=== PATIENT | male | born 1940 | race Hispanic/Latino ===

== ENCOUNTER 2017-09-16 17:40 | Inpatient (IN) | payer MEDICARE ==
--- NOTE | 2017-09-16 20:27 | Emergency Department Report ---
- General Chief Complaint: Wound/Laceration Stated Complaint: FLUID LEAKAGE FROM SURGERY Time Seen by Provider: 09/16/17 20:15 Source: patient, EMS Mode of arrival: Stretcher Limitations: No Limitations - History of Present Illness Initial Comments: Mr. Petty is a very pleasant 77-year-old with history of peripheral vascular disease. 1 month ago on August 13 patient underwent right femoral endarterectomy angioplasty with stent placement in the right femoral artery by Dr. Saurav Valentin vascular surgeon. Last night the upper portion of the wound opened up with clear fluid leaking. He denies fever. Denies pain. Denies trauma. He is yet to have follow-up. He has persisting constant chronic pain in the right foot which is unchanged. He was unable to come to the surgical appointment scheduled today due to lack of transportation. He has no other concerns. -: Sudden Location: other (groin) Context: other (surgical incision) Associated Symptoms: other (clear fluid leaking) - Related Data Home Medications Medication Instructions Recorded Confirmed Last Taken Enoxaparin [Lovenox] 80 mg SQ Q12HR 08/09/17 08/13/17 08/12/17 21:00 Esomeprazole Magnesium [Nexium] 40 mg PO DAILY 08/09/17 08/13/17 08/12/17 17:00 Hydroxychloroquine [Plaquenil] 200 mg PO BID 08/09/17 08/13/17 08/12/17 21:00 Insulin Aspart Prot/Aspart(Nf) 30 units SQ QPM 08/09/17 08/09/17 Unknown [Novolog Mix 70/30] Insulin Aspart Prot/Aspart(Nf) 35 units SQ QAM 08/09/17 08/13/17 08/12/17 09:00 [Novolog Mix 70/30] Losartan/Hydrochlorothiazide 1 each PO DAILY 08/09/17 08/13/17 08/13/17 06:00 [Losartan-Hctz 50-12.5 mg Tab] Warfarin Sodium [Coumadin] 4 mg PO DAILY 08/09/17 08/09/17 08/08/17 metFORMIN [Glucophage] 500 mg PO BID 08/09/17 08/13/17 08/11/17 17:00 oxyCODONE /ACETAMINOPHEN [Percocet 1 tab PO Q6HR PRN 08/09/17 08/09/17 Unknown 5/325] Previous Rx's Medication Instructions Recorded Last Taken Type Enoxaparin [Lovenox] 80 mg SQ Q12HR #1 syringe 08/14/17 Unknown Rx Oxycodone HCl/Acetaminophen 1 each PO Q6HR PRN #40 tablet 08/14/17 Unknown Rx [Percocet 10/325 mg] Allergies Allergy/AdvReac Type Severity Reaction Status Date / Time No Known Allergies Allergy Verified 09/16/17 17:53 ED Review of Systems ROS: Stated complaint: FLUID LEAKAGE FROM SURGERY Other details as noted in HPI Comment: All other systems reviewed and negative Constitutional: no symptoms reported Respiratory: denies: cough Cardiovascular: denies: chest pain ED Past Medical Hx - Past Medical History Hx Hypertension: Yes Hx Heart Attack/AMI: Yes Hx Diabetes: Yes Hx GERD: Yes - Surgical History Hx Coronary Stent: Yes - Social History Smoking Status: Never Smoker Substance Use Type: None - Medications Home Medications: Home Medications Medication Instructions Recorded Confirmed Last Taken Type Enoxaparin [Lovenox] 80 mg SQ Q12HR 08/09/17 08/13/17 08/12/17 21:00 History Esomeprazole Magnesium [Nexium] 40 mg PO DAILY 08/09/17 08/13/17 08/12/17 17:00 History Hydroxychloroquine [Plaquenil] 200 mg PO BID 08/09/17 08/13/17 08/12/17 21:00 History Insulin Aspart Prot/Aspart(Nf) 30 units SQ QPM 08/09/17 08/09/17 Unknown History [Novolog Mix 70/30] Insulin Aspart Prot/Aspart(Nf) 35 units SQ QAM 08/09/17 08/13/17 08/12/17 09:00 History [Novolog Mix 70/30] Losartan/Hydrochlorothiazide 1 each PO DAILY 08/09/17 08/13/17 08/13/17 06:00 History [Losartan-Hctz 50-12.5 mg Tab] Warfarin Sodium [Coumadin] 4 mg PO DAILY 08/09/17 08/09/17 08/08/17 History metFORMIN [Glucophage] 500 mg PO BID 08/09/17 08/13/17 08/11/17 17:00 History oxyCODONE /ACETAMINOPHEN [Percocet 1 tab PO Q6HR PRN 08/09/17 08/09/17 Unknown History 5/325] Enoxaparin [Lovenox] 80 mg SQ Q12HR #1 syringe 08/14/17 Unknown Rx Oxycodone HCl/Acetaminophen 1 each PO Q6HR PRN #40 tablet 08/14/17 Unknown Rx [Percocet 10/325 mg] ED Physical Exam - General Limitations: No Limitations General appearance: alert, in no apparent distress - Head Head exam: Present: atraumatic, normocephalic - Eye Eye exam: Present: normal appearance - ENT ENT exam: Present: normal exam, normal orophraynx, mucous membranes moist - Neck Neck exam: Present: normal inspection. Absent: tenderness, meningismus - Respiratory Respiratory exam: Present: normal lung sounds bilaterally. Absent: respiratory distress, wheezes, rales, rhonchi - Cardiovascular Cardiovascular Exam: Present: regular rate, normal rhythm, normal heart sounds. Absent: bradycardia, tachycardia, irregular rhythm, rubs, gallop - GI/Abdominal GI/Abdominal exam: Present: soft. Absent: distended, tenderness, guarding, rebound - Neurological Exam Neurological exam: Present: alert, oriented X3 - Psychiatric Psychiatric exam: Present: normal affect, normal mood - Skin Skin exam: Present: other (right groin surgical wound vertical incidsion 1 cm wound dehisicence with copious clear serous fluid, fat exposure, no bleeding no purulence) - Other Other exam information: Nurse was able to Doppler right dorsalis pedis pulse. 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 ED Course Vital Signs 09/16/17 09/16/17 17:53 19:45 Temperature 98.2 F Pulse Rate 94 H Respiratory 16 16 Rate Blood Pressure 150/80 O2 Sat by Pulse 96 96 Oximetry ED Medical Decision Making - Lab Data Result diagrams: 09/16/17 21:14 09/16/17 21:14 - Medical Decision Making Mr. Petty is one month s/p right femoral artery endarterectomy and angioplasty. I spoke with the surgeon Dr. Saurav Valentin who advised that he will need to surgically revise the wound. Patient has a special patch in the area. Dr. Valentin explained that he will be at high risk for infection considering patient has been not reliable with follow-up. Dr. Valentin will arrange for patient to be admitted to the hospital. I explained to the patient and his relative of the need for surgery and admission. I reviewed labs. Patient takes warfarin. Nurse asked me to address hypertension. I ordered amlodipine. Critical care attestation.: If time is entered above; I have spent that time in minutes in the direct care of this critically ill patient, excluding procedure time. ED Disposition Clinical Impression: Wound dehiscence Disposition: OP ADMIT IP TO THIS HOSP Is pt being admited?: Yes Does the pt Need Aspirin: No Condition: Stable Time of Disposition: 21:00
[2017-09-16] MEDS ORDERED: SODIUM CHLORIDE FLUSH SYRINGE 10 ML IV PRN (20:57)
[2017-09-16] MEDS ORDERED: NORCO 5/325 PO PRN (20:57)
[2017-09-16] MEDS ORDERED: ZOFRAN IV PRN (20:57)
[2017-09-16] MEDS ORDERED: ANCEF/STERILE WATER 2 GM/20 ML 2 GM/20 ML SYRINGE IV NR (21:00)
[2017-09-16] MEDS ORDERED: HumaLOG SUB-Q ONE ×2 (21:06→21:51)
[2017-09-16 21:29] LABS: Basophils # (Auto) 0.1 K/mm3 (0.0-0.1); Basophils % (Auto) 0.9 % (0.0-1.8); Eosinophils # (Auto) 0.4 K/mm3 (0.0-0.4); Eosinophils % (Auto) 5.4 % (0.0-4.3); Hematocrit 35.7 % (35.5-45.6); Hemoglobin 11.6 gm/dl (11.8-15.2); Lymphocytes # (Auto) 1.2 K/mm3 (1.2-5.4); Lymphocytes % (Auto) 16.2 % (13.4-35.0); Mean Corpuscular HGB Conc 33 % (32-34); Mean Corpuscular Hemoglobin 27 pg (28-32); Mean Corpuscular Volume 82 fl (84-94); Monocytes # (Auto) 0.7 K/mm3 (0.0-0.8); Monocytes % (Auto) 9.5 % (0.0-7.3); Platelet Count 254 K/mm3 (140-440); Red Blood Count 4.34 M/mm3 (3.65-5.03); Red Cell Distribution Width 15.2 % (13.2-15.2)
[2017-09-16 21:39] LABS: Calcium 9.3 mg/dL (8.4-10.2)
[2017-09-16 21:40] LABS: INR 1.9 (0.87-1.13)
[2017-09-16 21:41] LABS: Partial Thromboplastin Time 34.5 Sec. (24.2-36.6)
[2017-09-16] MEDS ORDERED: NORVASC PO SCH (22:09)
[2017-09-16] MEDS ORDERED: NORVASC ONE (22:16)
[2017-09-16] MEDS ORDERED: NORVASC PO ONE (22:20)
[2017-09-16] MEDS: SODIUM CHLORIDE FLUSH SYRINGE 10 ML IV SCH (22:24)
[2017-09-16] MEDS ORDERED: NORCO 5/325 ONE (22:46)
[2017-09-17] MEDS: LOVENOX SUB-Q SCH ×2 (01:10→10:06)
[2017-09-17] MEDS: GLUCOPHAGE PO SCH ×3 (01:50→17:49)
[2017-09-17] MEDS: MORPHINE IV PRN ×2 (02:22→06:54)
[2017-09-17] MEDS ORDERED: D50W (25GM) Syringe IV PRN (02:31)
[2017-09-17] MEDS: HumaLOG SUB-Q SCH ×6 (05:18→22:50)
--- NOTE | 2017-09-17 08:42 | History and Physical Report ---
History of Present Illness Date of examination: 09/17/17 Date of admission: 09/16/17 20:57 Chief complaint: Drainage from right groin wound History of present illness: The patient is 77-year-old male with a history of peripheral vascular disease who recently underwent a right femoral endarterectomy with Dacron patch angioplasty. He also had atherectomy and angioplasty with stent of his SFA and popliteal artery on the right. He initially did well but was unable to follow- up in the outpatient setting for his postoperative visit secondary to transportation issues. He states that approximately 2 days ago he began to note clear yellow drainage from his right groin. This became fairly copious and he called 911 yesterday and was brought to the emergency department at [facility]. Upon evaluation he was found to be afebrile and the emergency room physician noted him to have copious amounts of serous drainage from his right groin incision. There were no other findings at the time. I advised him to have him admitted for possible excision of his patch as I was worried that this may become infected since he was unreliable with follow. On my examination this morning the patient denies any fever or chills. He states that he has some pain in the tips of toes 2 through 4 on his right foot however the remainder of the foot has no pain. He has no other complaints at this time. Past History Past Medical History: atrial fib, CAD, GERD, hypertension, hyperlipidemia, PVD, other (prostate cancer, venous insufficiency, carotid stenosis) Past Surgical History: valve replacement (AVR 2006), Other (Right femoral endarterectomy with patch angioplasty and SFA/Popliteal atherectomy with stent, hypospadias repair, prostate surgery, back surgery) Social history: smoking Family history: no significant family history Medications and Allergies Allergies Allergy/AdvReac Type Severity Reaction Status Date / Time No Known Allergies Allergy Verified 09/16/17 17:53 Home Medications Medication Instructions Recorded Confirmed Last Taken Type Enoxaparin [Lovenox] 80 mg SQ Q12HR 08/09/17 09/17/17 08/12/17 21:00 History Esomeprazole Magnesium [Nexium] 40 mg PO DAILY 08/09/17 09/17/17 08/12/17 17:00 History Hydroxychloroquine [Plaquenil] 200 mg PO BID 08/09/17 09/17/17 09/16/17 10:00 History Insulin Aspart Prot/Aspart(Nf) 30 units SQ QPM 08/09/17 09/17/17 09/15/17 22:00 History [Novolog Mix 70/30] Insulin Aspart Prot/Aspart(Nf) 35 units SQ QAM 08/09/17 09/17/17 09/16/17 10:00 History [Novolog Mix 70/30] Losartan/Hydrochlorothiazide 1 each PO DAILY 08/09/17 09/17/17 09/16/17 10:00 History [Losartan-Hctz 50-12.5 mg Tab] Warfarin Sodium [Coumadin] 4 mg PO DAILY 08/09/17 09/17/17 09/16/17 10:00 History metFORMIN [Glucophage] 500 mg PO BID 08/09/17 09/17/17 09/16/17 10:00 History oxyCODONE /ACETAMINOPHEN [Percocet 1 tab PO Q6HR PRN 08/09/17 09/17/17 09/15/17 22:00 History 5/325] Enoxaparin [Lovenox] 80 mg SQ Q12HR #1 syringe 08/14/17 09/17/17 Unknown Rx Oxycodone HCl/Acetaminophen 1 each PO Q6HR PRN #40 tablet 08/14/17 09/17/17 Rx [Percocet 10/325 mg] Cilostazol 50 mg PO BID 09/16/17 09/16/17 09/16/17 22:00 History Active Meds: Active Medications Acetaminophen (Tylenol) 650 mg PO Q4H PRN PRN Reason: Pain MILD(1-3)/Fever >100.5/CRESPO Acetaminophen/Hydrocodone Bitart ([place] 5/325) 2 each PO Q6H PRN PRN Reason: Pain, Moderate (4-6) Last Admin: 09/16/17 22:52 Dose: 2 each Dextrose (D50w (25gm) Syringe) 50 ml IV PRN PRN PRN Reason: Hypoglycemia Enoxaparin Sodium (Lovenox) 80 mg 1 mg/kg (80 mg) SUB-Q Q12HR [facility] Last Admin: 09/17/17 01:10 Dose: Not Given Hydrochlorothiazide (Hctz) 12.5 mg PO QDAY [facility] Hydroxychloroquine Sulfate (Plaquenil) 200 mg PO BID [facility] Cefazolin Sodium (Ancef/Sterile Water 2 Gm/20 Ml) 2 gm in 20 mls @ 80 mls/hr IV PREOP NR; Protocol Stop: 09/17/17 23:59 Insulin Human Isoph/Insulin Regular (Humulin 70/30) 35 unit SUB-Q QAMDIAB [facility] Insulin Human Isoph/Insulin Regular (Humulin 70/30) 30 unit SUB-Q QPMDIAB [facility] Insulin Human Lispro (Humalog) 0 unit SUB-Q Q4HR [facility]; Protocol Last Admin: 09/17/17 07:30 Dose: 1 unit Losartan Potassium (Cozaar) 50 mg PO QDAY [facility] Metformin HCl (Glucophage) 500 mg PO BIDDIAB [facility] Last Admin: 09/17/17 01:50 Dose: 500 mg Miscellaneous Medication (Cilostazol) 50 mg PO BID [facility] Morphine Sulfate (Morphine) 2 mg IV Q4H PRN PRN Reason: Pain, Moderate (4-6) Last Admin: 09/17/17 06:54 Dose: 2 mg Ondansetron HCl (Zofran) 4 mg IV Q8H PRN PRN Reason: Nausea And Vomiting Pantoprazole Sodium (Protonix) 40 mg PO DAILY [facility] Sodium Chloride (Sodium Chloride Flush Syringe 10 Ml) 10 ml IV PRN PRN PRN Reason: LINE FLUSH Sodium Chloride (Sodium Chloride Flush Syringe 10 Ml) 10 ml IV BID [facility] Last Admin: 09/16/17 22:24 Dose: 10 ml Review of Systems All systems: negative Exam - Constitutional Vitals: Temp Pulse Resp BP Pulse Ox 97.9 F 74 18 137/67 91 09/17/17 07:47 09/17/17 07:47 09/17/17 07:47 09/17/17 07:47 09/17/17 07:47 General appearance: Present: no acute distress - EENT Eyes: Present: PERRL - Neck Neck: Present: supple - Respiratory Respiratory effort: normal - Cardiovascular Rhythm: irregularly irregular - Extremities Extremities: no ischemia, No edema, normal temperature Extremity abnormal: other (right groin incision without evidence of cellulitis, there is approximately 1 cm dehiscence of the superior aspect of the wound with copious drainage of serous fluid no purulence noted) - Abdominal General gastrointestinal: Present: soft, non-tender, non-distended Male genitourinary: Present: deferred - Rectal Rectal Exam: deferred - Musculoskeletal Musculoskeletal: strength equal bilaterally Results - Labs CBC & Chem 7: 09/16/17 21:14 09/16/17 21:14 Labs: Abnormal lab results 09/16/17 09/16/17 09/16/17 Range/Units 21:14 21:14 21:14 Hgb 11.6 L (11.8-15.2) gm/dl MCV 82 L (84-94) fl MCH 27 L (28-32) pg [place] % (Auto) 9.5 H (0.0-7.3) % Eos % (Auto) 5.4 H (0.0-4.3) % PT 23.0 H (12.2-14.9) Sec. INR 1.90 H (0.87-1.13) Sodium 136 L (137-145) mmol/L BUN 21 H (9-20) mg/dL Glucose 153 H (75-100) mg/dL POC Glucose (70-105) 09/16/17 09/17/17 09/17/17 Range/Units 21:53 05:21 06:46 Hgb (11.8-15.2) gm/dl MCV (84-94) fl MCH (28-32) pg [place] % (Auto) (0.0-7.3) % Eos % (Auto) (0.0-4.3) % PT (12.2-14.9) Sec. INR (0.87-1.13) Sodium (137-145) mmol/L BUN (9-20) mg/dL Glucose (75-100) mg/dL POC Glucose 158 H 125 H 174 H (70-105) Assessment and Plan The patient is a 77-year-old male with a history of progressive disease status post revascularization of the right lower extremity. 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 Given his poor compliance with follow-up and and the underlying patch I'm concerned with the risk of patch infection. I think that the patient would benefit from exploration of the groin and possible excision of the patch with replacement of a vein patch. Additionally he will require a sartorius flap coverage and possible VAC placement. If I can find the lymphatic I will ligate the lymphatic and possibly close the incision over a drain however finding the the area of lymphatic drainage is typically difficult. I have discussed this with the patient and he is awaiting arrival of his family. I will discuss this with the family when they arrive and plan to proceed with operation today.
--- NOTE | 2017-09-17 09:03 | Progress Note ---
Hospitalist Physical - Constitutional Vitals: Temp Pulse Resp BP Pulse Ox 97.9 F 74 18 137/67 91 09/17/17 07:47 09/17/17 07:47 09/17/17 07:47 09/17/17 07:47 09/17/17 07:47 Results - Labs CBC & Chem 7: 09/16/17 21:14 09/16/17 21:14 Labs: Laboratory Last Values WBC 7.6 K/mm3 (4.5-11.0) 09/16/17 21:14 RBC 4.34 M/mm3 (3.65-5.03) 09/16/17 21:14 Hgb 11.6 gm/dl (11.8-15.2) L 09/16/17 21:14 Hct 35.7 % (35.5-45.6) 09/16/17 21:14 MCV 82 fl (84-94) L 09/16/17 21:14 MCH 27 pg (28-32) L 09/16/17 21:14 MCHC 33 % (32-34) 09/16/17 21:14 RDW 15.2 % (13.2-15.2) 09/16/17 21:14 Plt Count 254 K/mm3 (140-440) 09/16/17 21:14 Lymph % (Auto) 16.2 % (13.4-35.0) 09/16/17 21:14 [place] % (Auto) 9.5 % (0.0-7.3) H 09/16/17 21:14 Eos % (Auto) 5.4 % (0.0-4.3) H 09/16/17 21:14 Baso % (Auto) 0.9 % (0.0-1.8) 09/16/17 21:14 Lymph # 1.2 K/mm3 (1.2-5.4) 09/16/17 21:14 [place] # 0.7 K/mm3 (0.0-0.8) 09/16/17 21:14 Eos # 0.4 K/mm3 (0.0-0.4) 09/16/17 21:14 Baso # 0.1 K/mm3 (0.0-0.1) 09/16/17 21:14 Seg Neutrophils % 68.0 % (40.0-70.0) 09/16/17 21:14 Seg Neutrophils # 5.2 K/mm3 (1.8-7.7) 09/16/17 21:14 PT 23.0 Sec. (12.2-14.9) H 09/16/17 21:14 INR 1.90 (0.87-1.13) H 09/16/17 21:14 APTT 34.5 Sec. (24.2-36.6) 09/16/17 21:14 Sodium 136 mmol/L (137-145) L 09/16/17 21:14 Potassium 4.1 mmol/L (3.6-5.0) 09/16/17 21:14 Chloride 99.0 mmol/L (98-107) 09/16/17 21:14 Carbon Dioxide 25 mmol/L (22-30) 09/16/17 21:14 Anion Gap 16 mmol/L 09/16/17 21:14 BUN 21 mg/dL (9-20) H 09/16/17 21:14 Creatinine 1.4 mg/dL (0.8-1.5) 09/16/17 21:14 Estimated GFR 49 ml/min 09/16/17 21:14 BUN/Creatinine Ratio 15 % 09/16/17 21:14 Glucose 153 mg/dL (75-100) H 09/16/17 21:14 POC Glucose 174 (70-105) H 09/17/17 06:46 Calcium 9.3 mg/dL (8.4-10.2) 09/16/17 21:14
--- NOTE | 2017-09-17 09:05 | Consultation ---
History of Present Illness - Reason for Consult Consult date: 09/17/17 Medical Management Requesting physician: SAURAV VALENTIN - History of Present Illness Patient is 77-year-old male man with a history of peripheral vascular disease, atrial fib, CAD, HTN, HLD, GERD. He recently underwent a right femoral endarterectomy with Dacron patch angioplasty. He also had atherectomy and angioplasty with stent of his SFA and popliteal artery on the right. Patient presented to ED via EMS with complaints of clear yellow drainage from his R groin. Drainage started two days prior to admission and patient denies any fever or chills. Vascular Surgeon Dr Saurav Valentin was consulted and recommended surgical intervention at this time. Internal Medicine consult was placed for medical management. Past History Past Medical History: atrial fib, CAD, GERD, hypertension, hyperlipidemia, PVD, other (prostate cancer, venous insufficiency, carotid stenosis) Past Surgical History: valve replacement (AVR 2006), Other (Right femoral endarterectomy with patch angioplasty and SFA/Popliteal atherectomy with stent, hypospadias repair, prostate surgery, back surgery) Social history: smoking Family history: no significant family history Medications and Allergies Allergies Allergy/AdvReac Type Severity Reaction Status Date / Time No Known Allergies Allergy Verified 09/16/17 17:53 Home Medications Medication Instructions Recorded Confirmed Last Taken Type Enoxaparin [Lovenox] 80 mg SQ Q12HR 08/09/17 09/17/17 08/12/17 21:00 History Esomeprazole Magnesium [Nexium] 40 mg PO DAILY 08/09/17 09/17/17 08/12/17 17:00 History Hydroxychloroquine [Plaquenil] 200 mg PO BID 08/09/17 09/17/17 09/16/17 10:00 History Insulin Aspart Prot/Aspart(Nf) 30 units SQ QPM 08/09/17 09/17/17 09/15/17 22:00 History [Novolog Mix 70/30] Insulin Aspart Prot/Aspart(Nf) 35 units SQ QAM 08/09/17 09/17/17 09/16/17 10:00 History [Novolog Mix 70/30] Losartan/Hydrochlorothiazide 1 each PO DAILY 08/09/17 09/17/17 09/16/17 10:00 History [Losartan-Hctz 50-12.5 mg Tab] Warfarin Sodium [Coumadin] 4 mg PO DAILY 08/09/17 09/17/17 09/16/17 10:00 History metFORMIN [Glucophage] 500 mg PO BID 08/09/17 09/17/17 09/16/17 10:00 History oxyCODONE /ACETAMINOPHEN [Percocet 1 tab PO Q6HR PRN 08/09/17 09/17/17 09/15/17 22:00 History 5/325] Enoxaparin [Lovenox] 80 mg SQ Q12HR #1 syringe 08/14/17 09/17/17 Unknown Rx Oxycodone HCl/Acetaminophen 1 each PO Q6HR PRN #40 tablet 08/14/17 09/17/17 Rx [Percocet 10/325 mg] Cilostazol 50 mg PO BID 09/16/17 09/16/17 09/16/17 22:00 History Active Meds: Active Medications Acetaminophen (Tylenol) 650 mg PO Q4H PRN PRN Reason: Pain MILD(1-3)/Fever >100.5/CRESPO Acetaminophen/Hydrocodone Bitart ([place] 5/325) 2 each PO Q6H PRN PRN Reason: Pain, Moderate (4-6) Last Admin: 09/16/17 22:52 Dose: 2 each Dextrose (D50w (25gm) Syringe) 50 ml IV PRN PRN PRN Reason: Hypoglycemia Enoxaparin Sodium (Lovenox) 80 mg 1 mg/kg (80 mg) SUB-Q Q12HR [facility] Last Admin: 09/17/17 01:10 Dose: Not Given Hydrochlorothiazide (Hctz) 12.5 mg PO QDAY [facility] Hydroxychloroquine Sulfate (Plaquenil) 200 mg PO BID [facility] Cefazolin Sodium (Ancef/Sterile Water 2 Gm/20 Ml) 2 gm in 20 mls @ 80 mls/hr IV PREOP NR; Protocol Stop: 09/17/17 23:59 Insulin Human Isoph/Insulin Regular (Humulin 70/30) 35 unit SUB-Q QAMDIAB [facility] Insulin Human Isoph/Insulin Regular (Humulin 70/30) 30 unit SUB-Q QPMDIAB [facility] Insulin Human Lispro (Humalog) 0 unit SUB-Q Q4HR [facility]; Protocol Last Admin: 09/17/17 07:30 Dose: 1 unit Losartan Potassium (Cozaar) 50 mg PO QDAY [facility] Metformin HCl (Glucophage) 500 mg PO BIDDIAB [facility] Last Admin: 09/17/17 01:50 Dose: 500 mg Miscellaneous Medication (Cilostazol) 50 mg PO BID [facility] Morphine Sulfate (Morphine) 2 mg IV Q4H PRN PRN Reason: Pain, Moderate (4-6) Last Admin: 09/17/17 06:54 Dose: 2 mg Ondansetron HCl (Zofran) 4 mg IV Q8H PRN PRN Reason: Nausea And Vomiting Pantoprazole Sodium (Protonix) 40 mg PO DAILY [facility] Sodium Chloride (Sodium Chloride Flush Syringe 10 Ml) 10 ml IV PRN PRN PRN Reason: LINE FLUSH Sodium Chloride (Sodium Chloride Flush Syringe 10 Ml) 10 ml IV BID [facility] Last Admin: 09/16/17 22:24 Dose: 10 ml Review of Systems All systems: negative Exam - Physical Exam Narrative exam: - EENT Eyes: Present: PERRL, EOMI - Neck Neck: Present: supple, trachea midline - Respiratory Respiratory effort: normal, CTAB - Cardiovascular Rhythm: irregularly irregular, present S1, S2, absent rubs, clicks - Extremities Extremities: no ischemia, No edema, normal temperature Extremity abnormal: other (right groin with wound vac) - Abdominal General gastrointestinal: Present: soft, non-tender, non-distended Male genitourinary: Present: deferred - Rectal Rectal Exam: deferred - Musculoskeletal Musculoskeletal: strength equal bilaterally - Constitutional Vitals: Temp Pulse Resp BP Pulse Ox 97.9 F 74 18 137/67 91 09/17/17 07:47 09/17/17 07:47 09/17/17 07:47 09/17/17 07:47 09/17/17 07:47 Results - Labs CBC & Chem 7: 09/16/17 21:14 09/16/17 21:14 Labs: Abnormal lab results 09/16/17 09/16/17 09/16/17 Range/Units 21:14 21:14 21:14 Hgb 11.6 L (11.8-15.2) gm/dl MCV 82 L (84-94) fl MCH 27 L (28-32) pg [place] % (Auto) 9.5 H (0.0-7.3) % Eos % (Auto) 5.4 H (0.0-4.3) % PT 23.0 H (12.2-14.9) Sec. INR 1.90 H (0.87-1.13) Sodium 136 L (137-145) mmol/L BUN 21 H (9-20) mg/dL Glucose 153 H (75-100) mg/dL POC Glucose (70-105) 09/16/17 09/17/17 09/17/17 Range/Units 21:53 05:21 06:46 Hgb (11.8-15.2) gm/dl MCV (84-94) fl MCH (28-32) pg [place] % (Auto) (0.0-7.3) % Eos % (Auto) (0.0-4.3) % PT (12.2-14.9) Sec. INR (0.87-1.13) Sodium (137-145) mmol/L BUN (9-20) mg/dL Glucose (75-100) mg/dL POC Glucose 158 H 125 H 174 H (70-105) Assessment and Plan - Patient Problems (1) PVD (peripheral vascular disease) Current Visit: Yes Status: Acute Plan to address problem: s/p 1.Excision of Right Femoral PTFE Patch And Repair with Right Greater Saphenous Vein 2. Coverage of Right Femoral Artery with Sartorius Muscle Flap 3. Wound VAC Placement (Wound Measures 17 x 4 x 2 cm) Patient will continue Pletal, supportive care (2) Atrial fibrillation Current Visit: Yes Status: Acute Plan to address problem: Anticoagulated with Warfarin, rate is controlled (3) Insulin dependent diabetes mellitus Current Visit: Yes Status: Acute Plan to address problem: ADA diet, accu checks achs, ssi, continue coverage (4) HTN (hypertension) Current Visit: Yes Status: Acute Plan to address problem: Continue at home antihypertensives (5) GERD (gastroesophageal reflux disease) Current Visit: Yes Status: Acute Plan to address problem: Continue Protonix (6) DVT prophylaxis Current Visit: Yes Status: Acute Plan to address problem: Patient on Warfarin and Lovenox
[2017-09-17] MEDS ORDERED: ASPART SQ SCH (10:00)
[2017-09-17] MEDS ORDERED: INSULIN ASPART PROT SQ SCH (10:00)
[2017-09-17] MEDS ORDERED: NON-FORMULARY (Losartan/Hydrochlorothiazide [Losartan-Hctz 50-12.5 Mg Tab] 1 EACH) PO SCH (10:00)
[2017-09-17] MEDS ORDERED: NON-FORMULARY (Esomeprazole Magnesium [Nexium] 40 MG) PO SCH (10:00)
[2017-09-17] MEDS: PLAQUENIL PO SCH (10:04)
[2017-09-17] MEDS: HCTZ PO SCH (10:05)
[2017-09-17] MEDS: COZAAR PO SCH (10:05)
[2017-09-17] MEDS: SODIUM CHLORIDE FLUSH SYRINGE 10 ML IV SCH (10:06)
[2017-09-17] MEDS: PROTONIX PO SCH (10:06)
[2017-09-17] MEDS ORDERED: ANCEF/STERILE WATER 2 GM/20 ML 2 GM/20 ML SYRINGE IV NR (11:00)
[2017-09-17] MEDS ORDERED: NEO SYNEPHRINE/NS Syringe(OR USE) IV ONE (12:00)
[2017-09-17] MEDS ORDERED: DIPRIVAN 10 MG/ML IV ONE (12:04)
[2017-09-17] MEDS ORDERED: ZEMURON IV ONE (12:04)
[2017-09-17] MEDS ORDERED: XYLOCAINE CARDIAC IV ONE (12:04)
[2017-09-17] MEDS ORDERED: DECADRON ONE (12:04)
[2017-09-17] MEDS ORDERED: SUBLIMAZE ONE (12:04)
[2017-09-17] MEDS ORDERED: QUELICIN ONE (12:04)
[2017-09-17] MEDS ORDERED: ZOFRAN ONE ×2 (12:04→15:16)
[2017-09-17] MEDS ORDERED: ePHEDrine SULFATE ONE (12:11)
[2017-09-17] MEDS ORDERED: NACL P/F VIAL (10 ML) 0 ML ONE (12:16)
[2017-09-17] MEDS ORDERED: MARCAINE 0.5% 0 ML INFILTRATI ONE (12:16)
[2017-09-17] MEDS ORDERED: NACL 0.9% 500 ML 500 ML ONE (12:17)
[2017-09-17] MEDS ORDERED: RIFADIN ONE (12:17)
[2017-09-17] MEDS ORDERED: HEPARIN 10,000 UNITS/10 ML ONE (12:17)
--- NOTE | 2017-09-17 12:24 | Anesthesia Day of Surgery ---
Anesthesia Day of Surgery - Day of Surgery Patient Examined: Yes Patient H&P Reviewed: Yes Patient is NPO: Yes
--- NOTE | 2017-09-17 12:24 | Anesthesia Consultation ---
Anesthesia Consult and Med Hx Date of service: 09/17/17 - Airway Anesthetic Teeth Evaluation: Edentulous ROM Head & Neck: Adequate Mental/Hyoid Distance: Adequate Mallampati Class: Class II Intubation Access Assessment: Probably Good - Pre-Operative Health Status ASA Pre-Surgery Classification: ASA3 Proposed Anesthetic Plan: General - Pulmonary Hx Smoking: Yes (past hx) - Cardiovascular System Hx Hypertension: Yes Hx Coronary Artery Disease: Yes Hx Heart Attack/AMI: Yes Hx Valvular Heart Disease: Yes (s/p AVR) Hx Heart Murmur: Yes Hx Peripheral Vascular Disease: Yes - Central Nervous System Hx Psychiatric Problems: No - Gastrointestinal Hx Ulcer: Yes Hx Gastroesophageal Reflux Disease: Yes - Endocrine Hx Insulin Dependent Diabetes: Yes - Other Systems Hx Alcohol Use: Yes (occas) Hx Cancer: Yes (prostrate cancer)
[2017-09-17] MEDS ORDERED: NACL 0.9% 1000 ML 1,000 ML IV SCH (13:00)
[2017-09-17] MEDS ORDERED: HEPARIN 10,000 UNITS/10 ML 2,000 UNIT in NACL 0.9% 500 ML 500 ML IR ONE (13:09)
[2017-09-17] MEDS ORDERED: NACL 0.9% 500 ML 500 ML IV ONE (14:09)
[2017-09-17] MEDS ORDERED: NACL 0.9% IR ONE (14:10)
[2017-09-17] MEDS ORDERED: THROMBIN (BOVINE) TP ONE (15:01)
[2017-09-17] MEDS ORDERED: GELFOAM TP ONE (15:01)
[2017-09-17] MEDS ORDERED: DILAUDID ONE (15:58)
[2017-09-17] MEDS: DILAUDID IV PRN ×2 (15:59→16:15)
--- NOTE | 2017-09-17 16:04 | Operative Report ---
Operative Report Operative Report: Date of Procedure: 09/17/2017 Pre-operative Diagnosis: Right Groin Lymphocele with Exposed PTFE Femoral Patch Post-operative Diagnosis: Same Procedure(s): 1. Excision of Right Femoral PTFE Patch And Repair with Right Greater Saphenous Vein 2. Coverage of Right Femoral Artery with Sartorius Muscle Flap 3. Wound VAC Placement (Wound Measures 17 x 4 x 2 cm) Surgeon: Saurav Valentin M.D. Head Of Art: None Anesthesia: Gen. Endotracheal Anesthesia EBL: 600 mL Counts: Correct Complications: None Condition: Stable Findings: Exploration of the wound revealed the arterial patch was exposed without coverage. There was no evidence of purulence or obvious infection. Specimen: Right femoral arterial patch sent to pathology. Indication: The patient is a 77-year-old male with a history of peripheral arterial disease who underwent right femoral endarterectomy with PTFE patch closure. He did not follow-up for his postop visit however he presented to the emergency department with serous drainage from the superior aspect of the wound. There was concern for possible contamination of the patch so was felt that he would benefit from exploration of the wound and possible excision of the patch. He was given the risks, benefits, and alternative procedures and consented to the procedure. Description of Procedure: The patient was brought into the operating room and laid in supine position. After general endotracheal anesthesia was achieved he was prepped and draped in normal sterile fashion. A longitudinal incision was created to his previous incision in the right groin and upon digital exploration of his wound dehiscence my finger easily tracked down to the artery and was on top of the arterial patch making the decision to excise and replaced the patch easy. I opened the entire incision using cautery. Of note there was a significant amount of scar around the artery, likely secondary to the FloSeal however there was no evidence of purulence or infection. The patch itself was not well incorporated. I was able to gain proximal control of the common femoral artery and placed a vessel loop. Additionally I was able to control the SFA with a vessel loop however given the amount of scar around the profunda was unable to safely control the profunda branches so after systemically heparinizing the patient I use an 11 blade and Blue scissors to open the patch and placed 3 Jonny's with three-way stopcocks into the profunda branches and inflated them and like the three-way stopcocks. This controlled backbleeding from the profunda branches. I then used curved Mayos to completely excise the patch. I extended my incision distally and somewhat medially and was able to identify the saphenous vein which was somewhat small. I dissected out a long enough segment to harvest for closure of the arteriotomy and ligated the same in both proximal and distally using a 2-0 silk stitch. I then used Blue to open the vein and closed the arteriotomy using 2 6-0 Prolenes in running fashion. Prior to closing the arteriotomy I flashed the SFA and then the common femoral artery and flushed the arteriotomy using heparinized saline then deflated the 3 Jonny 's and remove them and then closed the arteriotomy. Hemostasis with on the patch was achieved with 6-0 Prolene. Once hemostasis was achieved a very released the vessel loops allowing flow into the SFA. Further hemostasis within the wound and on the patch was achieved with quick clot. Once hemostasis was achieved then mobilized the sartorius muscle on the lateral border from distally up to the anterior superior iliac spine. I then disconnected it from the anterior superior iliac spine and rotated over onto the femoral artery leaving the medial border attached to preserve the arterial supply to the muscle. I secured the proximal portion of the muscle to the anterior abdominal wall using 2-0 Vicryl in interrupted fashion. Then a test the lateral border of the muscle to the medial portion of the wound using a 2-0 Vicryl in interrupted fashion. Hemostasis within the wound was achieved with quick clot. Once hemostasis been achieved I then irrigated the wound and applied the VAC in sterile fashion and was able to achieve a seal. The patient tolerated the procedure well. All sponge, needle, and instrument counts were correct. The patient was taken to the recovery area in stable condition.
[2017-09-17] MEDS ORDERED: COUMADIN PO SCH ×2 (17:00→19:00)
[2017-09-17] MEDS: PLETAL PO SCH (17:48)
[2017-09-17] MEDS: COUMADIN PO SCH (17:49)
[2017-09-17] MEDS ORDERED: NON-FORMULARY (Insulin Aspart Prot/Aspart(Nf) 30 UNITS) SQ SCH (18:00)
[2017-09-17] MEDS: TYLENOL PO PRN (19:36)
[2017-09-17] MEDS ORDERED: NORVASC PO ONE (22:13)
[2017-09-17 23:14] LABS: Hematocrit 37.8 % (35.5-45.6); Hemoglobin 11.9 gm/dl (11.8-15.2)
[2017-09-18] MEDS: PLAQUENIL PO SCH ×4 (00:37→21:34)
[2017-09-18] MEDS: LOVENOX SUB-Q SCH ×2 (00:37→10:23)
[2017-09-18] MEDS: PERCOCET 5/325 PO PRN ×5 (00:38→23:08)
[2017-09-18] MEDS: SODIUM CHLORIDE FLUSH SYRINGE 10 ML IV SCH ×3 (02:21→22:03)
[2017-09-18] MEDS: PLETAL PO SCH ×3 (02:22→21:34)
[2017-09-18] MEDS: HumaLOG SUB-Q SCH ×6 (02:50→21:44)
[2017-09-18 05:14] LABS: Hematocrit 32.5 % (35.5-45.6); Hemoglobin 10.8 gm/dl (11.8-15.2); Mean Corpuscular HGB Conc 33 % (32-34); Mean Corpuscular Hemoglobin 28 pg (28-32); Mean Corpuscular Volume 84 fl (84-94); Platelet Count 220 K/mm3 (140-440); Red Blood Count 3.88 M/mm3 (3.65-5.03); Red Cell Distribution Width 15.4 % (13.2-15.2)
[2017-09-18 05:26] LABS: Calcium 7.8 mg/dL (8.4-10.2)
[2017-09-18 08:10] LABS: INR 2.64 (0.87-1.13)
--- NOTE | 2017-09-18 09:48 | Progress Note ---
Assessment and Plan Patient will be transferred out of the ICU to regular bed today. He will need to begin working with physical therapy on activities of daily living. He will need a wound VAC at home. Subjective Date of service: 09/18/17 Principal diagnosis: PVD Interval history: Patient status post revision to right groin patch with muscle flap and wound VAC placement. Wound VAC is intact. Patient complains of so operative site pain. He complains of distal toe pain as well. Objective - Constitutional Vitals: Vital Signs - 12hr 09/17/17 09/17/17 09/18/17 23:00 23:51 00:01 Temperature 98.7 F Pulse Rate 81 87 Respiratory 17 7 L Rate Blood Pressure 141/73 141/73 Blood Pressure [Left] O2 Sat by Pulse 92 94 Oximetry 09/18/17 09/18/17 09/18/17 00:11 00:21 00:30 Temperature Pulse Rate 81 83 85 Respiratory 17 19 20 Rate Blood Pressure 141/73 141/73 145/74 Blood Pressure [Left] O2 Sat by Pulse 93 94 92 Oximetry 09/18/17 09/18/17 09/18/17 00:41 00:51 01:00 Temperature Pulse Rate 94 H 82 84 Respiratory 22 20 21 Rate Blood Pressure 145/74 145/74 148/74 Blood Pressure [Left] O2 Sat by Pulse 96 98 98 Oximetry 09/18/17 09/18/17 09/18/17 01:11 01:21 01:30 Temperature Pulse Rate 83 82 88 Respiratory 19 20 17 Rate Blood Pressure 148/74 148/74 163/76 Blood Pressure [Left] O2 Sat by Pulse 97 97 97 Oximetry 09/18/17 09/18/17 09/18/17 01:41 01:51 02:01 Temperature Pulse Rate 88 87 84 Respiratory 18 18 17 Rate Blood Pressure 163/76 163/76 143/61 Blood Pressure [Left] O2 Sat by Pulse 97 96 97 Oximetry 09/18/17 09/18/17 09/18/17 02:11 02:21 02:30 Temperature Pulse Rate 82 78 81 Respiratory 17 17 20 Rate Blood Pressure 148/74 148/74 157/73 Blood Pressure [Left] O2 Sat by Pulse 98 96 97 Oximetry 09/18/17 09/18/17 09/18/17 02:41 02:51 02:52 Temperature 98.4 F Pulse Rate 78 74 Respiratory 19 18 Rate Blood Pressure 143/61 143/61 Blood Pressure [Left] O2 Sat by Pulse 97 98 Oximetry 09/18/17 09/18/17 09/18/17 03:00 03:11 03:21 Temperature Pulse Rate 76 76 75 Respiratory 19 17 13 Rate Blood Pressure 164/75 164/75 164/75 Blood Pressure [Left] O2 Sat by Pulse 97 97 95 Oximetry 09/18/17 09/18/17 09/18/17 03:30 03:41 03:51 Temperature Pulse Rate 75 76 76 Respiratory 18 15 16 Rate Blood Pressure 159/67 159/67 159/67 Blood Pressure [Left] O2 Sat by Pulse 96 96 96 Oximetry 09/18/17 09/18/17 09/18/17 04:00 04:11 04:21 Temperature Pulse Rate 75 95 H 76 Respiratory 19 24 19 Rate Blood Pressure 160/73 160/73 160/73 Blood Pressure 113/44 [Left] O2 Sat by Pulse 97 98 97 Oximetry 09/18/17 09/18/17 09/18/17 04:31 04:41 04:51 Temperature Pulse Rate 81 75 86 Respiratory 16 18 18 Rate Blood Pressure 152/60 152/60 152/60 Blood Pressure [Left] O2 Sat by Pulse 97 98 95 Oximetry 09/18/17 09/18/17 09/18/17 05:01 05:11 05:21 Temperature Pulse Rate 85 82 81 Respiratory 20 13 17 Rate Blood Pressure 161/65 161/65 161/65 Blood Pressure [Left] O2 Sat by Pulse 95 93 97 Oximetry 09/18/17 09/18/17 09/18/17 05:30 05:41 05:51 Temperature Pulse Rate 79 77 77 Respiratory 18 16 16 Rate Blood Pressure 158/74 158/74 158/74 Blood Pressure [Left] O2 Sat by Pulse 97 97 97 Oximetry 09/18/17 09/18/17 09/18/17 06:00 06:11 06:21 Temperature Pulse Rate 75 75 76 Respiratory 14 15 16 Rate Blood Pressure 146/71 146/71 146/71 Blood Pressure [Left] O2 Sat by Pulse 98 96 97 Oximetry 09/18/17 09/18/17 09/18/17 06:30 06:41 06:51 Temperature Pulse Rate 74 77 75 Respiratory 18 17 16 Rate Blood Pressure 157/76 146/71 146/71 Blood Pressure [Left] O2 Sat by Pulse 98 97 98 Oximetry 09/18/17 09/18/17 09/18/17 07:00 07:11 07:21 Temperature Pulse Rate 77 75 80 Respiratory 16 15 16 Rate Blood Pressure 158/80 158/80 158/80 Blood Pressure [Left] O2 Sat by Pulse 97 96 97 Oximetry 09/18/17 09/18/17 09/18/17 07:30 07:41 07:51 Temperature Pulse Rate 78 77 77 Respiratory 16 16 14 Rate Blood Pressure 148/73 148/73 148/73 Blood Pressure [Left] O2 Sat by Pulse 97 98 96 Oximetry 09/18/17 09/18/17 08:00 08:01 Temperature 98.7 F Pulse Rate 87 Respiratory 19 Rate Blood Pressure 153/79 Blood Pressure [Left] O2 Sat by Pulse 97 Oximetry General appearance: Present: no acute distress - EENT Eyes: PERRL, EOM intact ENT: hearing intact - Neck Neck: supple, normal ROM - Respiratory Respiratory effort: normal - Breasts Breasts: deferred Extremities: abnormal - Gastrointestinal General gastrointestinal: Present: deferred Rectal Exam: deferred - Genitourinary Male genitourinary: deferred - Psychiatric Psychiatric: appropriate mood/affect, cooperative - Labs CBC & Chem 7: 09/18/17 04:50 09/18/17 04:50 Labs: Abnormal lab results 09/17/17 09/17/17 09/17/17 Range/Units 11:04 14:02 16:49 Hgb (11.8-15.2) gm/dl Hct (35.5-45.6) % RDW (13.2-15.2) % PT (12.2-14.9) Sec. INR (0.87-1.13) Glucose (75-100) mg/dL POC Glucose 173 H 201 H (70-105) Calcium (8.4-10.2) mg/dL Crossmatch See Detail 09/17/17 09/18/17 09/18/17 Range/Units 21:46 04:50 04:50 Hgb 10.8 L (11.8-15.2) gm/dl Hct 32.5 L (35.5-45.6) % RDW 15.4 H (13.2-15.2) % PT (12.2-14.9) Sec. INR (0.87-1.13) Glucose 162 H (75-100) mg/dL POC Glucose 157 H (70-105) Calcium 7.8 L D (8.4-10.2) mg/dL Crossmatch 09/18/17 09/18/17 Range/Units 07:26 08:46 Hgb (11.8-15.2) gm/dl Hct (35.5-45.6) % RDW (13.2-15.2) % PT 30.0 H (12.2-14.9) Sec. INR 2.64 H (0.87-1.13) Glucose (75-100) mg/dL POC Glucose 182 H (70-105) Calcium (8.4-10.2) mg/dL Crossmatch
[2017-09-18] MEDS: GLUCOPHAGE PO SCH ×2 (10:18→16:42)
[2017-09-18] MEDS: PROTONIX PO SCH (10:18)
[2017-09-18] MEDS: HCTZ PO SCH (10:18)
[2017-09-18] MEDS: COZAAR PO SCH (10:19)
--- NOTE | 2017-09-18 10:53 | Consultation ---
History of Present Illness Consult date: 09/18/17 Requesting physician: ANA GLEASON Reason for consult: other (Right Femoral endarterectomy wound dehiscence and infection; Acute Hypoxemic Resp Failure) History of present illness: PULMONARY/CCM CONSULT NOTE (Full dictation # [id number]) Please see dictated notes for full details Past History Past Medical History: atrial fib, CAD, GERD, hypertension, hyperlipidemia, PVD, other (prostate cancer, venous insufficiency, carotid stenosis) Past Surgical History: valve replacement (AVR 2006), Other (Right femoral endarterectomy with patch angioplasty and SFA/Popliteal atherectomy with stent, hypospadias repair, prostate surgery, back surgery) Social history: smoking Family history: no significant family history Medications and Allergies Allergies Allergy/AdvReac Type Severity Reaction Status Date / Time No Known Allergies Allergy Verified 09/16/17 17:53 Home Medications Medication Instructions Recorded Confirmed Last Taken Type Enoxaparin [Lovenox] 80 mg SQ Q12HR 08/09/17 09/17/17 08/12/17 21:00 History Esomeprazole Magnesium [Nexium] 40 mg PO DAILY 08/09/17 09/17/17 08/12/17 17:00 History Hydroxychloroquine [Plaquenil] 200 mg PO BID 08/09/17 09/17/17 09/16/17 10:00 History Insulin Aspart Prot/Aspart(Nf) 30 units SQ QPM 08/09/17 09/17/17 09/15/17 22:00 History [Novolog Mix 70/30] Insulin Aspart Prot/Aspart(Nf) 35 units SQ QAM 08/09/17 09/17/17 09/16/17 10:00 History [Novolog Mix 70/30] Losartan/Hydrochlorothiazide 1 each PO DAILY 08/09/17 09/17/17 09/16/17 10:00 History [Losartan-Hctz 50-12.5 mg Tab] Warfarin Sodium [Coumadin] 4 mg PO DAILY 08/09/17 09/17/17 09/16/17 10:00 History metFORMIN [Glucophage] 500 mg PO BID 08/09/17 09/17/17 09/16/17 10:00 History oxyCODONE /ACETAMINOPHEN [Percocet 1 tab PO Q6HR PRN 08/09/17 09/17/17 09/15/17 22:00 History 5/325] Enoxaparin [Lovenox] 80 mg SQ Q12HR #1 syringe 08/14/17 09/17/17 Unknown Rx Oxycodone HCl/Acetaminophen 1 each PO Q6HR PRN #40 tablet 08/14/17 09/17/17 Rx [Percocet 10/325 mg] Cilostazol 50 mg PO BID 09/16/17 09/16/17 09/16/17 22:00 History Active Meds: Active Medications Acetaminophen (Tylenol) 650 mg PO Q4H PRN PRN Reason: Pain MILD(1-3)/Fever >100.5/CRESPO Last Admin: 09/17/17 19:36 Dose: 650 mg Cilostazol (Pletal) 50 mg PO BID [facility] Last Admin: 09/18/17 02:22 Dose: Not Given Dextrose (D50w (25gm) Syringe) 50 ml IV PRN PRN PRN Reason: Hypoglycemia Docusate Sodium (Colace) 100 mg PO BID [facility] Enoxaparin Sodium (Lovenox) 80 mg 1 mg/kg (80 mg) SUB-Q Q12HR [facility] Last Admin: 09/18/17 10:23 Dose: 80 mg Hydrochlorothiazide (Hctz) 12.5 mg PO QDAY [facility] Last Admin: 09/18/17 10:18 Dose: 12.5 mg Hydroxychloroquine Sulfate (Plaquenil) 200 mg PO BID [facility] Last Admin: 09/18/17 10:18 Dose: 200 mg Sodium Chloride (Nacl 0.9% 1000 Ml) 1,000 mls @ 75 mls/hr IV DIRECT [facility] Insulin Human Isoph/Insulin Regular (Humulin 70/30) 35 unit SUB-Q QAMDIAB [facility] Last Admin: 09/17/17 10:05 Dose: Not Given Insulin Human Isoph/Insulin Regular (Humulin 70/30) 30 unit SUB-Q QPMDIAB [facility] Last Admin: 09/17/17 17:49 Dose: Not Given Insulin Human Lispro (Humalog) 0 unit SUB-Q Q4HR [facility]; Protocol Last Admin: 09/18/17 10:22 Dose: 1 unit Losartan Potassium (Cozaar) 50 mg PO QDAY [facility] Last Admin: 09/18/17 10:19 Dose: 50 mg Metformin HCl (Glucophage) 500 mg PO BIDDIAB [facility] Last Admin: 09/18/17 10:18 Dose: 500 mg Morphine Sulfate (Morphine) 2 mg IV Q4H PRN PRN Reason: Pain, Moderate (4-6) Last Admin: 09/17/17 06:54 Dose: 2 mg Ondansetron HCl (Zofran) 4 mg IV Q8H PRN PRN Reason: Nausea And Vomiting Oxycodone/Acetaminophen (Percocet 5/325) 2 tab PO Q4H PRN PRN Reason: Pain, Moderate (4-6) Last Admin: 09/18/17 10:34 Dose: 2 tab Pantoprazole Sodium (Protonix) 40 mg PO DAILY [facility] Last Admin: 09/18/17 10:18 Dose: 40 mg Sodium Chloride (Sodium Chloride Flush Syringe 10 Ml) 10 ml IV PRN PRN PRN Reason: LINE FLUSH Sodium Chloride (Sodium Chloride Flush Syringe 10 Ml) 10 ml IV BID [facility] Last Admin: 09/18/17 02:21 Dose: Not Given Warfarin Sodium (Coumadin Pharmacy To Dose) 1 each PO PKCONSULT [facility] Warfarin Sodium (Coumadin) 5 mg PO DAILY@1700 [facility] Last Admin: 09/17/17 17:49 Dose: Not Given Physical Examination Vital signs: Vital Signs Temp Pulse Resp BP Pulse Ox 98.2 F 94 H 16 150/80 96 09/16/17 17:53 09/16/17 17:53 09/16/17 17:53 09/16/17 17:53 09/16/17 17:53 Results - Laboratory Findings CBC and BMP: 09/18/17 04:50 09/18/17 04:50 PT/INR, D-dimer PT 30.0 Sec. (12.2-14.9) H 09/18/17 07:26 INR 2.64 (0.87-1.13) H 09/18/17 07:26 Abnormal lab findings: Abnormal Labs 09/16/17 09/16/17 09/16/17 21:14 21:14 21:14 Hgb 11.6 L Hct MCV 82 L MCH 27 L RDW [place] % (Auto) 9.5 H Eos % (Auto) 5.4 H PT 23.0 H INR 1.90 H Sodium 136 L BUN 21 H Glucose 153 H POC Glucose Calcium Crossmatch 09/16/17 09/17/17 09/17/17 21:53 05:21 06:46 Hgb Hct MCV MCH RDW [place] % (Auto) Eos % (Auto) PT INR Sodium BUN Glucose POC Glucose 158 H 125 H 174 H Calcium Crossmatch 09/17/17 09/17/17 09/17/17 11:04 14:02 16:49 Hgb Hct MCV MCH RDW [place] % (Auto) Eos % (Auto) PT INR Sodium BUN Glucose POC Glucose 173 H 201 H Calcium Crossmatch See Detail 09/17/17 09/18/17 09/18/17 21:46 04:50 04:50 Hgb 10.8 L Hct 32.5 L MCV MCH RDW 15.4 H [place] % (Auto) Eos % (Auto) PT INR Sodium BUN Glucose 162 H POC Glucose 157 H Calcium 7.8 L D Crossmatch 09/18/17 09/18/17 07:26 08:46 Hgb Hct MCV MCH RDW [place] % (Auto) Eos % (Auto) PT 30.0 H INR 2.64 H Sodium BUN Glucose POC Glucose 182 H Calcium Crossmatch
[2017-09-18] MEDS: COLACE PO SCH ×2 (11:59→21:34)
--- NOTE | 2017-09-18 12:55 | Vascular Lab Report ---
LOWER EXTREMITY ARTERIAL DUPLEX: REASON FOR EXAM: Right lower berg pain after revascularization. COMMENTS ON THE RIGHT: Triphasic waveforms are seen proximally. Monophasic waveforms are seen distally. 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 Scattered plaque is seen throughout. Findings are consistent with abnormal perfusion COMMENTS ON THE LEFT: Monophasic flow is seen in the posterior tibial artery anterior tibial artery distally. Flow velocities are the well into the normal range. IMPRESSION: RIGHT: Monophasic flow in the distal tibial vessels. Flow velocities are at the low normal range. LEFT:Monophasic flow is noted distally. Flow velocity throughout the low normal range.
[2017-09-18 14:06] LABS: Hematocrit 32.3 % (35.5-45.6); Hemoglobin 10.8 gm/dl (11.8-15.2)
--- NOTE | 2017-09-18 16:24 | Progress Note ---
Assessment and Plan Assessment and plan: The patient is 77-year-old male with a history of peripheral vascular disease who recently underwent a right femoral endarterectomy with Dacron patch angioplasty. He also had atherectomy and angioplasty with stent of his SFA and popliteal artery on the right. He initially did well but was unable to follow- up in the outpatient setting for his postoperative visit secondary to transportation issues. He states that approximately 2 days ago he began to note clear yellow drainage from his right groin. patient admitted by vacular surgery and did 1. Excision of Right Femoral PTFE Patch And Repair with Right Greater Saphenous Vein 2. Coverage of Right Femoral Artery with Sartorius Muscle Flap 3. Wound VAC Placement (Wound Measures 17 x 4 x 2 cm) We have been consulted for medical management. patient's medical history is significant for DM, HTN, afib on anticoagulation. patient's home medications were reconciled by vascular. Continue current management. Repeat H/H stable. Disposition: - Per vascular History Interval history: Patient was seen and evaluated this morning. Patient has minimal bleeding at the right groin. I have called vascular surgery and recommend, wound nurse to evaluate the wound vac. Hospitalist Physical - Physical exam Narrative exam: Not in cardiopulmonary distress. The patient appeared well nourished and normally developed. Vital signs as documented. Head exam is unremarkable. No scleral icterus . Neck is without jugular venous distension, thyromegaly, or carotid bruits. Lungs are clear to auscultation. Cardiac exam reveals irregular rate and Rhythm. Abdominal exam reveals normal bowel sounds, no masses, no organomegaly and no aortic enlargement. Extremities right groin bleeding. FEED MIXER: Alert and oriented 3. No focal weakness. - Constitutional Vitals: Temp Pulse Resp BP Pulse Ox 97.8 F 74 18 183/82 97 09/18/17 12:00 09/18/17 10:19 09/18/17 10:00 09/18/17 10:19 09/18/17 08:01 General appearance: Present: no acute distress Results - Labs CBC & Chem 7: 09/18/17 13:32 09/18/17 04:50 Labs: Laboratory Last Values WBC 8.5 K/mm3 (4.5-11.0) 09/18/17 04:50 RBC 3.88 M/mm3 (3.65-5.03) 09/18/17 04:50 Hgb 10.8 gm/dl (11.8-15.2) L 09/18/17 13:32 Hct 32.3 % (35.5-45.6) L 09/18/17 13:32 MCV 84 fl (84-94) 09/18/17 04:50 MCH 28 pg (28-32) 09/18/17 04:50 MCHC 33 % (32-34) 09/18/17 04:50 RDW 15.4 % (13.2-15.2) H 09/18/17 04:50 Plt Count 220 K/mm3 (140-440) 09/18/17 04:50 Lymph % (Auto) 16.2 % (13.4-35.0) 09/16/17 21:14 [place] % (Auto) 9.5 % (0.0-7.3) H 09/16/17 21:14 Eos % (Auto) 5.4 % (0.0-4.3) H 09/16/17 21:14 Baso % (Auto) 0.9 % (0.0-1.8) 09/16/17 21:14 Lymph # 1.2 K/mm3 (1.2-5.4) 09/16/17 21:14 [place] # 0.7 K/mm3 (0.0-0.8) 09/16/17 21:14 Eos # 0.4 K/mm3 (0.0-0.4) 09/16/17 21:14 Baso # 0.1 K/mm3 (0.0-0.1) 09/16/17 21:14 Seg Neutrophils % 68.0 % (40.0-70.0) 09/16/17 21:14 Seg Neutrophils # 5.2 K/mm3 (1.8-7.7) 09/16/17 21:14 PT 30.0 Sec. (12.2-14.9) H 09/18/17 07:26 INR 2.64 (0.87-1.13) H 09/18/17 07:26 APTT 34.5 Sec. (24.2-36.6) 09/16/17 21:14 Sodium 140 mmol/L (137-145) 09/18/17 04:50 Potassium 4.3 mmol/L (3.6-5.0) 09/18/17 04:50 Chloride 105.8 mmol/L (98-107) 09/18/17 04:50 Carbon Dioxide 24 mmol/L (22-30) 09/18/17 04:50 Anion Gap 15 mmol/L 09/18/17 04:50 BUN 20 mg/dL (9-20) 09/18/17 04:50 Creatinine 1.3 mg/dL (0.8-1.5) 09/18/17 04:50 Estimated GFR 54 ml/min 09/18/17 04:50 BUN/Creatinine Ratio 15 % 09/18/17 04:50 Glucose 162 mg/dL (75-100) H 09/18/17 04:50 POC Glucose 176 (70-105) H 09/18/17 12:15 Calcium 7.8 mg/dL (8.4-10.2) L D 09/18/17 04:50 Blood Type B POSITIVE 09/17/17 14:02 Antibody Screen Negative 09/17/17 14:02 Crossmatch See Detail 09/17/17 14:02
--- NOTE | 2017-09-18 16:36 | Event Note ---
Date: 09/18/17 We were notified that vac had significant amount of blood. vac was removed and pressure dressing applied by RN. H/h and viatal signs were unchanged. Patient was seen at the bedside now. Right groin dressing c/d/i. Will continue to monitor.
[2017-09-18] MEDS: COUMADIN PO SCH (16:42)
--- NOTE | 2017-09-18 23:30 | Event Note ---
Date: 09/18/17 Contacted about patient with right groin dressing saturated which occured slowly over the last few hours. Discussed with nurse to place sandbag over the right groin until the AM. Told to start NS at 50 ml/hr. Obtain CBC and contact me if Hemoglobin less than 8. Unfortunately, patient is oozing secondary to coagulopathy from warfarin secondary to prosthetic heart valve. Reversing the warfarin may be necessary but places the patient at risk for cardioembolic event. May need FFP if does not respond to sandbag or H&H less than 8.
[2017-09-18] MEDS: NACL 0.9% 1000 ML 1,000 ML IV SCH (23:41)
[2017-09-18 23:57] LABS: Basophils # (Auto) 0.1 K/mm3 (0.0-0.1); Basophils % (Auto) 0.7 % (0.0-1.8); Eosinophils # (Auto) 0.4 K/mm3 (0.0-0.4); Eosinophils % (Auto) 2.7 % (0.0-4.3); Hematocrit 32.9 % (35.5-45.6); Hemoglobin 10.6 gm/dl (11.8-15.2); Lymphocytes # (Auto) 1.6 K/mm3 (1.2-5.4); Lymphocytes % (Auto) 11.5 % (13.4-35.0); Mean Corpuscular HGB Conc 32 % (32-34); Mean Corpuscular Hemoglobin 27 pg (28-32); Mean Corpuscular Volume 84 fl (84-94); Monocytes # (Auto) 1.5 K/mm3 (0.0-0.8); Monocytes % (Auto) 11.1 % (0.0-7.3); Platelet Count 273 K/mm3 (140-440); Red Blood Count 3.95 M/mm3 (3.65-5.03)
[2017-09-19] MEDS: HumaLOG SUB-Q SCH ×6 (02:20→21:59)
[2017-09-19] MEDS: PERCOCET 5/325 PO PRN ×3 (03:16→21:57)
[2017-09-19 04:59] LABS: Hematocrit 29.3 % (35.5-45.6); Hemoglobin 9.7 gm/dl (11.8-15.2)
[2017-09-19 05:11] LABS: INR 3.73 (0.87-1.13)
[2017-09-19] MEDS ORDERED: NACL 0.9% 250ML 250 ML IV ONE (06:14)
--- NOTE | 2017-09-19 09:19 | Consultation ---
CONSULTING PHYSICIAN: Saurav Valentin MD REASON FOR CONSULTATION: 1. Infected dehisced right groin wound, status post right femoral endarterectomy, needing ICU evaluation and management after operative intervention. 2. Hypoxemic respiratory failure. CHIEF COMPLAINT AND HISTORY OF PRESENT ILLNESS: As follows, the patient is a 77 -year-old male with past medical history significant for a diagnosis of peripheral vascular disease, also tobacco use disorder without diagnosis of COPD. He underwent a right femoral endarterectomy with Dacron patch angioplasty recently. On the day of presentation, he came into the ER complaining of 2 days of yellowish drainage from his right groin. He had had trouble with transportation and so was noncompliant with outpatient followup post-discharge. The drainage became really copious on the day of presentation, 911 brought him to the Emergency Room. He was afebrile, but he was found to have an infected right groin incision with dehiscence. Vascular Surgery consult was placed. They took him into the operating room yesterday, he had an excision of the right femoral PTFE patch and repair with right greater saphenous vein. He had coverage of the right femoral artery with sartorius muscle flap and wound VAC placement. Postprocedure, he was brought into the Intensive Care Unit for further management. Estimated blood loss was about 600 meals. When I stopped by to see him, he was in the intensive care unit, lying in bed. His wound VAC was just been reexamined and appeared to have some bleeding going on around the VAC with possibility of recurring bleed; however, no bright red blood. He denied chest pains. He denied palpitations. Denied fevers, denied chills, denied nausea, vomiting or other constitutional symptoms. He admits to a 20+ pack year tobacco smoking history and seems like he continues to smoke. That really is as much of the history of this presentation as I have. PAST MEDICAL HISTORY: 1. Atrial fibrillation. 2. Peripheral vascular disease. 3. Coronary artery disease. 4. Gastroesophageal reflux disease. 5. History of hypertension. 6. History of hyperlipidemia. 7. History of prostate cancer and history of carotid stenosis. PAST SURGICAL HISTORY: He had an aortic valve replacement in 2006. He has had the right femoral endarterectomy with patch angioplasty. He has had repair of hypospadias. He has had prostate surgery and back surgery. MEDICATIONS: He was on at the time I stopped by to see were reviewed, pertinent medications include the following: Cilostazol 50 mg p.o. b.i.d., docusate sodium 100 mg p.o. b.i.d., Lovenox 80 mg subq q. 12 hours, hydrochlorothiazide 12.5 mg p.o. daily, Plaquenil 200 mg p.o. b.i.d., 70/30 insulin 35 units q.a.m. and 30 units q.p.m. He is also on insulin via sliding scale. He is on losartan 50 mg p.o. daily, metformin 500 mg p.o. b.i.d., Zofran 4 mg IV q. 8 hours p.r.n. nausea and vomiting, Protonix 40 mg p.o. daily , warfarin 5 mg p.o. daily. ALLERGIES: No known drug allergies. DIET: Well-built gentleman. Denies significant weight loss or gain preceding few weeks to months. FAMILY AND SOCIAL HISTORY: Lives in the community. He has a 20+ pack year tobacco smoking history, continues to smoke. Denies any other significant family history. Denies alcohol or illicit drug use or abuse. REVIEW OF SYSTEMS: Really unremarkable. Denies any gross hematochezia or melena. Denies gross hematuria or dysuria. No hematemesis. No hemoptysis. Denies any new leg pain. He denies any loss of sensation in his right lower extremity in particular. Denies palpitations. Denies polydipsia or polyuria. Denies heat or cold intolerance. Denied any new rash on his body. Complete 13 review of systems obtained. Pertinent positives and/or negatives as in body of history above, otherwise noncontributory. PHYSICAL EXAMINATION: VITAL SIGNS: At presentation in the Emergency Room was afebrile, temperature 98.2, pulse 94, respiratory rate 16, blood pressure 150/80, oxygen sats were 96% , inspired oxygen concentration was not recorded. He has remained afebrile since throughout. He is now 97% on 3 liters nasal cannula. GENERAL: He is an elderly looking male, looks his stated age, normocephalic, atraumatic, talking to me in full sentences, in mild respiratory distress. HEAD, EYES, EARS, NOSE AND THROAT: He is anicteric. No conjunctival erythema. Oropharynx is moist. No gross jugular venous distention, no thyromegaly, grossly no palpable lymph nodes in the supraclavicular or submandibular lymph node chains. LUNGS: Auscultation of both lung lawler, diminished bilateral breath sounds, slight inspiratory crackles in the bases posteriorly. No wheezing. HEART: Heart sounds 1 and 2 are heard at the time of my evaluation, regular rate and rhythm, but rate was controlled. A metallic click was heard over the precordium. No rubs otherwise. ABDOMEN: Soft, full, bowel sounds are positive, was nontender. No palpable hepatosplenomegaly. EXTREMITIES: Without overt digital clubbing, cyanosis, no pedal edema. The area of the right groin showed a wound VAC about 15 cm. There was ____ looking blood in the wound VAC, but it was all the way to the edges of the wound VAC and some of it was noted in the tubing of the wound VAC tube. No bright red bleeding, no pulsatile bleeding was noted. Dorsalis pedis pulses were weakly palpable. NEUROLOGIC: Pupils were equal, round, about 4 mm, reactive to light. Extraocular muscle movements were intact. He moves all 4 extremities spontaneously. He could feel sensation was intact below the area of the right groin and up to the soles of his feet. Apart from the wound VAC area, no cellulitis, no rash. LABORATORY DATA: From my review admission white cell count 7600, hemoglobin 11.6, hematocrit 35.7, platelet count was 254. INR 1.90. Serum sodium was 136 , potassium 4.1, chloride 99, bicarbonate 25, BUN 21, creatinine 1.4, glucose was 158. His hemoglobin most recent is 10.8. INR is 2.64. Micro blood cultures no growth to date. I do not have any radiographic studies for review. ASSESSMENT AND PLAN: 1. Peripheral vascular disease, status post right femoral endarterectomy with patch angioplasty. 2. Dehisced right femoral endarterectomy repair, now status post excision of the right femoral patch and repair with coverage of the right femoral artery with a sartorius muscle flap. 3. Acute hypoxemic respiratory failure. 4. Atrial fibrillation, chronic. 5. Status post aortic valve replacement and on full anticoagulation. 6. Coronary artery disease. 7. Gastroesophageal reflux disease. 8. Hypertension. 9. Hyperlipidemia. 10. History of prostate cancer. 11. Medication noncompliance. 12. History of carotid stenosis. PLAN: I have spoken with the Vascular team. They will evaluate the wounds to ensure that there is no risk of dehiscence or breakdown of the patch that was placed and no risk of acute bleeding. We will need to continue full anticoagulation for now, but watch him closely. I will go ahead and order serial H and H, just for 2 times q.4 hours as he will be transferred to telemetry. Supplemental oxygen will be continued to keep sats greater than or equal to over 90%. I will order a chest x-ray. I do feel that he is a long- term smoker, may have a touch of COPD. I will also order arterial blood gases on room air and see if he can qualify for home oxygen. I will empirically put him on Pulmicort. I will also put him on p.r.n. DuoNeb treatments. He will benefit from an outpatient pulmonary clinic evaluation. ____ medication compliance and healthcare compliance has been urged. I have spent over 10 minutes of counseling on tobacco cessation and expressed the fact that we can help if he so desires and that he will get benefited whatever time he chooses to stop. He will think about it. He will continue with his chronic home disease meds. He is appropriately on GI prophylaxis with him being on full anticoagulation. Flu and pneumonia vaccination will be addressed per protocol. He is relatively stable. We will plan to transfer him to the telemetry floor if it is okay with the vascular team after they have reevaluated him. Thank you very much for the consult. We will follow along and make further recommendations as picture progresses/becomes clearer. He is doing better at this time and hopefully continues to do so. BLANCHE
[2017-09-19] MEDS: PLAQUENIL PO SCH ×2 (10:31→21:57)
[2017-09-19] MEDS: PLETAL PO SCH ×2 (10:31→21:58)
[2017-09-19] MEDS: HCTZ PO SCH (10:31)
[2017-09-19] MEDS: PROTONIX PO SCH (10:31)
[2017-09-19] MEDS: GLUCOPHAGE PO SCH ×2 (10:31→18:40)
[2017-09-19] MEDS: COLACE PO SCH ×2 (10:32→21:57)
[2017-09-19] MEDS: COZAAR PO SCH (10:33)
[2017-09-19] MEDS: SODIUM CHLORIDE FLUSH SYRINGE 10 ML IV SCH ×2 (10:34→21:58)
--- NOTE | 2017-09-19 10:36 | Progress Note ---
Assessment and Plan Peripheral vascular disease, status post right femoral endarterectomy with patch angioplasty. Dehisced right femoral endarterectomy repair (status post excision of the right femoral patch and repair with coverage of the right femoral artery with a sartorius muscle flap. Acute hypoxemic respiratory failure. GUICHO Atrial fibrillation, chronic. Status post aortic valve replacement and on full anticoagulation. Coronary artery disease. Gastroesophageal reflux disease. Hypertension. Hyperlipidemia. History of prostate cancer. Medication noncompliance. History of carotid stenosis. - conservative volume strategies re: CMOP - get BMP - hold coumadin re: supratherapeutic INR - hold lantus for now, in view of poor appetite and relatively low glucose levels -continue metformin and monitor. -rehabilitator consult, may benefit from supplements -wound care to right groin - continue GI prophylaxis - continue supplemental oxygen to keep sats > 90% - continue bronchodilators with pulmonary hygiene per RT - vascular team managing Right groin bleed Subjective Date of service: 09/19/17 Principal diagnosis: Right Femoral endarterectomy wound dehiscence/infection; Interval history: Follow up s/p Right Groin Lymphocele with Exposed PTFE Femoral Patch 1. Excision of Right Femoral PTFE Patch And Repair with Right Greater Saphenous Vein 2. Coverage of Right Femoral Artery with Sartorius Muscle Flap 3. Wound VAC Placement (Wound Measures 17 x 4 x 2 cm) Patient was seen and examined. Vitals, labs, medications, chart reviewed. On going groin bleeding, remains hemodynamically normal. He expresses concern that every time he has to go to OR he gets very anxious. Appetite is poor. Discussed in ICU-IDT rounds Objective - Exam Narrative Exam: Not in cardiopulmonary distress, chronically ill looking The patient appeared well nourished and normally developed. Vital signs as documented. Head exam is unremarkable. No scleral icterus . Neck is without jugular venous distension, thyromegaly, or carotid bruits. Lungs are clear to auscultation. Cardiac exam reveals irregular rate , rhythm, S1,S2 no murmurs, gallops or rubs Abdominal exam reveals normal bowel sounds, no masses, no organomegaly and no aortic enlargement. Extremities right groin bleeding with swelling. 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 No focal weakness. Vital Signs - 12hr 09/18/17 09/18/17 09/18/17 22:41 22:51 23:01 Temperature Pulse Rate 101 H 97 H 100 H Respiratory 15 16 22 Rate Blood Pressure 120/12 120/12 121/50 O2 Sat by Pulse 94 94 93 Oximetry 09/18/17 09/18/17 09/18/17 23:11 23:21 23:31 Temperature 99.8 F H Pulse Rate 101 H 96 H 109 H Respiratory 11 L 17 18 Rate Blood Pressure 124/75 124/75 132/57 O2 Sat by Pulse 93 94 94 Oximetry 09/18/17 09/18/17 09/18/17 23:41 23:46 23:51 Temperature Pulse Rate 103 H 99 H 96 H Respiratory 24 13 15 Rate Blood Pressure 132/57 132/57 132/57 O2 Sat by Pulse 89 94 Oximetry 09/18/17 09/19/17 09/19/17 23:55 00:01 00:11 Temperature Pulse Rate 98 H 96 H 94 H Respiratory 12 17 15 Rate Blood Pressure 132/57 96/60 132/57 O2 Sat by Pulse 92 93 89 Oximetry 09/19/17 09/19/17 09/19/17 00:21 00:30 00:41 Temperature Pulse Rate 92 H 90 88 Respiratory 15 14 13 Rate Blood Pressure 132/57 95/62 96/60 O2 Sat by Pulse 93 93 93 Oximetry 09/19/17 09/19/17 09/19/17 00:51 01:00 01:11 Temperature Pulse Rate 87 88 94 H Respiratory 15 14 12 Rate Blood Pressure 96/60 95/62 95/62 O2 Sat by Pulse 93 92 95 Oximetry 09/19/17 09/19/17 09/19/17 01:21 01:30 01:41 Temperature Pulse Rate 90 85 88 Respiratory 13 12 11 L Rate Blood Pressure 95/62 122/68 95/62 O2 Sat by Pulse 92 93 95 Oximetry 09/19/17 09/19/17 09/19/17 01:51 02:00 02:11 Temperature Pulse Rate 91 H 93 H 93 H Respiratory 13 14 12 Rate Blood Pressure 95/62 113/68 113/68 O2 Sat by Pulse 93 94 93 Oximetry 09/19/17 09/19/17 09/19/17 02:21 02:30 02:41 Temperature Pulse Rate 98 H 94 H 92 H Respiratory 17 15 10 L Rate Blood Pressure 113/68 106/64 106/64 O2 Sat by Pulse 93 92 91 Oximetry 09/19/17 09/19/17 09/19/17 02:51 03:00 03:11 Temperature Pulse Rate 95 H 91 H 94 H Respiratory 13 13 16 Rate Blood Pressure 106/64 103/61 106/64 O2 Sat by Pulse 92 93 93 Oximetry 09/19/17 09/19/17 09/19/17 03:16 03:21 03:30 Temperature 98.6 F Pulse Rate 95 H 90 Respiratory 13 15 Rate Blood Pressure 106/64 97/62 O2 Sat by Pulse 93 92 Oximetry 09/19/17 09/19/17 09/19/17 03:41 03:51 04:00 Temperature Pulse Rate 92 H 91 H 97 H Respiratory 15 14 15 Rate Blood Pressure 97/62 97/62 105/56 O2 Sat by Pulse 91 90 93 Oximetry 09/19/17 09/19/17 09/19/17 04:11 04:21 04:30 Temperature Pulse Rate 94 H 94 H 95 H Respiratory 17 15 16 Rate Blood Pressure 97/62 97/62 97/67 O2 Sat by Pulse 94 93 94 Oximetry 09/19/17 09/19/17 09/19/17 04:41 04:51 05:00 Temperature Pulse Rate 90 89 87 Respiratory 15 10 L 12 Rate Blood Pressure 105/56 105/56 96/58 O2 Sat by Pulse 93 93 93 Oximetry 09/19/17 09/19/17 09/19/17 05:11 05:21 05:30 Temperature Pulse Rate 100 H 93 H 90 Respiratory 18 11 L 10 L Rate Blood Pressure 96/58 96/58 89/59 O2 Sat by Pulse 91 91 91 Oximetry 09/19/17 09/19/17 09/19/17 05:41 05:51 06:00 Temperature Pulse Rate 90 89 93 H Respiratory 11 L 11 L 12 Rate Blood Pressure 89/59 89/59 88/47 O2 Sat by Pulse 88 93 94 Oximetry 09/19/17 09/19/17 09/19/17 06:11 06:21 08:00 Temperature 98.6 F Pulse Rate 88 96 H Respiratory 12 11 L Rate Blood Pressure 88/47 88/47 O2 Sat by Pulse 89 93 Oximetry 09/19/17 10:33 Temperature Pulse Rate 100 H Respiratory Rate Blood Pressure 102/63 O2 Sat by Pulse Oximetry CBC and BMP: 09/21/17 09:22 09/20/17 12:23 ABG, PT/INR, D-dimer: PT/INR, D-dimer PT 39.6 Sec. (12.2-14.9) H 09/19/17 04:19 INR 3.73 (0.87-1.13) H 09/19/17 04:19 Abnormal lab findings: Abnormal Labs 09/16/17 09/16/17 09/16/17 21:14 21:14 21:14 WBC Hgb 11.6 L Hct MCV 82 L MCH 27 L RDW Lymph % (Auto) Bucks % (Auto) 9.5 H Eos % (Auto) 5.4 H Bucks # Seg Neutrophils % Seg Neutrophils # PT 23.0 H INR 1.90 H Sodium 136 L BUN 21 H Glucose 153 H POC Glucose Calcium Crossmatch 09/16/17 09/17/17 09/17/17 21:53 05:21 06:46 WBC Hgb Hct MCV MCH RDW Lymph % (Auto) Bucks % (Auto) Eos % (Auto) Bucks # Seg Neutrophils % Seg Neutrophils # PT INR Sodium BUN Glucose POC Glucose 158 H 125 H 174 H Calcium Crossmatch 09/17/17 09/17/17 09/17/17 11:04 14:02 16:49 WBC Hgb Hct MCV MCH RDW Lymph % (Auto) Bucks % (Auto) Eos % (Auto) Bucks # Seg Neutrophils % Seg Neutrophils # PT INR Sodium BUN Glucose POC Glucose 173 H 201 H Calcium Crossmatch See Detail 09/17/17 09/18/17 09/18/17 21:46 04:50 04:50 WBC Hgb 10.8 L Hct 32.5 L MCV MCH RDW 15.4 H Lymph % (Auto) Bucks % (Auto) Eos % (Auto) Bucks # Seg Neutrophils % Seg Neutrophils # PT INR Sodium BUN Glucose 162 H POC Glucose 157 H Calcium 7.8 L D Crossmatch 09/18/17 09/18/17 09/18/17 07:26 08:46 12:15 WBC Hgb Hct MCV MCH RDW Lymph % (Auto) Bucks % (Auto) Eos % (Auto) Bucks # Seg Neutrophils % Seg Neutrophils # PT 30.0 H INR 2.64 H Sodium BUN Glucose POC Glucose 182 H 176 H Calcium Crossmatch 09/18/17 09/18/17 09/18/17 13:32 16:19 21:37 WBC Hgb 10.8 L Hct 32.3 L MCV MCH RDW Lymph % (Auto) Bucks % (Auto) Eos % (Auto) Bucks # Seg Neutrophils % Seg Neutrophils # PT INR Sodium BUN Glucose POC Glucose 200 H 168 H Calcium Crossmatch 09/18/17 09/19/17 09/19/17 23:35 02:18 04:19 WBC 13.5 H Hgb 10.6 L Hct 32.9 L MCV MCH 27 L RDW Lymph % (Auto) 11.5 L Bucks % (Auto) 11.1 H Eos % (Auto) Bucks # 1.5 H Seg Neutrophils % 74.0 H Seg Neutrophils # 10.0 H PT 39.6 H INR 3.73 H Sodium BUN Glucose POC Glucose 204 H Calcium Crossmatch 09/19/17 09/19/17 09/19/17 04:19 06:34 08:45 WBC Hgb 9.7 L Hct 29.3 L MCV MCH RDW Lymph % (Auto) Bucks % (Auto) Eos % (Auto) Bucks # Seg Neutrophils % Seg Neutrophils # PT INR Sodium BUN Glucose POC Glucose 172 H 156 H Calcium Crossmatch
[2017-09-19] MEDS ORDERED: SILVER NITRATE TP ONE (11:00)
[2017-09-19] MEDS ORDERED: GELFOAM TP ONE (12:03)
--- NOTE | 2017-09-19 13:24 | Consultation ---
CONSULTING PHYSICIAN: Saurav Valentin MD REASON FOR CONSULTATION: 1. Infected dehisced right groin wound, status post right femoral endarterectomy, needing ICU evaluation and management after operative intervention. 2. Hypoxemic respiratory failure. CHIEF COMPLAINT AND HISTORY OF PRESENT ILLNESS: As follows, the patient is a 77-year-old male with past medical history significant for a diagnosis of peripheral vascular disease, also tobacco use disorder without diagnosis of COPD. He underwent a right femoral endarterectomy with Dacron patch angioplasty recently. On the day of presentation, he came into the ER complaining of 2 days of yellowish drainage from his right groin. He had had trouble with transportation and so was noncompliant with outpatient followup post-discharge. The drainage became really copious on the day of presentation, 911 brought him to the Emergency Room. He was afebrile, but he was found to have an infected right groin incision with dehiscence. Vascular Surgery consult was placed. They took him into the operating room yesterday, he had an excision of the right femoral PTFE patch and repair with right greater saphenous vein. He had coverage of the right femoral artery with sartorius muscle flap and wound VAC placement. Postprocedure, he was brought into the Intensive Care Unit for further management. Estimated blood loss was about 600 meals. When I stopped by to see him, he was in the intensive care unit, lying in bed. His wound VAC was just been reexamined and appeared to have some bleeding going on around the VAC with possibility of recurring bleed; however, no bright red blood. He denied chest pains. He denied palpitations. Denied fevers, denied chills, denied nausea, vomiting or other constitutional symptoms. He admits to a 20+ pack year tobacco smoking history and seems like he continues to smoke. That really is as much of the history of this presentation as I have. PAST MEDICAL HISTORY: 1. Atrial fibrillation. 2. Peripheral vascular disease. 3. Coronary artery disease. 4. Gastroesophageal reflux disease. 5. History of hypertension. 6. History of hyperlipidemia. 7. History of prostate cancer and history of carotid stenosis. PAST SURGICAL HISTORY: He had an aortic valve replacement in 2006. He has had the right femoral endarterectomy with patch angioplasty. He has had repair of hypospadias. He has had prostate surgery and back surgery. MEDICATIONS: He was on at the time I stopped by to see were reviewed, pertinent medications include the following: Cilostazol 50 mg p.o. b.i.d., docusate sodium 100 mg p.o. b.i.d., Lovenox 80 mg subq q. 12 hours, hydrochlorothiazide 12.5 mg p.o. daily, Plaquenil 200 mg p.o. b.i.d., 70/30 insulin 35 units q.a.m. and 30 units q.p.m. He is also on insulin via sliding scale. He is on losartan 50 mg p.o. daily, metformin 500 mg p.o. b.i.d., Zofran 4 mg IV q. 8 hours p.r.n. nausea and vomiting, Protonix 40 mg p.o. daily, warfarin 5 mg p.o. daily. ALLERGIES: No known drug allergies. DIET: Well-built gentleman. Denies significant weight loss or gain preceding few weeks to months. FAMILY AND SOCIAL HISTORY: Lives in the community. He has a 20+ pack year tobacco smoking history, continues to smoke. Denies any other significant family history. Denies alcohol or illicit drug use or abuse. REVIEW OF SYSTEMS: Really unremarkable. Denies any gross hematochezia or melena. Denies gross hematuria or dysuria. No hematemesis. No hemoptysis. Denies any new leg pain. He denies any loss of sensation in his right lower extremity in particular. Denies palpitations. Denies polydipsia or polyuria. Denies heat or cold intolerance. Denied any new rash on his body. Complete 13 review of systems obtained. Pertinent positives and/or negatives as in body of history above, otherwise noncontributory. PHYSICAL EXAMINATION: VITAL SIGNS: At presentation in the Emergency Room was afebrile, temperature 98.2, pulse 94, respiratory rate 16, blood pressure 150/80, oxygen sats were 96%, inspired oxygen concentration was not recorded. He has remained afebrile since throughout. He is now 97% on 3 liters nasal cannula. GENERAL: He is an elderly looking male, looks his stated age, normocephalic, atraumatic, talking to me in full sentences, in mild respiratory distress. HEAD, EYES, EARS, NOSE AND THROAT: He is anicteric. No conjunctival erythema. Oropharynx is moist. No gross jugular venous distention, no thyromegaly, grossly no palpable lymph nodes in the supraclavicular or submandibular lymph node chains. LUNGS: Auscultation of both lung lawler, diminished bilateral breath sounds, slight inspiratory crackles in the bases posteriorly. No wheezing. HEART: Heart sounds 1 and 2 are heard at the time of my evaluation, regular rate and rhythm, but rate was controlled. A metallic click was heard over the precordium. No rubs otherwise. ABDOMEN: Soft, full, bowel sounds are positive, was nontender. No palpable hepatosplenomegaly. EXTREMITIES: Without overt digital clubbing, cyanosis, no pedal edema. The area of the right groin showed a wound VAC about 15 cm. There was oldish looking blood in the wound VAC, but it was all the way to the edges of the wound VAC and some of it was noted in the tubing of the wound VAC tube. No bright red bleeding, no pulsatile bleeding was noted. Dorsalis pedis pulses were weakly palpable. NEUROLOGIC: Pupils were equal, round, about 4 mm, reactive to light. Extraocular muscle movements were intact. He moves all 4 extremities spontaneously. He could feel sensation was intact below the area of the right groin and up to the soles of his feet. Apart from the wound VAC area, no cellulitis, no rash. LABORATORY DATA: From my review admission white cell count 7600, hemoglobin 11.6, hematocrit 35.7, platelet count was 254. INR 1.90. Serum sodium was 136, potassium 4.1, chloride 99, bicarbonate 25, BUN 21, creatinine 1.4, glucose was 158. His hemoglobin most recent is 10.8. INR is 2.64. Micro blood cultures no growth to date. I do not have any radiographic studies for review. ASSESSMENT AND PLAN: 1. Peripheral vascular disease, status post right femoral endarterectomy with patch angioplasty. 2. Dehisced right femoral endarterectomy repair, now status post excision of the right femoral patch and repair with coverage of the right femoral artery with a sartorius muscle flap. 3. Acute hypoxemic respiratory failure. 4. Atrial fibrillation, chronic. 5. Status post aortic valve replacement and on full anticoagulation. 6. Coronary artery disease. 7. Gastroesophageal reflux disease. 8. Hypertension. 9. Hyperlipidemia. 10. History of prostate cancer. 11. Medication noncompliance. 12. History of carotid stenosis. PLAN: I have spoken with the Vascular team. They will evaluate the wounds to ensure that there is no risk of dehiscence or breakdown of the patch that was placed and no risk of acute bleeding. We will need to continue full anticoagulation for now, but watch him closely. I will go ahead and order serial H and H, just for 2 times q.4 hours as he will be transferred to telemetry. Supplemental oxygen will be continued to keep sats greater than or equal to over 90%. I will order a chest x-ray. I do feel that he is a long-term smoker, may have a touch of COPD. I will also order arterial blood gases on room air and see if he can qualify for home oxygen. I will empirically put him on Pulmicort. I will also put him on p.r.n. DuoNeb treatments. He will benefit from an outpatient pulmonary clinic evaluation. Better medication compliance and healthcare compliance has been urged. I have spent over 10 minutes of counseling on tobacco cessation and expressed the fact that we can help if he so desires and that he will get benefited whatever time he chooses to stop. He will think about it. He will continue with his chronic home disease meds. He is appropriately on GI prophylaxis with him being on full anticoagulation. Flu and pneumonia vaccination will be addressed per protocol. He is relatively stable. We will plan to transfer him to the telemetry floor if it is okay with the vascular team after they have reevaluated him. Thank you very much for the consult. We will follow along and make further recommendations as picture progresses/becomes clearer. He is doing better at this time and hopefully continues to do so. JOB# [id number] TERESE/HERNAN
--- NOTE | 2017-09-19 16:46 | Progress Note ---
Assessment and Plan 77-year-old male with right-sided femoral endarterectomy and antegrade stenting complicated by lymphocele/seroma with noncompliance (no follow up) status post drainage, PTFE patch removal with placement of a vein patch, and sartorius flap. Had oozing from the site secondary to coagulopathy secondary to Coumadin use for prosthetic heart valve. Takedown dressing and cauterized with Silver nitrate area of oozing. Placed a pressure bandage over the site. Discontinue Coumadin. Will plan to reassess site tomorrow. Subjective Date of service: 09/19/17 Principal diagnosis: Right Femoral endarterectomy wound dehiscence/infection; Interval history: Took down dressing earlier today. All gauze was removed. Some clot was removed. The inferior part of the wound still had some clot and what appeared to be [place] on it. I removed the upper and mid portions of the clot. Some bleeding was encountered from the medial aspect of the wound. Pressure was held for 10 minutes and subsequently silver nitrate was used to cauterize this area. No active bleeding after pressure and cauterization. The area of bleeding was not at the site of the patch. The area of bleeding was not pulsatile. Area was then prepped again with Vaseline gauze, 4 x 4's, fluffs, and overlying pressure bandage. Dopplerable pulses in right foot. Not palpable. Objective - Constitutional Vitals: Vital Signs - 12hr 09/19/17 09/19/17 09/19/17 04:51 05:00 05:11 Temperature Pulse Rate 89 87 100 H Respiratory 10 L 12 18 Rate Blood Pressure 105/56 96/58 96/58 O2 Sat by Pulse 93 93 91 Oximetry 09/19/17 09/19/17 09/19/17 05:21 05:30 05:41 Temperature Pulse Rate 93 H 90 90 Respiratory 11 L 10 L 11 L Rate Blood Pressure 96/58 89/59 89/59 O2 Sat by Pulse 91 91 88 Oximetry 09/19/17 09/19/17 09/19/17 05:51 06:00 06:11 Temperature Pulse Rate 89 93 H 88 Respiratory 11 L 12 12 Rate Blood Pressure 89/59 88/47 88/47 O2 Sat by Pulse 93 94 89 Oximetry 09/19/17 09/19/17 09/19/17 06:21 07:00 08:00 Temperature 98.6 F Pulse Rate 96 H 87 89 Respiratory 11 L 12 15 Rate Blood Pressure 88/47 104/61 111/59 O2 Sat by Pulse 93 95 92 Oximetry 09/19/17 09/19/17 09/19/17 09:00 10:00 10:33 Temperature Pulse Rate 91 H 95 H 100 H Respiratory 13 16 Rate Blood Pressure 124/64 102/63 102/63 O2 Sat by Pulse 95 96 Oximetry 09/19/17 09/19/17 09/19/17 11:00 11:18 12:00 Temperature 97.4 F L Pulse Rate 96 H Respiratory 17 15 Rate Blood Pressure 115/66 O2 Sat by Pulse 97 Oximetry 09/19/17 09/19/17 09/19/17 12:01 13:00 14:00 Temperature Pulse Rate 106 H 100 H 92 H Respiratory 22 23 11 L Rate Blood Pressure 120/72 120/66 106/58 O2 Sat by Pulse 98 97 99 Oximetry 09/19/17 15:00 Temperature Pulse Rate 93 H Respiratory 20 Rate Blood Pressure 115/85 O2 Sat by Pulse 98 Oximetry General appearance: Present: no acute distress - EENT Eyes: EOM intact ENT: hearing intact - Respiratory Respiratory effort: normal Extremity abnormal: other (see subjective) - Psychiatric Psychiatric: appropriate mood/affect, cooperative - Labs CBC & Chem 7: 09/19/17 04:19 09/18/17 04:50 Labs: Abnormal lab results 09/18/17 09/18/17 09/19/17 Range/Units 21:37 23:35 02:18 WBC 13.5 H (4.5-11.0) K/mm3 Hgb 10.6 L (11.8-15.2) gm/dl Hct 32.9 L (35.5-45.6) % MCH 27 L (28-32) pg Lymph % (Auto) 11.5 L (13.4-35.0) % [place] % (Auto) 11.1 H (0.0-7.3) % [place] # 1.5 H (0.0-0.8) K/mm3 Seg Neutrophils % 74.0 H (40.0-70.0) % Seg Neutrophils # 10.0 H (1.8-7.7) K/mm3 PT (12.2-14.9) Sec. INR (0.87-1.13) POC Glucose 168 H 204 H (70-105) 09/19/17 09/19/17 09/19/17 Range/Units 04:19 04:19 06:34 WBC (4.5-11.0) K/mm3 Hgb 9.7 L (11.8-15.2) gm/dl Hct 29.3 L (35.5-45.6) % MCH (28-32) pg Lymph % (Auto) (13.4-35.0) % [place] % (Auto) (0.0-7.3) % [place] # (0.0-0.8) K/mm3 Seg Neutrophils % (40.0-70.0) % Seg Neutrophils # (1.8-7.7) K/mm3 PT 39.6 H (12.2-14.9) Sec. INR 3.73 H (0.87-1.13) POC Glucose 172 H (70-105) 09/19/17 09/19/17 09/19/17 Range/Units 08:45 12:44 14:34 WBC (4.5-11.0) K/mm3 Hgb (11.8-15.2) gm/dl Hct (35.5-45.6) % MCH (28-32) pg Lymph % (Auto) (13.4-35.0) % [place] % (Auto) (0.0-7.3) % [place] # (0.0-0.8) K/mm3 Seg Neutrophils % (40.0-70.0) % Seg Neutrophils # (1.8-7.7) K/mm3 PT (12.2-14.9) Sec. INR (0.87-1.13) POC Glucose 156 H 181 H 232 H (70-105)
--- NOTE | 2017-09-19 17:10 | Progress Note ---
Assessment and Plan Assessment and plan: The patient is 77-year-old male with a history of peripheral vascular disease who recently underwent a right femoral endarterectomy with Dacron patch angioplasty. He also had atherectomy and angioplasty with stent of his SFA and popliteal artery on the right. He initially did well but was unable to follow- up in the outpatient setting for his postoperative visit secondary to transportation issues. He states that approximately 2 days ago he began to note clear yellow drainage from his right groin. patient admitted by vacular surgery and did 1. Excision of Right Femoral PTFE Patch And Repair with Right Greater Saphenous Vein 2. Coverage of Right Femoral Artery with Sartorius Muscle Flap 3. Wound VAC Placement (Wound Measures 17 x 4 x 2 cm) We have been consulted for medical management. patient's medical history is significant for DM, HTN, afib on anticoagulation. patient's home medications were reconciled by vascular. Continue current management. Repeat H/H stable. Disposition: - Per vascular History Interval history: Patient was seen and evaluated this morning. Patient has minimal bleeding at the right groin. Hospitalist Physical - Physical exam Narrative exam: Not in cardiopulmonary distress. The patient appeared well nourished and normally developed. Vital signs as documented. Head exam is unremarkable. No scleral icterus . Neck is without jugular venous distension, thyromegaly, or carotid bruits. Lungs are clear to auscultation. Cardiac exam reveals irregular rate and Rhythm. Abdominal exam reveals normal bowel sounds, no masses, no organomegaly and no aortic enlargement. Extremities right groin bleeding. C[employer]IPPER: Alert and oriented 3. No focal weakness. - Constitutional Vitals: Temp Pulse Resp BP Pulse Ox 98.1 F 93 H 20 115/85 98 09/19/17 16:00 09/19/17 15:00 09/19/17 15:00 09/19/17 15:00 09/19/17 15:00 General appearance: Present: no acute distress Results - Labs CBC & Chem 7: 09/19/17 04:19 09/18/17 04:50 Labs: Laboratory Last Values WBC 13.5 K/mm3 (4.5-11.0) H 09/18/17 23:35 RBC 3.95 M/mm3 (3.65-5.03) 09/18/17 23:35 Hgb 9.7 gm/dl (11.8-15.2) L 09/19/17 04:19 Hct 29.3 % (35.5-45.6) L 09/19/17 04:19 MCV 84 fl (84-94) 09/18/17 23:35 MCH 27 pg (28-32) L 09/18/17 23:35 MCHC 32 % (32-34) 09/18/17 23:35 RDW 15.0 % (13.2-15.2) 09/18/17 23:35 Plt Count 273 K/mm3 (140-440) 09/18/17 23:35 Lymph % (Auto) 11.5 % (13.4-35.0) L 09/18/17 23:35 [place] % (Auto) 11.1 % (0.0-7.3) H 09/18/17 23:35 Eos % (Auto) 2.7 % (0.0-4.3) 09/18/17 23:35 Baso % (Auto) 0.7 % (0.0-1.8) 09/18/17 23:35 Lymph # 1.6 K/mm3 (1.2-5.4) 09/18/17 23:35 [place] # 1.5 K/mm3 (0.0-0.8) H 09/18/17 23:35 Eos # 0.4 K/mm3 (0.0-0.4) 09/18/17 23:35 Baso # 0.1 K/mm3 (0.0-0.1) 09/18/17 23:35 Seg Neutrophils % 74.0 % (40.0-70.0) H 09/18/17 23:35 Seg Neutrophils # 10.0 K/mm3 (1.8-7.7) H 09/18/17 23:35 PT 39.6 Sec. (12.2-14.9) H 09/19/17 04:19 INR 3.73 (0.87-1.13) H 09/19/17 04:19 APTT 34.5 Sec. (24.2-36.6) 09/16/17 21:14 Sodium 140 mmol/L (137-145) 09/18/17 04:50 Potassium 4.3 mmol/L (3.6-5.0) 09/18/17 04:50 Chloride 105.8 mmol/L (98-107) 09/18/17 04:50 Carbon Dioxide 24 mmol/L (22-30) 09/18/17 04:50 Anion Gap 15 mmol/L 09/18/17 04:50 BUN 20 mg/dL (9-20) 09/18/17 04:50 Creatinine 1.3 mg/dL (0.8-1.5) 09/18/17 04:50 Estimated GFR 54 ml/min 09/18/17 04:50 BUN/Creatinine Ratio 15 % 09/18/17 04:50 Glucose 162 mg/dL (75-100) H 09/18/17 04:50 POC Glucose 232 (70-105) H 09/19/17 14:34 Calcium 7.8 mg/dL (8.4-10.2) L D 09/18/17 04:50 Blood Type B POSITIVE 09/17/17 14:02 Antibody Screen Negative 09/17/17 14:02 Crossmatch See Detail 09/17/17 14:02
[2017-09-20] MEDS: HumaLOG SUB-Q SCH ×6 (02:11→22:48)
[2017-09-20 04:51] LABS: Hemoglobin 8.1 gm/dl (11.8-15.2); Mean Corpuscular HGB Conc 34 % (32-34); Mean Corpuscular Hemoglobin 27 pg (28-32); Mean Corpuscular Volume 81 fl (84-94); Platelet Count 242 K/mm3 (140-440); Red Blood Count 2.97 M/mm3 (3.65-5.03); Red Cell Distribution Width 14.9 % (13.2-15.2)
[2017-09-20 04:59] LABS: INR 3.85 (0.87-1.13)
[2017-09-20] MEDS: NACL 0.9% 1000 ML 1,000 ML IV SCH (06:24)
--- NOTE | 2017-09-20 06:33 | Consultation ---
REQUESTING PHYSICIAN: Saurav Valentin MD REASON FOR CONSULTATION: Medical management of a patient who is on preop admission for repair surgery on the surgical site in the right groin area. HISTORY OF PRESENT ILLNESS: The patient is a 77-year-old male with past history of diabetes mellitus, hypertension, mechanical valve, on Coumadin who had surgery in the right groin area with leakage of fluid from the surgical sites and the patient is presenting to the hospital for evaluation and the repair of the problem in the surgical area in the right groin. The vascular surgeon, Dr. Saurav Valentin is requesting medical management for the patient's medical conditions that include diabetes mellitus, treated with insulin, high blood pressure, coronary artery disease with history of cardiac stent and mechanical valve placement, on Coumadin, according to the patient. There is no history of fever or chills. No history of chest pain, shortness of breath, nausea, or vomiting. PAST MEDICAL HISTORY: The patient's past medical history is pertinent for hypertension, coronary artery disease, status post myocardial infarction, diabetes mellitus, gastroesophageal reflux disease. PAST SURGICAL HISTORY: Past surgical history is pertinent for coronary artery stent placement and mechanical valve placement, on Coumadin. FAMILY HISTORY: Noncontributory. SOCIAL HISTORY: The patient drinks alcohol and does not smoke cigarette currently. He used to smoke many years back and does not use illicit drugs. MEDICATIONS: The patient is on Lovenox 80 mg subcutaneous q. 12 hours, Nexium 40 mg by mouth daily, Plaquenil 200 mg by mouth twice daily, insulin 70/30, 30 units in the evening and insulin 70/30, 35 units in the morning, losartan/hydrochlorothiazide 50/12.5 mg 1 by mouth daily, Coumadin 4 mg by mouth daily, Glucophage 500 mg by mouth twice daily, Percocet 1 tablet by mouth every 6 hours, and Percocet 10/325 one by mouth every 6 hours as needed for pain. ALLERGIES: There are no known drug allergies. REVIEW OF SYSTEMS: CONSTITUTIONAL: There is no fever, no chills, no diaphoresis. HEENT: There is no headache or sore throat. CARDIOVASCULAR SYSTEM: There is no chest pain or orthopnea. RESPIRATORY SYSTEM: There is no shortness of breath and there is no cough. GASTROINTESTINAL SYSTEM: There is no nausea, no vomiting, no abdominal pain, diarrhea or constipation. NEUROLOGICAL SYSTEM: There is no numbness, no dizziness, no altered mental status. MUSCULOSKELETAL SYSTEM: There is no joint swelling and there is no joint pain. DERMATOLOGICAL SYSTEM: Leakage of fluid from the wound in the right groin area noted. GENITOURINARY SYSTEM: There is no dysuria, hematuria or flank pain. Rest system review is normal. PHYSICAL EXAMINATION: GENERAL: At the time of the examination, the patient was found to be alert, oriented x 3 and not in acute distress. VITAL SIGNS: Shows temperature of 98.1 degree Fahrenheit, pulse of 72, respirations 18, blood pressure 166/70, O2 sat of 94% on room air. HEENT: Examination shows pupils to be equal, round, reactive to light and accommodation. Extraocular movements are intact. NECK: Supple with no JVD or carotid bruit. CARDIOVASCULAR SYSTEM: Showed normal first and second heart sounds with no gallops or murmur. RESPIRATORY SYSTEM: Shows good air entry on both sides of lungs with no abnormal breath sounds. GASTROINTESTINAL SYSTEM: Shows abdomen to be full, soft, nontender with no organomegaly or rigidity. NEUROLOGICAL: Examinations shows no focal deficits. MUSCULOSKELETAL SYSTEM: Shows no joint swelling or tenderness. DERMATOLOGICAL SYSTEM: Shows the right groin area with the surgical wound where surgery was performed dressed up and there are no skin rashes. GENITOURINARY SYSTEM: Shows no costovertebral angle tenderness. PERTINENT LABORATORY AND IMAGING STUDIES: The patient has CBC done with normal white count, slightly low hemoglobin of 11.6, and normal hematocrit with CBC differential showing elevated monocyte count of 9.5 and elevated eosinophil count of 5.4. Coagulation studies show elevated PT of 23 with high INR of 1.9. The patient's chemistry shows slight decrease in sodium of 136, with slight elevation in BUN of 21. Rest of chemistries are unremarkable. IMAGING STUDIES: No imaging studies were done at this time. DIAGNOSES: 1. Diabetes mellitus with sugar, controlled. 2. High blood pressure, fairly controlled. PLAN AND RECOMMENDATIONS: The patient needs to be on sliding scale insulin coverage, using low-dose Humalog insulin coverage. The patient will have Accu-Chek q. 4 hours if he is n.p.o. with Accu-Chek a.c. and at bedtime if he is on diabetic diet. The patient's blood pressure medications like losartan/hydrochlorothiazide needs to be started if the patient is taking by mouth, may be the patient is n.p.o., the patient will be on hydralazine 10 mg IV every 4 hours for blood pressure above 160 mmHg. The patient's anticoagulants should be held for some days before the surgery to be determined by the surgeon and the patient needs to be on oxygen by nasal cannula 2 liters per minute and the hospitalist group will follow. JOB# [id number] OCN/NTS
[2017-09-20] MEDS: PLETAL PO SCH (09:55)
[2017-09-20] MEDS: COLACE PO SCH ×2 (09:56→22:43)
[2017-09-20] MEDS: COZAAR PO SCH (09:56)
[2017-09-20] MEDS: HCTZ PO SCH (09:57)
[2017-09-20] MEDS: PROTONIX PO SCH (09:57)
[2017-09-20] MEDS: PLAQUENIL PO SCH ×2 (09:57→22:43)
[2017-09-20] MEDS: GLUCOPHAGE PO SCH ×2 (09:57→17:48)
--- NOTE | 2017-09-20 11:46 | Progress Note ---
Assessment and Plan Peripheral vascular disease, status post right femoral endarterectomy with patch angioplasty. Dehisced right femoral endarterectomy repair (status post excision of the right femoral patch and repair with coverage of the right femoral artery with a sartorius muscle flap. Acute hypoxemic respiratory failure. [place] Atrial fibrillation, chronic. Status post aortic valve replacement and on full anticoagulation. Coronary artery disease. Gastroesophageal reflux disease. Hypertension. Hyperlipidemia. History of prostate cancer. Medication noncompliance. History of carotid stenosis. - conservative volume strategies re: CMOP - get BMP - hold coumadin re: supratherapeutic INR - add lantus 5 units qhs re: hyperglycemia - consider cardioology evaluation re: CMOP - continue GI prophylaxis - continue supplemental oxygen to keep sats > 90% - continue bronchodilators with pulmonary hygiene per RT - vascular team managing Right groin bleed - give 300 mls mag citrate for constipation - add senna 17.2 gm qhs as part of bowel regimen - continue other care per attending / other consultants .... transfer to telemetry if no significant bleeding risk from vascular surgery standpoint ... 35' Subjective Date of service: 09/20/17 Principal diagnosis: R. Fem endarterectomy wound dehiscence/infection; Anemia ( ABLA); Hypoxemia Interval history: Patient is seen today for: R. Fem endarterectomy wound dehiscence/infection; Anemia (ABLA); Acute Hypoxemic Respiratory Failure Seen and examined at bedside; 24hour events reviewed; nursing and respiratory care staff consulted; no adverse overnight events reported to me; resting peacefully in bed; denies right leg pain or numbness; No N/V/F/C; + constipation Objective Vital Signs - 12hr 09/19/17 09/20/17 09/20/17 23:53 00:00 00:04 Temperature Pulse Rate 90 91 H 102 H Pulse Rate [ From Monitor] Respiratory 13 14 14 Rate Blood Pressure 111/67 130/59 130/59 O2 Sat by Pulse 92 92 93 Oximetry 09/20/17 09/20/17 09/20/17 01:00 02:00 03:00 Temperature Pulse Rate 89 91 H 87 Pulse Rate [ From Monitor] Respiratory 15 16 17 Rate Blood Pressure 118/54 91/61 95/59 O2 Sat by Pulse 99 98 99 Oximetry 06/01/18 06/01/18 06/01/18 03:46 04:00 05:00 Temperature 99.4 F Pulse Rate 88 92 H Pulse Rate [ From Monitor] Respiratory 17 13 Rate Blood Pressure 91/61 96/63 O2 Sat by Pulse 98 99 Oximetry 09/20/17 09/20/17 09/20/17 06:00 07:00 08:00 Temperature Pulse Rate 95 H 93 H 93 H Pulse Rate [ 93 H From Monitor] Respiratory 13 15 14 Rate Blood Pressure 147/48 133/62 122/58 O2 Sat by Pulse 98 97 95 Oximetry 09/20/17 09:56 Temperature Pulse Rate 100 H Pulse Rate [ From Monitor] Respiratory Rate Blood Pressure 131/47 O2 Sat by Pulse Oximetry Constitutional: no acute distress, alert, other (elderly looking CM, normocephalic, talking with mildly increased WOB, on oxygen) Eyes: non-icteric ENT: oropharynx moist, other ([place] 2) Neck: supple, no lymphadenopathy, no JVD, other (no thyromegaly) Effort: mildly labored Ascultation: Bilateral: diminished breath sounds, rhonchi (posterior bases) Percussion: Bilateral: not dull Cardiovascular: regular rate and rhythm, PVC's noted, murmur noted (metalic valve click too; Systolic), other (No Rubs) Gastrointestinal: normoactive bowel sounds, soft, non-tender, non-distended, other (No palpable HSM) Integumentary: cellulitis (Right groin) Extremities: no cyanosis, no edema, pink and warm, no ischemia or petechiae, other (right groin dressing in place; no bright red bleeding) Neurologic: normal mental status, non-focal exam, pupils equal and round, motor strength normal and Psychiatric: mood appropriate, affect normal CBC and BMP: 09/22/17 16:07 09/21/17 09:22 ABG, PT/INR, D-dimer: PT/INR, D-dimer PT 40.6 Sec. (12.2-14.9) H 09/20/17 03:31 INR 3.85 (0.87-1.13) H 09/20/17 03:31 Abnormal lab findings: Abnormal Labs 09/16/17 09/16/17 09/16/17 21:14 21:14 21:14 WBC RBC Hgb 11.6 L Hct MCV 82 L MCH 27 L RDW Lymph % (Auto) [place] % (Auto) 9.5 H Eos % (Auto) 5.4 H [place] # Seg Neutrophils % Seg Neutrophils # PT 23.0 H INR 1.90 H Sodium 136 L BUN 21 H Glucose 153 H POC Glucose Calcium Crossmatch 09/16/17 09/17/17 09/17/17 21:53 05:21 06:46 WBC RBC Hgb Hct MCV MCH RDW Lymph % (Auto) [place] % (Auto) Eos % (Auto) [place] # Seg Neutrophils % Seg Neutrophils # PT INR Sodium BUN Glucose POC Glucose 158 H 125 H 174 H Calcium Crossmatch 09/17/17 09/17/17 09/17/17 11:04 14:02 16:49 WBC RBC Hgb Hct MCV MCH RDW Lymph % (Auto) [place] % (Auto) Eos % (Auto) [place] # Seg Neutrophils % Seg Neutrophils # PT INR Sodium BUN Glucose POC Glucose 173 H 201 H Calcium Crossmatch See Detail 09/17/17 09/18/17 09/18/17 21:46 04:50 04:50 WBC RBC Hgb 10.8 L Hct 32.5 L MCV MCH RDW 15.4 H Lymph % (Auto) [place] % (Auto) Eos % (Auto) [place] # Seg Neutrophils % Seg Neutrophils # PT INR Sodium BUN Glucose 162 H POC Glucose 157 H Calcium 7.8 L D Crossmatch 09/18/17 09/18/17 09/18/17 07:26 08:46 12:15 WBC RBC Hgb Hct MCV MCH RDW Lymph % (Auto) [place] % (Auto) Eos % (Auto) [place] # Seg Neutrophils % Seg Neutrophils # PT 30.0 H INR 2.64 H Sodium BUN Glucose POC Glucose 182 H 176 H Calcium Crossmatch 09/18/17 09/18/17 09/18/17 13:32 16:19 21:37 WBC RBC Hgb 10.8 L Hct 32.3 L MCV MCH RDW Lymph % (Auto) [place] % (Auto) Eos % (Auto) [place] # Seg Neutrophils % Seg Neutrophils # PT INR Sodium BUN Glucose POC Glucose 200 H 168 H Calcium Crossmatch 09/18/17 09/19/17 09/19/17 23:35 02:18 04:19 WBC 13.5 H RBC Hgb 10.6 L Hct 32.9 L MCV MCH 27 L RDW Lymph % (Auto) 11.5 L [place] % (Auto) 11.1 H Eos % (Auto) [place] # 1.5 H Seg Neutrophils % 74.0 H Seg Neutrophils # 10.0 H PT 39.6 H INR 3.73 H Sodium BUN Glucose POC Glucose 204 H Calcium Crossmatch 09/19/17 09/19/17 09/19/17 04:19 06:34 08:45 WBC RBC Hgb 9.7 L Hct 29.3 L MCV MCH RDW Lymph % (Auto) [place] % (Auto) Eos % (Auto) [place] # Seg Neutrophils % Seg Neutrophils # PT INR Sodium BUN Glucose POC Glucose 172 H 156 H Calcium Crossmatch 09/19/17 09/19/17 09/19/17 12:44 14:34 17:20 WBC RBC Hgb Hct MCV MCH RDW Lymph % (Auto) [place] % (Auto) Eos % (Auto) [place] # Seg Neutrophils % Seg Neutrophils # PT INR Sodium BUN Glucose POC Glucose 181 H 232 H 213 H Calcium Crossmatch 09/19/17 09/20/17 09/20/17 21:33 01:58 02:01 WBC RBC Hgb Hct MCV MCH RDW Lymph % (Auto) [place] % (Auto) Eos % (Auto) [place] # Seg Neutrophils % Seg Neutrophils # PT INR Sodium BUN Glucose POC Glucose 202 H > 500 H 208 H Calcium Crossmatch 09/20/17 09/20/17 09/20/17 03:31 03:31 05:20 WBC 11.6 H RBC 2.97 L Hgb 8.1 L Hct 24.0 L MCV 81 L MCH 27 L RDW Lymph % (Auto) [place] % (Auto) Eos % (Auto) [place] # Seg Neutrophils % Seg Neutrophils # PT 40.6 H INR 3.85 H Sodium BUN Glucose POC Glucose 191 H Calcium Crossmatch 09/20/17 09:24 WBC RBC Hgb Hct MCV MCH RDW Lymph % (Auto) [place] % (Auto) Eos % (Auto) [place] # Seg Neutrophils % Seg Neutrophils # PT INR Sodium BUN Glucose POC Glucose 234 H Calcium Crossmatch Chest x-ray: image reviewed Allied health notes reviewed: nursing
[2017-09-20 13:01] LABS: Calcium 7.9 mg/dL (8.4-10.2)
[2017-09-20 13:10] LABS: INR 3.38 (0.87-1.13)
[2017-09-20] MEDS: LANTUS SUB-Q SCH (14:11)
[2017-09-20] MEDS ORDERED: CITRATE OF MAGNESIA PO ONE ×2 (15:00→18:00)
--- NOTE | 2017-09-20 18:14 | Progress Note ---
Assessment and Plan Assessment and plan: The patient is 77-year-old male with a history of peripheral vascular disease who recently underwent a right femoral endarterectomy with Dacron patch angioplasty. He also had atherectomy and angioplasty with stent of his SFA and popliteal artery on the right. He initially did well but was unable to follow- up in the outpatient setting for his postoperative visit secondary to transportation issues. He states that approximately 2 days ago he began to note clear yellow drainage from his right groin. patient admitted by vacular surgery and did 1. Excision of Right Femoral PTFE Patch And Repair with Right Greater Saphenous Vein 2. Coverage of Right Femoral Artery with Sartorius Muscle Flap 3. Wound VAC Placement (Wound Measures 17 x 4 x 2 cm) We have been consulted for medical management. patient's medical history is significant for DM, HTN, afib on anticoagulation. patient's home medications were reconciled by vascular. Continue current management. H/H stable. Disposition: - Per vascular History Interval history: Patient was seen and evaluated this morning. Minimal bleeding on the right groin. Hospitalist Physical - Physical exam Narrative exam: Not in cardiopulmonary distress. The patient appeared well nourished and normally developed. Vital signs as documented. Head exam is unremarkable. No scleral icterus . Neck is without jugular venous distension, thyromegaly, or carotid bruits. Lungs are clear to auscultation. Cardiac exam reveals irregular rate and Rhythm. Abdominal exam reveals normal bowel sounds, no masses, no organomegaly and no aortic enlargement. Extremities right groin bleeding. 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 No focal weakness. - Constitutional Vitals: Temp Pulse Resp BP Pulse Ox 99.4 F 99 H 17 119/52 92 09/20/17 03:46 09/20/17 16:00 09/20/17 16:00 09/20/17 16:00 09/20/17 16:00 General appearance: Present: no acute distress Results - Labs CBC & Chem 7: 09/20/17 03:31 09/20/17 12:23 Labs: Laboratory Last Values WBC 11.6 K/mm3 (4.5-11.0) H 09/20/17 03:31 RBC 2.97 M/mm3 (3.65-5.03) L 09/20/17 03:31 Hgb 8.1 gm/dl (11.8-15.2) L 09/20/17 03:31 Hct 24.0 % (35.5-45.6) L 09/20/17 03:31 MCV 81 fl (84-94) L 09/20/17 03:31 MCH 27 pg (28-32) L 09/20/17 03:31 MCHC 34 % (32-34) 09/20/17 03:31 RDW 14.9 % (13.2-15.2) 09/20/17 03:31 Plt Count 242 K/mm3 (140-440) 09/20/17 03:31 Lymph % (Auto) 11.5 % (13.4-35.0) L 09/18/17 23:35 [place] % (Auto) 11.1 % (0.0-7.3) H 09/18/17 23:35 Eos % (Auto) 2.7 % (0.0-4.3) 09/18/17 23:35 Baso % (Auto) 0.7 % (0.0-1.8) 09/18/17 23:35 Lymph # 1.6 K/mm3 (1.2-5.4) 09/18/17 23:35 [place] # 1.5 K/mm3 (0.0-0.8) H 09/18/17 23:35 Eos # 0.4 K/mm3 (0.0-0.4) 09/18/17 23:35 Baso # 0.1 K/mm3 (0.0-0.1) 09/18/17 23:35 Seg Neutrophils % 74.0 % (40.0-70.0) H 09/18/17 23:35 Seg Neutrophils # 10.0 K/mm3 (1.8-7.7) H 09/18/17 23:35 PT 36.6 Sec. (12.2-14.9) H 09/20/17 12:23 INR 3.38 (0.87-1.13) H 09/20/17 12:23 APTT 34.5 Sec. (24.2-36.6) 09/16/17 21:14 Sodium 135 mmol/L (137-145) L 09/20/17 12:23 Potassium 4.4 mmol/L (3.6-5.0) 09/20/17 12:23 Chloride 101.4 mmol/L (98-107) 09/20/17 12:23 Carbon Dioxide 23 mmol/L (22-30) 09/20/17 12:23 Anion Gap 15 mmol/L 09/20/17 12:23 BUN 40 mg/dL (9-20) H 09/20/17 12:23 Creatinine 1.8 mg/dL (0.8-1.5) H 09/20/17 12:23 Estimated GFR 37 ml/min 09/20/17 12:23 BUN/Creatinine Ratio 22 % 09/20/17 12:23 Glucose 219 mg/dL (75-100) H 09/20/17 12:23 POC Glucose 222 (70-105) H 09/20/17 17:45 Calcium 7.9 mg/dL (8.4-10.2) L 09/20/17 12:23 Blood Type B POSITIVE 09/17/17 14:02 Antibody Screen Negative 09/17/17 14:02 Crossmatch See Detail 09/17/17 14:02
[2017-09-20] MEDS ORDERED: NACL 0.9% IR PRN (19:18)
[2017-09-20] MEDS ORDERED: NACL 0.9% 500 ML 500 ML IV ONE (20:04)
--- NOTE | 2017-09-20 20:11 | Progress Note ---
Assessment and Plan Patient is status post excision of PTFE patch of right femoral endarterectomy and patch angioplasty with vein patch closure. He has had expiration of the wound with silver nitrate to stop bleeding and required pressure dressing for bleeding secondary to supratherapeutic INR. Today at the bedside I removed his dressing and encountered a large hematoma. I used bedside suction to remove the hematoma and irrigate the wound with a liter of normal saline. After irrigating the wound I was able to remove all hematoma and found no active bleeding. I placed quick clot in the wound to assist with hemostasis until the patient's INR is in the therapeutic range. At that point we'll remove the quick clot and plan to replace the wound VAC. The patient is tachycardic with acute blood loss anemia so I will transfuse 2 units of packed red blood cells. Additionally he has an acute elevation of his creatinine to 1.8 from his baseline of 1.3 I will start maintenance IV fluids. All labs will be rechecked in the morning. Subjective Date of service: 09/20/17 Principal diagnosis: R. Fem endarterectomy wound dehiscence/infection; Anemia ( ABLA); Hypoxemia Interval history: Patient with bleeding from right groin wound requiring packing of the wound and pressure dressing. No complaints of pain. Patient denies having bowel movement. No other complaints at this time. Objective - Constitutional Vitals: Vital Signs - 12hr 09/20/17 09/20/17 09/20/17 09:00 09:56 10:00 Pulse Rate 101 H 100 H 99 H Pulse Rate [ 99 H From Monitor] Respiratory 22 18 Rate Blood Pressure 119/47 131/47 124/63 O2 Sat by Pulse 94 95 Oximetry 09/20/17 09/20/17 09/20/17 11:00 12:00 12:01 Pulse Rate 101 H 105 H Pulse Rate [ 105 H From Monitor] Respiratory 17 18 18 Rate Blood Pressure 122/58 131/51 O2 Sat by Pulse 98 97 97 Oximetry 09/20/17 09/20/17 09/20/17 13:00 14:00 15:00 Pulse Rate 101 H 102 H 107 H Pulse Rate [ From Monitor] Respiratory 18 15 22 Rate Blood Pressure 115/63 123/62 110/55 O2 Sat by Pulse 96 90 93 Oximetry 09/20/17 09/20/17 09/20/17 16:00 17:00 18:00 Pulse Rate 99 H 101 H Pulse Rate [ 99 H 105 H From Monitor] Respiratory 17 16 20 Rate Blood Pressure 119/52 113/52 O2 Sat by Pulse 92 93 92 Oximetry 09/20/17 18:01 Pulse Rate 105 H Pulse Rate [ From Monitor] Respiratory 20 Rate Blood Pressure 117/58 O2 Sat by Pulse 92 Oximetry General appearance: Present: no acute distress - Neck Neck: supple - Respiratory Respiratory effort: normal - Breasts Breasts: deferred - Cardiovascular Heart rate: 105 Rhythm: irregularly irregular Extremities: no ischemia, normal temperature Extremity abnormal: other (right groin with pressure dressing in place dressings with serosanguineous staining without evidence of active bleeding) - Gastrointestinal General gastrointestinal: Present: soft, non-tender, distended Rectal Exam: deferred - Genitourinary Male genitourinary: deferred - Labs CBC & Chem 7: 09/20/17 03:31 09/20/17 12:23 Labs: Abnormal lab results 09/19/17 09/20/17 09/20/17 Range/Units 21:33 01:58 02:01 WBC (4.5-11.0) K/mm3 RBC (3.65-5.03) M/mm3 Hgb (11.8-15.2) gm/dl Hct (35.5-45.6) % MCV (84-94) fl MCH (28-32) pg PT (12.2-14.9) Sec. INR (0.87-1.13) Sodium (137-145) mmol/L BUN (9-20) mg/dL Creatinine (0.8-1.5) mg/dL Glucose (75-100) mg/dL POC Glucose 202 H > 500 H 208 H (70-105) Calcium (8.4-10.2) mg/dL 09/20/17 09/20/17 09/20/17 Range/Units 03:31 03:31 05:20 WBC 11.6 H (4.5-11.0) K/mm3 RBC 2.97 L (3.65-5.03) M/mm3 Hgb 8.1 L (11.8-15.2) gm/dl Hct 24.0 L (35.5-45.6) % MCV 81 L (84-94) fl MCH 27 L (28-32) pg PT 40.6 H (12.2-14.9) Sec. INR 3.85 H (0.87-1.13) Sodium (137-145) mmol/L BUN (9-20) mg/dL Creatinine (0.8-1.5) mg/dL Glucose (75-100) mg/dL POC Glucose 191 H (70-105) Calcium (8.4-10.2) mg/dL 09/20/17 09/20/17 09/20/17 Range/Units 09:24 12:23 12:23 WBC (4.5-11.0) K/mm3 RBC (3.65-5.03) M/mm3 Hgb (11.8-15.2) gm/dl Hct (35.5-45.6) % MCV (84-94) fl MCH (28-32) pg PT 36.6 H (12.2-14.9) Sec. INR 3.38 H (0.87-1.13) Sodium 135 L (137-145) mmol/L BUN 40 H (9-20) mg/dL Creatinine 1.8 H (0.8-1.5) mg/dL Glucose 219 H (75-100) mg/dL POC Glucose 234 H (70-105) Calcium 7.9 L (8.4-10.2) mg/dL 18 09/20/17 Range/Units 14:17 17:45 WBC (4.5-11.0) K/mm3 RBC (3.65-5.03) M/mm3 Hgb (11.8-15.2) gm/dl Hct (35.5-45.6) % MCV (84-94) fl MCH (28-32) pg PT (12.2-14.9) Sec. INR (0.87-1.13) Sodium (137-145) mmol/L BUN (9-20) mg/dL Creatinine (0.8-1.5) mg/dL Glucose (75-100) mg/dL POC Glucose 226 H 222 H (70-105) Calcium (8.4-10.2) mg/dL
[2017-09-20] MEDS ORDERED: NACL 0.9% 1000 ML 1,000 ML IV SCH (21:00)
[2017-09-20] MEDS: SENOKOT PO SCH (22:43)
[2017-09-20] MEDS: SODIUM CHLORIDE FLUSH SYRINGE 10 ML IV SCH (22:44)
[2017-09-21] MEDS: HumaLOG SUB-Q SCH ×6 (02:56→22:00)
[2017-09-21] MEDS: PERCOCET 5/325 PO PRN ×3 (04:43→21:21)
[2017-09-21] MEDS: GLUCOPHAGE PO SCH ×2 (08:47→16:35)
[2017-09-21] MEDS: LANTUS SUB-Q SCH (08:47)
[2017-09-21] MEDS: COZAAR PO SCH (09:19)
[2017-09-21] MEDS: PLAQUENIL PO SCH ×2 (09:19→21:16)
[2017-09-21] MEDS: PROTONIX PO SCH (09:19)
[2017-09-21] MEDS: COLACE PO SCH ×2 (09:19→21:17)
[2017-09-21] MEDS: HCTZ PO SCH (09:19)
[2017-09-21] MEDS: SODIUM CHLORIDE FLUSH SYRINGE 10 ML IV SCH ×3 (09:21→21:18)
[2017-09-21 10:13] LABS: Hemoglobin 9.1 gm/dl (11.8-15.2); Mean Corpuscular HGB Conc 33 % (32-34); Mean Corpuscular Hemoglobin 28 pg (28-32); Mean Corpuscular Volume 86 fl (84-94); Platelet Count 247 K/mm3 (140-440); Red Blood Count 3.26 M/mm3 (3.65-5.03); Red Cell Distribution Width 15.5 % (13.2-15.2)
--- NOTE | 2017-09-21 10:19 | Progress Note ---
Assessment and Plan Peripheral vascular disease, status post right femoral endarterectomy with patch angioplasty. Dehisced right femoral endarterectomy repair (status post excision of the right femoral patch and repair with coverage of the right femoral artery with a sartorius muscle flap. Acute hypoxemic respiratory failure. GUICHO Atrial fibrillation, chronic. Status post aortic valve replacement and on full anticoagulation. Coronary artery disease. Gastroesophageal reflux disease. Hypertension. Hyperlipidemia. History of prostate cancer. Medication noncompliance. History of carotid stenosis. - conservative volume strategies re: CMOP - get BMP - hold coumadin re: supratherapeutic INR - hold lantus for now, in view of poor appetite and relatively low glucose levels -continue metformin and monitor. -division sales manager consult, may benefit from supplements -wound care to right groin - continue GI prophylaxis - continue supplemental oxygen to keep sats > 90% - continue bronchodilators with pulmonary hygiene per RT - vascular team managing Right groin bleed Subjective Date of service: 09/21/17 Principal diagnosis: Right Femoral endarterectomy wound dehiscence/infection; Interval history: Follow up s/p Right Groin Lymphocele with Exposed PTFE Femoral Patch 1. Excision of Right Femoral PTFE Patch And Repair with Right Greater Saphenous Vein 2. Coverage of Right Femoral Artery with Sartorius Muscle Flap 3. Wound VAC Placement (Wound Measures 17 x 4 x 2 cm) Patient was seen and examined. Vitals, labs, medications, chart reviewed. On going groin bleeding, remains hemodynamically normal. He expresses concern that every time he has to go to OR he gets very anxious. Appetite is poor. Discussed in ICU-IDT rounds Objective - Exam Narrative Exam: Not in cardiopulmonary distress, chronically ill looking The patient appeared well nourished and normally developed. Vital signs as documented. Head exam is unremarkable. No scleral icterus . Neck is without jugular venous distension, thyromegaly, or carotid bruits. Lungs are clear to auscultation. Cardiac exam reveals irregular rate , rhythm, S1,S2 no murmurs, gallops or rubs Abdominal exam reveals normal bowel sounds, no masses, no organomegaly and no aortic enlargement. Extremities right groin bleeding with swelling. 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 No focal weakness. Vital Signs - 12hr 09/20/17 09/20/17 09/20/17 23:00 23:11 23:21 Temperature Pulse Rate 105 H 103 H 111 H Pulse Rate [ From Monitor] Respiratory 17 13 15 Rate Blood Pressure 127/59 127/59 127/59 Blood Pressure [Left] O2 Sat by Pulse 92 98 75 L Oximetry 09/20/17 09/20/17 09/20/17 23:30 23:41 23:51 Temperature Pulse Rate 103 H 100 H 101 H Pulse Rate [ From Monitor] Respiratory 33 H 22 16 Rate Blood Pressure 125/68 125/68 125/68 Blood Pressure [Left] O2 Sat by Pulse 96 97 99 Oximetry 09/21/17 09/21/17 09/21/17 00:00 00:01 00:03 Temperature 99.6 F Pulse Rate 107 H 96 H Pulse Rate [ 105 H From Monitor] Respiratory 20 21 17 Rate Blood Pressure 127/61 127/61 Blood Pressure [Left] O2 Sat by Pulse 92 99 99 Oximetry 09/21/17 09/21/17 09/21/17 00:09 00:11 00:21 Temperature Pulse Rate 100 H 111 H 97 H Pulse Rate [ From Monitor] Respiratory 21 19 18 Rate Blood Pressure 127/61 127/61 126/60 Blood Pressure [Left] O2 Sat by Pulse 98 98 99 Oximetry 09/21/17 09/21/17 09/21/17 00:22 00:31 00:41 Temperature 99.0 F Pulse Rate 111 H 100 H 96 H Pulse Rate [ From Monitor] Respiratory 19 14 18 Rate Blood Pressure 140/58 140/58 Blood Pressure 126/60 [Left] O2 Sat by Pulse 97 99 98 Oximetry 09/21/17 09/21/17 09/21/17 00:51 01:00 01:11 Temperature Pulse Rate 95 H 96 H 99 H Pulse Rate [ From Monitor] Respiratory 18 19 18 Rate Blood Pressure 138/67 131/64 131/64 Blood Pressure [Left] O2 Sat by Pulse 98 98 97 Oximetry 09/21/17 09/21/17 09/21/17 01:20 01:30 01:41 Temperature Pulse Rate 93 H 95 H 102 H Pulse Rate [ From Monitor] Respiratory 19 19 21 Rate Blood Pressure 131/64 131/61 131/61 Blood Pressure [Left] O2 Sat by Pulse 96 96 99 Oximetry 09/21/17 09/21/17 09/21/17 01:51 02:00 02:10 Temperature 98.2 F Pulse Rate 98 H 93 H Pulse Rate [ 105 H From Monitor] Respiratory 19 19 Rate Blood Pressure 131/61 132/63 Blood Pressure [Left] O2 Sat by Pulse 96 92 Oximetry 09/21/17 09/21/17 09/21/17 03:01 04:00 04:01 Temperature Pulse Rate 98 H 99 H Pulse Rate [ 105 H From Monitor] Respiratory 18 20 23 Rate Blood Pressure 138/60 142/76 Blood Pressure [Left] O2 Sat by Pulse 95 92 95 Oximetry 09/21/17 09/21/17 09/21/17 04:43 04:46 05:00 Temperature 98.3 F Pulse Rate 88 89 Pulse Rate [ From Monitor] Respiratory 15 17 14 Rate Blood Pressure 118/56 126/55 Blood Pressure [Left] O2 Sat by Pulse 97 98 Oximetry 09/21/17 09/21/17 09/21/17 06:00 07:01 08:00 Temperature Pulse Rate 93 H 90 Pulse Rate [ 105 H 107 H From Monitor] Respiratory 20 15 17 Rate Blood Pressure 112/39 119/49 Blood Pressure [Left] O2 Sat by Pulse 92 96 93 Oximetry 09/21/17 09/21/17 08:01 09:19 Temperature Pulse Rate 87 98 H Pulse Rate [ From Monitor] Respiratory 12 Rate Blood Pressure 123/47 114/44 Blood Pressure [Left] O2 Sat by Pulse 96 Oximetry Constitutional: no acute distress, alert, other (elderly looking CM, normocephalic, talking with mildly increased WOB, on oxygen) Eyes: non-icteric ENT: oropharynx moist, other ([place] 2) Neck: supple, no lymphadenopathy, no JVD, other (no thyromegaly) Effort: mildly labored Ascultation: Bilateral: diminished breath sounds, rhonchi (posterior bases) Percussion: Bilateral: not dull Cardiovascular: regular rate and rhythm, PVC's noted, murmur noted (metalic valve click too; Systolic), other (No Rubs) Gastrointestinal: normoactive bowel sounds, soft, non-tender, non-distended, other (No palpable HSM) Integumentary: cellulitis (Right groin) Extremities: no cyanosis, no edema, pink and warm, no ischemia or petechiae, other (right groin dressing in place; no bright red bleeding) Neurologic: normal mental status, non-focal exam, pupils equal and round, motor strength normal and Psychiatric: mood appropriate, affect normal CBC and BMP: 09/21/17 09:22 09/20/17 12:23 ABG, PT/INR, D-dimer: PT/INR, D-dimer PT 36.6 Sec. (12.2-14.9) H 09/20/17 12:23 INR 3.38 (0.87-1.13) H 09/20/17 12:23 Abnormal lab findings: Abnormal Labs 09/16/17 09/16/17 09/16/17 21:14 21:14 21:14 WBC RBC Hgb 11.6 L Hct MCV 82 L MCH 27 L RDW Lymph % (Auto) Cloud % (Auto) 9.5 H Eos % (Auto) 5.4 H Cloud # Seg Neutrophils % Seg Neutrophils # PT 23.0 H INR 1.90 H Sodium 136 L BUN 21 H Creatinine Glucose 153 H POC Glucose Calcium Crossmatch 09/16/17 09/17/17 09/17/17 21:53 05:21 06:46 WBC RBC Hgb Hct MCV MCH RDW Lymph % (Auto) Cloud % (Auto) Eos % (Auto) Cloud # Seg Neutrophils % Seg Neutrophils # PT INR Sodium BUN Creatinine Glucose POC Glucose 158 H 125 H 174 H Calcium Crossmatch 09/17/17 09/17/17 09/17/17 11:04 14:02 16:49 WBC RBC Hgb Hct MCV MCH RDW Lymph % (Auto) Cloud % (Auto) Eos % (Auto) Cloud # Seg Neutrophils % Seg Neutrophils # PT INR Sodium BUN Creatinine Glucose POC Glucose 173 H 201 H Calcium Crossmatch See Detail 09/17/17 09/18/17 09/18/17 21:46 04:50 04:50 WBC RBC Hgb 10.8 L Hct 32.5 L MCV MCH RDW 15.4 H Lymph % (Auto) Cloud % (Auto) Eos % (Auto) Cloud # Seg Neutrophils % Seg Neutrophils # PT INR Sodium BUN Creatinine Glucose 162 H POC Glucose 157 H Calcium 7.8 L D Crossmatch 09/18/17 09/18/17 09/18/17 07:26 08:46 12:15 WBC RBC Hgb Hct MCV MCH RDW Lymph % (Auto) Cloud % (Auto) Eos % (Auto) Cloud # Seg Neutrophils % Seg Neutrophils # PT 30.0 H INR 2.64 H Sodium BUN Creatinine Glucose POC Glucose 182 H 176 H Calcium Crossmatch 09/18/17 09/18/17 09/18/17 13:32 16:19 21:37 WBC RBC Hgb 10.8 L Hct 32.3 L MCV MCH RDW Lymph % (Auto) Cloud % (Auto) Eos % (Auto) Cloud # Seg Neutrophils % Seg Neutrophils # PT INR Sodium BUN Creatinine Glucose POC Glucose 200 H 168 H Calcium Crossmatch 09/18/17 09/19/17 09/19/17 23:35 02:18 04:19 WBC 13.5 H RBC Hgb 10.6 L Hct 32.9 L MCV MCH 27 L RDW Lymph % (Auto) 11.5 L Cloud % (Auto) 11.1 H Eos % (Auto) Cloud # 1.5 H Seg Neutrophils % 74.0 H Seg Neutrophils # 10.0 H PT 39.6 H INR 3.73 H Sodium BUN Creatinine Glucose POC Glucose 204 H Calcium Crossmatch 09/19/17 09/19/17 09/19/17 04:19 06:34 08:45 WBC RBC Hgb 9.7 L Hct 29.3 L MCV MCH RDW Lymph % (Auto) Cloud % (Auto) Eos % (Auto) Cloud # Seg Neutrophils % Seg Neutrophils # PT INR Sodium BUN Creatinine Glucose POC Glucose 172 H 156 H Calcium Crossmatch 09/19/17 09/19/17 09/19/17 12:44 14:34 17:20 WBC RBC Hgb Hct MCV MCH RDW Lymph % (Auto) Cloud % (Auto) Eos % (Auto) Cloud # Seg Neutrophils % Seg Neutrophils # PT INR Sodium BUN Creatinine Glucose POC Glucose 181 H 232 H 213 H Calcium Crossmatch 09/19/17 09/20/17 09/20/17 21:33 01:58 02:01 WBC RBC Hgb Hct MCV MCH RDW Lymph % (Auto) Cloud % (Auto) Eos % (Auto) Cloud # Seg Neutrophils % Seg Neutrophils # PT INR Sodium BUN Creatinine Glucose POC Glucose 202 H > 500 H 208 H Calcium Crossmatch 09/20/17 09/20/17 09/20/17 03:31 03:31 05:20 WBC 11.6 H RBC 2.97 L Hgb 8.1 L Hct 24.0 L MCV 81 L MCH 27 L RDW Lymph % (Auto) Cloud % (Auto) Eos % (Auto) Cloud # Seg Neutrophils % Seg Neutrophils # PT 40.6 H INR 3.85 H Sodium BUN Creatinine Glucose POC Glucose 191 H Calcium Crossmatch 09/20/17 09/20/17 09/20/17 09:24 12:23 12:23 WBC RBC Hgb Hct MCV MCH RDW Lymph % (Auto) Cloud % (Auto) Eos % (Auto) Cloud # Seg Neutrophils % Seg Neutrophils # PT 36.6 H INR 3.38 H Sodium 135 L BUN 40 H Creatinine 1.8 H Glucose 219 H POC Glucose 234 H Calcium 7.9 L Crossmatch 09/20/17 09/20/17 09/20/17 14:17 17:45 22:46 WBC RBC Hgb Hct MCV MCH RDW Lymph % (Auto) Cloud % (Auto) Eos % (Auto) Cloud # Seg Neutrophils % Seg Neutrophils # PT INR Sodium BUN Creatinine Glucose POC Glucose 226 H 222 H 221 H Calcium Crossmatch 09/20/17 09/21/17 09/21/17 Unknown 02:48 07:14 WBC RBC Hgb Hct MCV MCH RDW Lymph % (Auto) Cloud % (Auto) Eos % (Auto) Cloud # Seg Neutrophils % Seg Neutrophils # PT INR Sodium BUN Creatinine Glucose POC Glucose 211 H 170 H Calcium Crossmatch See Detail 09/21/17 09:22 WBC 11.5 H RBC 3.26 L Hgb 9.1 L Hct 28.0 L MCV MCH RDW 15.5 H Lymph % (Auto) Cloud % (Auto) Eos % (Auto) Cloud # Seg Neutrophils % Seg Neutrophils # PT INR Sodium BUN Creatinine Glucose POC Glucose Calcium Crossmatch Allied health notes reviewed: nursing
[2017-09-21 10:24] LABS: INR 2.5 (0.87-1.13)
[2017-09-21 10:31] LABS: Calcium 7.7 mg/dL (8.4-10.2)
--- NOTE | 2017-09-21 12:34 | Consultation ---
History of Present Illness Consult date: 09/21/17 Consult reason: atrial fibrillation, other (mechanical aortic valve) History of present illness: The patient is a 77-year-old man with severe peripheral arterial disease, following recent right lower extremity revascularization surgery he is admitted for surgical wound dehiscense and infection. He has undergone wound revision, and is currently in the ICU, awake, alert and comfortable. Cardiac consultation is requested for follow-up of his cardiac comorbidities. His primary cardiac pathology is the presence of a mechanical aortic valve since 2006, implanted for severe aortic stenosis. There is no history of coronary artery disease, he has had well preserved left ventricular systolic function. 2 months ago, and outpatient thallium stress test was negative, and echocardiogram showed well-preserved left ventricular systolic function with ejection fraction of 50-55%, and well functioning mechanical aortic valve prosthesis. In addition, he has paroxysmal atrial fibrillation. He is on chronic Coumadin therapy for his mechanical valve and paroxysmal atrial fibrillation. On this presentation, his INR has ranged from 1.9-2.5, but Coumadin is currently on hold , presumably for additional vascular surgery procedures. Currently on the telemetry he is in a normal sinus rhythm at 82, occasional PACs. The blood pressure is 103 systolic. He has no cardiac complaints. Past History Past Medical History: atrial fib, CAD, GERD, hypertension, hyperlipidemia, PVD, other (prostate cancer, venous insufficiency, carotid stenosis) Past Surgical History: valve replacement (AVR 2006), Other (Right femoral endarterectomy with patch angioplasty and SFA/Popliteal atherectomy with stent, hypospadias repair, prostate surgery, back surgery) Social history: smoking Family history: no significant family history Medications and Allergies Allergies Allergy/AdvReac Type Severity Reaction Status Date / Time No Known Allergies Allergy Verified 09/16/17 17:53 Home Medications Medication Instructions Recorded Confirmed Last Taken Type Enoxaparin [Lovenox] 80 mg SQ Q12HR 08/09/17 09/17/17 08/12/17 21:00 History Esomeprazole Magnesium [Nexium] 40 mg PO DAILY 08/09/17 09/17/17 08/12/17 17:00 History Hydroxychloroquine [Plaquenil] 200 mg PO BID 08/09/17 09/17/17 09/16/17 10:00 History Insulin Aspart Prot/Aspart(Nf) 30 units SQ QPM 08/09/17 09/17/17 09/15/17 22:00 History [Novolog Mix 70/30] Insulin Aspart Prot/Aspart(Nf) 35 units SQ QAM 08/09/17 09/17/17 09/16/17 10:00 History [Novolog Mix 70/30] Losartan/Hydrochlorothiazide 1 each PO DAILY 08/09/17 09/17/17 09/16/17 10:00 History [Losartan-Hctz 50-12.5 mg Tab] Warfarin Sodium [Coumadin] 4 mg PO DAILY 08/09/17 09/17/17 09/16/17 10:00 History metFORMIN [Glucophage] 500 mg PO BID 08/09/17 09/17/17 09/16/17 10:00 History oxyCODONE /ACETAMINOPHEN [Percocet 1 tab PO Q6HR PRN 08/09/17 09/17/17 09/15/17 22:00 History 5/325] Enoxaparin [Lovenox] 80 mg SQ Q12HR #1 syringe 08/14/17 09/17/17 Unknown Rx Oxycodone HCl/Acetaminophen 1 each PO Q6HR PRN #40 tablet 08/14/17 09/17/17 Rx [Percocet 10/325 mg] Cilostazol 50 mg PO BID 09/16/17 09/16/17 09/16/17 22:00 History Active Meds: Active Medications Acetaminophen (Tylenol) 650 mg PO Q4H PRN PRN Reason: Pain MILD(1-3)/Fever >100.5/CRESPO Last Admin: 09/17/17 19:36 Dose: 650 mg Dextrose (D50w (25gm) Syringe) 50 ml IV PRN PRN PRN Reason: Hypoglycemia Docusate Sodium (Colace) 100 mg PO BID [facility] Last Admin: 09/21/17 09:19 Dose: 100 mg Hydrochlorothiazide (Hctz) 12.5 mg PO QDAY [facility] Last Admin: 09/21/17 09:19 Dose: 12.5 mg Hydroxychloroquine Sulfate (Plaquenil) 200 mg PO BID [facility] Last Admin: 09/21/17 09:19 Dose: 200 mg Sodium Chloride (Nacl 0.9% 1000 Ml) 1,000 mls @ 100 mls/hr IV DIRECT [facility] Last Admin: 09/21/17 05:27 Dose: 100 mls/hr Insulin Glargine (Lantus) 5 units SUB-Q QAMDIAB [facility] Last Admin: 09/21/17 08:47 Dose: 5 units Insulin Human Lispro (Humalog) 0 unit SUB-Q Q4HR [facility]; Protocol Last Admin: 09/21/17 09:47 Dose: 1 unit Losartan Potassium (Cozaar) 50 mg PO QDAY [facility] Last Admin: 09/21/17 09:19 Dose: 50 mg Metformin HCl (Glucophage) 500 mg PO BIDDIAB [facility] Last Admin: 09/21/17 08:47 Dose: 500 mg Morphine Sulfate (Morphine) 2 mg IV Q4H PRN PRN Reason: Pain, Moderate (4-6) Last Admin: 09/17/17 06:54 Dose: 2 mg Ondansetron HCl (Zofran) 4 mg IV Q8H PRN PRN Reason: Nausea And Vomiting Last Admin: 09/20/17 22:06 Dose: 4 mg Oxycodone/Acetaminophen (Percocet 5/325) 2 tab PO Q4H PRN PRN Reason: Pain, Moderate (4-6) Last Admin: 09/21/17 04:43 Dose: 2 tab Pantoprazole Sodium (Protonix) 40 mg PO DAILY [facility] Last Admin: 09/21/17 09:19 Dose: 40 mg Senna (Senokot) 17.2 mg PO QHS [facility] Last Admin: 09/20/17 22:43 Dose: 17.2 mg Sodium Chloride (Sodium Chloride Flush Syringe 10 Ml) 10 ml IV PRN PRN PRN Reason: LINE FLUSH Sodium Chloride (Sodium Chloride Flush Syringe 10 Ml) 10 ml IV BID [facility] Last Admin: 09/21/17 09:22 Dose: 10 ml Sodium Chloride (Nacl 0.9%) 1,000 ml IR PRN PRN PRN Reason: Wound Care Review of Systems Cardiovascular: no chest pain, no orthopnea, no palpitations, no rapid/ irregular heart beat, no edema, no syncope, no lightheadedness, no shortness of breath Physical Examination Vital Signs Temp Pulse Resp BP Pulse Ox 98.2 F 94 H 16 150/80 96 09/16/17 17:53 09/16/17 17:53 09/16/17 17:53 09/16/17 17:53 09/16/17 17:53 General appearance: no acute distress HEENT: Positive: PERRL Neck: Positive: neck supple Cardiac: Positive: Reg Rate and Rhythm, Systolic Murmur Lungs: Positive: Decreased Breath Sounds Neuro: Positive: Grossly Intact Abdomen: Positive: Soft Male genitourinary: Positive: deferred Skin: Positive: Clear Extremities: Absent: edema Results 09/21/17 09:22 09/21/17 09:22 Coagulation 09/20/17 09/21/17 Range/Units 12:23 09:22 PT 36.6 H 28.7 H (12.2-14.9) Sec. INR 3.38 H 2.50 H (0.87-1.13) CBC 09/21/17 Range/Units 09:22 WBC 11.5 H (4.5-11.0) K/mm3 RBC 3.26 L (3.65-5.03) M/mm3 Hgb 9.1 L (11.8-15.2) gm/dl Hct 28.0 L (35.5-45.6) % Plt Count 247 (140-440) K/mm3 Comprehensive Metabolic Panel 09/20/17 09/21/17 Range/Units 12:23 09:22 Sodium 135 L 134 L (137-145) mmol/L Potassium 4.4 3.6 (3.6-5.0) mmol/L Chloride 101.4 95.2 L (98-107) mmol/L Carbon Dioxide 23 24 (22-30) mmol/L BUN 40 H 39 H (9-20) mg/dL Creatinine 1.8 H 1.5 (0.8-1.5) mg/dL Glucose 219 H 156 H (75-100) mg/dL Calcium 7.9 L 7.7 L (8.4-10.2) mg/dL EKG interpretations - Telemetry EKG Rhythm: Sinus Rhythm Assessment and Plan - Patient Problems (1) Anticoagulated on Coumadin Current Visit: Yes Status: Acute Plan to address problem: Due to the presence of a mechanical aortic valve, interruption of Coumadin therapy should be bridged with intravenous heparin. I will discuss with vascular surgery regarding their plans for additional procedures and the necessity of heparin bridging. (2) H/O mechanical aortic valve replacement Current Visit: Yes Status: Acute Plan to address problem: Due to the presence of a mechanical aortic valve, interruption of Coumadin therapy should be bridged with intravenous heparin. I will discuss with vascular surgery regarding their plans for additional procedures and the necessity of heparin bridging. (3) Paroxysmal atrial fibrillation Current Visit: Yes Status: Acute Plan to address problem: Patient is currently in stable sinus rhythm, we will continue beta deloris therapy as tolerated.
[2017-09-21] MEDS: NACL 0.9% 1000 ML 2,000 ML IV SCH (14:31)
--- NOTE | 2017-09-21 15:21 | Progress Note ---
Assessment and Plan 77-year-old male with right-sided femoral endarterectomy and antegrade stenting complicated by lymphocele/seroma with noncompliance (no follow up) status post drainage, PTFE patch removal with placement of a vein patch, and sartorius flap. Had oozing from the site secondary to coagulopathy secondary to Coumadin use for prosthetic heart valve. Took dressing down and repacked wound. Plan for wound VAC on saturday. INR 2.5. Restarted home dose coumadin. Subjective Date of service: 09/21/17 Principal diagnosis: Right Femoral endarterectomy wound dehiscence/infection; Interval history: Dressing had blood seeping through dressing. Took down dressing. All gauze and quickclot was removed. No clot or active bleeding. Washed with wound clenser. Repacked and dressed. Objective - Constitutional Vitals: Vital Signs - 12hr 09/21/17 09/21/17 09/21/17 04:00 04:01 04:43 Temperature Pulse Rate 99 H Pulse Rate [ 105 H From Monitor] Respiratory 20 23 15 Rate Blood Pressure 142/76 O2 Sat by Pulse 92 95 Oximetry 09/21/17 09/21/17 09/21/17 04:46 05:00 06:00 Temperature 98.3 F Pulse Rate 88 89 93 H Pulse Rate [ 105 H From Monitor] Respiratory 17 14 20 Rate Blood Pressure 118/56 126/55 112/39 O2 Sat by Pulse 97 98 92 Oximetry 09/21/17 09/21/17 09/21/17 07:01 08:00 08:01 Temperature Pulse Rate 90 87 Pulse Rate [ 107 H From Monitor] Respiratory 15 17 12 Rate Blood Pressure 119/49 123/47 O2 Sat by Pulse 96 93 96 Oximetry 09/21/17 09/21/17 09/21/17 09:01 09:19 10:00 Temperature Pulse Rate 112 H 98 H Pulse Rate [ 81 From Monitor] Respiratory 24 16 Rate Blood Pressure 103/45 114/44 O2 Sat by Pulse 92 Oximetry 09/21/17 09/21/17 09/21/17 10:01 11:00 12:00 Temperature Pulse Rate 90 83 Pulse Rate [ 87 From Monitor] Respiratory 15 12 18 Rate Blood Pressure 112/54 103/51 O2 Sat by Pulse 96 93 Oximetry 09/21/17 09/21/17 09/21/17 12:01 13:01 14:00 Temperature Pulse Rate 87 90 Pulse Rate [ 82 From Monitor] Respiratory 19 17 14 Rate Blood Pressure 103/51 125/41 O2 Sat by Pulse 99 93 Oximetry 09/21/17 14:01 Temperature Pulse Rate 82 Pulse Rate [ From Monitor] Respiratory 14 Rate Blood Pressure 111/48 O2 Sat by Pulse 98 Oximetry General appearance: Present: no acute distress - EENT Eyes: EOM intact ENT: hearing intact - Respiratory Respiratory effort: normal Extremities: normal temperature, normal color Extremity abnormal: other (right groin wound repacked ) - Gastrointestinal General gastrointestinal: Present: soft - Psychiatric Psychiatric: appropriate mood/affect, cooperative - Labs CBC & Chem 7: 09/21/17 09:22 09/21/17 09:22 Labs: Abnormal lab results 09/20/17 09/20/17 09/20/17 Range/Units 17:45 22:46 Unknown WBC (4.5-11.0) K/mm3 RBC (3.65-5.03) M/mm3 Hgb (11.8-15.2) gm/dl Hct (35.5-45.6) % RDW (13.2-15.2) % PT (12.2-14.9) Sec. INR (0.87-1.13) Sodium (137-145) mmol/L Chloride (98-107) mmol/L BUN (9-20) mg/dL Glucose (75-100) mg/dL POC Glucose 222 H 221 H (70-105) Calcium (8.4-10.2) mg/dL Crossmatch See Detail 09/21/17 09/21/17 09/21/17 Range/Units 02:48 07:14 09:22 WBC (4.5-11.0) K/mm3 RBC (3.65-5.03) M/mm3 Hgb (11.8-15.2) gm/dl Hct (35.5-45.6) % RDW (13.2-15.2) % PT 28.7 H (12.2-14.9) Sec. INR 2.50 H (0.87-1.13) Sodium (137-145) mmol/L Chloride (98-107) mmol/L BUN (9-20) mg/dL Glucose (75-100) mg/dL POC Glucose 211 H 170 H (70-105) Calcium (8.4-10.2) mg/dL Crossmatch 09/21/17 09/21/17 09/21/17 Range/Units 09:22 09:22 09:44 WBC 11.5 H (4.5-11.0) K/mm3 RBC 3.26 L (3.65-5.03) M/mm3 Hgb 9.1 L (11.8-15.2) gm/dl Hct 28.0 L (35.5-45.6) % RDW 15.5 H (13.2-15.2) % PT (12.2-14.9) Sec. INR (0.87-1.13) Sodium 134 L (137-145) mmol/L Chloride 95.2 L (98-107) mmol/L BUN 39 H (9-20) mg/dL Glucose 156 H (75-100) mg/dL POC Glucose 181 H (70-105) Calcium 7.7 L (8.4-10.2) mg/dL Crossmatch
[2017-09-21] MEDS: LOPRESSOR PO SCH ×2 (16:14→21:17)
--- NOTE | 2017-09-21 16:17 | Progress Note ---
Assessment and Plan Assessment and plan: The patient is 77-year-old male with a history of peripheral vascular disease who recently underwent a right femoral endarterectomy with Dacron patch angioplasty. He also had atherectomy and angioplasty with stent of his SFA and popliteal artery on the right. He initially did well but was unable to follow- up in the outpatient setting for his postoperative visit secondary to transportation issues. He states that approximately 2 days ago he began to note clear yellow drainage from his right groin. patient admitted by vacular surgery and did 1. Excision of Right Femoral PTFE Patch And Repair with Right Greater Saphenous Vein 2. Coverage of Right Femoral Artery with Sartorius Muscle Flap 3. Wound VAC Placement (Wound Measures 17 x 4 x 2 cm) We have been consulted for medical management. patient's medical history is significant for DM, HTN, afib on anticoagulation. patient's home medications were reconciled by vascular. Continue current management. H/H stable. GUICHO - cr is 1.8 - On IV fluids Disposition: - Per vascular History Interval history: Patient was seen and evaluated this morning. Minimal bleeding on the right groin. Bleeding markedly decreased. Hospitalist Physical - Physical exam Narrative exam: Not in cardiopulmonary distress. The patient appeared well nourished and normally developed. Vital signs as documented. Head exam is unremarkable. No scleral icterus . Neck is without jugular venous distension, thyromegaly, or carotid bruits. Lungs are clear to auscultation. Cardiac exam reveals irregular rate and Rhythm. Abdominal exam reveals normal bowel sounds, no masses, no organomegaly and no aortic enlargement. Extremities right groin bleeding. 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 No focal weakness. - Constitutional Vitals: Temp Pulse Resp BP Pulse Ox 98.9 F 78 16 114/44 96 09/21/17 15:54 09/21/17 16:01 09/21/17 16:01 09/21/17 16:14 09/21/17 16:01 General appearance: Present: no acute distress Results - Labs CBC & Chem 7: 09/21/17 09:22 09/21/17 09:22 Labs: Laboratory Last Values WBC 11.5 K/mm3 (4.5-11.0) H 09/21/17 09:22 RBC 3.26 M/mm3 (3.65-5.03) L 09/21/17 09:22 Hgb 9.1 gm/dl (11.8-15.2) L 09/21/17 09:22 Hct 28.0 % (35.5-45.6) L 09/21/17 09:22 MCV 86 fl (84-94) 09/21/17 09:22 MCH 28 pg (28-32) 09/21/17 09:22 MCHC 33 % (32-34) 09/21/17 09:22 RDW 15.5 % (13.2-15.2) H 09/21/17 09:22 Plt Count 247 K/mm3 (140-440) 09/21/17 09:22 Lymph % (Auto) 11.5 % (13.4-35.0) L 09/18/17 23:35 Gonzales % (Auto) 11.1 % (0.0-7.3) H 09/18/17 23:35 Eos % (Auto) 2.7 % (0.0-4.3) 09/18/17 23:35 Baso % (Auto) 0.7 % (0.0-1.8) 09/18/17 23:35 Lymph # 1.6 K/mm3 (1.2-5.4) 09/18/17 23:35 Gonzales # 1.5 K/mm3 (0.0-0.8) H 09/18/17 23:35 Eos # 0.4 K/mm3 (0.0-0.4) 09/18/17 23:35 Baso # 0.1 K/mm3 (0.0-0.1) 09/18/17 23:35 Seg Neutrophils % 74.0 % (40.0-70.0) H 09/18/17 23:35 Seg Neutrophils # 10.0 K/mm3 (1.8-7.7) H 09/18/17 23:35 PT 28.7 Sec. (12.2-14.9) H 09/21/17 09:22 INR 2.50 (0.87-1.13) H 09/21/17 09:22 APTT 34.5 Sec. (24.2-36.6) 09/16/17 21:14 Sodium 134 mmol/L (137-145) L 09/21/17 09:22 Potassium 3.6 mmol/L (3.6-5.0) 09/21/17 09:22 Chloride 95.2 mmol/L (98-107) L 09/21/17 09:22 Carbon Dioxide 24 mmol/L (22-30) 09/21/17 09:22 Anion Gap 18 mmol/L 09/21/17 09:22 BUN 39 mg/dL (9-20) H 09/21/17 09:22 Creatinine 1.5 mg/dL (0.8-1.5) 09/21/17 09:22 Estimated GFR 45 ml/min 09/21/17 09:22 BUN/Creatinine Ratio 26 % 09/21/17 09:22 Glucose 156 mg/dL (75-100) H 09/21/17 09:22 POC Glucose 181 (70-105) H 09/21/17 09:44 Calcium 7.7 mg/dL (8.4-10.2) L 09/21/17 09:22 Blood Type B POSITIVE 09/20/17 Unknown Antibody Screen Negative 09/20/17 Unknown Crossmatch See Detail 09/20/17 Unknown
[2017-09-21] MEDS: COUMADIN PO SCH (16:35)
[2017-09-21] MEDS: TYLENOL PO PRN (18:54)
[2017-09-21] MEDS: SENOKOT PO SCH (21:17)
[2017-09-22] MEDS: HumaLOG SUB-Q SCH ×6 (02:00→23:51)
[2017-09-22] MEDS: TYLENOL PO PRN (02:58)
[2017-09-22 05:38] LABS: INR 2.34 (0.87-1.13)
[2017-09-22] MEDS: PROTONIX PO SCH (09:14)
[2017-09-22] MEDS: COZAAR PO SCH (09:17)
[2017-09-22] MEDS: GLUCOPHAGE PO SCH ×2 (09:18→16:38)
[2017-09-22] MEDS: PLAQUENIL PO SCH ×2 (09:18→21:29)
[2017-09-22] MEDS: COLACE PO SCH ×2 (09:18→21:28)
[2017-09-22] MEDS: LOPRESSOR PO SCH ×2 (09:19→21:28)
[2017-09-22] MEDS: HCTZ PO SCH (09:19)
[2017-09-22] MEDS: LANTUS SUB-Q SCH ×2 (09:23→09:30)
[2017-09-22] MEDS: SODIUM CHLORIDE FLUSH SYRINGE 10 ML IV SCH ×3 (09:23→23:51)
[2017-09-22] MEDS: PERCOCET 5/325 PO PRN ×2 (12:08→21:30)
--- NOTE | 2017-09-22 13:25 | Progress Note ---
Assessment and Plan Assessment and plan: The patient is 77-year-old male with a history of severeperipheral vascular disease, prosthetic aortic valve who recently underwent a right femoral endarterectomy with Dacron patch angioplasty. He also had atherectomy and angioplasty with stent of his SFA and popliteal artery on the right. He initially did well but was unable to follow-up in the outpatient setting for his postoperative visit secondary to transportation issues. He states that approximately 2 days ago he began to note clear yellow drainage from his right groin. patient admitted by vacular surgery and did 1. Excision of Right Femoral PTFE Patch And Repair with Right Greater Saphenous Vein 2. Coverage of Right Femoral Artery with Sartorius Muscle Flap 3. Wound VAC Placement tomorrow Bleeding stopped patient is on warfarin for A.fib and prosthetic aortic valve and INR from this morning is 2.46. Management per cardiology We have been consulted for medical management. patient's medical history is significant for DM, HTN, afib on anticoagulation. patient's home medications were reconciled by vascular. Continue current management. H/H stable. GUICHO - cr was 1.8 yesterday, pending today's result - On IV fluids Disposition: - Per vascular History Interval history: Patient was seen and evaluated this morning. No bleeding from the groin. Hospitalist Physical - Physical exam Narrative exam: Not in cardiopulmonary distress. The patient appeared well nourished and normally developed. Vital signs as documented. Head exam is unremarkable. No scleral icterus . Neck is without jugular venous distension, thyromegaly, or carotid bruits. Lungs are clear to auscultation. Cardiac exam reveals irregular rate and Rhythm. Abdominal exam reveals normal bowel sounds, no masses, no organomegaly and no aortic enlargement. Extremities right groin bleeding. WEIGH BOSS: Alert and oriented 3. No focal weakness. - Constitutional Vitals: Temp Pulse Resp BP Pulse Ox 98.3 F 67 16 120/51 96 09/22/17 12:00 09/22/17 12:00 09/22/17 12:00 09/22/17 12:00 09/22/17 12:00 General appearance: Present: no acute distress Results - Labs CBC & Chem 7: 09/21/17 09:22 09/21/17 09:22 Labs: Laboratory Last Values WBC 11.5 K/mm3 (4.5-11.0) H 09/21/17 09:22 RBC 3.26 M/mm3 (3.65-5.03) L 09/21/17 09:22 Hgb 9.1 gm/dl (11.8-15.2) L 09/21/17 09:22 Hct 28.0 % (35.5-45.6) L 09/21/17 09:22 MCV 86 fl (84-94) 09/21/17 09:22 MCH 28 pg (28-32) 09/21/17 09:22 MCHC 33 % (32-34) 09/21/17 09:22 RDW 15.5 % (13.2-15.2) H 09/21/17 09:22 Plt Count 247 K/mm3 (140-440) 09/21/17 09:22 Lymph % (Auto) 11.5 % (13.4-35.0) L 09/18/17 23:35 [place] % (Auto) 11.1 % (0.0-7.3) H 09/18/17 23:35 Eos % (Auto) 2.7 % (0.0-4.3) 09/18/17 23:35 Baso % (Auto) 0.7 % (0.0-1.8) 09/18/17 23:35 Lymph # 1.6 K/mm3 (1.2-5.4) 09/18/17 23:35 [place] # 1.5 K/mm3 (0.0-0.8) H 09/18/17 23:35 Eos # 0.4 K/mm3 (0.0-0.4) 09/18/17 23:35 Baso # 0.1 K/mm3 (0.0-0.1) 09/18/17 23:35 Seg Neutrophils % 74.0 % (40.0-70.0) H 09/18/17 23:35 Seg Neutrophils # 10.0 K/mm3 (1.8-7.7) H 09/18/17 23:35 PT 27.2 Sec. (12.2-14.9) H 09/22/17 04:09 INR 2.34 (0.87-1.13) H 09/22/17 04:09 APTT 34.5 Sec. (24.2-36.6) 09/16/17 21:14 Sodium 134 mmol/L (137-145) L 09/21/17 09:22 Potassium 3.6 mmol/L (3.6-5.0) 09/21/17 09:22 Chloride 95.2 mmol/L (98-107) L 09/21/17 09:22 Carbon Dioxide 24 mmol/L (22-30) 09/21/17 09:22 Anion Gap 18 mmol/L 09/21/17 09:22 BUN 39 mg/dL (9-20) H 09/21/17 09:22 Creatinine 1.5 mg/dL (0.8-1.5) 09/21/17 09:22 Estimated GFR 45 ml/min 09/21/17 09:22 BUN/Creatinine Ratio 26 % 09/21/17 09:22 Glucose 156 mg/dL (75-100) H 09/21/17 09:22 POC Glucose 167 (70-105) H 09/22/17 12:14 Calcium 7.7 mg/dL (8.4-10.2) L 09/21/17 09:22 Blood Type B POSITIVE 09/20/17 Unknown Antibody Screen Negative 09/20/17 Unknown Crossmatch See Detail 09/20/17 Unknown
[2017-09-22] MEDS: NACL 0.9% 1000 ML 2,000 ML IV SCH (14:19)
--- NOTE | 2017-09-22 14:52 | Progress Note ---
Assessment and Plan 77-year-old male with right-sided femoral endarterectomy and antegrade stenting complicated by lymphocele/seroma with noncompliance (no follow up) status post drainage, PTFE patch removal with placement of a vein patch, and sartorius flap. Had oozing from the site secondary to coagulopathy secondary to Coumadin use for prosthetic heart valve. Plan for wound VAC on saturday. INR 2.3. Started heparin drip. Plan to discontinue heparin drip once INR greater than 2.5. Subjective Date of service: 09/22/17 Principal diagnosis: Right Femoral endarterectomy wound dehiscence/infection; Interval history: Dressing had mostly serous fluid seeping through dressing. Took down dressing. All gauze was removed. Tiny oozing at peripheral area treated with silver nitrate. Washed with wound clenser. Repacked and dressed. Objective - Constitutional Vitals: Vital Signs - 12hr 09/22/17 09/22/17 09/22/17 03:01 04:00 05:00 Temperature 98.1 F Pulse Rate 82 76 73 Pulse Rate [ From Monitor] Respiratory 15 15 14 Rate Blood Pressure 132/55 111/50 102/36 O2 Sat by Pulse 99 98 99 Oximetry 09/22/17 09/22/17 09/22/17 06:00 07:00 08:00 Temperature 97.9 F Pulse Rate 74 75 74 Pulse Rate [ 80 From Monitor] Respiratory 13 13 14 Rate Blood Pressure 112/50 121/49 117/41 O2 Sat by Pulse 99 99 100 Oximetry 09/22/17 09/22/17 09/22/17 09:01 09:17 09:19 Temperature Pulse Rate 80 81 79 Pulse Rate [ From Monitor] Respiratory 10 L Rate Blood Pressure 117/41 135/61 135/61 O2 Sat by Pulse 96 Oximetry 09/22/17 09/22/17 09/22/17 10:00 11:00 12:00 Temperature 98.3 F Pulse Rate 73 70 67 Pulse Rate [ 70 From Monitor] Respiratory 12 12 16 Rate Blood Pressure 135/61 110/51 120/51 O2 Sat by Pulse 92 96 96 Oximetry General appearance: Present: no acute distress - EENT Eyes: EOM intact ENT: hearing intact - Respiratory Respiratory effort: normal Extremity abnormal: other (wound evaluated and repacked as noted in subjective) - Gastrointestinal General gastrointestinal: Present: soft - Labs CBC & Chem 7: 09/21/17 09:22 09/21/17 09:22 Labs: Abnormal lab results 09/21/17 09/21/17 09/21/17 Range/Units 14:40 17:32 21:34 PT (12.2-14.9) Sec. INR (0.87-1.13) POC Glucose 237 H 141 H 158 H (70-105) 09/22/17 09/22/17 09/22/17 Range/Units 02:55 04:09 05:41 PT 27.2 H (12.2-14.9) Sec. INR 2.34 H (0.87-1.13) POC Glucose 163 H 157 H (70-105) 09/22/17 09/22/17 Range/Units 08:22 12:14 PT (12.2-14.9) Sec. INR (0.87-1.13) POC Glucose 145 H 167 H (70-105)
[2017-09-22] MEDS ORDERED: HEPARIN/ 0.45% NACL-25,000 UNIT/500 ML 25,000 UNIT/500 ML BAG IV SCH (15:00)
[2017-09-22 15:17] LABS: INR 2.24 (0.87-1.13)
[2017-09-22 15:22] LABS: Heparin anti-factor XA < 0.10 U.I./ml (0.3-0.7)
--- NOTE | 2017-09-22 15:22 | Progress Note ---
Assessment and Plan Peripheral vascular disease, status post right femoral endarterectomy with patch angioplasty. Dehisced right femoral endarterectomy repair (status post excision of the right femoral patch and repair with coverage of the right femoral artery with a sartorius muscle flap. Acute hypoxemic respiratory failure. GUICHO Atrial fibrillation, chronic. Status post aortic valve replacement and on full anticoagulation. Coronary artery disease. Gastroesophageal reflux disease. Hypertension. Hyperlipidemia. History of prostate cancer. Medication noncompliance. History of carotid stenosis. - conservative volume strategies re: CMOP - get BMP - hold coumadin re: supratherapeutic INR - hold lantus for now, in view of poor appetite and relatively low glucose levels -continue metformin and monitor. -telegraph repeater installer consult, may benefit from supplements -wound care to right groin - continue GI prophylaxis - continue supplemental oxygen to keep sats > 90% - continue bronchodilators with pulmonary hygiene per RT - vascular team managing Right groin bleed Subjective Date of service: 09/22/17 Principal diagnosis: Right Femoral endarterectomy wound dehiscence/infection; Interval history: Follow up s/p Right Groin Lymphocele with Exposed PTFE Femoral Patch 1. Excision of Right Femoral PTFE Patch And Repair with Right Greater Saphenous Vein 2. Coverage of Right Femoral Artery with Sartorius Muscle Flap 3. Wound VAC Placement (Wound Measures 17 x 4 x 2 cm) Patient was seen and examined. Vitals, labs, medications, chart reviewed. On going groin bleeding, remains hemodynamically normal. He expresses concern that every time he has to go to OR he gets very anxious. Appetite is poor. Discussed in ICU-IDT rounds Objective - Exam Narrative Exam: Not in cardiopulmonary distress. The patient appeared well nourished and normally developed. Vital signs as documented. Head exam is unremarkable. No scleral icterus . Neck is without jugular venous distension, thyromegaly, or carotid bruits. Lungs are clear to auscultation. Cardiac exam reveals irregular rate and Rhythm. Abdominal exam reveals normal bowel sounds, no masses, no organomegaly and no aortic enlargement. Extremities right groin bleeding. 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 No focal weakness. Vital Signs - 12hr 09/22/17 09/22/17 09/22/17 04:00 05:00 06:00 Temperature 98.1 F Pulse Rate 76 73 74 Pulse Rate [ 80 From Monitor] Respiratory 15 14 13 Rate Blood Pressure 111/50 102/36 112/50 O2 Sat by Pulse 98 99 99 Oximetry 09/22/17 09/22/17 09/22/17 07:00 08:00 09:01 Temperature 97.9 F Pulse Rate 75 74 80 Pulse Rate [ From Monitor] Respiratory 13 14 10 L Rate Blood Pressure 121/49 117/41 117/41 O2 Sat by Pulse 99 100 96 Oximetry 09/22/17 09/22/17 09/22/17 09:17 09:19 10:00 Temperature Pulse Rate 81 79 73 Pulse Rate [ 70 From Monitor] Respiratory 12 Rate Blood Pressure 135/61 135/61 135/61 O2 Sat by Pulse 92 Oximetry 09/22/17 09/22/17 11:00 12:00 Temperature 98.3 F Pulse Rate 70 67 Pulse Rate [ From Monitor] Respiratory 12 16 Rate Blood Pressure 110/51 120/51 O2 Sat by Pulse 96 96 Oximetry Constitutional: no acute distress, alert, other (elderly looking CM, normocephalic, talking with mildly increased WOB, on oxygen) Eyes: non-icteric ENT: oropharynx moist, other ([place] 2) Neck: supple, no lymphadenopathy, no JVD, other (no thyromegaly) Effort: mildly labored Ascultation: Bilateral: diminished breath sounds, rhonchi (posterior bases) Percussion: Bilateral: not dull Cardiovascular: regular rate and rhythm, PVC's noted, murmur noted (metalic valve click too; Systolic), other (No Rubs) Gastrointestinal: normoactive bowel sounds, soft, non-tender, non-distended, other (No palpable HSM) Integumentary: cellulitis (Right groin) Extremities: no cyanosis, no edema, pink and warm, no ischemia or petechiae, other (right groin dressing in place; no bright red bleeding) Neurologic: normal mental status, non-focal exam, pupils equal and round, motor strength normal and Psychiatric: mood appropriate, affect normal CBC and BMP: 09/21/17 09:22 09/21/17 09:22 ABG, PT/INR, D-dimer: PT/INR, D-dimer PT 26.3 Sec. (12.2-14.9) H 09/22/17 14:10 INR 2.24 (0.87-1.13) H 09/22/17 14:10 Abnormal lab findings: Abnormal Labs 09/16/17 09/16/17 09/16/17 21:14 21:14 21:14 WBC RBC Hgb 11.6 L Hct MCV 82 L MCH 27 L RDW Lymph % (Auto) Castro % (Auto) 9.5 H Eos % (Auto) 5.4 H Castro # Seg Neutrophils % Seg Neutrophils # PT 23.0 H INR 1.90 H Sodium 136 L Chloride BUN 21 H Creatinine Glucose 153 H POC Glucose Calcium Crossmatch 09/16/17 09/17/17 09/17/17 21:53 05:21 06:46 WBC RBC Hgb Hct MCV MCH RDW Lymph % (Auto) Castro % (Auto) Eos % (Auto) Castro # Seg Neutrophils % Seg Neutrophils # PT INR Sodium Chloride BUN Creatinine Glucose POC Glucose 158 H 125 H 174 H Calcium Crossmatch 09/17/17 09/17/17 09/17/17 11:04 14:02 16:49 WBC RBC Hgb Hct MCV MCH RDW Lymph % (Auto) Castro % (Auto) Eos % (Auto) Castro # Seg Neutrophils % Seg Neutrophils # PT INR Sodium Chloride BUN Creatinine Glucose POC Glucose 173 H 201 H Calcium Crossmatch See Detail 09/17/17 09/18/17 09/18/17 21:46 04:50 04:50 WBC RBC Hgb 10.8 L Hct 32.5 L MCV MCH RDW 15.4 H Lymph % (Auto) Castro % (Auto) Eos % (Auto) Castro # Seg Neutrophils % Seg Neutrophils # PT INR Sodium Chloride BUN Creatinine Glucose 162 H POC Glucose 157 H Calcium 7.8 L D Crossmatch 09/18/17 09/18/17 09/18/17 07:26 08:46 12:15 WBC RBC Hgb Hct MCV MCH RDW Lymph % (Auto) Castro % (Auto) Eos % (Auto) Castro # Seg Neutrophils % Seg Neutrophils # PT 30.0 H INR 2.64 H Sodium Chloride BUN Creatinine Glucose POC Glucose 182 H 176 H Calcium Crossmatch 09/18/17 09/18/17 09/18/17 13:32 16:19 21:37 WBC RBC Hgb 10.8 L Hct 32.3 L MCV MCH RDW Lymph % (Auto) Castro % (Auto) Eos % (Auto) Castro # Seg Neutrophils % Seg Neutrophils # PT INR Sodium Chloride BUN Creatinine Glucose POC Glucose 200 H 168 H Calcium Crossmatch 09/18/17 09/19/17 09/19/17 23:35 02:18 04:19 WBC 13.5 H RBC Hgb 10.6 L Hct 32.9 L MCV MCH 27 L RDW Lymph % (Auto) 11.5 L Castro % (Auto) 11.1 H Eos % (Auto) Castro # 1.5 H Seg Neutrophils % 74.0 H Seg Neutrophils # 10.0 H PT 39.6 H INR 3.73 H Sodium Chloride BUN Creatinine Glucose POC Glucose 204 H Calcium Crossmatch 09/19/17 09/19/17 09/19/17 04:19 06:34 08:45 WBC RBC Hgb 9.7 L Hct 29.3 L MCV MCH RDW Lymph % (Auto) Castro % (Auto) Eos % (Auto) Castro # Seg Neutrophils % Seg Neutrophils # PT INR Sodium Chloride BUN Creatinine Glucose POC Glucose 172 H 156 H Calcium Crossmatch 09/19/17 09/19/17 09/19/17 12:44 14:34 17:20 WBC RBC Hgb Hct MCV MCH RDW Lymph % (Auto) Castro % (Auto) Eos % (Auto) Castro # Seg Neutrophils % Seg Neutrophils # PT INR Sodium Chloride BUN Creatinine Glucose POC Glucose 181 H 232 H 213 H Calcium Crossmatch 09/19/17 09/20/17 09/20/17 21:33 01:58 02:01 WBC RBC Hgb Hct MCV MCH RDW Lymph % (Auto) Castro % (Auto) Eos % (Auto) Castro # Seg Neutrophils % Seg Neutrophils # PT INR Sodium Chloride BUN Creatinine Glucose POC Glucose 202 H > 500 H 208 H Calcium Crossmatch 09/20/17 09/20/17 09/20/17 03:31 03:31 05:20 WBC 11.6 H RBC 2.97 L Hgb 8.1 L Hct 24.0 L MCV 81 L MCH 27 L RDW Lymph % (Auto) Castro % (Auto) Eos % (Auto) Castro # Seg Neutrophils % Seg Neutrophils # PT 40.6 H INR 3.85 H Sodium Chloride BUN Creatinine Glucose POC Glucose 191 H Calcium Crossmatch 09/20/17 09/20/17 09/20/17 09:24 12:23 12:23 WBC RBC Hgb Hct MCV MCH RDW Lymph % (Auto) Castro % (Auto) Eos % (Auto) Castro # Seg Neutrophils % Seg Neutrophils # PT 36.6 H INR 3.38 H Sodium 135 L Chloride BUN 40 H Creatinine 1.8 H Glucose 219 H POC Glucose 234 H Calcium 7.9 L Crossmatch 09/20/17 09/20/17 09/20/17 14:17 17:45 22:46 WBC RBC Hgb Hct MCV MCH RDW Lymph % (Auto) Castro % (Auto) Eos % (Auto) Castro # Seg Neutrophils % Seg Neutrophils # PT INR Sodium Chloride BUN Creatinine Glucose POC Glucose 226 H 222 H 221 H Calcium Crossmatch 09/20/17 09/21/17 09/21/17 Unknown 02:48 07:14 WBC RBC Hgb Hct MCV MCH RDW Lymph % (Auto) [place] % (Auto) Eos % (Auto) Castro # Seg Neutrophils % Seg Neutrophils # PT INR Sodium Chloride BUN Creatinine Glucose POC Glucose 211 H 170 H Calcium Crossmatch See Detail 09/21/17 09/21/17 09/21/17 09:22 09:22 09:22 WBC 11.5 H RBC 3.26 L Hgb 9.1 L Hct 28.0 L MCV MCH RDW 15.5 H Lymph % (Auto) Castro % (Auto) Eos % (Auto) Castro # Seg Neutrophils % Seg Neutrophils # PT 28.7 H INR 2.50 H Sodium 134 L Chloride 95.2 L BUN 39 H Creatinine Glucose 156 H POC Glucose Calcium 7.7 L Crossmatch 09/21/17 09/21/17 09/21/17 09:44 14:40 17:32 WBC RBC Hgb Hct MCV MCH RDW Lymph % (Auto) [place] % (Auto) Eos % (Auto) Castro # Seg Neutrophils % Seg Neutrophils # PT INR Sodium Chloride BUN Creatinine Glucose POC Glucose 181 H 237 H 141 H Calcium Crossmatch 09/21/17 09/22/17 09/22/17 21:34 02:55 04:09 WBC RBC Hgb Hct MCV MCH RDW Lymph % (Auto) [place] % (Auto) Eos % (Auto) Castro # Seg Neutrophils % Seg Neutrophils # PT 27.2 H INR 2.34 H Sodium Chloride BUN Creatinine Glucose POC Glucose 158 H 163 H Calcium Crossmatch 09/22/17 09/22/17 09/22/17 05:41 08:22 12:14 WBC RBC Hgb Hct MCV MCH RDW Lymph % (Auto) [place] % (Auto) Eos % (Auto) Castro # Seg Neutrophils % Seg Neutrophils # PT INR Sodium Chloride BUN Creatinine Glucose POC Glucose 157 H 145 H 167 H Calcium Crossmatch 09/22/17 14:10 WBC RBC Hgb Hct MCV MCH RDW Lymph % (Auto) Castro % (Auto) Eos % (Auto) Castro # Seg Neutrophils % Seg Neutrophils # PT 26.3 H INR 2.24 H Sodium Chloride BUN Creatinine Glucose POC Glucose Calcium Crossmatch Allied health notes reviewed: nursing
[2017-09-22 15:26] LABS: Partial Thromboplastin Time 61.7 Sec. (24.2-36.6)
[2017-09-22 16:18] LABS: Basophils # (Auto) 0.1 K/mm3 (0.0-0.1); Basophils % (Auto) 0.8 % (0.0-1.8); Eosinophils # (Auto) 0.6 K/mm3 (0.0-0.4); Eosinophils % (Auto) 7.6 % (0.0-4.3); Hematocrit 27.8 % (35.5-45.6); Hemoglobin 8.8 gm/dl (11.8-15.2); Lymphocytes # (Auto) 0.9 K/mm3 (1.2-5.4); Lymphocytes % (Auto) 12.7 % (13.4-35.0); Mean Corpuscular HGB Conc 32 % (32-34); Mean Corpuscular Hemoglobin 28 pg (28-32); Mean Corpuscular Volume 87 fl (84-94); Monocytes # (Auto) 0.7 K/mm3 (0.0-0.8); Monocytes % (Auto) 9.6 % (0.0-7.3); Platelet Count 249 K/mm3 (140-440); Red Cell Distribution Width 15.5 % (13.2-15.2)
[2017-09-22] MEDS: COUMADIN PO SCH (16:38)
--- NOTE | 2017-09-22 18:14 | Progress Note ---
Assessment and Plan - Patient Problems (1) Anticoagulated on Coumadin Current Visit: Yes Status: Acute Plan to address problem: Due to the presence of a mechanical aortic valve, interruption of Coumadin therapy should be bridged with intravenous heparin. I will discuss with vascular surgery regarding their plans for additional procedures and the necessity of heparin bridging. (2) H/O mechanical aortic valve replacement Current Visit: Yes Status: Acute Plan to address problem: Due to the presence of a mechanical aortic valve, interruption of Coumadin therapy should be bridged with intravenous heparin. I will discuss with vascular surgery regarding their plans for additional procedures and the necessity of heparin bridging. (3) Paroxysmal atrial fibrillation Current Visit: Yes Status: Acute Plan to address problem: Patient is currently in stable sinus rhythm, we will continue beta deloris therapy as tolerated. Subjective Date of service: 09/22/17 Principal diagnosis: Right Femoral endarterectomy wound dehiscence/infection; Interval history: Patient is comfortable, in no acute distress. Stable sinus rhythm, stable hemodynamics. Objective Vital Signs Temp Pulse Pulse Resp BP Pulse Ox 09/22/17 18:00 71 65 16 118/53 95 09/22/17 17:00 60 16 129/47 94 09/22/17 16:00 98.4 F 65 15 105/46 94 09/22/17 15:00 65 12 105/46 87 09/22/17 14:00 67 61 12 106/48 94 09/22/17 13:00 75 13 120/51 97 09/22/17 12:00 98.3 F 67 16 120/51 96 09/22/17 11:00 70 12 110/51 96 09/22/17 10:00 73 70 12 135/61 92 09/22/17 09:19 79 135/61 09/22/17 09:17 81 135/61 09/22/17 09:01 80 10 L 117/41 96 09/22/17 08:00 97.9 F 74 14 117/41 100 09/22/17 07:00 75 13 121/49 99 09/22/17 06:00 74 80 13 112/50 99 09/22/17 05:00 73 14 102/36 99 09/22/17 04:00 98.1 F 76 15 111/50 98 09/22/17 03:01 82 15 132/55 99 09/22/17 02:00 67 88 11 L 97/46 99 0603/18 01:00 75 13 104/45 98 09/22/17 00:00 98.3 F 74 15 107/49 99 09/21/17 23:01 76 14 104/39 98 09/21/17 22:05 75 12 99/53 98 09/21/17 22:00 77 81 15 99/53 99 09/21/17 21:46 76 10 L 83/47 99 09/21/17 21:17 76 90/48 09/21/17 21:01 78 13 83/47 100 09/21/17 20:00 98.7 F 78 13 96/47 99 09/21/17 19:01 81 13 110/60 98 09/21/17 18:19 81 13 93 - Physical Examination General: Appears Well, No Apparent Distress HEENT: Positive: PERRL Neck: Positive: neck supple Cardiac: Positive: Reg Rate and Rhythm Lungs: Positive: Decreased Breath Sounds Neuro: Positive: Grossly Intact Abdomen: Positive: Soft Skin: Positive: Clear Extremities: Absent: edema - Labs and Meds Coagulation 09/22/17 09/22/17 Range/Units 04:09 14:10 PT 27.2 H 26.3 H (12.2-14.9) Sec. INR 2.34 H 2.24 H (0.87-1.13) APTT 61.7 H* (24.2-36.6) Sec. CBC 09/22/17 Range/Units 16:07 WBC 7.5 (4.5-11.0) K/mm3 RBC 3.20 L (3.65-5.03) M/mm3 Hgb 8.8 L (11.8-15.2) gm/dl Hct 27.8 L (35.5-45.6) % Plt Count 249 (140-440) K/mm3 Lymph # 0.9 L (1.2-5.4) K/mm3 Day # 0.7 (0.0-0.8) K/mm3 Eos # 0.6 H (0.0-0.4) K/mm3 Baso # 0.1 (0.0-0.1) K/mm3 - Allied health notes Allied health notes reviewed: nursing
[2017-09-22] MEDS: SENOKOT PO SCH (21:28)
[2017-09-23] MEDS: NACL 0.9% 1000 ML 2,000 ML IV SCH ×2 (00:21→09:43)
[2017-09-23 06:29] LABS: INR 2.3 (0.87-1.13)
[2017-09-23 06:30] LABS: Heparin anti-factor XA 0.24 U.I./ml (0.3-0.7)
[2017-09-23] MEDS: HumaLOG SUB-Q SCH ×6 (06:40→22:59)
[2017-09-23 06:49] LABS: Calcium 7.5 mg/dL (8.4-10.2)
[2017-09-23] MEDS: HCTZ PO SCH (09:37)
[2017-09-23] MEDS: PROTONIX PO SCH (09:37)
[2017-09-23] MEDS: LOPRESSOR PO SCH ×2 (09:37→22:58)
[2017-09-23] MEDS: PERCOCET 5/325 PO PRN ×3 (09:37→22:57)
[2017-09-23] MEDS: GLUCOPHAGE PO SCH ×2 (09:37→17:10)
[2017-09-23] MEDS: COZAAR PO SCH (09:38)
[2017-09-23] MEDS: COLACE PO SCH ×2 (09:38→23:53)
[2017-09-23] MEDS: PLAQUENIL PO SCH ×2 (09:38→22:58)
[2017-09-23] MEDS: LANTUS SUB-Q SCH (09:39)
[2017-09-23] MEDS: SODIUM CHLORIDE FLUSH SYRINGE 10 ML IV SCH ×2 (09:43→23:05)
--- NOTE | 2017-09-23 10:27 | Progress Note ---
Assessment and Plan Peripheral vascular disease, status post right femoral endarterectomy with patch angioplasty. Dehisced right femoral endarterectomy repair (status post excision of the right femoral patch and repair with coverage of the right femoral artery with a sartorius muscle flap. Acute hypoxemic respiratory failure. GUICHO Atrial fibrillation, chronic. Status post aortic valve replacement and on full anticoagulation. Coronary artery disease. Gastroesophageal reflux disease. Hypertension. Hyperlipidemia. History of prostate cancer. Medication noncompliance. History of carotid stenosis. - conservative volume strategies re: CMOP - get BMP - continue IV heparin bridge till INR intherapeutic range for mechanical valve - add lantus 5 units qhs re: hyperglycemia - cardiology now on case - continue GI prophylaxis - continue prn supplemental oxygen to keep sats > 90% - continue bronchodilators with pulmonary hygiene per RT (LABA & ICS with prn ALEX) - vascular team managing Right groin bleed - constipation better - continue senna 17.2 gm qhs as part of bowel regimen - continue other care per attending / other consultants .... transfer to telemetry if no significant bleeding risk from vascular surgery standpoint ... 35' Subjective Date of service: 09/23/17 Principal diagnosis: R. Fem endarterectomy wound dehiscence/infection; Anemia ( ABLA); Hypoxemia Interval history: Patient is seen today for: R. Fem endarterectomy wound dehiscence/infection; Anemia (ABLA); Acute Hypoxemic Respiratory Failure Seen and examined at bedside; 24hour events reviewed; nursing and respiratory care staff consulted; no adverse overnight events reported to me; resting peacefully in bed; denies acute chest pains; no groin bleeding; No F/C; weaned off oxygen at this point. Objective Vital Signs - 12hr 09/22/17 09/22/17 09/23/17 23:00 23:32 00:00 Temperature 98.0 F Pulse Rate 67 64 Pulse Rate [ 64 From Monitor] Respiratory 16 15 Rate Blood Pressure 126/58 124/51 O2 Sat by Pulse 93 94 Oximetry 09/23/17 09/23/17 09/23/17 01:00 02:00 03:00 Temperature Pulse Rate 64 58 L 56 L Pulse Rate [ From Monitor] Respiratory 13 14 14 Rate Blood Pressure 124/51 110/51 110/49 O2 Sat by Pulse 92 94 94 Oximetry 09/23/17 09/23/17 09/23/17 04:00 05:00 06:00 Temperature 98.7 F Pulse Rate 83 59 L 57 L Pulse Rate [ 83 From Monitor] Respiratory 13 15 14 Rate Blood Pressure 119/48 110/47 130/55 O2 Sat by Pulse 93 93 93 Oximetry 09/23/17 09/23/17 09/23/17 07:00 08:00 09:37 Temperature 97.9 F Pulse Rate 56 L 56 L 59 L Pulse Rate [ 59 L From Monitor] Respiratory 15 15 Rate Blood Pressure 126/53 137/61 125/54 O2 Sat by Pulse 99 95 Oximetry 09/23/17 09:38 Temperature Pulse Rate 60 Pulse Rate [ From Monitor] Respiratory Rate Blood Pressure 125/54 O2 Sat by Pulse Oximetry Constitutional: no acute distress, alert, other (elderly looking CM, normocephalic, talking with mildly increased WOB, on oxygen) Eyes: non-icteric ENT: oropharynx moist, other ([place] 2) Neck: supple, no lymphadenopathy, no JVD, other (no thyromegaly) Effort: mildly labored Ascultation: Bilateral: clear, diminished breath sounds Percussion: Bilateral: not dull Cardiovascular: regular rate and rhythm, PVC's noted, murmur noted (metalic valve click too; Systolic), other (No Rubs) Gastrointestinal: normoactive bowel sounds, soft, non-tender, non-distended, other (No palpable HSM) Integumentary: cellulitis (Right groin) Extremities: no cyanosis, no edema, pink and warm, no ischemia or petechiae, other (right groin dressing in place; no bright red bleeding) Neurologic: normal mental status, non-focal exam, pupils equal and round, motor strength normal and Psychiatric: mood appropriate, affect normal CBC and BMP: 09/22/17 16:07 09/23/17 05:19 ABG, PT/INR, D-dimer: PT/INR, D-dimer PT 26.8 Sec. (12.2-14.9) H 09/23/17 05:19 INR 2.30 (0.87-1.13) H 09/23/17 05:19 Abnormal lab findings: Abnormal Labs 09/16/17 09/16/17 09/16/17 21:14 21:14 21:14 WBC RBC Hgb 11.6 L Hct MCV 82 L MCH 27 L RDW Lymph % (Auto) [place] % (Auto) 9.5 H Eos % (Auto) 5.4 H Lymph # [place] # Eos # Seg Neutrophils % Seg Neutrophils # PT 23.0 H INR 1.90 H APTT Heparin Anti-Xa Level Sodium 136 L Chloride Carbon Dioxide BUN 21 H Creatinine Glucose 153 H POC Glucose Calcium Crossmatch 09/16/17 09/17/17 09/17/17 21:53 05:21 06:46 WBC RBC Hgb Hct MCV MCH RDW Lymph % (Auto) [place] % (Auto) Eos % (Auto) Lymph # [place] # Eos # Seg Neutrophils % Seg Neutrophils # PT INR APTT Heparin Anti-Xa Level Sodium Chloride Carbon Dioxide BUN Creatinine Glucose POC Glucose 158 H 125 H 174 H Calcium Crossmatch 09/17/17 09/17/17 09/17/17 11:04 14:02 16:49 WBC RBC Hgb Hct MCV MCH RDW Lymph % (Auto) [place] % (Auto) Eos % (Auto) Lymph # [place] # Eos # Seg Neutrophils % Seg Neutrophils # PT INR APTT Heparin Anti-Xa Level Sodium Chloride Carbon Dioxide BUN Creatinine Glucose POC Glucose 173 H 201 H Calcium Crossmatch See Detail 09/17/17 09/18/17 09/18/17 21:46 04:50 04:50 WBC RBC Hgb 10.8 L Hct 32.5 L MCV MCH RDW 15.4 H Lymph % (Auto) [place] % (Auto) Eos % (Auto) Lymph # [place] # Eos # Seg Neutrophils % Seg Neutrophils # PT INR APTT Heparin Anti-Xa Level Sodium Chloride Carbon Dioxide BUN Creatinine Glucose 162 H POC Glucose 157 H Calcium 7.8 L D Crossmatch 09/18/17 09/18/17 09/18/17 07:26 08:46 12:15 WBC RBC Hgb Hct MCV MCH RDW Lymph % (Auto) [place] % (Auto) Eos % (Auto) Lymph # [place] # Eos # Seg Neutrophils % Seg Neutrophils # PT 30.0 H INR 2.64 H APTT Heparin Anti-Xa Level Sodium Chloride Carbon Dioxide BUN Creatinine Glucose POC Glucose 182 H 176 H Calcium Crossmatch 09/18/17 09/18/17 09/18/17 13:32 16:19 21:37 WBC RBC Hgb 10.8 L Hct 32.3 L MCV MCH RDW Lymph % (Auto) [place] % (Auto) Eos % (Auto) Lymph # [place] # Eos # Seg Neutrophils % Seg Neutrophils # PT INR APTT Heparin Anti-Xa Level Sodium Chloride Carbon Dioxide BUN Creatinine Glucose POC Glucose 200 H 168 H Calcium Crossmatch 09/18/17 09/19/17 09/19/17 23:35 02:18 04:19 WBC 13.5 H RBC Hgb 10.6 L Hct 32.9 L MCV MCH 27 L RDW Lymph % (Auto) 11.5 L [place] % (Auto) 11.1 H Eos % (Auto) Lymph # [place] # 1.5 H Eos # Seg Neutrophils % 74.0 H Seg Neutrophils # 10.0 H PT 39.6 H INR 3.73 H APTT Heparin Anti-Xa Level Sodium Chloride Carbon Dioxide BUN Creatinine Glucose POC Glucose 204 H Calcium Crossmatch 09/19/17 09/19/17 09/19/17 04:19 06:34 08:45 WBC RBC Hgb 9.7 L Hct 29.3 L MCV MCH RDW Lymph % (Auto) [place] % (Auto) Eos % (Auto) Lymph # [place] # Eos # Seg Neutrophils % Seg Neutrophils # PT INR APTT Heparin Anti-Xa Level Sodium Chloride Carbon Dioxide BUN Creatinine Glucose POC Glucose 172 H 156 H Calcium Crossmatch 09/19/17 09/19/17 09/19/17 12:44 14:34 17:20 WBC RBC Hgb Hct MCV MCH RDW Lymph % (Auto) [place] % (Auto) Eos % (Auto) Lymph # [place] # Eos # Seg Neutrophils % Seg Neutrophils # PT INR APTT Heparin Anti-Xa Level Sodium Chloride Carbon Dioxide BUN Creatinine Glucose POC Glucose 181 H 232 H 213 H Calcium Crossmatch 09/19/17 09/20/17 09/20/17 21:33 01:58 02:01 WBC RBC Hgb Hct MCV MCH RDW Lymph % (Auto) [place] % (Auto) Eos % (Auto) Lymph # [place] # Eos # Seg Neutrophils % Seg Neutrophils # PT INR APTT Heparin Anti-Xa Level Sodium Chloride Carbon Dioxide BUN Creatinine Glucose POC Glucose 202 H > 500 H 208 H Calcium Crossmatch 09/20/17 09/20/17 09/20/17 03:31 03:31 05:20 WBC 11.6 H RBC 2.97 L Hgb 8.1 L Hct 24.0 L MCV 81 L MCH 27 L RDW Lymph % (Auto) [place] % (Auto) Eos % (Auto) Lymph # [place] # Eos # Seg Neutrophils % Seg Neutrophils # PT 40.6 H INR 3.85 H APTT Heparin Anti-Xa Level Sodium Chloride Carbon Dioxide BUN Creatinine Glucose POC Glucose 191 H Calcium Crossmatch 09/20/17 09/20/17 09/20/17 09:24 12:23 12:23 WBC RBC Hgb Hct MCV MCH RDW Lymph % (Auto) [place] % (Auto) Eos % (Auto) Lymph # [place] # Eos # Seg Neutrophils % Seg Neutrophils # PT 36.6 H INR 3.38 H APTT Heparin Anti-Xa Level Sodium 135 L Chloride Carbon Dioxide BUN 40 H Creatinine 1.8 H Glucose 219 H POC Glucose 234 H Calcium 7.9 L Crossmatch 09/20/17 09/20/17 09/20/17 14:17 17:45 22:46 WBC RBC Hgb Hct MCV MCH RDW Lymph % (Auto) [place] % (Auto) Eos % (Auto) Lymph # [place] # Eos # Seg Neutrophils % Seg Neutrophils # PT INR APTT Heparin Anti-Xa Level Sodium Chloride Carbon Dioxide BUN Creatinine Glucose POC Glucose 226 H 222 H 221 H Calcium Crossmatch 09/20/17 09/21/17 09/21/17 Unknown 02:48 07:14 WBC RBC Hgb Hct MCV MCH RDW Lymph % (Auto) [place] % (Auto) Eos % (Auto) Lymph # [place] # Eos # Seg Neutrophils % Seg Neutrophils # PT INR APTT Heparin Anti-Xa Level Sodium Chloride Carbon Dioxide BUN Creatinine Glucose POC Glucose 211 H 170 H Calcium Crossmatch See Detail 09/21/17 09/21/17 09/21/17 09:22 09:22 09:22 WBC 11.5 H RBC 3.26 L Hgb 9.1 L Hct 28.0 L MCV MCH RDW 15.5 H Lymph % (Auto) [place] % (Auto) Eos % (Auto) Lymph # [place] # Eos # Seg Neutrophils % Seg Neutrophils # PT 28.7 H INR 2.50 H APTT Heparin Anti-Xa Level Sodium 134 L Chloride 95.2 L Carbon Dioxide BUN 39 H Creatinine Glucose 156 H POC Glucose Calcium 7.7 L Crossmatch 09/21/17 09/21/17 09/21/17 09:44 14:40 17:32 WBC RBC Hgb Hct MCV MCH RDW Lymph % (Auto) [place] % (Auto) Eos % (Auto) Lymph # [place] # Eos # Seg Neutrophils % Seg Neutrophils # PT INR APTT Heparin Anti-Xa Level Sodium Chloride Carbon Dioxide BUN Creatinine Glucose POC Glucose 181 H 237 H 141 H Calcium Crossmatch 09/21/17 09/22/17 09/22/17 21:34 02:55 04:09 WBC RBC Hgb Hct MCV MCH RDW Lymph % (Auto) [place] % (Auto) Eos % (Auto) Lymph # [place] # Eos # Seg Neutrophils % Seg Neutrophils # PT 27.2 H INR 2.34 H APTT Heparin Anti-Xa Level Sodium Chloride Carbon Dioxide BUN Creatinine Glucose POC Glucose 158 H 163 H Calcium Crossmatch 09/22/17 09/22/17 09/22/17 05:41 08:22 12:14 WBC RBC Hgb Hct MCV MCH RDW Lymph % (Auto) [place] % (Auto) Eos % (Auto) Lymph # [place] # Eos # Seg Neutrophils % Seg Neutrophils # PT INR APTT Heparin Anti-Xa Level Sodium Chloride Carbon Dioxide BUN Creatinine Glucose POC Glucose 157 H 145 H 167 H Calcium Crossmatch 09/22/17 09/22/17 09/22/17 14:10 16:07 16:46 WBC RBC 3.20 L Hgb 8.8 L Hct 27.8 L MCV MCH RDW 15.5 H Lymph % (Auto) 12.7 L [place] % (Auto) 9.6 H Eos % (Auto) 7.6 H Lymph # 0.9 L [place] # Eos # 0.6 H Seg Neutrophils % Seg Neutrophils # PT 26.3 H INR 2.24 H APTT 61.7 H* Heparin Anti-Xa Level < 0.10 L Sodium Chloride Carbon Dioxide BUN Creatinine Glucose POC Glucose 139 H Calcium Crossmatch 09/22/17 09/22/17 09/23/17 22:20 23:53 02:06 WBC RBC Hgb Hct MCV MCH RDW Lymph % (Auto) [place] % (Auto) Eos % (Auto) Lymph # [place] # Eos # Seg Neutrophils % Seg Neutrophils # PT INR APTT Heparin Anti-Xa Level 0.24 L Sodium Chloride Carbon Dioxide BUN Creatinine Glucose POC Glucose 185 H 140 H Calcium Crossmatch 09/23/17 09/23/17 09/23/17 05:19 05:19 05:45 WBC RBC Hgb Hct MCV MCH RDW Lymph % (Auto) [place] % (Auto) Eos % (Auto) Lymph # [place] # Eos # Seg Neutrophils % Seg Neutrophils # PT 26.8 H INR 2.30 H APTT Heparin Anti-Xa Level 0.24 L Sodium Chloride Carbon Dioxide 21 L BUN 33 H Creatinine Glucose 161 H POC Glucose 167 H Calcium 7.5 L Crossmatch 09/23/17 10:06 WBC RBC Hgb Hct MCV MCH RDW Lymph % (Auto) [place] % (Auto) Eos % (Auto) Lymph # [place] # Eos # Seg Neutrophils % Seg Neutrophils # PT INR APTT Heparin Anti-Xa Level Sodium Chloride Carbon Dioxide BUN Creatinine Glucose POC Glucose 186 H Calcium Crossmatch Allied health notes reviewed: nursing
--- NOTE | 2017-09-23 10:33 | Query- Renal Failure ---
Deaallie Shore___Kaushik Date:__09/23/2017 Marketing Communication Manager/CDS:__Sierra Phone#:__[phone] Exercise your independent professional judgment when responding to query. Questions asked do not imply a particular answer is desired or expected. We greatly appreciate your clarification on this issue. Clinical Documentation States: 77 Year old male was admitted on 09/16/2017 for a right femoral endarterectomy with Dacron patch angioplasty. The hospitalist (Dr. Lord) progress note on 09/22/2017 stated "GUICHO - cr was 1.8 yesterday, pending today's result - On IV fluids." Clinical Findings Show: Creatinine 09/18 1.3 09/20 1.8 Please clarify if you mean: Acute Renal Failure with or due to: [ ] Tubular Necrosis [ ] Medullary Necrosis [ x] Vasomotor Nephropathy [ ] Shock Kidney [ ] Tubular Nephrosis [ ] Renal Tubular Stasis [ ] Cortical Necrosis [ ] Acute Renal Failure (unspecified) [ ] Lower Tubular Nephrosis [ ] Other: [ ] Not Applicable Present on Admission: [x ] Yes (Y) [ ] Clinically undeterminable (W) [ ] No (N) Please also document response in your Progress Notes and/or Discharge Summary and indicate if the condition was present on admission. BLANCHE
[2017-09-23] MEDS ORDERED: PROVENTIL IH PRN (12:22)
[2017-09-23 12:36] LABS: Hematocrit 26.9 % (35.5-45.6); Hemoglobin 8.9 gm/dl (11.8-15.2); Mean Corpuscular HGB Conc 33 % (32-34); Mean Corpuscular Hemoglobin 28 pg (28-32); Mean Corpuscular Volume 85 fl (84-94); Platelet Count 272 K/mm3 (140-440); Red Blood Count 3.18 M/mm3 (3.65-5.03); Red Cell Distribution Width 15.7 % (13.2-15.2)
--- NOTE | 2017-09-23 13:53 | Progress Note ---
Assessment and Plan - Patient Problems (1) Anticoagulated on Coumadin Current Visit: Yes Status: Acute Plan to address problem: Due to the presence of a mechanical aortic valve, interruption of Coumadin therapy should be bridged with intravenous heparin. I will discuss with vascular surgery regarding their plans for additional procedures and the necessity of heparin bridging. (2) H/O mechanical aortic valve replacement Current Visit: Yes Status: Acute Plan to address problem: Due to the presence of a mechanical aortic valve, interruption of Coumadin therapy should be bridged with intravenous heparin. I will discuss with vascular surgery regarding their plans for additional procedures and the necessity of heparin bridging. (3) Paroxysmal atrial fibrillation Current Visit: Yes Status: Acute Plan to address problem: Patient is currently in stable sinus rhythm, we will continue beta deloris therapy as tolerated. Subjective Date of service: 09/23/17 Principal diagnosis: R. Fem endarterectomy wound dehiscence/infection; Anemia ( ABLA); Hypoxemia Interval history: Patient is comfortable, no acute distress. He remains in a stable sinus rhythm and stable blood pressure. Objective Vital Signs Temp Pulse Pulse Resp BP Pulse Ox 09/23/17 13:00 60 13 118/65 94 09/23/17 12:00 98.0 F 61 60 11 L 127/57 96 09/23/17 11:00 61 17 124/47 92 09/23/17 10:00 57 L 16 115/46 90 09/23/17 09:38 60 125/54 09/23/17 09:37 59 L 125/54 09/23/17 09:01 62 11 L 129/54 97 09/23/17 08:00 97.9 F 56 L 59 L 15 137/61 95 09/23/17 07:00 56 L 15 126/53 99 09/23/17 06:00 57 L 14 130/55 93 09/23/17 05:00 59 L 15 110/47 93 09/23/17 04:00 98.7 F 83 83 13 119/48 93 09/23/17 03:00 56 L 14 110/49 94 09/23/17 02:00 58 L 14 110/51 94 09/23/17 01:00 64 13 124/51 92 09/23/17 00:00 64 64 15 124/51 94 09/22/17 23:32 98.0 F 09/22/17 23:00 67 16 126/58 93 09/22/17 22:00 68 14 124/53 95 18 21:30 14 09/22/17 21:28 65 130/53 09/22/17 21:01 68 18 130/53 92 18 20:01 60 16 125/42 92 09/22/17 20:00 98.8 F 60 16 92 09/22/17 19:00 66 13 121/54 92 09/22/17 18:01 66 13 121/54 95 09/22/17 18:00 71 65 16 118/53 95 09/22/17 17:58 75 12 118/53 94 09/22/17 17:00 60 16 129/47 94 09/22/17 16:00 98.4 F 65 15 105/46 94 09/22/17 15:00 65 12 105/46 87 09/22/17 14:00 67 61 12 106/48 94 - Physical Examination General: Appears Well, No Apparent Distress HEENT: Positive: PERRL Neck: Positive: neck supple Cardiac: Positive: Reg Rate and Rhythm Lungs: Positive: Decreased Breath Sounds Neuro: Positive: Grossly Intact Abdomen: Positive: Soft Skin: Positive: Clear Extremities: Absent: edema - Labs and Meds Coagulation 09/22/17 09/23/17 Range/Units 14:10 05:19 PT 26.3 H 26.8 H (12.2-14.9) Sec. INR 2.24 H 2.30 H (0.87-1.13) APTT 61.7 H* (24.2-36.6) Sec. CBC 09/22/17 09/23/17 Range/Units 16:07 12:04 WBC 7.5 7.8 (4.5-11.0) K/mm3 RBC 3.20 L 3.18 L (3.65-5.03) M/mm3 Hgb 8.8 L 8.9 L (11.8-15.2) gm/dl Hct 27.8 L 26.9 L (35.5-45.6) % Plt Count 249 272 (140-440) K/mm3 Lymph # 0.9 L (1.2-5.4) K/mm3 [place] # 0.7 (0.0-0.8) K/mm3 Eos # 0.6 H (0.0-0.4) K/mm3 Baso # 0.1 (0.0-0.1) K/mm3 Comprehensive Metabolic Panel 09/23/17 Range/Units 05:19 Sodium 139 (137-145) mmol/L Potassium 4.2 (3.6-5.0) mmol/L Chloride 105.9 (98-107) mmol/L Carbon Dioxide 21 L (22-30) mmol/L BUN 33 H (9-20) mg/dL Creatinine 1.2 (0.8-1.5) mg/dL Glucose 161 H (75-100) mg/dL Calcium 7.5 L (8.4-10.2) mg/dL - Allied health notes Allied health notes reviewed: nursing
--- NOTE | 2017-09-23 14:46 | Progress Note ---
Assessment and Plan Assessment and plan: The patient is 77-year-old male with a history of severeperipheral vascular disease, prosthetic aortic valve who recently underwent a right femoral endarterectomy with Dacron patch angioplasty. He also had atherectomy and angioplasty with stent of his SFA and popliteal artery on the right. He initially did well but was unable to follow-up in the outpatient setting for his postoperative visit secondary to transportation issues. He states that approximately 2 days ago he began to note clear yellow drainage from his right groin. patient admitted by vacular surgery and did 1. Excision of Right Femoral PTFE Patch And Repair with Right Greater Saphenous Vein 2. Coverage of Right Femoral Artery with Sartorius Muscle Flap 3. Wound VAC Placement tomorrow Bleeding stopped patient is on warfarin and heparin for A.fib and prosthetic aortic valve and INR from this morning is 2.3. Management per cardiology We have been consulted for medical management. patient's medical history is significant for DM, HTN, afib on anticoagulation. patient's home medications were reconciled by vascular. Continue current management. H/H stable. GUICHO - Resolved, creatinine today was 1.2 - On IV fluids Disposition: - Per vascular History Interval history: Patient was seen and evaluated this morning. No bleeding from the groin. Hospitalist Physical - Physical exam Narrative exam: Not in cardiopulmonary distress. The patient appeared well nourished and normally developed. Vital signs as documented. Head exam is unremarkable. No scleral icterus . Neck is without jugular venous distension, thyromegaly, or carotid bruits. Lungs are clear to auscultation. Cardiac exam reveals irregular rate and Rhythm. Abdominal exam reveals normal bowel sounds, no masses, no organomegaly and no aortic enlargement. Extremities right groin bleeding. MONUMENT CARVER: Alert and oriented 3. No focal weakness. - Constitutional Vitals: Temp Pulse Resp BP Pulse Ox 98.0 F 60 13 118/65 94 09/23/17 12:00 09/23/17 13:00 09/23/17 13:00 09/23/17 13:00 09/23/17 13:00 General appearance: Present: no acute distress Results - Labs CBC & Chem 7: 09/23/17 12:04 09/23/17 05:19 Labs: Laboratory Last Values WBC 7.8 K/mm3 (4.5-11.0) 09/23/17 12:04 RBC 3.18 M/mm3 (3.65-5.03) L 09/23/17 12:04 Hgb 8.9 gm/dl (11.8-15.2) L 09/23/17 12:04 Hct 26.9 % (35.5-45.6) L 09/23/17 12:04 MCV 85 fl (84-94) 09/23/17 12:04 MCH 28 pg (28-32) 09/23/17 12:04 MCHC 33 % (32-34) 09/23/17 12:04 RDW 15.7 % (13.2-15.2) H 09/23/17 12:04 Plt Count 272 K/mm3 (140-440) 09/23/17 12:04 Lymph % (Auto) 12.7 % (13.4-35.0) L 09/22/17 16:07 [place] % (Auto) 9.6 % (0.0-7.3) H 09/22/17 16:07 Eos % (Auto) 7.6 % (0.0-4.3) H 09/22/17 16:07 Baso % (Auto) 0.8 % (0.0-1.8) 09/22/17 16:07 Lymph # 0.9 K/mm3 (1.2-5.4) L 09/22/17 16:07 [place] # 0.7 K/mm3 (0.0-0.8) 09/22/17 16:07 Eos # 0.6 K/mm3 (0.0-0.4) H 09/22/17 16:07 Baso # 0.1 K/mm3 (0.0-0.1) 09/22/17 16:07 Seg Neutrophils % 69.3 % (40.0-70.0) 09/22/17 16:07 Seg Neutrophils # 5.2 K/mm3 (1.8-7.7) 09/22/17 16:07 PT 26.8 Sec. (12.2-14.9) H 09/23/17 05:19 INR 2.30 (0.87-1.13) H 09/23/17 05:19 APTT 61.7 Sec. (24.2-36.6) H* 09/22/17 14:10 Heparin Anti-Xa Level 0.24 U.I./ml (0.3-0.7) L 09/23/17 05:19 Sodium 139 mmol/L (137-145) 09/23/17 05:19 Potassium 4.2 mmol/L (3.6-5.0) 09/23/17 05:19 Chloride 105.9 mmol/L (98-107) 09/23/17 05:19 Carbon Dioxide 21 mmol/L (22-30) L 09/23/17 05:19 Anion Gap 16 mmol/L 09/23/17 05:19 BUN 33 mg/dL (9-20) H 09/23/17 05:19 Creatinine 1.2 mg/dL (0.8-1.5) 09/23/17 05:19 Estimated GFR 59 ml/min 09/23/17 05:19 BUN/Creatinine Ratio 28 % 09/23/17 05:19 Glucose 161 mg/dL (75-100) H 09/23/17 05:19 POC Glucose 186 (70-105) H 09/23/17 10:06 Calcium 7.5 mg/dL (8.4-10.2) L 09/23/17 05:19 Blood Type B POSITIVE 09/20/17 Unknown Antibody Screen Negative 09/20/17 Unknown Crossmatch See Detail 09/20/17 Unknown
--- NOTE | 2017-09-23 17:05 | Progress Note ---
Assessment and Plan Pt evaluated earlier today. He appears to be doing well from a surgical stand point. Discussed with fanny Landin to d/c heparin drip at current INR. ET has since eval'd the patient and placed a wound vac. Pictures reviewed. Will transfer out of the ICU. Re-consult PT. Increase activity as tolerated. Recheck CBC in am. Depending on how pt is doing, will start d/c planning to go home (+/- HH as needed) vs rehab. Subjective Date of service: 09/23/17 Principal diagnosis: R. Fem endarterectomy wound dehiscence/infection; Anemia ( ABLA); Hypoxemia Interval history: Pt awake and alert, without specific complaints at present. Objective - Constitutional Vitals: Vital Signs - 12hr 09/23/17 09/23/17 09/23/17 05:00 06:00 07:00 Temperature Pulse Rate 59 L 57 L 56 L Pulse Rate [ From Monitor] Respiratory 15 14 15 Rate Blood Pressure 110/47 130/55 126/53 O2 Sat by Pulse 93 93 99 Oximetry 09/23/17 09/23/17 09/23/17 08:00 09:01 09:37 Temperature 97.9 F Pulse Rate 56 L 62 59 L Pulse Rate [ 59 L From Monitor] Respiratory 15 11 L Rate Blood Pressure 137/61 129/54 125/54 O2 Sat by Pulse 95 97 Oximetry 09/23/17 09/23/17 09/23/17 09:38 10:00 11:00 Temperature Pulse Rate 60 57 L 61 Pulse Rate [ From Monitor] Respiratory 16 17 Rate Blood Pressure 125/54 115/46 124/47 O2 Sat by Pulse 90 92 Oximetry 09/23/17 09/23/17 09/23/17 12:00 13:00 14:00 Temperature 98.0 F Pulse Rate 61 60 59 L Pulse Rate [ 60 From Monitor] Respiratory 11 L 13 15 Rate Blood Pressure 127/57 118/65 128/52 O2 Sat by Pulse 96 94 93 Oximetry 09/23/17 09/23/17 09/23/17 15:01 16:00 16:01 Temperature 98.5 F Pulse Rate 58 L 67 Pulse Rate [ 67 From Monitor] Respiratory 14 15 15 Rate Blood Pressure 128/52 130/55 O2 Sat by Pulse 96 94 94 Oximetry General appearance: Present: no acute distress - EENT Eyes: EOM intact ENT: hearing intact - Neck Neck: supple - Respiratory Respiratory effort: normal Extremities: no ischemia Extremity abnormal: other (right groin with bandages in place. Serous soaked bandage, not bloody.) - Gastrointestinal General gastrointestinal: Present: soft - Neurologic Neurologic: no focal deficits - Psychiatric Psychiatric: appropriate mood/affect, intact judgment & insight, cooperative - Labs CBC & Chem 7: 09/23/17 12:04 09/23/17 05:19 Labs: Abnormal lab results 09/22/17 09/22/17 09/22/17 Range/Units 16:46 22:20 23:53 RBC (3.65-5.03) M/mm3 Hgb (11.8-15.2) gm/dl Hct (35.5-45.6) % RDW (13.2-15.2) % PT (12.2-14.9) Sec. INR (0.87-1.13) Heparin Anti-Xa Level 0.24 L (0.3-0.7) U.I./ml Carbon Dioxide (22-30) mmol/L BUN (9-20) mg/dL Glucose (75-100) mg/dL POC Glucose 139 H 185 H (70-105) Calcium (8.4-10.2) mg/dL 09/23/17 09/23/17 09/23/17 Range/Units 02:06 05:19 05:19 RBC (3.65-5.03) M/mm3 Hgb (11.8-15.2) gm/dl Hct (35.5-45.6) % RDW (13.2-15.2) % PT 26.8 H (12.2-14.9) Sec. INR 2.30 H (0.87-1.13) Heparin Anti-Xa Level 0.24 L (0.3-0.7) U.I./ml Carbon Dioxide 21 L (22-30) mmol/L BUN 33 H (9-20) mg/dL Glucose 161 H (75-100) mg/dL POC Glucose 140 H (70-105) Calcium 7.5 L (8.4-10.2) mg/dL 09/23/17 09/23/17 09/23/17 Range/Units 05:45 10:06 12:04 RBC 3.18 L (3.65-5.03) M/mm3 Hgb 8.9 L (11.8-15.2) gm/dl Hct 26.9 L (35.5-45.6) % RDW 15.7 H (13.2-15.2) % PT (12.2-14.9) Sec. INR (0.87-1.13) Heparin Anti-Xa Level (0.3-0.7) U.I./ml Carbon Dioxide (22-30) mmol/L BUN (9-20) mg/dL Glucose (75-100) mg/dL POC Glucose 167 H 186 H (70-105) Calcium (8.4-10.2) mg/dL 09/23/17 Range/Units 15:00 RBC (3.65-5.03) M/mm3 Hgb (11.8-15.2) gm/dl Hct (35.5-45.6) % RDW (13.2-15.2) % PT (12.2-14.9) Sec. INR (0.87-1.13) Heparin Anti-Xa Level (0.3-0.7) U.I./ml Carbon Dioxide (22-30) mmol/L BUN (9-20) mg/dL Glucose (75-100) mg/dL POC Glucose 236 H (70-105) Calcium (8.4-10.2) mg/dL
[2017-09-23] MEDS: COUMADIN PO SCH (17:10)
[2017-09-23] MEDS: BROVANA NEBU IH SCH (20:20)
[2017-09-23] MEDS: PULMICORT IH SCH (20:20)
[2017-09-23] MEDS: SENOKOT PO SCH (22:59)
[2017-09-24] MEDS: HumaLOG SUB-Q SCH ×5 (02:06→18:00)
[2017-09-24 06:05] LABS: Hematocrit 29.9 % (35.5-45.6); Hemoglobin 10.2 gm/dl (11.8-15.2); Mean Corpuscular HGB Conc 34 % (32-34); Mean Corpuscular Hemoglobin 28 pg (28-32); Mean Corpuscular Volume 84 fl (84-94); Platelet Count 321 K/mm3 (140-440); Red Blood Count 3.58 M/mm3 (3.65-5.03); Red Cell Distribution Width 15.8 % (13.2-15.2)
[2017-09-24 06:16] LABS: INR 2.53 (0.87-1.13)
[2017-09-24 06:17] LABS: Heparin anti-factor XA 0.1 U.I./ml (0.3-0.7)
[2017-09-24] MEDS: NACL 0.9% 1000 ML 2,000 ML IV SCH (06:33)
--- NOTE | 2017-09-24 10:16 | Progress Note ---
Assessment and Plan Peripheral artery disease H/O mechanical aortic valve replacement anticoagulated on Warfarin Paroxysmal atrial fibrillation currently in stable sinus rhythm on metoprolol Normal persantine thallium 05/2017 Well functioning mechanical AVR, EF 50-55% on echo 05/2017 Conservative cardiac management. Subjective Date of service: 09/24/17 Principal diagnosis: R. Fem endarterectomy wound dehiscence/infection; Anemia ( ABLA); Hypoxemia Interval history: Patient has no cardiac complaints. Objective Vital Signs Temp Pulse Pulse Pulse Resp Resp BP 09/24/17 07:25 97.9 F 77 18 158/63 09/24/17 03:51 63 20 131/67 09/24/17 00:05 98.4 F 68 24 09/23/17 22:00 59 L 09/23/17 20:57 16 09/23/17 20:37 66 18 09/23/17 20:22 64 18 09/23/17 19:23 98.0 F 63 20 134/57 09/23/17 18:11 61 14 124/55 09/23/17 18:00 62 13 124/55 09/23/17 17:00 59 L 15 128/55 09/23/17 16:01 67 15 130/55 09/23/17 16:00 98.5 F 67 15 09/23/17 15:01 58 L 14 128/52 09/23/17 14:00 59 L 15 128/52 09/23/17 13:00 60 13 118/65 09/23/17 12:00 98.0 F 61 60 11 L 127/57 09/23/17 11:00 61 17 124/47 BP Pulse Ox 09/24/17 07:25 93 09/24/17 03:51 93 09/24/17 00:05 121/83 95 09/23/17 22:00 09/23/17 20:57 09/23/17 20:37 09/23/17 20:22 09/23/17 19:23 96 09/23/17 18:11 95 09/23/17 18:00 95 09/23/17 17:00 94 09/23/17 16:01 94 09/23/17 16:00 94 09/23/17 15:01 96 09/23/17 14:00 93 09/23/17 13:00 94 06/04/18 12:00 96 09/23/17 11:00 92 - Physical Examination General: No Apparent Distress HEENT: Positive: PERRL Cardiac: Positive: Reg Rate and Rhythm Lungs: Positive: Decreased Breath Sounds Neuro: Positive: Grossly Intact Extremities: Absent: edema - Labs and Meds Coagulation 09/24/17 Range/Units 04:54 PT 29.0 H (12.2-14.9) Sec. INR 2.53 H (0.87-1.13) CBC 09/23/17 09/24/17 Range/Units 12:04 04:43 WBC 7.8 8.6 (4.5-11.0) K/mm3 RBC 3.18 L 3.58 L (3.65-5.03) M/mm3 Hgb 8.9 L 10.2 L (11.8-15.2) gm/dl Hct 26.9 L 29.9 L (35.5-45.6) % Plt Count 272 321 (140-440) K/mm3 - Allied health notes Allied health notes reviewed: nursing
[2017-09-24] MEDS: COZAAR PO SCH (11:37)
[2017-09-24] MEDS: HCTZ PO SCH (11:38)
[2017-09-24] MEDS: PLAQUENIL PO SCH ×2 (11:38→22:27)
[2017-09-24] MEDS: PROTONIX PO SCH (11:38)
[2017-09-24] MEDS: COLACE PO SCH ×2 (11:38→22:27)
[2017-09-24] MEDS: LOPRESSOR PO SCH ×2 (11:38→22:27)
[2017-09-24] MEDS: GLUCOPHAGE PO SCH ×2 (11:47→17:55)
[2017-09-24] MEDS: LANTUS SUB-Q SCH (11:47)
[2017-09-24] MEDS: PULMICORT IH SCH ×2 (13:21→20:03)
[2017-09-24] MEDS: BROVANA NEBU IH SCH ×2 (13:21→20:03)
--- NOTE | 2017-09-24 16:40 | Progress Note ---
Assessment and Plan Assessment and plan: The patient is 77-year-old male with a history of severeperipheral vascular disease, prosthetic aortic valve who recently underwent a right femoral endarterectomy with Dacron patch angioplasty. He also had atherectomy and angioplasty with stent of his SFA and popliteal artery on the right. He initially did well but was unable to follow-up in the outpatient setting for his postoperative visit secondary to transportation issues. He states that approximately 2 days ago he began to note clear yellow drainage from his right groin. patient admitted by vacular surgery and did 1. Excision of Right Femoral PTFE Patch And Repair with Right Greater Saphenous Vein 2. Coverage of Right Femoral Artery with Sartorius Muscle Flap 3. Wound VAC Placement tomorrow Bleeding stopped patient is on warfarin for A.fib and prosthetic aortic valve and INR from this morning is 2.53. Management per cardiology We have been consulted for medical management. patient's medical history is significant for DM, HTN, afib on anticoagulation. patient's home medications were reconciled by vascular. Continue current management. H/H stable. GUICHO - Resolved - On IV fluids Disposition: - Pending subacute rehab History Interval history: Patient was seen and evaluated this morning. No bleeding from the groin. Hospitalist Physical - Physical exam Narrative exam: Not in cardiopulmonary distress. The patient appeared well nourished and normally developed. Vital signs as documented. Head exam is unremarkable. No scleral icterus . Neck is without jugular venous distension, thyromegaly, or carotid bruits. Lungs are clear to auscultation. Cardiac exam reveals irregular rate and Rhythm. Abdominal exam reveals normal bowel sounds, no masses, no organomegaly and no aortic enlargement. Extremities right groin bleeding. 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 No focal weakness. - Constitutional Vitals: Temp Pulse Resp BP Pulse Ox 97.9 F 61 18 127/77 94 09/24/17 11:31 09/24/17 13:33 09/24/17 13:33 09/24/17 11:38 09/24/17 12:18 General appearance: Present: no acute distress Results - Labs CBC & Chem 7: 09/24/17 04:43 09/23/17 05:19 Labs: Laboratory Last Values WBC 8.6 K/mm3 (4.5-11.0) 09/24/17 04:43 RBC 3.58 M/mm3 (3.65-5.03) L 09/24/17 04:43 Hgb 10.2 gm/dl (11.8-15.2) L 09/24/17 04:43 Hct 29.9 % (35.5-45.6) L 09/24/17 04:43 MCV 84 fl (84-94) 09/24/17 04:43 MCH 28 pg (28-32) 09/24/17 04:43 MCHC 34 % (32-34) 09/24/17 04:43 RDW 15.8 % (13.2-15.2) H 09/24/17 04:43 Plt Count 321 K/mm3 (140-440) 09/24/17 04:43 Lymph % (Auto) 12.7 % (13.4-35.0) L 09/22/17 16:07 Alfalfa % (Auto) 9.6 % (0.0-7.3) H 09/22/17 16:07 Eos % (Auto) 7.6 % (0.0-4.3) H 09/22/17 16:07 Baso % (Auto) 0.8 % (0.0-1.8) 09/22/17 16:07 Lymph # 0.9 K/mm3 (1.2-5.4) L 09/22/17 16:07 Alfalfa # 0.7 K/mm3 (0.0-0.8) 09/22/17 16:07 Eos # 0.6 K/mm3 (0.0-0.4) H 09/22/17 16:07 Baso # 0.1 K/mm3 (0.0-0.1) 09/22/17 16:07 Seg Neutrophils % 69.3 % (40.0-70.0) 09/22/17 16:07 Seg Neutrophils # 5.2 K/mm3 (1.8-7.7) 09/22/17 16:07 PT 29.0 Sec. (12.2-14.9) H 09/24/17 04:54 INR 2.53 (0.87-1.13) H 09/24/17 04:54 APTT 61.7 Sec. (24.2-36.6) H* 09/22/17 14:10 Heparin Anti-Xa Level 0.10 U.I./ml (0.3-0.7) L 09/24/17 04:54 Sodium 139 mmol/L (137-145) 09/23/17 05:19 Potassium 4.2 mmol/L (3.6-5.0) 09/23/17 05:19 Chloride 105.9 mmol/L (98-107) 09/23/17 05:19 Carbon Dioxide 21 mmol/L (22-30) L 09/23/17 05:19 Anion Gap 16 mmol/L 09/23/17 05:19 BUN 33 mg/dL (9-20) H 09/23/17 05:19 Creatinine 1.2 mg/dL (0.8-1.5) 09/23/17 05:19 Estimated GFR 59 ml/min 09/23/17 05:19 BUN/Creatinine Ratio 28 % 09/23/17 05:19 Glucose 161 mg/dL (75-100) H 09/23/17 05:19 POC Glucose 225 (70-105) H 09/24/17 06:53 Calcium 7.5 mg/dL (8.4-10.2) L 09/23/17 05:19 Blood Type B POSITIVE 09/20/17 Unknown Antibody Screen Negative 09/20/17 Unknown Crossmatch See Detail 09/20/17 Unknown
--- NOTE | 2017-09-24 18:03 | Progress Note ---
Assessment and Plan Pt continues to do well from vascular surgery stand point. Vac in place. D/c planning in progress for home vac. PT to assess pt for rehab recommendations. Discussed with pt's family. They are concerned that he can not adequately care for himself at home and would like him evaluated for sub-acute rehab. Discussed with Case management. - Patient Problems (1) Lymphocele Current Visit: Yes Status: Acute Subjective Date of service: 09/24/17 Principal diagnosis: R. Fem endarterectomy wound dehiscence/infection; Anemia ( ABLA); Hypoxemia Interval history: Pt awake and alert without specific complaints at present. Objective - Constitutional Vitals: Vital Signs - 12hr 09/24/17 09/24/17 09/24/17 07:25 11:31 11:37 Temperature 97.9 F 97.9 F Pulse Rate 77 79 Pulse Rate [ Anterior Bilateral Throughout] Respiratory 18 18 Rate Respiratory Rate [Anterior Bilateral Throughout] Blood Pressure 158/63 125/57 127/77 O2 Sat by Pulse 93 95 Oximetry 09/24/17 09/24/17 09/24/17 11:38 12:18 13:23 Temperature Pulse Rate Pulse Rate [ 53 L Anterior Bilateral Throughout] Respiratory Rate Respiratory 18 Rate [Anterior Bilateral Throughout] Blood Pressure 127/77 O2 Sat by Pulse 94 Oximetry 09/24/17 09/24/17 13:33 15:56 Temperature 97.9 F Pulse Rate 63 Pulse Rate [ 61 Anterior Bilateral Throughout] Respiratory 18 Rate Respiratory 18 Rate [Anterior Bilateral Throughout] Blood Pressure 117/42 O2 Sat by Pulse 97 Oximetry General appearance: Present: no acute distress - EENT Eyes: EOM intact ENT: hearing intact - Respiratory Respiratory effort: normal Extremities: no ischemia, normal temperature, abnormal (right groin wound vac in place. Cannister with serosanguinous drainage collected.) - Neurologic Neurologic: no focal deficits - Psychiatric Psychiatric: appropriate mood/affect, intact judgment & insight, cooperative - Labs CBC & Chem 7: 09/24/17 04:43 09/23/17 05:19 Labs: Abnormal lab results 09/23/17 09/24/17 09/24/17 Range/Units 22:39 04:43 04:54 RBC 3.58 L (3.65-5.03) M/mm3 Hgb 10.2 L (11.8-15.2) gm/dl Hct 29.9 L (35.5-45.6) % RDW 15.8 H (13.2-15.2) % PT 29.0 H (12.2-14.9) Sec. INR 2.53 H (0.87-1.13) Heparin Anti-Xa Level 0.10 L (0.3-0.7) U.I./ml POC Glucose 189 H (70-105) 18 09/24/17 Range/Units 06:28 06:53 RBC (3.65-5.03) M/mm3 Hgb (11.8-15.2) gm/dl Hct (35.5-45.6) % RDW (13.2-15.2) % PT (12.2-14.9) Sec. INR (0.87-1.13) Heparin Anti-Xa Level (0.3-0.7) U.I./ml POC Glucose 200 H 225 H (70-105)
[2017-09-24] MEDS: SODIUM CHLORIDE FLUSH SYRINGE 10 ML IV SCH ×2 (19:24→22:29)
[2017-09-24] MEDS: COUMADIN PO SCH (19:26)
--- NOTE | 2017-09-24 19:43 | Progress Note ---
Assessment and Plan Peripheral vascular disease, status post right femoral endarterectomy with patch angioplasty. Dehisced right femoral endarterectomy repair (status post excision of the right femoral patch and repair with coverage of the right femoral artery with a sartorius muscle flap. Acute hypoxemic respiratory failure. GUICHO Atrial fibrillation, chronic. Status post aortic valve replacement and on full anticoagulation. Coronary artery disease. Gastroesophageal reflux disease. Hypertension. Hyperlipidemia. History of prostate cancer. Medication noncompliance. History of carotid stenosis. - conservative volume strategies re: CMOP - conitnue coumadin re: supratherapeutic INR -continue metformin and monitor. -wound care to right groin - continue GI prophylaxis - continue supplemental oxygen to keep sats > 90% - continue bronchodilators with pulmonary hygiene per RT Subjective Date of service: 09/24/17 Principal diagnosis: R. Fem endarterectomy wound dehiscence/infection; Anemia ( ABLA); Hypoxemia Interval history: Follow up s/p Right Groin Lymphocele with Exposed PTFE Femoral Patch 1. Excision of Right Femoral PTFE Patch And Repair with Right Greater Saphenous Vein 2. Coverage of Right Femoral Artery with Sartorius Muscle Flap 3. Wound VAC Placement (Wound Measures 17 x 4 x 2 cm) Patient was seen and examined. Vitals, labs, medications, chart reviewed. Wound vac to the right thigh wound. Objective - Exam Narrative Exam: Not in cardiopulmonary distress. The patient appeared well nourished and normally developed. Vital signs as documented. Head exam is unremarkable. No scleral icterus . Neck is without jugular venous distension, thyromegaly, or carotid bruits. Lungs are clear to auscultation. Cardiac exam reveals irregular rate and Rhythm. Abdominal exam reveals normal bowel sounds, no masses, no organomegaly and no aortic enlargement. 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 No focal weakness. Vital Signs - 12hr 09/24/17 09/24/17 09/24/17 11:31 11:37 11:38 Temperature 97.9 F Pulse Rate 79 Pulse Rate [ Anterior Bilateral Throughout] Respiratory 18 Rate Respiratory Rate [Anterior Bilateral Throughout] Blood Pressure 125/57 127/77 127/77 O2 Sat by Pulse 95 Oximetry 09/24/17 09/24/17 09/24/17 12:18 13:23 13:33 Temperature Pulse Rate Pulse Rate [ 53 L 61 Anterior Bilateral Throughout] Respiratory Rate Respiratory 18 18 Rate [Anterior Bilateral Throughout] Blood Pressure O2 Sat by Pulse 94 Oximetry 09/24/17 15:56 Temperature 97.9 F Pulse Rate 63 Pulse Rate [ Anterior Bilateral Throughout] Respiratory 18 Rate Respiratory Rate [Anterior Bilateral Throughout] Blood Pressure 117/42 O2 Sat by Pulse 97 Oximetry Constitutional: no acute distress, alert, other (elderly looking CM, normocephalic, talking with mildly increased WOB, on oxygen) Eyes: non-icteric ENT: oropharynx moist, other ([place] 2) Neck: supple, no lymphadenopathy, no JVD, other (no thyromegaly) Effort: mildly labored Ascultation: Bilateral: clear, diminished breath sounds, rhonchi (posterior bases) Percussion: Bilateral: not dull Cardiovascular: regular rate and rhythm, PVC's noted, murmur noted (metalic valve click too; Systolic), other (No Rubs) Gastrointestinal: normoactive bowel sounds, soft, non-tender, non-distended, other (No palpable HSM) Integumentary: cellulitis (Right groin) Extremities: no cyanosis, no edema, pink and warm, no ischemia or petechiae, other (right groin dressing in place; no bright red bleeding) Neurologic: normal mental status, non-focal exam, pupils equal and round, motor strength normal and Psychiatric: mood appropriate, affect normal CBC and BMP: 09/30/17 07:10 09/30/17 07:10 ABG, PT/INR, D-dimer: PT/INR, D-dimer PT 29.0 Sec. (12.2-14.9) H 09/24/17 04:54 INR 2.53 (0.87-1.13) H 09/24/17 04:54 Abnormal lab findings: Abnormal Labs 09/16/17 09/16/17 09/16/17 21:14 21:14 21:14 WBC RBC Hgb 11.6 L Hct MCV 82 L MCH 27 L RDW Lymph % (Auto) Starr % (Auto) 9.5 H Eos % (Auto) 5.4 H Lymph # Starr # Eos # Seg Neutrophils % Seg Neutrophils # PT 23.0 H INR 1.90 H APTT Heparin Anti-Xa Level Sodium 136 L Chloride Carbon Dioxide BUN 21 H Creatinine Glucose 153 H POC Glucose Calcium Crossmatch 09/16/17 09/17/17 09/17/17 21:53 05:21 06:46 WBC RBC Hgb Hct MCV MCH RDW Lymph % (Auto) Starr % (Auto) Eos % (Auto) Lymph # Starr # Eos # Seg Neutrophils % Seg Neutrophils # PT INR APTT Heparin Anti-Xa Level Sodium Chloride Carbon Dioxide BUN Creatinine Glucose POC Glucose 158 H 125 H 174 H Calcium Crossmatch 09/17/17 09/17/17 09/17/17 11:04 14:02 16:49 WBC RBC Hgb Hct MCV MCH RDW Lymph % (Auto) Starr % (Auto) Eos % (Auto) Lymph # Starr # Eos # Seg Neutrophils % Seg Neutrophils # PT INR APTT Heparin Anti-Xa Level Sodium Chloride Carbon Dioxide BUN Creatinine Glucose POC Glucose 173 H 201 H Calcium Crossmatch See Detail 09/17/17 09/18/17 09/18/17 21:46 04:50 04:50 WBC RBC Hgb 10.8 L Hct 32.5 L MCV MCH RDW 15.4 H Lymph % (Auto) Starr % (Auto) Eos % (Auto) Lymph # Starr # Eos # Seg Neutrophils % Seg Neutrophils # PT INR APTT Heparin Anti-Xa Level Sodium Chloride Carbon Dioxide BUN Creatinine Glucose 162 H POC Glucose 157 H Calcium 7.8 L D Crossmatch 09/18/17 09/18/17 09/18/17 07:26 08:46 12:15 WBC RBC Hgb Hct MCV MCH RDW Lymph % (Auto) Starr % (Auto) Eos % (Auto) Lymph # Starr # Eos # Seg Neutrophils % Seg Neutrophils # PT 30.0 H INR 2.64 H APTT Heparin Anti-Xa Level Sodium Chloride Carbon Dioxide BUN Creatinine Glucose POC Glucose 182 H 176 H Calcium Crossmatch 09/18/17 09/18/17 09/18/17 13:32 16:19 21:37 WBC RBC Hgb 10.8 L Hct 32.3 L MCV MCH RDW Lymph % (Auto) Starr % (Auto) Eos % (Auto) Lymph # Starr # Eos # Seg Neutrophils % Seg Neutrophils # PT INR APTT Heparin Anti-Xa Level Sodium Chloride Carbon Dioxide BUN Creatinine Glucose POC Glucose 200 H 168 H Calcium Crossmatch 09/18/17 09/19/17 09/19/17 23:35 02:18 04:19 WBC 13.5 H RBC Hgb 10.6 L Hct 32.9 L MCV MCH 27 L RDW Lymph % (Auto) 11.5 L Starr % (Auto) 11.1 H Eos % (Auto) Lymph # Starr # 1.5 H Eos # Seg Neutrophils % 74.0 H Seg Neutrophils # 10.0 H PT 39.6 H INR 3.73 H APTT Heparin Anti-Xa Level Sodium Chloride Carbon Dioxide BUN Creatinine Glucose POC Glucose 204 H Calcium Crossmatch 09/19/17 09/19/17 09/19/17 04:19 06:34 08:45 WBC RBC Hgb 9.7 L Hct 29.3 L MCV MCH RDW Lymph % (Auto) Starr % (Auto) Eos % (Auto) Lymph # Starr # Eos # Seg Neutrophils % Seg Neutrophils # PT INR APTT Heparin Anti-Xa Level Sodium Chloride Carbon Dioxide BUN Creatinine Glucose POC Glucose 172 H 156 H Calcium Crossmatch 09/19/17 09/19/17 09/19/17 12:44 14:34 17:20 WBC RBC Hgb Hct MCV MCH RDW Lymph % (Auto) Starr % (Auto) Eos % (Auto) Lymph # Starr # Eos # Seg Neutrophils % Seg Neutrophils # PT INR APTT Heparin Anti-Xa Level Sodium Chloride Carbon Dioxide BUN Creatinine Glucose POC Glucose 181 H 232 H 213 H Calcium Crossmatch 09/19/17 09/20/17 09/20/17 21:33 01:58 02:01 WBC RBC Hgb Hct MCV MCH RDW Lymph % (Auto) Starr % (Auto) Eos % (Auto) Lymph # Starr # Eos # Seg Neutrophils % Seg Neutrophils # PT INR APTT Heparin Anti-Xa Level Sodium Chloride Carbon Dioxide BUN Creatinine Glucose POC Glucose 202 H > 500 H 208 H Calcium Crossmatch 09/20/17 09/20/17 09/20/17 03:31 03:31 05:20 WBC 11.6 H RBC 2.97 L Hgb 8.1 L Hct 24.0 L MCV 81 L MCH 27 L RDW Lymph % (Auto) Starr % (Auto) Eos % (Auto) Lymph # Starr # Eos # Seg Neutrophils % Seg Neutrophils # PT 40.6 H INR 3.85 H APTT Heparin Anti-Xa Level Sodium Chloride Carbon Dioxide BUN Creatinine Glucose POC Glucose 191 H Calcium Crossmatch 09/20/17 09/20/17 09/20/17 09:24 12:23 12:23 WBC RBC Hgb Hct MCV MCH RDW Lymph % (Auto) Starr % (Auto) Eos % (Auto) Lymph # Starr # Eos # Seg Neutrophils % Seg Neutrophils # PT 36.6 H INR 3.38 H APTT Heparin Anti-Xa Level Sodium 135 L Chloride Carbon Dioxide BUN 40 H Creatinine 1.8 H Glucose 219 H POC Glucose 234 H Calcium 7.9 L Crossmatch 09/20/17 09/20/17 09/20/17 14:17 17:45 22:46 WBC RBC Hgb Hct MCV MCH RDW Lymph % (Auto) Starr % (Auto) Eos % (Auto) Lymph # Starr # Eos # Seg Neutrophils % Seg Neutrophils # PT INR APTT Heparin Anti-Xa Level Sodium Chloride Carbon Dioxide BUN Creatinine Glucose POC Glucose 226 H 222 H 221 H Calcium Crossmatch 09/20/17 09/21/17 09/21/17 Unknown 02:48 07:14 WBC RBC Hgb Hct MCV MCH RDW Lymph % (Auto) Starr % (Auto) Eos % (Auto) Lymph # Starr # Eos # Seg Neutrophils % Seg Neutrophils # PT INR APTT Heparin Anti-Xa Level Sodium Chloride Carbon Dioxide BUN Creatinine Glucose POC Glucose 211 H 170 H Calcium Crossmatch See Detail 09/21/17 09/21/17 09/21/17 09:22 09:22 09:22 WBC 11.5 H RBC 3.26 L Hgb 9.1 L Hct 28.0 L MCV MCH RDW 15.5 H Lymph % (Auto) Starr % (Auto) Eos % (Auto) Lymph # Starr # Eos # Seg Neutrophils % Seg Neutrophils # PT 28.7 H INR 2.50 H APTT Heparin Anti-Xa Level Sodium 134 L Chloride 95.2 L Carbon Dioxide BUN 39 H Creatinine Glucose 156 H POC Glucose Calcium 7.7 L Crossmatch 09/21/17 09/21/17 09/21/17 09:44 14:40 17:32 WBC RBC Hgb Hct MCV MCH RDW Lymph % (Auto) Starr % (Auto) Eos % (Auto) Lymph # Starr # Eos # Seg Neutrophils % Seg Neutrophils # PT INR APTT Heparin Anti-Xa Level Sodium Chloride Carbon Dioxide BUN Creatinine Glucose POC Glucose 181 H 237 H 141 H Calcium Crossmatch 09/21/17 09/22/17 09/22/17 21:34 02:55 04:09 WBC RBC Hgb Hct MCV MCH RDW Lymph % (Auto) Starr % (Auto) Eos % (Auto) Lymph # Starr # Eos # Seg Neutrophils % Seg Neutrophils # PT 27.2 H INR 2.34 H APTT Heparin Anti-Xa Level Sodium Chloride Carbon Dioxide BUN Creatinine Glucose POC Glucose 158 H 163 H Calcium Crossmatch 09/22/17 09/22/17 09/22/17 05:41 08:22 12:14 WBC RBC Hgb Hct MCV MCH RDW Lymph % (Auto) Starr % (Auto) Eos % (Auto) Lymph # Starr # Eos # Seg Neutrophils % Seg Neutrophils # PT INR APTT Heparin Anti-Xa Level Sodium Chloride Carbon Dioxide BUN Creatinine Glucose POC Glucose 157 H 145 H 167 H Calcium Crossmatch 09/22/17 09/22/17 09/22/17 14:10 16:07 16:46 WBC RBC 3.20 L Hgb 8.8 L Hct 27.8 L MCV MCH RDW 15.5 H Lymph % (Auto) 12.7 L Starr % (Auto) 9.6 H Eos % (Auto) 7.6 H Lymph # 0.9 L Starr # Eos # 0.6 H Seg Neutrophils % Seg Neutrophils # PT 26.3 H INR 2.24 H APTT 61.7 H* Heparin Anti-Xa Level < 0.10 L Sodium Chloride Carbon Dioxide BUN Creatinine Glucose POC Glucose 139 H Calcium Crossmatch 09/22/17 09/22/17 09/23/17 22:20 23:53 02:06 WBC RBC Hgb Hct MCV MCH RDW Lymph % (Auto) Starr % (Auto) Eos % (Auto) Lymph # Starr # Eos # Seg Neutrophils % Seg Neutrophils # PT INR APTT Heparin Anti-Xa Level 0.24 L Sodium Chloride Carbon Dioxide BUN Creatinine Glucose POC Glucose 185 H 140 H Calcium Crossmatch 09/23/17 09/23/17 09/23/17 05:19 05:19 05:45 WBC RBC Hgb Hct MCV MCH RDW Lymph % (Auto) Starr % (Auto) Eos % (Auto) Lymph # Starr # Eos # Seg Neutrophils % Seg Neutrophils # PT 26.8 H INR 2.30 H APTT Heparin Anti-Xa Level 0.24 L Sodium Chloride Carbon Dioxide 21 L BUN 33 H Creatinine Glucose 161 H POC Glucose 167 H Calcium 7.5 L Crossmatch 09/23/17 09/23/17 09/23/17 10:06 12:04 15:00 WBC RBC 3.18 L Hgb 8.9 L Hct 26.9 L MCV MCH RDW 15.7 H Lymph % (Auto) Starr % (Auto) Eos % (Auto) Lymph # Starr # Eos # Seg Neutrophils % Seg Neutrophils # PT INR APTT Heparin Anti-Xa Level Sodium Chloride Carbon Dioxide BUN Creatinine Glucose POC Glucose 186 H 236 H Calcium Crossmatch 09/23/17 09/23/17 09/24/17 17:23 22:39 04:43 WBC RBC 3.58 L Hgb 10.2 L Hct 29.9 L MCV MCH RDW 15.8 H Lymph % (Auto) Starr % (Auto) Eos % (Auto) Lymph # Starr # Eos # Seg Neutrophils % Seg Neutrophils # PT INR APTT Heparin Anti-Xa Level Sodium Chloride Carbon Dioxide BUN Creatinine Glucose POC Glucose 154 H 189 H Calcium Crossmatch 09/24/17 09/24/17 09/24/17 04:54 06:28 06:53 WBC RBC Hgb Hct MCV MCH RDW Lymph % (Auto) Starr % (Auto) Eos % (Auto) Lymph # Starr # Eos # Seg Neutrophils % Seg Neutrophils # PT 29.0 H INR 2.53 H APTT Heparin Anti-Xa Level 0.10 L Sodium Chloride Carbon Dioxide BUN Creatinine Glucose POC Glucose 200 H 225 H Calcium Crossmatch Allied health notes reviewed: nursing
[2017-09-24] MEDS: SENOKOT PO SCH (22:27)
[2017-09-25] MEDS: HumaLOG SUB-Q SCH ×7 (00:31→22:26)
[2017-09-25 06:15] LABS: INR 3.11 (0.87-1.13)
[2017-09-25] MEDS: NACL 0.9% 1000 ML 2,000 ML IV SCH ×2 (07:45→23:35)
--- NOTE | 2017-09-25 08:53 | Progress Note ---
Assessment and Plan Peripheral artery disease H/O mechanical aortic valve replacement anticoagulated on Warfarin Paroxysmal atrial fibrillation currently in stable sinus rhythm on metoprolol Normal persantine thallium 05/2017 Well functioning mechanical AVR, EF 50-55% on echo 05/2017 Conservative cardiac management. Subjective Date of service: 09/25/17 Principal diagnosis: R. Fem endarterectomy wound dehiscence/infection; Anemia ( ABLA); Hypoxemia Interval history: Patient has no cardiac complaints. Objective Vital Signs Temp Pulse Pulse Resp Resp BP Pulse Ox 09/25/17 05:50 98.0 F 74 20 140/72 98 09/24/17 23:58 98.6 F 63 18 118/49 97 09/24/17 22:27 71 117/31 09/24/17 20:33 98.6 F 69 20 117/31 99 09/24/17 20:18 66 18 09/24/17 20:04 99 09/24/17 20:03 64 18 09/24/17 15:56 97.9 F 63 18 117/42 97 09/24/17 13:33 61 18 09/24/17 13:23 53 L 18 09/24/17 12:18 94 09/24/17 11:38 127/77 09/24/17 11:37 127/77 09/24/17 11:31 97.9 F 79 18 125/57 95 09/24/17 10:00 76 - Physical Examination General: No Apparent Distress HEENT: Positive: PERRL Cardiac: Positive: Reg Rate and Rhythm Lungs: Positive: Decreased Breath Sounds, Wheezes Neuro: Positive: Grossly Intact Extremities: Absent: edema - Labs and Meds Coagulation 09/25/17 Range/Units 04:36 PT 34.2 H (12.2-14.9) Sec. INR 3.11 H (0.87-1.13) - Allied health notes Allied health notes reviewed: nursing
[2017-09-25] MEDS: PULMICORT IH SCH ×2 (09:30→19:31)
[2017-09-25] MEDS: BROVANA NEBU IH SCH ×2 (09:31→19:31)
[2017-09-25] MEDS: LOPRESSOR PO SCH ×2 (11:01→22:25)
[2017-09-25] MEDS: PLAQUENIL PO SCH ×2 (11:01→22:25)
[2017-09-25] MEDS: PROTONIX PO SCH (11:01)
[2017-09-25] MEDS: GLUCOPHAGE PO SCH ×2 (11:02→17:33)
[2017-09-25] MEDS: COLACE PO SCH ×2 (11:02→22:27)
[2017-09-25] MEDS: HCTZ PO SCH (11:02)
[2017-09-25] MEDS: SODIUM CHLORIDE FLUSH SYRINGE 10 ML IV SCH ×2 (11:03→22:27)
[2017-09-25] MEDS: COZAAR PO SCH (11:03)
[2017-09-25] MEDS: LANTUS SUB-Q SCH (11:23)
--- NOTE | 2017-09-25 14:42 | Vascular Lab Report ---
LOWER EXTREMITY ARTERIAL DUPLEX: REASON FOR EXAM: Peripheral arterial disease. Study was technically limited due to a bandage in the proximal right thigh. COMMENTS ON THE RIGHT: Triphasic waveforms are seen proximally. Monophasic waveforms are seen distally. 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 The dorsalis pedis artery appears be occluded. Scattered plaque seen throughout. Findings are consistent with abnormal perfusion. Findings are not consistent with the ability to heal distal wounds. COMMENTS ON THE LEFT: Limited study without the left lower extremity. Monophasic flow is noted in the posterior tibial artery the anterior tibial artery. Flow velocities are within normal range the posterior tibial artery. IMPRESSION: RIGHT: Limited study due to proximal bandage. 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 Monophasic flow is noted distally. Consider further evaluation. LEFT:Monophasic flow noted distally. This is likely due to proximal occlusive disease. Consider further evaluation.
--- NOTE | 2017-09-25 16:16 | Progress Note ---
Assessment and Plan Pt continues to do well from a surgical stand point. D/c planning for sub-acute rehab in progress. Transfer once vac approved. - Patient Problems (1) Lymphocele Current Visit: Yes Status: Acute Subjective Date of service: 09/25/17 Principal diagnosis: R. Fem endarterectomy wound dehiscence/infection; Anemia ( ABLA); Hypoxemia Interval history: Pt awake and alert without specific complaints at present. Objective - Constitutional Vitals: Vital Signs - 12hr 09/25/17 09/25/17 09/25/17 05:50 08:00 08:55 Temperature 98.0 F 97.5 F L Pulse Rate 74 78 Pulse Rate [ Anterior Bilateral Throughout] Respiratory 20 18 Rate Respiratory Rate [Anterior Bilateral Throughout] Blood Pressure 140/72 139/76 O2 Sat by Pulse 98 98 Oximetry 09/25/17 09:31 Temperature Pulse Rate Pulse Rate [ 69 Anterior Bilateral Throughout] Respiratory Rate Respiratory 18 Rate [Anterior Bilateral Throughout] Blood Pressure O2 Sat by Pulse Oximetry General appearance: Present: no acute distress - EENT Eyes: EOM intact ENT: hearing intact - Neck Neck: supple - Respiratory Respiratory effort: normal Extremities: no ischemia, normal temperature, abnormal (right groin vac in place , seal appears intact, cannister with dark serosanguinous drainage in cannister) - Neurologic Neurologic: no focal deficits - Psychiatric Psychiatric: appropriate mood/affect, intact judgment & insight, cooperative - Labs CBC & Chem 7: 09/24/17 04:43 09/23/17 05:19 Labs: Abnormal lab results 09/24/17 09/24/17 09/24/17 Range/Units 11:38 16:09 22:44 PT (12.2-14.9) Sec. INR (0.87-1.13) POC Glucose 228 H 226 H 157 H (70-105) 09/25/17 09/25/17 09/25/17 Range/Units 04:36 07:13 11:16 PT 34.2 H (12.2-14.9) Sec. INR 3.11 H (0.87-1.13) POC Glucose 167 H 195 H (70-105) 09/25/17 Range/Units 12:27 PT (12.2-14.9) Sec. INR (0.87-1.13) POC Glucose 185 H (70-105)
--- NOTE | 2017-09-25 16:38 | Progress Note ---
Assessment and Plan Assessment and plan: The patient is 77-year-old male with a history of severeperipheral vascular disease, prosthetic aortic valve who recently underwent a right femoral endarterectomy with Dacron patch angioplasty. He also had atherectomy and angioplasty with stent of his SFA and popliteal artery on the right. He initially did well but was unable to follow-up in the outpatient setting for his postoperative visit secondary to transportation issues. He states that approximately 2 days ago he began to note clear yellow drainage from his right groin. patient admitted by vacular surgery and did 1. Excision of Right Femoral PTFE Patch And Repair with Right Greater Saphenous Vein 2. Coverage of Right Femoral Artery with Sartorius Muscle Flap 3. Wound VAC Placement tomorrow Bleeding stopped patient is on warfarin for A.fib and prosthetic aortic valve and INR from this morning is 3.11. Management per cardiology We have been consulted for medical management. patient's medical history is significant for DM, HTN, afib on anticoagulation. patient's home medications were reconciled by vascular. Continue current management. H/H stable. GUICHO - Resolved - On IV fluids Disposition: - Pending subacute rehab History Interval history: Patient was seen and evaluated this morning. No bleeding from the groin. Hospitalist Physical - Physical exam Narrative exam: Not in cardiopulmonary distress. The patient appeared well nourished and normally developed. Vital signs as documented. Head exam is unremarkable. No scleral icterus . Neck is without jugular venous distension, thyromegaly, or carotid bruits. Lungs are clear to auscultation. Cardiac exam reveals irregular rate and Rhythm. Abdominal exam reveals normal bowel sounds, no masses, no organomegaly and no aortic enlargement. Extremities right groin bleeding, mild right leg swelling. [employer]: Alert and oriented 3. No focal weakness. - Constitutional Vitals: Temp Pulse Resp BP Pulse Ox 97.5 F L 69 18 139/76 98 09/25/17 08:00 09/25/17 09:31 09/25/17 09:31 09/25/17 08:55 09/25/17 08:55 General appearance: Present: no acute distress Results - Labs CBC & Chem 7: 09/24/17 04:43 09/23/17 05:19 Labs: Laboratory Last Values WBC 8.6 K/mm3 (4.5-11.0) 09/24/17 04:43 RBC 3.58 M/mm3 (3.65-5.03) L 09/24/17 04:43 Hgb 10.2 gm/dl (11.8-15.2) L 09/24/17 04:43 Hct 29.9 % (35.5-45.6) L 09/24/17 04:43 MCV 84 fl (84-94) 09/24/17 04:43 MCH 28 pg (28-32) 09/24/17 04:43 MCHC 34 % (32-34) 09/24/17 04:43 RDW 15.8 % (13.2-15.2) H 09/24/17 04:43 Plt Count 321 K/mm3 (140-440) 09/24/17 04:43 Lymph % (Auto) 12.7 % (13.4-35.0) L 09/22/17 16:07 [place] % (Auto) 9.6 % (0.0-7.3) H 09/22/17 16:07 Eos % (Auto) 7.6 % (0.0-4.3) H 09/22/17 16:07 Baso % (Auto) 0.8 % (0.0-1.8) 09/22/17 16:07 Lymph # 0.9 K/mm3 (1.2-5.4) L 09/22/17 16:07 [place] # 0.7 K/mm3 (0.0-0.8) 09/22/17 16:07 Eos # 0.6 K/mm3 (0.0-0.4) H 09/22/17 16:07 Baso # 0.1 K/mm3 (0.0-0.1) 09/22/17 16:07 Seg Neutrophils % 69.3 % (40.0-70.0) 09/22/17 16:07 Seg Neutrophils # 5.2 K/mm3 (1.8-7.7) 09/22/17 16:07 PT 34.2 Sec. (12.2-14.9) H 09/25/17 04:36 INR 3.11 (0.87-1.13) H 09/25/17 04:36 APTT 61.7 Sec. (24.2-36.6) H* 09/22/17 14:10 Heparin Anti-Xa Level 0.10 U.I./ml (0.3-0.7) L 09/24/17 04:54 Sodium 139 mmol/L (137-145) 09/23/17 05:19 Potassium 4.2 mmol/L (3.6-5.0) 09/23/17 05:19 Chloride 105.9 mmol/L (98-107) 09/23/17 05:19 Carbon Dioxide 21 mmol/L (22-30) L 09/23/17 05:19 Anion Gap 16 mmol/L 09/23/17 05:19 BUN 33 mg/dL (9-20) H 09/23/17 05:19 Creatinine 1.2 mg/dL (0.8-1.5) 09/23/17 05:19 Estimated GFR 59 ml/min 09/23/17 05:19 BUN/Creatinine Ratio 28 % 09/23/17 05:19 Glucose 161 mg/dL (75-100) H 09/23/17 05:19 POC Glucose 185 (70-105) H 09/25/17 12:27 Calcium 7.5 mg/dL (8.4-10.2) L 09/23/17 05:19 Blood Type B POSITIVE 09/20/17 Unknown Antibody Screen Negative 09/20/17 Unknown Crossmatch See Detail 09/20/17 Unknown
--- NOTE | 2017-09-25 16:47 | Progress Note ---
Assessment and Plan Peripheral vascular disease, status post right femoral endarterectomy with patch angioplasty. Dehisced right femoral endarterectomy repair (status post excision of the right femoral patch and repair with coverage of the right femoral artery with a sartorius muscle flap. Acute hypoxemic respiratory failure. GUICHO Atrial fibrillation, chronic. Status post aortic valve replacement and on full anticoagulation. Coronary artery disease. Gastroesophageal reflux disease. Hypertension. Hyperlipidemia. History of prostate cancer. Medication noncompliance. History of carotid stenosis. - conservative volume strategies re: CMOP - get BMP - continue IV heparin bridge till INR intherapeutic range for mechanical valve - add lantus 5 units qhs re: hyperglycemia - cardiology now on case - continue GI prophylaxis - continue prn supplemental oxygen to keep sats > 90% - continue bronchodilators with pulmonary hygiene per RT (LABA & ICS with prn ALEX) - vascular team managing Right groin bleed - constipation better - continue senna 17.2 gm qhs as part of bowel regimen - continue other care per attending / other consultants .... transfer to telemetry if no significant bleeding risk from vascular surgery standpoint ... 35' Subjective Date of service: 09/25/17 Principal diagnosis: R. Fem endarterectomy wound dehiscence/infection; Anemia ( ABLA); Hypoxemia Interval history: Patient is seen today for: R. Fem endarterectomy wound dehiscence/infection; Anemia (ABLA); Acute Hypoxemic Respiratory Failure Seen and examined at bedside; 24hour events reviewed; nursing and respiratory care staff consulted; no adverse overnight events reported to me; resting peacefully in bed; Objective Vital Signs - 12hr 09/25/17 09/25/17 09/25/17 05:50 08:00 08:55 Temperature 98.0 F 97.5 F L Pulse Rate 74 78 Pulse Rate [ Anterior Bilateral Throughout] Respiratory 20 18 Rate Respiratory Rate [Anterior Bilateral Throughout] Blood Pressure 140/72 139/76 O2 Sat by Pulse 98 98 Oximetry 09/25/17 09:31 Temperature Pulse Rate Pulse Rate [ 69 Anterior Bilateral Throughout] Respiratory Rate Respiratory 18 Rate [Anterior Bilateral Throughout] Blood Pressure O2 Sat by Pulse Oximetry Constitutional: no acute distress, alert, other (elderly looking CM, normocephalic, talking with mildly increased WOB, on oxygen) Eyes: non-icteric ENT: oropharynx moist, other ([place] 2) Neck: supple, no lymphadenopathy, no JVD, other (no thyromegaly) Effort: mildly labored Ascultation: Bilateral: clear, diminished breath sounds, rhonchi (posterior bases) Percussion: Bilateral: not dull Cardiovascular: regular rate and rhythm, PVC's noted, murmur noted (metalic valve click too; Systolic), other (No Rubs) Gastrointestinal: normoactive bowel sounds, soft, non-tender, non-distended, other (No palpable HSM) Integumentary: cellulitis (Right groin) Extremities: no cyanosis, no edema, pink and warm, no ischemia or petechiae, other (right groin dressing in place; no bright red bleeding) Neurologic: normal mental status, non-focal exam, pupils equal and round, motor strength normal and Psychiatric: mood appropriate, affect normal CBC and BMP: 09/24/17 04:43 09/23/17 05:19 ABG, PT/INR, D-dimer: PT/INR, D-dimer PT 34.2 Sec. (12.2-14.9) H 09/25/17 04:36 INR 3.11 (0.87-1.13) H 09/25/17 04:36 Abnormal lab findings: Abnormal Labs 09/16/17 09/16/17 09/16/17 21:14 21:14 21:14 WBC RBC Hgb 11.6 L Hct MCV 82 L MCH 27 L RDW Lymph % (Auto) [place] % (Auto) 9.5 H Eos % (Auto) 5.4 H Lymph # [place] # Eos # Seg Neutrophils % Seg Neutrophils # PT 23.0 H INR 1.90 H APTT Heparin Anti-Xa Level Sodium 136 L Chloride Carbon Dioxide BUN 21 H Creatinine Glucose 153 H POC Glucose Calcium Crossmatch 09/16/17 09/17/17 09/17/17 21:53 05:21 06:46 WBC RBC Hgb Hct MCV MCH RDW Lymph % (Auto) [place] % (Auto) Eos % (Auto) Lymph # [place] # Eos # Seg Neutrophils % Seg Neutrophils # PT INR APTT Heparin Anti-Xa Level Sodium Chloride Carbon Dioxide BUN Creatinine Glucose POC Glucose 158 H 125 H 174 H Calcium Crossmatch 09/17/17 09/17/17 09/17/17 11:04 14:02 16:49 WBC RBC Hgb Hct MCV MCH RDW Lymph % (Auto) [place] % (Auto) Eos % (Auto) Lymph # [place] # Eos # Seg Neutrophils % Seg Neutrophils # PT INR APTT Heparin Anti-Xa Level Sodium Chloride Carbon Dioxide BUN Creatinine Glucose POC Glucose 173 H 201 H Calcium Crossmatch See Detail 09/17/17 09/18/17 09/18/17 21:46 04:50 04:50 WBC RBC Hgb 10.8 L Hct 32.5 L MCV MCH RDW 15.4 H Lymph % (Auto) [place] % (Auto) Eos % (Auto) Lymph # [place] # Eos # Seg Neutrophils % Seg Neutrophils # PT INR APTT Heparin Anti-Xa Level Sodium Chloride Carbon Dioxide BUN Creatinine Glucose 162 H POC Glucose 157 H Calcium 7.8 L D Crossmatch 09/18/17 09/18/17 09/18/17 07:26 08:46 12:15 WBC RBC Hgb Hct MCV MCH RDW Lymph % (Auto) [place] % (Auto) Eos % (Auto) Lymph # [place] # Eos # Seg Neutrophils % Seg Neutrophils # PT 30.0 H INR 2.64 H APTT Heparin Anti-Xa Level Sodium Chloride Carbon Dioxide BUN Creatinine Glucose POC Glucose 182 H 176 H Calcium Crossmatch 09/18/17 09/18/17 09/18/17 13:32 16:19 21:37 WBC RBC Hgb 10.8 L Hct 32.3 L MCV MCH RDW Lymph % (Auto) [place] % (Auto) Eos % (Auto) Lymph # [place] # Eos # Seg Neutrophils % Seg Neutrophils # PT INR APTT Heparin Anti-Xa Level Sodium Chloride Carbon Dioxide BUN Creatinine Glucose POC Glucose 200 H 168 H Calcium Crossmatch 09/18/17 09/19/17 09/19/17 23:35 02:18 04:19 WBC 13.5 H RBC Hgb 10.6 L Hct 32.9 L MCV MCH 27 L RDW Lymph % (Auto) 11.5 L [place] % (Auto) 11.1 H Eos % (Auto) Lymph # [place] # 1.5 H Eos # Seg Neutrophils % 74.0 H Seg Neutrophils # 10.0 H PT 39.6 H INR 3.73 H APTT Heparin Anti-Xa Level Sodium Chloride Carbon Dioxide BUN Creatinine Glucose POC Glucose 204 H Calcium Crossmatch 09/19/17 09/19/17 09/19/17 04:19 06:34 08:45 WBC RBC Hgb 9.7 L Hct 29.3 L MCV MCH RDW Lymph % (Auto) [place] % (Auto) Eos % (Auto) Lymph # [place] # Eos # Seg Neutrophils % Seg Neutrophils # PT INR APTT Heparin Anti-Xa Level Sodium Chloride Carbon Dioxide BUN Creatinine Glucose POC Glucose 172 H 156 H Calcium Crossmatch 09/19/17 09/19/17 09/19/17 12:44 14:34 17:20 WBC RBC Hgb Hct MCV MCH RDW Lymph % (Auto) [place] % (Auto) Eos % (Auto) Lymph # [place] # Eos # Seg Neutrophils % Seg Neutrophils # PT INR APTT Heparin Anti-Xa Level Sodium Chloride Carbon Dioxide BUN Creatinine Glucose POC Glucose 181 H 232 H 213 H Calcium Crossmatch 09/19/17 09/20/17 09/20/17 21:33 01:58 02:01 WBC RBC Hgb Hct MCV MCH RDW Lymph % (Auto) [place] % (Auto) Eos % (Auto) Lymph # [place] # Eos # Seg Neutrophils % Seg Neutrophils # PT INR APTT Heparin Anti-Xa Level Sodium Chloride Carbon Dioxide BUN Creatinine Glucose POC Glucose 202 H > 500 H 208 H Calcium Crossmatch 09/20/17 09/20/17 09/20/17 03:31 03:31 05:20 WBC 11.6 H RBC 2.97 L Hgb 8.1 L Hct 24.0 L MCV 81 L MCH 27 L RDW Lymph % (Auto) [place] % (Auto) Eos % (Auto) Lymph # [place] # Eos # Seg Neutrophils % Seg Neutrophils # PT 40.6 H INR 3.85 H APTT Heparin Anti-Xa Level Sodium Chloride Carbon Dioxide BUN Creatinine Glucose POC Glucose 191 H Calcium Crossmatch 09/20/17 09/20/17 09/20/17 09:24 12:23 12:23 WBC RBC Hgb Hct MCV MCH RDW Lymph % (Auto) [place] % (Auto) Eos % (Auto) Lymph # [place] # Eos # Seg Neutrophils % Seg Neutrophils # PT 36.6 H INR 3.38 H APTT Heparin Anti-Xa Level Sodium 135 L Chloride Carbon Dioxide BUN 40 H Creatinine 1.8 H Glucose 219 H POC Glucose 234 H Calcium 7.9 L Crossmatch 09/20/17 09/20/17 09/20/17 14:17 17:45 22:46 WBC RBC Hgb Hct MCV MCH RDW Lymph % (Auto) [place] % (Auto) Eos % (Auto) Lymph # [place] # Eos # Seg Neutrophils % Seg Neutrophils # PT INR APTT Heparin Anti-Xa Level Sodium Chloride Carbon Dioxide BUN Creatinine Glucose POC Glucose 226 H 222 H 221 H Calcium Crossmatch 09/20/17 09/21/17 09/21/17 Unknown 02:48 07:14 WBC RBC Hgb Hct MCV MCH RDW Lymph % (Auto) [place] % (Auto) Eos % (Auto) Lymph # [place] # Eos # Seg Neutrophils % Seg Neutrophils # PT INR APTT Heparin Anti-Xa Level Sodium Chloride Carbon Dioxide BUN Creatinine Glucose POC Glucose 211 H 170 H Calcium Crossmatch See Detail 09/21/17 09/21/17 09/21/17 09:22 09:22 09:22 WBC 11.5 H RBC 3.26 L Hgb 9.1 L Hct 28.0 L MCV MCH RDW 15.5 H Lymph % (Auto) [place] % (Auto) Eos % (Auto) Lymph # [place] # Eos # Seg Neutrophils % Seg Neutrophils # PT 28.7 H INR 2.50 H APTT Heparin Anti-Xa Level Sodium 134 L Chloride 95.2 L Carbon Dioxide BUN 39 H Creatinine Glucose 156 H POC Glucose Calcium 7.7 L Crossmatch 09/21/17 09/21/17 09/21/17 09:44 14:40 17:32 WBC RBC Hgb Hct MCV MCH RDW Lymph % (Auto) [place] % (Auto) Eos % (Auto) Lymph # [place] # Eos # Seg Neutrophils % Seg Neutrophils # PT INR APTT Heparin Anti-Xa Level Sodium Chloride Carbon Dioxide BUN Creatinine Glucose POC Glucose 181 H 237 H 141 H Calcium Crossmatch 09/21/17 09/22/17 09/22/17 21:34 02:55 04:09 WBC RBC Hgb Hct MCV MCH RDW Lymph % (Auto) [place] % (Auto) Eos % (Auto) Lymph # [place] # Eos # Seg Neutrophils % Seg Neutrophils # PT 27.2 H INR 2.34 H APTT Heparin Anti-Xa Level Sodium Chloride Carbon Dioxide BUN Creatinine Glucose POC Glucose 158 H 163 H Calcium Crossmatch 09/22/17 09/22/17 09/22/17 05:41 08:22 12:14 WBC RBC Hgb Hct MCV MCH RDW Lymph % (Auto) [place] % (Auto) Eos % (Auto) Lymph # [place] # Eos # Seg Neutrophils % Seg Neutrophils # PT INR APTT Heparin Anti-Xa Level Sodium Chloride Carbon Dioxide BUN Creatinine Glucose POC Glucose 157 H 145 H 167 H Calcium Crossmatch 09/22/17 09/22/17 09/22/17 14:10 16:07 16:46 WBC RBC 3.20 L Hgb 8.8 L Hct 27.8 L MCV MCH RDW 15.5 H Lymph % (Auto) 12.7 L [place] % (Auto) 9.6 H Eos % (Auto) 7.6 H Lymph # 0.9 L [place] # Eos # 0.6 H Seg Neutrophils % Seg Neutrophils # PT 26.3 H INR 2.24 H APTT 61.7 H* Heparin Anti-Xa Level < 0.10 L Sodium Chloride Carbon Dioxide BUN Creatinine Glucose POC Glucose 139 H Calcium Crossmatch 09/22/17 09/22/17 09/23/17 22:20 23:53 02:06 WBC RBC Hgb Hct MCV MCH RDW Lymph % (Auto) [place] % (Auto) Eos % (Auto) Lymph # [place] # Eos # Seg Neutrophils % Seg Neutrophils # PT INR APTT Heparin Anti-Xa Level 0.24 L Sodium Chloride Carbon Dioxide BUN Creatinine Glucose POC Glucose 185 H 140 H Calcium Crossmatch 09/23/17 09/23/17 09/23/17 05:19 05:19 05:45 WBC RBC Hgb Hct MCV MCH RDW Lymph % (Auto) [place] % (Auto) Eos % (Auto) Lymph # [place] # Eos # Seg Neutrophils % Seg Neutrophils # PT 26.8 H INR 2.30 H APTT Heparin Anti-Xa Level 0.24 L Sodium Chloride Carbon Dioxide 21 L BUN 33 H Creatinine Glucose 161 H POC Glucose 167 H Calcium 7.5 L Crossmatch 09/23/17 09/23/17 09/23/17 10:06 12:04 15:00 WBC RBC 3.18 L Hgb 8.9 L Hct 26.9 L MCV MCH RDW 15.7 H Lymph % (Auto) [place] % (Auto) Eos % (Auto) Lymph # [place] # Eos # Seg Neutrophils % Seg Neutrophils # PT INR APTT Heparin Anti-Xa Level Sodium Chloride Carbon Dioxide BUN Creatinine Glucose POC Glucose 186 H 236 H Calcium Crossmatch 09/23/17 09/23/17 09/24/17 17:23 22:39 04:43 WBC RBC 3.58 L Hgb 10.2 L Hct 29.9 L MCV MCH RDW 15.8 H Lymph % (Auto) [place] % (Auto) Eos % (Auto) Lymph # [place] # Eos # Seg Neutrophils % Seg Neutrophils # PT INR APTT Heparin Anti-Xa Level Sodium Chloride Carbon Dioxide BUN Creatinine Glucose POC Glucose 154 H 189 H Calcium Crossmatch 09/24/17 09/24/17 09/24/17 04:54 06:28 06:53 WBC RBC Hgb Hct MCV MCH RDW Lymph % (Auto) [place] % (Auto) Eos % (Auto) Lymph # [place] # Eos # Seg Neutrophils % Seg Neutrophils # PT 29.0 H INR 2.53 H APTT Heparin Anti-Xa Level 0.10 L Sodium Chloride Carbon Dioxide BUN Creatinine Glucose POC Glucose 200 H 225 H Calcium Crossmatch 09/24/17 09/24/17 09/24/17 11:38 16:09 22:44 WBC RBC Hgb Hct MCV MCH RDW Lymph % (Auto) [place] % (Auto) Eos % (Auto) Lymph # [place] # Eos # Seg Neutrophils % Seg Neutrophils # PT INR APTT Heparin Anti-Xa Level Sodium Chloride Carbon Dioxide BUN Creatinine Glucose POC Glucose 228 H 226 H 157 H Calcium Crossmatch 09/25/17 09/25/17 09/25/17 04:36 07:13 11:16 WBC RBC Hgb Hct MCV MCH RDW Lymph % (Auto) [place] % (Auto) Eos % (Auto) Lymph # [place] # Eos # Seg Neutrophils % Seg Neutrophils # PT 34.2 H INR 3.11 H APTT Heparin Anti-Xa Level Sodium Chloride Carbon Dioxide BUN Creatinine Glucose POC Glucose 167 H 195 H Calcium Crossmatch 09/25/17 12:27 WBC RBC Hgb Hct MCV MCH RDW Lymph % (Auto) [place] % (Auto) Eos % (Auto) Lymph # [place] # Eos # Seg Neutrophils % Seg Neutrophils # PT INR APTT Heparin Anti-Xa Level Sodium Chloride Carbon Dioxide BUN Creatinine Glucose POC Glucose 185 H Calcium Crossmatch Allied health notes reviewed: nursing
[2017-09-25] MEDS: COUMADIN PO SCH (17:32)
[2017-09-25] MEDS: SENOKOT PO SCH (22:27)
[2017-09-26] MEDS: HumaLOG SUB-Q SCH ×6 (01:55→18:00)
[2017-09-26 05:56] LABS: INR 3.43 (0.87-1.13)
[2017-09-26] MEDS: BROVANA NEBU IH SCH ×2 (08:42→21:00)
[2017-09-26] MEDS: PULMICORT IH SCH ×2 (08:42→21:00)
[2017-09-26] MEDS: LANTUS SUB-Q SCH (09:07)
[2017-09-26] MEDS: PLAQUENIL PO SCH ×2 (09:39→22:19)
[2017-09-26] MEDS: GLUCOPHAGE PO SCH ×2 (09:39→18:00)
[2017-09-26] MEDS: HCTZ PO SCH (09:39)
[2017-09-26] MEDS: LOPRESSOR PO SCH ×2 (09:39→22:18)
[2017-09-26] MEDS: COLACE PO SCH ×2 (09:39→22:18)
[2017-09-26] MEDS: PROTONIX PO SCH (09:39)
[2017-09-26] MEDS: SODIUM CHLORIDE FLUSH SYRINGE 10 ML IV SCH (09:40)
[2017-09-26] MEDS: COZAAR PO SCH (09:40)
--- NOTE | 2017-09-26 10:19 | Progress Note ---
Assessment and Plan - Patient Problems (1) Anticoagulated on Coumadin Current Visit: Yes Status: Acute Plan to address problem: Due to the presence of a mechanical aortic valve, continue Coumadin therapy target INR 2.5-3.0. (2) H/O mechanical aortic valve replacement Current Visit: Yes Status: Acute Plan to address problem: Due to the presence of a mechanical aortic valve, continue Coumadin therapy target INR 2.5-3.0. (3) Paroxysmal atrial fibrillation Current Visit: Yes Status: Acute Plan to address problem: Patient is currently in stable sinus rhythm, we will continue beta deloris therapy as tolerated. Subjective Date of service: 09/26/17 Principal diagnosis: R. Fem endarterectomy wound dehiscence/infection; Anemia ( ABLA); Hypoxemia Interval history: Patient looks and feels comfortable, no new cardiac complaints. INR is 3.4. Objective Vital Signs Temp Pulse Pulse Resp Resp BP Pulse Ox 09/26/17 09:39 67 134/47 09/26/17 08:59 75 18 09/26/17 08:45 100 09/26/17 08:44 88 19 09/26/17 07:20 97.8 F 67 18 134/47 100 09/26/17 05:36 98.1 F 59 L 20 116/52 98 09/26/17 00:38 97.9 F 60 20 119/56 98 09/25/17 22:25 74 127/47 09/25/17 21:20 76 09/25/17 21:03 97.5 F L 74 18 127/47 97 09/25/17 19:42 71 18 09/25/17 19:34 99 09/25/17 19:32 69 18 09/25/17 17:19 72 20 130/56 100 09/25/17 16:00 97.6 F - Physical Examination General: No Apparent Distress HEENT: Positive: PERRL Neck: Positive: neck supple Cardiac: Positive: Reg Rate and Rhythm Lungs: Positive: Decreased Breath Sounds Neuro: Positive: Grossly Intact Abdomen: Positive: Soft Skin: Positive: Clear Extremities: Absent: edema - Labs and Meds Coagulation 09/26/17 Range/Units 04:59 PT 37.0 H (12.2-14.9) Sec. INR 3.43 H (0.87-1.13) - Allied health notes Allied health notes reviewed: nursing
[2017-09-26] MEDS ORDERED: TRIPLE ANTIBIOTIC TP ONE ×2 (11:22→13:00)
--- NOTE | 2017-09-26 11:30 | Progress Note ---
Assessment and Plan 77-year-old male with right-sided femoral endarterectomy and antegrade stenting complicated by lymphocele/seroma with noncompliance (no follow up) status post drainage, PTFE patch removal with placement of a vein patch, and sartorius flap. Had oozing from the site secondary to coagulopathy secondary to Coumadin use for prosthetic heart valve. Pus right second and third digit noted. Wound culture performed. Area cleaned with gauze, triple antibiotic applied. Do not apply Betadine. Consult wound care. Consult infectious disease. Subjective Date of service: 09/26/17 Principal diagnosis: R. Fem endarterectomy wound dehiscence/infection; Anemia ( ABLA); Hypoxemia Interval history: Wound vac intact. Right 2/3rd digit has pus at the area. Wound culture of the 2nd digit/3rd digit. Consulted wound care and ID. Objective - Constitutional Vitals: Vital Signs - 12hr 09/26/17 09/26/17 09/26/17 00:38 05:36 07:20 Temperature 97.9 F 98.1 F 97.8 F Pulse Rate 60 59 L 67 Pulse Rate [ Anterior Bilateral Throughout] Pulse Rate [ From Monitor] Respiratory 20 20 18 Rate Respiratory Rate [Anterior Bilateral Throughout] Blood Pressure 119/56 116/52 134/47 O2 Sat by Pulse 98 98 100 Oximetry 09/26/17 09/26/17 09/26/17 08:00 08:44 08:45 Temperature Pulse Rate Pulse Rate [ 88 Anterior Bilateral Throughout] Pulse Rate [ 67 From Monitor] Respiratory 18 Rate Respiratory 19 Rate [Anterior Bilateral Throughout] Blood Pressure O2 Sat by Pulse 100 100 Oximetry 09/26/17 09/26/17 09/26/17 08:59 09:39 10:00 Temperature Pulse Rate 67 69 Pulse Rate [ 75 Anterior Bilateral Throughout] Pulse Rate [ From Monitor] Respiratory Rate Respiratory 18 Rate [Anterior Bilateral Throughout] Blood Pressure 134/47 O2 Sat by Pulse Oximetry General appearance: Present: no acute distress - EENT Eyes: EOM intact ENT: hearing intact - Respiratory Respiratory effort: normal Extremity abnormal: other (wound VAC without leak. Possible second and third digit. Performed wound culture. Cleaned area with gauze. Applied small amount of triple antibiotic. Gauze btw toes.) - Gastrointestinal General gastrointestinal: Present: soft - Psychiatric Psychiatric: appropriate mood/affect, cooperative - Labs CBC & Chem 7: 09/24/17 04:43 09/23/17 05:19 Labs: Abnormal lab results 09/25/17 09/25/17 09/25/17 Range/Units 12:27 16:44 22:09 PT (12.2-14.9) Sec. INR (0.87-1.13) POC Glucose 185 H 197 H 181 H (70-105) 09/26/17 09/26/17 09/26/17 Range/Units 01:59 04:59 06:19 PT 37.0 H (12.2-14.9) Sec. INR 3.43 H (0.87-1.13) POC Glucose 180 H 161 H (70-105)
[2017-09-26] MEDS: PERCOCET 5/325 PO PRN ×2 (14:19→22:19)
--- NOTE | 2017-09-26 15:09 | Progress Note ---
Assessment and Plan Patient resting on room air. No complaint of chest pain or shortness of breath or cough. O2 saturation 98% on room air. Venous doppler study is poor study. Reported no DVT. - Patient Problems (1) GERD (gastroesophageal reflux disease) Current Visit: Yes Status: Acute Plan to address problem: Patient is on Protonix. Uestion of aspiration. (2) H/O mechanical aortic valve replacement Current Visit: Yes Status: Acute Plan to address problem: Patient is on coumadin. (3) Atrial fibrillation Current Visit: Yes Status: Acute Plan to address problem: Patient is on coumadin. (4) HTN (hypertension) Current Visit: Yes Status: Acute Plan to address problem: Management as per primary care. (5) Insulin dependent diabetes mellitus Current Visit: Yes Status: Acute Plan to address problem: Management as per primary care. (6) Lymphocele Current Visit: Yes Status: Acute Plan to address problem: Recommend to consult urology. Subjective Date of service: 09/26/17 Principal diagnosis: R. Fem endarterectomy wound dehiscence/infection; Anemia ( ABLA); Hypoxemia Interval history: Patient resting on room air. No complaint of chest pain or shortness of breath or cough. O2 saturation 98% on room air. Venous doppler study is poor study. Reported no DVT. Objective Vital Signs - 12hr 09/26/17 09/26/17 09/26/17 05:36 07:20 08:00 Temperature 98.1 F 97.8 F Pulse Rate 59 L 67 Pulse Rate [ Anterior Bilateral Throughout] Pulse Rate [ 67 From Monitor] Respiratory 20 18 18 Rate Respiratory Rate [Anterior Bilateral Throughout] Blood Pressure 116/52 134/47 O2 Sat by Pulse 98 100 100 Oximetry 09/26/17 09/26/17 09/26/17 08:44 08:45 08:59 Temperature Pulse Rate Pulse Rate [ 88 75 Anterior Bilateral Throughout] Pulse Rate [ From Monitor] Respiratory Rate Respiratory 19 18 Rate [Anterior Bilateral Throughout] Blood Pressure O2 Sat by Pulse 100 Oximetry 09/26/17 09/26/17 09/26/17 09:39 10:00 11:02 Temperature 98.0 F Pulse Rate 67 69 68 Pulse Rate [ Anterior Bilateral Throughout] Pulse Rate [ From Monitor] Respiratory 18 Rate Respiratory Rate [Anterior Bilateral Throughout] Blood Pressure 134/47 117/54 O2 Sat by Pulse 98 Oximetry Constitutional: no acute distress, alert, other (elderly looking CM, normocephalic, talking with mildly increased WOB, on oxygen) Eyes: non-icteric ENT: oropharynx moist, other ([place] 2) Neck: supple, no lymphadenopathy, no JVD, other (no thyromegaly) Effort: mildly labored Ascultation: Bilateral: diminished breath sounds, rhonchi (posterior bases) Percussion: Bilateral: not dull Cardiovascular: regular rate and rhythm, PVC's noted, murmur noted (metalic valve click too; Systolic), other (No Rubs) Gastrointestinal: normoactive bowel sounds, soft, non-tender, non-distended, other (No palpable HSM) Integumentary: cellulitis (Right groin) Extremities: no cyanosis, no edema, pink and warm, no ischemia or petechiae, other (right groin dressing in place; no bright red bleeding) Neurologic: normal mental status, non-focal exam, pupils equal and round, motor strength normal and Psychiatric: mood appropriate, affect normal CBC and BMP: 09/24/17 04:43 09/23/17 05:19 ABG, PT/INR, D-dimer: PT/INR, D-dimer PT 37.0 Sec. (12.2-14.9) H 09/26/17 04:59 INR 3.43 (0.87-1.13) H 09/26/17 04:59 Abnormal lab findings: Abnormal Labs 09/16/17 09/16/17 09/16/17 21:14 21:14 21:14 WBC RBC Hgb 11.6 L Hct MCV 82 L MCH 27 L RDW Lymph % (Auto) [place] % (Auto) 9.5 H Eos % (Auto) 5.4 H Lymph # [place] # Eos # Seg Neutrophils % Seg Neutrophils # PT 23.0 H INR 1.90 H APTT Heparin Anti-Xa Level Sodium 136 L Chloride Carbon Dioxide BUN 21 H Creatinine Glucose 153 H POC Glucose Calcium Crossmatch 09/16/17 09/17/17 09/17/17 21:53 05:21 06:46 WBC RBC Hgb Hct MCV MCH RDW Lymph % (Auto) [place] % (Auto) Eos % (Auto) Lymph # [place] # Eos # Seg Neutrophils % Seg Neutrophils # PT INR APTT Heparin Anti-Xa Level Sodium Chloride Carbon Dioxide BUN Creatinine Glucose POC Glucose 158 H 125 H 174 H Calcium Crossmatch 09/17/17 09/17/17 09/17/17 11:04 14:02 16:49 WBC RBC Hgb Hct MCV MCH RDW Lymph % (Auto) [place] % (Auto) Eos % (Auto) Lymph # [place] # Eos # Seg Neutrophils % Seg Neutrophils # PT INR APTT Heparin Anti-Xa Level Sodium Chloride Carbon Dioxide BUN Creatinine Glucose POC Glucose 173 H 201 H Calcium Crossmatch See Detail 09/17/17 09/18/17 09/18/17 21:46 04:50 04:50 WBC RBC Hgb 10.8 L Hct 32.5 L MCV MCH RDW 15.4 H Lymph % (Auto) [place] % (Auto) Eos % (Auto) Lymph # [place] # Eos # Seg Neutrophils % Seg Neutrophils # PT INR APTT Heparin Anti-Xa Level Sodium Chloride Carbon Dioxide BUN Creatinine Glucose 162 H POC Glucose 157 H Calcium 7.8 L D Crossmatch 09/18/17 09/18/17 09/18/17 07:26 08:46 12:15 WBC RBC Hgb Hct MCV MCH RDW Lymph % (Auto) [place] % (Auto) Eos % (Auto) Lymph # [place] # Eos # Seg Neutrophils % Seg Neutrophils # PT 30.0 H INR 2.64 H APTT Heparin Anti-Xa Level Sodium Chloride Carbon Dioxide BUN Creatinine Glucose POC Glucose 182 H 176 H Calcium Crossmatch 09/18/17 09/18/17 09/18/17 13:32 16:19 21:37 WBC RBC Hgb 10.8 L Hct 32.3 L MCV MCH RDW Lymph % (Auto) [place] % (Auto) Eos % (Auto) Lymph # [place] # Eos # Seg Neutrophils % Seg Neutrophils # PT INR APTT Heparin Anti-Xa Level Sodium Chloride Carbon Dioxide BUN Creatinine Glucose POC Glucose 200 H 168 H Calcium Crossmatch 09/18/17 09/19/17 09/19/17 23:35 02:18 04:19 WBC 13.5 H RBC Hgb 10.6 L Hct 32.9 L MCV MCH 27 L RDW Lymph % (Auto) 11.5 L [place] % (Auto) 11.1 H Eos % (Auto) Lymph # [place] # 1.5 H Eos # Seg Neutrophils % 74.0 H Seg Neutrophils # 10.0 H PT 39.6 H INR 3.73 H APTT Heparin Anti-Xa Level Sodium Chloride Carbon Dioxide BUN Creatinine Glucose POC Glucose 204 H Calcium Crossmatch 09/19/17 09/19/17 09/19/17 04:19 06:34 08:45 WBC RBC Hgb 9.7 L Hct 29.3 L MCV MCH RDW Lymph % (Auto) [place] % (Auto) Eos % (Auto) Lymph # [place] # Eos # Seg Neutrophils % Seg Neutrophils # PT INR APTT Heparin Anti-Xa Level Sodium Chloride Carbon Dioxide BUN Creatinine Glucose POC Glucose 172 H 156 H Calcium Crossmatch 09/19/17 09/19/17 09/19/17 12:44 14:34 17:20 WBC RBC Hgb Hct MCV MCH RDW Lymph % (Auto) [place] % (Auto) Eos % (Auto) Lymph # [place] # Eos # Seg Neutrophils % Seg Neutrophils # PT INR APTT Heparin Anti-Xa Level Sodium Chloride Carbon Dioxide BUN Creatinine Glucose POC Glucose 181 H 232 H 213 H Calcium Crossmatch 09/19/17 09/20/17 09/20/17 21:33 01:58 02:01 WBC RBC Hgb Hct MCV MCH RDW Lymph % (Auto) [place] % (Auto) Eos % (Auto) Lymph # [place] # Eos # Seg Neutrophils % Seg Neutrophils # PT INR APTT Heparin Anti-Xa Level Sodium Chloride Carbon Dioxide BUN Creatinine Glucose POC Glucose 202 H > 500 H 208 H Calcium Crossmatch 09/20/17 09/20/17 09/20/17 03:31 03:31 05:20 WBC 11.6 H RBC 2.97 L Hgb 8.1 L Hct 24.0 L MCV 81 L MCH 27 L RDW Lymph % (Auto) [place] % (Auto) Eos % (Auto) Lymph # [place] # Eos # Seg Neutrophils % Seg Neutrophils # PT 40.6 H INR 3.85 H APTT Heparin Anti-Xa Level Sodium Chloride Carbon Dioxide BUN Creatinine Glucose POC Glucose 191 H Calcium Crossmatch 09/20/17 09/20/17 09/20/17 09:24 12:23 12:23 WBC RBC Hgb Hct MCV MCH RDW Lymph % (Auto) [place] % (Auto) Eos % (Auto) Lymph # [place] # Eos # Seg Neutrophils % Seg Neutrophils # PT 36.6 H INR 3.38 H APTT Heparin Anti-Xa Level Sodium 135 L Chloride Carbon Dioxide BUN 40 H Creatinine 1.8 H Glucose 219 H POC Glucose 234 H Calcium 7.9 L Crossmatch 09/20/17 09/20/17 09/20/17 14:17 17:45 22:46 WBC RBC Hgb Hct MCV MCH RDW Lymph % (Auto) [place] % (Auto) Eos % (Auto) Lymph # [place] # Eos # Seg Neutrophils % Seg Neutrophils # PT INR APTT Heparin Anti-Xa Level Sodium Chloride Carbon Dioxide BUN Creatinine Glucose POC Glucose 226 H 222 H 221 H Calcium Crossmatch 09/20/17 09/21/17 09/21/17 Unknown 02:48 07:14 WBC RBC Hgb Hct MCV MCH RDW Lymph % (Auto) [place] % (Auto) Eos % (Auto) Lymph # [place] # Eos # Seg Neutrophils % Seg Neutrophils # PT INR APTT Heparin Anti-Xa Level Sodium Chloride Carbon Dioxide BUN Creatinine Glucose POC Glucose 211 H 170 H Calcium Crossmatch See Detail 09/21/17 09/21/17 09/21/17 09:22 09:22 09:22 WBC 11.5 H RBC 3.26 L Hgb 9.1 L Hct 28.0 L MCV MCH RDW 15.5 H Lymph % (Auto) [place] % (Auto) Eos % (Auto) Lymph # [place] # Eos # Seg Neutrophils % Seg Neutrophils # PT 28.7 H INR 2.50 H APTT Heparin Anti-Xa Level Sodium 134 L Chloride 95.2 L Carbon Dioxide BUN 39 H Creatinine Glucose 156 H POC Glucose Calcium 7.7 L Crossmatch 09/21/17 09/21/17 09/21/17 09:44 14:40 17:32 WBC RBC Hgb Hct MCV MCH RDW Lymph % (Auto) [place] % (Auto) Eos % (Auto) Lymph # [place] # Eos # Seg Neutrophils % Seg Neutrophils # PT INR APTT Heparin Anti-Xa Level Sodium Chloride Carbon Dioxide BUN Creatinine Glucose POC Glucose 181 H 237 H 141 H Calcium Crossmatch 09/21/17 09/22/17 09/22/17 21:34 02:55 04:09 WBC RBC Hgb Hct MCV MCH RDW Lymph % (Auto) [place] % (Auto) Eos % (Auto) Lymph # [place] # Eos # Seg Neutrophils % Seg Neutrophils # PT 27.2 H INR 2.34 H APTT Heparin Anti-Xa Level Sodium Chloride Carbon Dioxide BUN Creatinine Glucose POC Glucose 158 H 163 H Calcium Crossmatch 09/22/17 09/22/17 09/22/17 05:41 08:22 12:14 WBC RBC Hgb Hct MCV MCH RDW Lymph % (Auto) [place] % (Auto) Eos % (Auto) Lymph # [place] # Eos # Seg Neutrophils % Seg Neutrophils # PT INR APTT Heparin Anti-Xa Level Sodium Chloride Carbon Dioxide BUN Creatinine Glucose POC Glucose 157 H 145 H 167 H Calcium Crossmatch 09/22/17 09/22/17 09/22/17 14:10 16:07 16:46 WBC RBC 3.20 L Hgb 8.8 L Hct 27.8 L MCV MCH RDW 15.5 H Lymph % (Auto) 12.7 L [place] % (Auto) 9.6 H Eos % (Auto) 7.6 H Lymph # 0.9 L [place] # Eos # 0.6 H Seg Neutrophils % Seg Neutrophils # PT 26.3 H INR 2.24 H APTT 61.7 H* Heparin Anti-Xa Level < 0.10 L Sodium Chloride Carbon Dioxide BUN Creatinine Glucose POC Glucose 139 H Calcium Crossmatch 09/22/17 09/22/17 09/23/17 22:20 23:53 02:06 WBC RBC Hgb Hct MCV MCH RDW Lymph % (Auto) [place] % (Auto) Eos % (Auto) Lymph # [place] # Eos # Seg Neutrophils % Seg Neutrophils # PT INR APTT Heparin Anti-Xa Level 0.24 L Sodium Chloride Carbon Dioxide BUN Creatinine Glucose POC Glucose 185 H 140 H Calcium Crossmatch 09/23/17 09/23/17 09/23/17 05:19 05:19 05:45 WBC RBC Hgb Hct MCV MCH RDW Lymph % (Auto) [place] % (Auto) Eos % (Auto) Lymph # [place] # Eos # Seg Neutrophils % Seg Neutrophils # PT 26.8 H INR 2.30 H APTT Heparin Anti-Xa Level 0.24 L Sodium Chloride Carbon Dioxide 21 L BUN 33 H Creatinine Glucose 161 H POC Glucose 167 H Calcium 7.5 L Crossmatch 09/23/17 09/23/17 09/23/17 10:06 12:04 15:00 WBC RBC 3.18 L Hgb 8.9 L Hct 26.9 L MCV MCH RDW 15.7 H Lymph % (Auto) [place] % (Auto) Eos % (Auto) Lymph # [place] # Eos # Seg Neutrophils % Seg Neutrophils # PT INR APTT Heparin Anti-Xa Level Sodium Chloride Carbon Dioxide BUN Creatinine Glucose POC Glucose 186 H 236 H Calcium Crossmatch 09/23/17 09/23/17 09/24/17 17:23 22:39 04:43 WBC RBC 3.58 L Hgb 10.2 L Hct 29.9 L MCV MCH RDW 15.8 H Lymph % (Auto) [place] % (Auto) Eos % (Auto) Lymph # [place] # Eos # Seg Neutrophils % Seg Neutrophils # PT INR APTT Heparin Anti-Xa Level Sodium Chloride Carbon Dioxide BUN Creatinine Glucose POC Glucose 154 H 189 H Calcium Crossmatch 09/24/17 09/24/17 09/24/17 04:54 06:28 06:53 WBC RBC Hgb Hct MCV MCH RDW Lymph % (Auto) [place] % (Auto) Eos % (Auto) Lymph # [place] # Eos # Seg Neutrophils % Seg Neutrophils # PT 29.0 H INR 2.53 H APTT Heparin Anti-Xa Level 0.10 L Sodium Chloride Carbon Dioxide BUN Creatinine Glucose POC Glucose 200 H 225 H Calcium Crossmatch 09/24/17 09/24/17 09/24/17 11:38 16:09 22:44 WBC RBC Hgb Hct MCV MCH RDW Lymph % (Auto) [place] % (Auto) Eos % (Auto) Lymph # [place] # Eos # Seg Neutrophils % Seg Neutrophils # PT INR APTT Heparin Anti-Xa Level Sodium Chloride Carbon Dioxide BUN Creatinine Glucose POC Glucose 228 H 226 H 157 H Calcium Crossmatch 09/25/17 09/25/17 09/25/17 04:36 07:13 11:16 WBC RBC Hgb Hct MCV MCH RDW Lymph % (Auto) [place] % (Auto) Eos % (Auto) Lymph # [place] # Eos # Seg Neutrophils % Seg Neutrophils # PT 34.2 H INR 3.11 H APTT Heparin Anti-Xa Level Sodium Chloride Carbon Dioxide BUN Creatinine Glucose POC Glucose 167 H 195 H Calcium Crossmatch 09/25/17 09/25/17 09/25/17 12:27 16:44 22:09 WBC RBC Hgb Hct MCV MCH RDW Lymph % (Auto) [place] % (Auto) Eos % (Auto) Lymph # [place] # Eos # Seg Neutrophils % Seg Neutrophils # PT INR APTT Heparin Anti-Xa Level Sodium Chloride Carbon Dioxide BUN Creatinine Glucose POC Glucose 185 H 197 H 181 H Calcium Crossmatch 06/07/18 06/07/18 06/07/18 01:59 04:59 06:19 WBC RBC Hgb Hct MCV MCH RDW Lymph % (Auto) [place] % (Auto) Eos % (Auto) Lymph # [place] # Eos # Seg Neutrophils % Seg Neutrophils # PT 37.0 H INR 3.43 H APTT Heparin Anti-Xa Level Sodium Chloride Carbon Dioxide BUN Creatinine Glucose POC Glucose 180 H 161 H Calcium Crossmatch Allied health notes reviewed: nursing
--- NOTE | 2017-09-26 16:46 | Progress Note ---
Assessment and Plan Assessment and plan: The patient is 77-year-old male with a history of severeperipheral vascular disease, prosthetic aortic valve who recently underwent a right femoral endarterectomy with Dacron patch angioplasty. He also had atherectomy and angioplasty with stent of his SFA and popliteal artery on the right. He initially did well but was unable to follow-up in the outpatient setting for his postoperative visit secondary to transportation issues. He states that approximately 2 days ago he began to note clear yellow drainage from his right groin. patient admitted by vacular surgery and did 1. Excision of Right Femoral PTFE Patch And Repair with Right Greater Saphenous Vein 2. Coverage of Right Femoral Artery with Sartorius Muscle Flap 3. Wound VAC Placement tomorrow Bleeding stopped patient is on warfarin for A.fib and prosthetic aortic valve and INR from this morning is 3.43. Management per cardiology We have been consulted for medical management. patient's medical history is significant for DM, HTN, afib on anticoagulation. patient's home medications were reconciled by vascular. Continue current management. H/H stable. GUICHO - Resolved - On IV fluids Disposition: - Pending subacute rehab Patient is complaining of scrotal swelling this morning, vascular said could be from the recent intervention and ordered scrotal support and venous doppler U/S. History Interval history: Patient was seen and evaluated this morning. Patient has scrotal swelling and vascular ordered scrotal support and venous Doppler U/S. Hospitalist Physical - Physical exam Narrative exam: Not in cardiopulmonary distress. The patient appeared well nourished and normally developed. Vital signs as documented. Head exam is unremarkable. No scleral icterus . Neck is without jugular venous distension, thyromegaly, or carotid bruits. Lungs are clear to auscultation. Cardiac exam reveals irregular rate and Rhythm. Abdominal exam reveals normal bowel sounds, no masses, no organomegaly and no aortic enlargement. Extremities right groin bleeding, mild right leg swelling. ABSTRACT MANAGER: Alert and oriented 3. No focal weakness. - Constitutional Vitals: Temp Pulse Resp BP Pulse Ox 98.0 F 68 18 117/54 98 09/26/17 11:02 09/26/17 11:02 09/26/17 11:02 09/26/17 11:02 09/26/17 11:02 General appearance: Present: no acute distress Results - Labs CBC & Chem 7: 09/24/17 04:43 09/23/17 05:19 Labs: Laboratory Last Values WBC 8.6 K/mm3 (4.5-11.0) 09/24/17 04:43 RBC 3.58 M/mm3 (3.65-5.03) L 09/24/17 04:43 Hgb 10.2 gm/dl (11.8-15.2) L 09/24/17 04:43 Hct 29.9 % (35.5-45.6) L 09/24/17 04:43 MCV 84 fl (84-94) 09/24/17 04:43 MCH 28 pg (28-32) 09/24/17 04:43 MCHC 34 % (32-34) 09/24/17 04:43 RDW 15.8 % (13.2-15.2) H 09/24/17 04:43 Plt Count 321 K/mm3 (140-440) 09/24/17 04:43 Lymph % (Auto) 12.7 % (13.4-35.0) L 09/22/17 16:07 [place] % (Auto) 9.6 % (0.0-7.3) H 09/22/17 16:07 Eos % (Auto) 7.6 % (0.0-4.3) H 09/22/17 16:07 Baso % (Auto) 0.8 % (0.0-1.8) 09/22/17 16:07 Lymph # 0.9 K/mm3 (1.2-5.4) L 09/22/17 16:07 [place] # 0.7 K/mm3 (0.0-0.8) 09/22/17 16:07 Eos # 0.6 K/mm3 (0.0-0.4) H 09/22/17 16:07 Baso # 0.1 K/mm3 (0.0-0.1) 09/22/17 16:07 Seg Neutrophils % 69.3 % (40.0-70.0) 09/22/17 16:07 Seg Neutrophils # 5.2 K/mm3 (1.8-7.7) 09/22/17 16:07 PT 37.0 Sec. (12.2-14.9) H 09/26/17 04:59 INR 3.43 (0.87-1.13) H 09/26/17 04:59 APTT 61.7 Sec. (24.2-36.6) H* 09/22/17 14:10 Heparin Anti-Xa Level 0.10 U.I./ml (0.3-0.7) L 09/24/17 04:54 Sodium 139 mmol/L (137-145) 09/23/17 05:19 Potassium 4.2 mmol/L (3.6-5.0) 09/23/17 05:19 Chloride 105.9 mmol/L (98-107) 09/23/17 05:19 Carbon Dioxide 21 mmol/L (22-30) L 09/23/17 05:19 Anion Gap 16 mmol/L 09/23/17 05:19 BUN 33 mg/dL (9-20) H 09/23/17 05:19 Creatinine 1.2 mg/dL (0.8-1.5) 09/23/17 05:19 Estimated GFR 59 ml/min 09/23/17 05:19 BUN/Creatinine Ratio 28 % 09/23/17 05:19 Glucose 161 mg/dL (75-100) H 09/23/17 05:19 POC Glucose 161 (70-105) H 09/26/17 06:19 Calcium 7.5 mg/dL (8.4-10.2) L 09/23/17 05:19 Blood Type B POSITIVE 09/20/17 Unknown Antibody Screen Negative 09/20/17 Unknown Crossmatch See Detail 09/20/17 Unknown
[2017-09-26] MEDS: COUMADIN PO SCH (17:59)
[2017-09-26] MEDS: SENOKOT PO SCH (22:18)
[2017-09-26] MEDS: NACL 0.9% 1000 ML 2,000 ML IV SCH (22:20)
[2017-09-27] MEDS: HumaLOG SUB-Q SCH ×6 (00:15→22:25)
[2017-09-27] MEDS: SODIUM CHLORIDE FLUSH SYRINGE 10 ML IV SCH ×2 (00:16→09:52)
[2017-09-27] MEDS: NACL 0.9% 1000 ML 2,000 ML IV SCH (06:43)
[2017-09-27 06:52] LABS: INR 3.45 (0.87-1.13)
--- NOTE | 2017-09-27 08:45 | XRay Report ---
ROUTINE CHEST, TWO VIEWS: HISTORY: GE reflux, possible aspiration, shortness of breath. No relevant comparison. Previous cardiac surgery changes are identified, correlate with history. Heart size is within normal limits. There is mild pulmonary venous congestion. Small bilateral pleural effusions are identified. The lungs are hyperinflated consistent with underlying emphysema. No evidence for pneumonia, large mass or pneumothorax. The bony structures are grossly intact. IMPRESSION: Mild pulmonary venous congestion and small pleural effusions. Emphysematous changes.
[2017-09-27] MEDS ORDERED: LOPRESSOR PO SCH ×2 (09:03→10:00)
[2017-09-27] MEDS: BROVANA NEBU IH SCH ×2 (09:06→20:27)
[2017-09-27] MEDS: PULMICORT IH SCH ×2 (09:07→20:27)
[2017-09-27] MEDS: PLAQUENIL PO SCH ×2 (09:49→22:24)
[2017-09-27] MEDS: COLACE PO SCH ×2 (09:49→22:24)
[2017-09-27] MEDS: GLUCOPHAGE PO SCH ×2 (09:49→18:44)
[2017-09-27] MEDS: COZAAR PO SCH (09:51)
[2017-09-27] MEDS: LOPRESSOR PO SCH ×2 (09:51→22:24)
[2017-09-27] MEDS: PROTONIX PO SCH (09:51)
[2017-09-27] MEDS: HCTZ PO SCH (09:51)
[2017-09-27] MEDS: LANTUS SUB-Q SCH (09:52)
[2017-09-27] MEDS: PERCOCET 5/325 PO PRN (09:56)
--- NOTE | 2017-09-27 11:13 | Progress Note ---
Assessment and Plan Peripheral artery disease H/O mechanical aortic valve replacement anticoagulated on Warfarin Paroxysmal atrial fibrillation currently in stable sinus rhythm on metoprolol Normal persantine thallium 05/2017 Well functioning mechanical AVR, EF 50-55% on echo 05/2017 Plan: Sinus bradycardia seen on telemetry overnight. We will therefore, reduce metoprolol reduced to 25mg bid. Otherwise, conservative cardiac management. Subjective Date of service: 09/27/17 Principal diagnosis: R. Fem endarterectomy wound dehiscence/infection; Anemia ( ABLA); Hypoxemia Interval history: Patient has no cardiac complaints. Sinus bradycardia, rate mid 40-50s, seen on telemetry overnight. Pt remains asymptomatic. Objective Vital Signs Temp Pulse Pulse Resp Resp BP BP 09/27/17 09:22 67 19 09/27/17 09:09 65 17 09/27/17 07:18 97.9 F 61 18 124/50 09/27/17 04:50 98.9 F 50 L 20 115/78 09/27/17 00:24 98.9 F 48 L 20 106/44 09/27/17 00:01 51 L 108/44 09/26/17 22:00 53 L 09/26/17 21:10 62 20 09/26/17 21:02 09/26/17 21:01 62 20 09/26/17 19:48 97.8 F 57 L 18 134/45 09/26/17 19:07 59 L 134/45 09/26/17 17:56 98.2 F 69 18 146/52 Pulse Ox 09/27/17 09:22 09/27/17 09:09 98 09/27/17 07:18 97 09/27/17 04:50 97 09/27/17 00:24 99 09/27/17 00:01 100 09/26/17 22:00 09/26/17 21:10 09/26/17 21:02 97 09/26/17 21:01 09/26/17 19:48 96 09/26/17 19:07 96 09/26/17 17:56 97 - Physical Examination General: No Apparent Distress HEENT: Positive: PERRL Cardiac: Positive: Reg Rate and Rhythm Neuro: Positive: Grossly Intact Abdomen: Positive: Soft Skin: Positive: Clear Extremities: Absent: edema - Labs and Meds Coagulation 09/27/17 Range/Units 05:14 PT 37.2 H (12.2-14.9) Sec. INR 3.45 H (0.87-1.13) - Allied health notes Allied health notes reviewed: nursing
--- NOTE | 2017-09-27 14:45 | Consultation ---
History of Present Illness - Reason for Consult Consult date: 09/27/17 toes lesions Requesting physician: ALIZA ROY - History of Present Illness 77 y/o male with history of DM,HTN, A fib, mechanical AVR, peripheral vascular disease s/p underwent a right femoral endarterectomy with Dacron patch angioplasty. He also had atherectomy and angioplasty with stent of his SFA and popliteal artery on the right on 08/13/17. He initially did well but was unable to follow-up in the outpatient setting for his postoperative visit secondary to transportation issues. He states that approximately 2 days before admission he noted a clear yellow drainage from his right groin. This became fairly copious and he called 911 . In the ED, temp 98.2,HR 94,BP 150/80. WBC 7.6.Creat 1.4. Blood cx neg. He was noted to have right foot 2ndand 3rd toes wounds with foul smelling drainage. no fever. Pt reports he noted the toes wound while admitted. Past History Past Medical History: atrial fib, CAD, GERD, hypertension, hyperlipidemia, PVD, other (prostate cancer, venous insufficiency, carotid stenosis) Past Surgical History: valve replacement (AVR 2006), Other (Right femoral endarterectomy with patch angioplasty and SFA/Popliteal atherectomy with stent, hypospadias repair, prostate surgery, back surgery) Social history: smoking Family history: no significant family history Medications and Allergies Allergies Allergy/AdvReac Type Severity Reaction Status Date / Time No Known Allergies Allergy Verified 09/16/17 17:53 Home Medications Medication Instructions Recorded Confirmed Last Taken Type Enoxaparin [Lovenox] 80 mg SQ Q12HR 08/09/17 09/17/17 08/12/17 21:00 History Esomeprazole Magnesium [Nexium] 40 mg PO DAILY 08/09/17 09/17/17 08/12/17 17:00 History Hydroxychloroquine [Plaquenil] 200 mg PO BID 08/09/17 09/17/17 09/16/17 10:00 History Insulin Aspart Prot/Aspart(Nf) 30 units SQ QPM 08/09/17 09/17/17 09/15/17 22:00 History [Novolog Mix 70/30] Insulin Aspart Prot/Aspart(Nf) 35 units SQ QAM 08/09/17 09/17/17 09/16/17 10:00 History [Novolog Mix 70/30] Losartan/Hydrochlorothiazide 1 each PO DAILY 08/09/17 09/17/17 09/16/17 10:00 History [Losartan-Hctz 50-12.5 mg Tab] Warfarin Sodium [Coumadin] 4 mg PO DAILY 08/09/17 09/17/17 09/16/17 10:00 History metFORMIN [Glucophage] 500 mg PO BID 08/09/17 09/17/17 09/16/17 10:00 History oxyCODONE /ACETAMINOPHEN [Percocet 1 tab PO Q6HR PRN 08/09/17 09/17/17 09/15/17 22:00 History 5/325] Enoxaparin [Lovenox] 80 mg SQ Q12HR #1 syringe 08/14/17 09/17/17 Unknown Rx Oxycodone HCl/Acetaminophen 1 each PO Q6HR PRN #40 tablet 08/14/17 09/17/17 Rx [Percocet 10/325 mg] Cilostazol 50 mg PO BID 09/16/17 09/16/17 09/16/17 22:00 History Active Meds: Active Medications Acetaminophen (Tylenol) 650 mg PO Q4H PRN PRN Reason: Pain MILD(1-3)/Fever >100.5/CRESPO Last Admin: 09/22/17 02:58 Dose: 650 mg Albuterol (Proventil) 2.5 mg IH Q4HRT PRN PRN Reason: Shortness Of Breath Arformoterol Tartrate (Brovana Nebu) 15 mcg IH Q12HRT [facility] Last Admin: 09/27/17 09:06 Dose: 15 mcg Budesonide (Pulmicort) 0.5 mg IH Q12HRT [facility] Last Admin: 09/27/17 09:07 Dose: 0.5 mg Dextrose (D50w (25gm) Syringe) 50 ml IV PRN PRN PRN Reason: Hypoglycemia Docusate Sodium (Colace) 100 mg PO BID [facility] Last Admin: 09/27/17 09:49 Dose: 100 mg Hydrochlorothiazide (Hctz) 12.5 mg PO QDAY [facility] Last Admin: 09/27/17 09:51 Dose: 12.5 mg Hydroxychloroquine Sulfate (Plaquenil) 200 mg PO BID [facility] Last Admin: 09/27/17 09:49 Dose: 200 mg Sodium Chloride (Nacl 0.9% 1000 Ml) 2,000 mls @ 100 mls/hr IV DIRECT [facility] Last Admin: 09/27/17 06:43 Dose: 100 mls/hr Insulin Glargine (Lantus) 5 units SUB-Q QAMDIAB [facility] Last Admin: 09/27/17 09:52 Dose: 5 units Insulin Human Lispro (Humalog) 0 unit SUB-Q Q4HR [facility]; Protocol Last Admin: 09/27/17 10:01 Dose: 2 unit Losartan Potassium (Cozaar) 50 mg PO QDAY [facility] Last Admin: 09/27/17 09:51 Dose: 50 mg Metformin HCl (Glucophage) 500 mg PO BIDDIAB [facility] Last Admin: 09/27/17 09:49 Dose: 500 mg Metoprolol Tartrate (Lopressor) 25 mg PO BID [facility] Last Admin: 09/27/17 09:51 Dose: 25 mg Morphine Sulfate (Morphine) 2 mg IV Q4H PRN PRN Reason: Pain, Moderate (4-6) Last Admin: 09/17/17 06:54 Dose: 2 mg Ondansetron HCl (Zofran) 4 mg IV Q8H PRN PRN Reason: Nausea And Vomiting Last Admin: 09/20/17 22:06 Dose: 4 mg Oxycodone/Acetaminophen (Percocet 5/325) 2 tab PO Q4H PRN PRN Reason: Pain, Moderate (4-6) Last Admin: 09/27/17 09:56 Dose: 2 tab Pantoprazole Sodium (Protonix) 40 mg PO DAILY [facility] Last Admin: 09/27/17 09:51 Dose: 40 mg Senna (Senokot) 17.2 mg PO QHS [facility] Last Admin: 09/26/17 22:18 Dose: 17.2 mg Sodium Chloride (Sodium Chloride Flush Syringe 10 Ml) 10 ml IV PRN PRN PRN Reason: LINE FLUSH Sodium Chloride (Sodium Chloride Flush Syringe 10 Ml) 10 ml IV BID [facility] Last Admin: 09/27/17 09:52 Dose: 10 ml Sodium Chloride (Nacl 0.9%) 1,000 ml IR PRN PRN PRN Reason: Wound Care Warfarin Sodium (Coumadin) 4 mg PO DAILY@1700 [facility] Last Admin: 09/26/17 17:59 Dose: Not Given Review of Systems All systems: negative (as per HPI rest neg) Physical Examination - Physical Exam Narrative exam: Alertin NAD pleasant NC AT JEROMY clear OP Lungs CTA agustín CV RRR Abd soft NT Ext right 2nd 3rd toes tip with ulcer and fouls smelling drainage. - Constitutional Vitals: Vital Signs Temp Pulse Resp BP Pulse Ox 97.9 F 58 L 19 124/50 98 09/27/17 07:18 09/27/17 10:00 09/27/17 09:22 09/27/17 07:18 09/27/17 09:09 Temperature -Last 24 Hours Temperature 97.9 F Temperature 98.9 F Temperature 98.9 F Temperature 97.8 F Temperature 98.2 F Results - Labs CBC & Chem 7: 09/24/17 04:43 09/23/17 05:19 Labs: Abnormal lab results 09/26/17 09/26/17 09/26/17 Range/Units 11:08 18:01 21:14 PT (12.2-14.9) Sec. INR (0.87-1.13) POC Glucose 224 H 169 H 208 H (70-105) 09/27/17 09/27/17 Range/Units 05:14 05:58 PT 37.2 H (12.2-14.9) Sec. INR 3.45 H (0.87-1.13) POC Glucose 156 H (70-105) Assessment and Plan Asssessment: 1) Right 2nd 3rd toes ulcer? gangrene ? osteomyelitis 2) Mechanical AVR 3) Peripheral vascular disease s/p underwent a right femoral endarterectomy with Dacron patch angioplasty. He also had atherectomy and angioplasty with stent of his SFA and popliteal artery on the right on 08/13/17. 4) DM 5) A fib Plan: -check CRP -cannot do MRI due to mechanical AVR -request podiatry eval -f/u wound cx -triple phase scan Windy Watson MD
--- NOTE | 2017-09-27 16:35 | Progress Note ---
Assessment and Plan Assessment and plan: The patient is 77-year-old male with a history of severeperipheral vascular disease, prosthetic aortic valve who recently underwent a right femoral endarterectomy with Dacron patch angioplasty. He also had atherectomy and angioplasty with stent of his SFA and popliteal artery on the right. He initially did well but was unable to follow-up in the outpatient setting for his postoperative visit secondary to transportation issues. He states that approximately 2 days ago he began to note clear yellow drainage from his right groin. patient admitted by vacular surgery and did 1. Excision of Right Femoral PTFE Patch And Repair with Right Greater Saphenous Vein 2. Coverage of Right Femoral Artery with Sartorius Muscle Flap 3. Wound VAC Placement tomorrow Bleeding stopped patient is on warfarin for A.fib and prosthetic aortic valve and INR from this morning is 3.43. Management per cardiology We have been consulted for medical management. patient's medical history is significant for DM, HTN, afib on anticoagulation. patient's home medications were reconciled by vascular. Continue current management. H/H stable. GUICHO - Resolved - On IV fluids Scrotal swelling - supportive care, elevation ID consulted: Asssessment and plan is as follows: 1) Right 2nd 3rd toes ulcer? gangrene ? osteomyelitis 2) Mechanical AVR 3) Peripheral vascular disease s/p underwent a right femoral endarterectomy with Dacron patch angioplasty. He also had atherectomy and angioplasty with stent of his SFA and popliteal artery on the right on 08/13/17. 4) DM 5) A fib Plan: -check CRP -cannot do MRI due to mechanical AVR -request podiatry eval -f/u wound cx -triple phase scan History Interval history: Patient was seen and evaluated this morning. Patient has scrotal swelling, said leg swelling is better. Hospitalist Physical - Physical exam Narrative exam: Not in cardiopulmonary distress. The patient appeared well nourished and normally developed. Vital signs as documented. Head exam is unremarkable. No scleral icterus . Neck is without jugular venous distension, thyromegaly, or carotid bruits. Lungs are clear to auscultation. Cardiac exam reveals irregular rate and Rhythm. Abdominal exam reveals normal bowel sounds, no masses, no organomegaly and no aortic enlargement. Extremities right groin bleeding, mild right leg swelling. DIRECTOR APPOINTMENT: Alert and oriented 3. No focal weakness. - Constitutional Vitals: Temp Pulse Resp BP Pulse Ox 97.9 F 58 L 19 124/50 98 09/27/17 07:18 09/27/17 10:00 09/27/17 09:22 09/27/17 07:18 09/27/17 09:09 General appearance: Present: no acute distress Results - Labs CBC & Chem 7: 09/24/17 04:43 09/23/17 05:19 Labs: Laboratory Last Values WBC 8.6 K/mm3 (4.5-11.0) 09/24/17 04:43 RBC 3.58 M/mm3 (3.65-5.03) L 09/24/17 04:43 Hgb 10.2 gm/dl (11.8-15.2) L 09/24/17 04:43 Hct 29.9 % (35.5-45.6) L 09/24/17 04:43 MCV 84 fl (84-94) 09/24/17 04:43 MCH 28 pg (28-32) 09/24/17 04:43 MCHC 34 % (32-34) 09/24/17 04:43 RDW 15.8 % (13.2-15.2) H 09/24/17 04:43 Plt Count 321 K/mm3 (140-440) 09/24/17 04:43 Lymph % (Auto) 12.7 % (13.4-35.0) L 09/22/17 16:07 Ransom % (Auto) 9.6 % (0.0-7.3) H 09/22/17 16:07 Eos % (Auto) 7.6 % (0.0-4.3) H 09/22/17 16:07 Baso % (Auto) 0.8 % (0.0-1.8) 09/22/17 16:07 Lymph # 0.9 K/mm3 (1.2-5.4) L 09/22/17 16:07 Ransom # 0.7 K/mm3 (0.0-0.8) 09/22/17 16:07 Eos # 0.6 K/mm3 (0.0-0.4) H 09/22/17 16:07 Baso # 0.1 K/mm3 (0.0-0.1) 09/22/17 16:07 Seg Neutrophils % 69.3 % (40.0-70.0) 09/22/17 16:07 Seg Neutrophils # 5.2 K/mm3 (1.8-7.7) 09/22/17 16:07 PT 37.2 Sec. (12.2-14.9) H 09/27/17 05:14 INR 3.45 (0.87-1.13) H 09/27/17 05:14 APTT 61.7 Sec. (24.2-36.6) H* 09/22/17 14:10 Heparin Anti-Xa Level 0.10 U.I./ml (0.3-0.7) L 09/24/17 04:54 Sodium 139 mmol/L (137-145) 09/23/17 05:19 Potassium 4.2 mmol/L (3.6-5.0) 09/23/17 05:19 Chloride 105.9 mmol/L (98-107) 09/23/17 05:19 Carbon Dioxide 21 mmol/L (22-30) L 09/23/17 05:19 Anion Gap 16 mmol/L 09/23/17 05:19 BUN 33 mg/dL (9-20) H 09/23/17 05:19 Creatinine 1.2 mg/dL (0.8-1.5) 09/23/17 05:19 Estimated GFR 59 ml/min 09/23/17 05:19 BUN/Creatinine Ratio 28 % 09/23/17 05:19 Glucose 161 mg/dL (75-100) H 09/23/17 05:19 POC Glucose 156 (70-105) H 09/27/17 05:58 Calcium 7.5 mg/dL (8.4-10.2) L 09/23/17 05:19 C-Reactive Protein 8.60 mg/dL (0.00-1.30) H 09/27/17 13:26 Blood Type B POSITIVE 09/20/17 Unknown Antibody Screen Negative 09/20/17 Unknown Crossmatch See Detail 09/20/17 Unknown
--- NOTE | 2017-09-27 17:45 | Progress Note ---
Assessment and Plan Vasc lab prelimb results reviewed. No evidence of DVT appreciated. Wound vac in place. ID consult note reviewed. Unable to get MRI. Abx per ID recommendations D/c planning for rehab with wound vac, completed and pt accepted. - Patient Problems (1) Lymphocele Current Visit: Yes Status: Acute Subjective Date of service: 09/27/17 Principal diagnosis: R. Fem endarterectomy wound dehiscence/infection; Anemia ( ABLA); Hypoxemia Interval history: Pt awake and alert. He is feeling better. Swelling continues to improve. Objective - Constitutional Vitals: Vital Signs - 12hr 09/27/17 09/27/17 09/27/17 07:18 08:00 09:09 Temperature 97.9 F Pulse Rate 61 Pulse Rate [ 65 Anterior Bilateral Throughout] Pulse Rate [ 67 From Monitor] Respiratory 18 18 Rate Respiratory 17 Rate [Anterior Bilateral Throughout] Blood Pressure 124/50 O2 Sat by Pulse 97 100 98 Oximetry 09/27/17 09/27/17 09/27/17 09:22 10:00 12:16 Temperature 97.9 F Pulse Rate 58 L 60 Pulse Rate [ 67 Anterior Bilateral Throughout] Pulse Rate [ From Monitor] Respiratory 18 Rate Respiratory 19 Rate [Anterior Bilateral Throughout] Blood Pressure 130/56 O2 Sat by Pulse 95 Oximetry 09/27/17 16:09 Temperature 97.9 F Pulse Rate 59 L Pulse Rate [ Anterior Bilateral Throughout] Pulse Rate [ From Monitor] Respiratory 18 Rate Respiratory Rate [Anterior Bilateral Throughout] Blood Pressure 123/53 O2 Sat by Pulse 97 Oximetry General appearance: Present: no acute distress - EENT Eyes: EOM intact ENT: hearing intact - Neck Neck: supple - Respiratory Respiratory effort: normal Extremities: normal temperature Extremity abnormal: edema (RLE), ulceration (dry ulcers to multiple toes on right foot) - Neurologic Neurologic: other (peripheral neuropathy) - Psychiatric Psychiatric: appropriate mood/affect, intact judgment & insight, cooperative - Labs CBC & Chem 7: 09/24/17 04:43 09/23/17 05:19 Labs: Abnormal lab results 09/26/17 09/26/17 09/27/17 Range/Units 18:01 21:14 05:14 PT 37.2 H (12.2-14.9) Sec. INR 3.45 H (0.87-1.13) POC Glucose 169 H 208 H (70-105) C-Reactive Protein (0.00-1.30) mg/dL 09/27/17 09/27/17 09/27/17 Range/Units 05:58 10:03 13:26 PT (12.2-14.9) Sec. INR (0.87-1.13) POC Glucose 156 H 212 H (70-105) C-Reactive Protein 8.60 H (0.00-1.30) mg/dL 09/27/17 Range/Units 16:17 PT (12.2-14.9) Sec. INR (0.87-1.13) POC Glucose 182 H (70-105) C-Reactive Protein (0.00-1.30) mg/dL
--- NOTE | 2017-09-27 18:28 | Progress Note ---
Assessment and Plan Patient resting on room air. No complaint of chest pain or shortness of breath or cough. O2 saturation 98% on room air. Venous doppler study is poor study. Reported no DVT. - Patient Problems (1) GERD (gastroesophageal reflux disease) Current Visit: Yes Status: Acute Plan to address problem: Patient is on Protonix. question of aspiration. (2) H/O mechanical aortic valve replacement Current Visit: Yes Status: Acute Plan to address problem: Patient is on coumadin. (3) Atrial fibrillation Current Visit: Yes Status: Acute Plan to address problem: Patient is on coumadin. (4) HTN (hypertension) Current Visit: Yes Status: Acute Plan to address problem: Management as per primary care. (5) Insulin dependent diabetes mellitus Current Visit: Yes Status: Acute Plan to address problem: Management as per primary care. (6) Lymphocele Current Visit: Yes Status: Acute Plan to address problem: Recommend to consult urology. (7) Past use of tobacco Current Visit: Yes Status: Acute Plan to address problem: Patient has remote history of smoking.Stopped smoking 35 years ago. Chest xray reported emphysematous changes. Recommend PFTs as out patient. Subjective Date of service: 09/27/17 Principal diagnosis: R. Fem endarterectomy wound dehiscence/infection; Anemia ( ABLA); Hypoxemia Interval history: Patient resting on room air. No complaint of chest pain or shortness of breath or cough. O2 saturation 97% on room air. Venous doppler study is poor study. Reported no DVT. Objective Vital Signs - 12hr 09/27/17 09/27/17 09/27/17 07:18 08:00 09:09 Temperature 97.9 F Pulse Rate 61 Pulse Rate [ 65 Anterior Bilateral Throughout] Pulse Rate [ 67 From Monitor] Respiratory 18 18 Rate Respiratory 17 Rate [Anterior Bilateral Throughout] Blood Pressure 124/50 O2 Sat by Pulse 97 100 98 Oximetry 09/27/17 09/27/17 09/27/17 09:22 10:00 12:16 Temperature 97.9 F Pulse Rate 58 L 60 Pulse Rate [ 67 Anterior Bilateral Throughout] Pulse Rate [ From Monitor] Respiratory 18 Rate Respiratory 19 Rate [Anterior Bilateral Throughout] Blood Pressure 130/56 O2 Sat by Pulse 95 Oximetry 09/27/17 16:09 Temperature 97.9 F Pulse Rate 59 L Pulse Rate [ Anterior Bilateral Throughout] Pulse Rate [ From Monitor] Respiratory 18 Rate Respiratory Rate [Anterior Bilateral Throughout] Blood Pressure 123/53 O2 Sat by Pulse 97 Oximetry Constitutional: no acute distress, alert, other (elderly looking CM, normocephalic, talking with mildly increased WOB, on oxygen) Eyes: non-icteric ENT: oropharynx moist, other ([place] 2) Neck: supple, no lymphadenopathy, no JVD, other (no thyromegaly) Effort: mildly labored Ascultation: Bilateral: diminished breath sounds, rhonchi (posterior bases) Percussion: Bilateral: not dull Cardiovascular: regular rate and rhythm, PVC's noted, murmur noted (metalic valve click too; Systolic), other (No Rubs) Gastrointestinal: normoactive bowel sounds, soft, non-tender, non-distended, other (No palpable HSM) Integumentary: cellulitis (Right groin) Extremities: no cyanosis, no edema, pink and warm, no ischemia or petechiae, other (right groin dressing in place; no bright red bleeding) Neurologic: normal mental status, non-focal exam, pupils equal and round, motor strength normal and Psychiatric: mood appropriate, affect normal CBC and BMP: 09/24/17 04:43 09/23/17 05:19 ABG, PT/INR, D-dimer: PT/INR, D-dimer PT 37.2 Sec. (12.2-14.9) H 09/27/17 05:14 INR 3.45 (0.87-1.13) H 09/27/17 05:14 Abnormal lab findings: Abnormal Labs 09/16/17 09/16/17 09/16/17 21:14 21:14 21:14 WBC RBC Hgb 11.6 L Hct MCV 82 L MCH 27 L RDW Lymph % (Auto) [place] % (Auto) 9.5 H Eos % (Auto) 5.4 H Lymph # [place] # Eos # Seg Neutrophils % Seg Neutrophils # PT 23.0 H INR 1.90 H APTT Heparin Anti-Xa Level Sodium 136 L Chloride Carbon Dioxide BUN 21 H Creatinine Glucose 153 H POC Glucose Calcium C-Reactive Protein Crossmatch 09/16/17 09/17/17 09/17/17 21:53 05:21 06:46 WBC RBC Hgb Hct MCV MCH RDW Lymph % (Auto) [place] % (Auto) Eos % (Auto) Lymph # [place] # Eos # Seg Neutrophils % Seg Neutrophils # PT INR APTT Heparin Anti-Xa Level Sodium Chloride Carbon Dioxide BUN Creatinine Glucose POC Glucose 158 H 125 H 174 H Calcium C-Reactive Protein Crossmatch 09/17/17 09/17/17 09/17/17 11:04 14:02 16:49 WBC RBC Hgb Hct MCV MCH RDW Lymph % (Auto) [place] % (Auto) Eos % (Auto) Lymph # [place] # Eos # Seg Neutrophils % Seg Neutrophils # PT INR APTT Heparin Anti-Xa Level Sodium Chloride Carbon Dioxide BUN Creatinine Glucose POC Glucose 173 H 201 H Calcium C-Reactive Protein Crossmatch See Detail 09/17/17 09/18/17 09/18/17 21:46 04:50 04:50 WBC RBC Hgb 10.8 L Hct 32.5 L MCV MCH RDW 15.4 H Lymph % (Auto) [place] % (Auto) Eos % (Auto) Lymph # [place] # Eos # Seg Neutrophils % Seg Neutrophils # PT INR APTT Heparin Anti-Xa Level Sodium Chloride Carbon Dioxide BUN Creatinine Glucose 162 H POC Glucose 157 H Calcium 7.8 L D C-Reactive Protein Crossmatch 09/18/17 09/18/17 09/18/17 07:26 08:46 12:15 WBC RBC Hgb Hct MCV MCH RDW Lymph % (Auto) [place] % (Auto) Eos % (Auto) Lymph # [place] # Eos # Seg Neutrophils % Seg Neutrophils # PT 30.0 H INR 2.64 H APTT Heparin Anti-Xa Level Sodium Chloride Carbon Dioxide BUN Creatinine Glucose POC Glucose 182 H 176 H Calcium C-Reactive Protein Crossmatch 09/18/17 09/18/17 09/18/17 13:32 16:19 21:37 WBC RBC Hgb 10.8 L Hct 32.3 L MCV MCH RDW Lymph % (Auto) [place] % (Auto) Eos % (Auto) Lymph # [place] # Eos # Seg Neutrophils % Seg Neutrophils # PT INR APTT Heparin Anti-Xa Level Sodium Chloride Carbon Dioxide BUN Creatinine Glucose POC Glucose 200 H 168 H Calcium C-Reactive Protein Crossmatch 09/18/17 09/19/17 09/19/17 23:35 02:18 04:19 WBC 13.5 H RBC Hgb 10.6 L Hct 32.9 L MCV MCH 27 L RDW Lymph % (Auto) 11.5 L [place] % (Auto) 11.1 H Eos % (Auto) Lymph # [place] # 1.5 H Eos # Seg Neutrophils % 74.0 H Seg Neutrophils # 10.0 H PT 39.6 H INR 3.73 H APTT Heparin Anti-Xa Level Sodium Chloride Carbon Dioxide BUN Creatinine Glucose POC Glucose 204 H Calcium C-Reactive Protein Crossmatch 09/19/17 09/19/17 09/19/17 04:19 06:34 08:45 WBC RBC Hgb 9.7 L Hct 29.3 L MCV MCH RDW Lymph % (Auto) [place] % (Auto) Eos % (Auto) Lymph # [place] # Eos # Seg Neutrophils % Seg Neutrophils # PT INR APTT Heparin Anti-Xa Level Sodium Chloride Carbon Dioxide BUN Creatinine Glucose POC Glucose 172 H 156 H Calcium C-Reactive Protein Crossmatch 09/19/17 09/19/17 09/19/17 12:44 14:34 17:20 WBC RBC Hgb Hct MCV MCH RDW Lymph % (Auto) [place] % (Auto) Eos % (Auto) Lymph # [place] # Eos # Seg Neutrophils % Seg Neutrophils # PT INR APTT Heparin Anti-Xa Level Sodium Chloride Carbon Dioxide BUN Creatinine Glucose POC Glucose 181 H 232 H 213 H Calcium C-Reactive Protein Crossmatch 09/19/17 09/20/17 09/20/17 21:33 01:58 02:01 WBC RBC Hgb Hct MCV MCH RDW Lymph % (Auto) [place] % (Auto) Eos % (Auto) Lymph # [place] # Eos # Seg Neutrophils % Seg Neutrophils # PT INR APTT Heparin Anti-Xa Level Sodium Chloride Carbon Dioxide BUN Creatinine Glucose POC Glucose 202 H > 500 H 208 H Calcium C-Reactive Protein Crossmatch 09/20/17 09/20/17 09/20/17 03:31 03:31 05:20 WBC 11.6 H RBC 2.97 L Hgb 8.1 L Hct 24.0 L MCV 81 L MCH 27 L RDW Lymph % (Auto) [place] % (Auto) Eos % (Auto) Lymph # [place] # Eos # Seg Neutrophils % Seg Neutrophils # PT 40.6 H INR 3.85 H APTT Heparin Anti-Xa Level Sodium Chloride Carbon Dioxide BUN Creatinine Glucose POC Glucose 191 H Calcium C-Reactive Protein Crossmatch 09/20/17 09/20/17 09/20/17 09:24 12:23 12:23 WBC RBC Hgb Hct MCV MCH RDW Lymph % (Auto) [place] % (Auto) Eos % (Auto) Lymph # [place] # Eos # Seg Neutrophils % Seg Neutrophils # PT 36.6 H INR 3.38 H APTT Heparin Anti-Xa Level Sodium 135 L Chloride Carbon Dioxide BUN 40 H Creatinine 1.8 H Glucose 219 H POC Glucose 234 H Calcium 7.9 L C-Reactive Protein Crossmatch 09/20/17 09/20/17 09/20/17 14:17 17:45 22:46 WBC RBC Hgb Hct MCV MCH RDW Lymph % (Auto) [place] % (Auto) Eos % (Auto) Lymph # [place] # Eos # Seg Neutrophils % Seg Neutrophils # PT INR APTT Heparin Anti-Xa Level Sodium Chloride Carbon Dioxide BUN Creatinine Glucose POC Glucose 226 H 222 H 221 H Calcium C-Reactive Protein Crossmatch 09/20/17 09/21/17 09/21/17 Unknown 02:48 07:14 WBC RBC Hgb Hct MCV MCH RDW Lymph % (Auto) [place] % (Auto) Eos % (Auto) Lymph # [place] # Eos # Seg Neutrophils % Seg Neutrophils # PT INR APTT Heparin Anti-Xa Level Sodium Chloride Carbon Dioxide BUN Creatinine Glucose POC Glucose 211 H 170 H Calcium C-Reactive Protein Crossmatch See Detail 09/21/17 09/21/17 09/21/17 09:22 09:22 09:22 WBC 11.5 H RBC 3.26 L Hgb 9.1 L Hct 28.0 L MCV MCH RDW 15.5 H Lymph % (Auto) [place] % (Auto) Eos % (Auto) Lymph # [place] # Eos # Seg Neutrophils % Seg Neutrophils # PT 28.7 H INR 2.50 H APTT Heparin Anti-Xa Level Sodium 134 L Chloride 95.2 L Carbon Dioxide BUN 39 H Creatinine Glucose 156 H POC Glucose Calcium 7.7 L C-Reactive Protein Crossmatch 09/21/17 09/21/17 09/21/17 09:44 14:40 17:32 WBC RBC Hgb Hct MCV MCH RDW Lymph % (Auto) [place] % (Auto) Eos % (Auto) Lymph # [place] # Eos # Seg Neutrophils % Seg Neutrophils # PT INR APTT Heparin Anti-Xa Level Sodium Chloride Carbon Dioxide BUN Creatinine Glucose POC Glucose 181 H 237 H 141 H Calcium C-Reactive Protein Crossmatch 09/21/17 09/22/17 09/22/17 21:34 02:55 04:09 WBC RBC Hgb Hct MCV MCH RDW Lymph % (Auto) [place] % (Auto) Eos % (Auto) Lymph # [place] # Eos # Seg Neutrophils % Seg Neutrophils # PT 27.2 H INR 2.34 H APTT Heparin Anti-Xa Level Sodium Chloride Carbon Dioxide BUN Creatinine Glucose POC Glucose 158 H 163 H Calcium C-Reactive Protein Crossmatch 09/22/17 09/22/17 09/22/17 05:41 08:22 12:14 WBC RBC Hgb Hct MCV MCH RDW Lymph % (Auto) [place] % (Auto) Eos % (Auto) Lymph # [place] # Eos # Seg Neutrophils % Seg Neutrophils # PT INR APTT Heparin Anti-Xa Level Sodium Chloride Carbon Dioxide BUN Creatinine Glucose POC Glucose 157 H 145 H 167 H Calcium C-Reactive Protein Crossmatch 09/22/17 09/22/17 09/22/17 14:10 16:07 16:46 WBC RBC 3.20 L Hgb 8.8 L Hct 27.8 L MCV MCH RDW 15.5 H Lymph % (Auto) 12.7 L [place] % (Auto) 9.6 H Eos % (Auto) 7.6 H Lymph # 0.9 L [place] # Eos # 0.6 H Seg Neutrophils % Seg Neutrophils # PT 26.3 H INR 2.24 H APTT 61.7 H* Heparin Anti-Xa Level < 0.10 L Sodium Chloride Carbon Dioxide BUN Creatinine Glucose POC Glucose 139 H Calcium C-Reactive Protein Crossmatch 09/22/17 09/22/17 09/23/17 22:20 23:53 02:06 WBC RBC Hgb Hct MCV MCH RDW Lymph % (Auto) [place] % (Auto) Eos % (Auto) Lymph # [place] # Eos # Seg Neutrophils % Seg Neutrophils # PT INR APTT Heparin Anti-Xa Level 0.24 L Sodium Chloride Carbon Dioxide BUN Creatinine Glucose POC Glucose 185 H 140 H Calcium C-Reactive Protein Crossmatch 09/23/17 09/23/17 09/23/17 05:19 05:19 05:45 WBC RBC Hgb Hct MCV MCH RDW Lymph % (Auto) [place] % (Auto) Eos % (Auto) Lymph # [place] # Eos # Seg Neutrophils % Seg Neutrophils # PT 26.8 H INR 2.30 H APTT Heparin Anti-Xa Level 0.24 L Sodium Chloride Carbon Dioxide 21 L BUN 33 H Creatinine Glucose 161 H POC Glucose 167 H Calcium 7.5 L C-Reactive Protein Crossmatch 09/23/17 09/23/17 09/23/17 10:06 12:04 15:00 WBC RBC 3.18 L Hgb 8.9 L Hct 26.9 L MCV MCH RDW 15.7 H Lymph % (Auto) [place] % (Auto) Eos % (Auto) Lymph # [place] # Eos # Seg Neutrophils % Seg Neutrophils # PT INR APTT Heparin Anti-Xa Level Sodium Chloride Carbon Dioxide BUN Creatinine Glucose POC Glucose 186 H 236 H Calcium C-Reactive Protein Crossmatch 09/23/17 09/23/17 09/24/17 17:23 22:39 04:43 WBC RBC 3.58 L Hgb 10.2 L Hct 29.9 L MCV MCH RDW 15.8 H Lymph % (Auto) [place] % (Auto) Eos % (Auto) Lymph # [place] # Eos # Seg Neutrophils % Seg Neutrophils # PT INR APTT Heparin Anti-Xa Level Sodium Chloride Carbon Dioxide BUN Creatinine Glucose POC Glucose 154 H 189 H Calcium C-Reactive Protein Crossmatch 09/24/17 09/24/17 09/24/17 04:54 06:28 06:53 WBC RBC Hgb Hct MCV MCH RDW Lymph % (Auto) [place] % (Auto) Eos % (Auto) Lymph # [place] # Eos # Seg Neutrophils % Seg Neutrophils # PT 29.0 H INR 2.53 H APTT Heparin Anti-Xa Level 0.10 L Sodium Chloride Carbon Dioxide BUN Creatinine Glucose POC Glucose 200 H 225 H Calcium C-Reactive Protein Crossmatch 09/24/17 09/24/17 09/24/17 11:38 16:09 22:44 WBC RBC Hgb Hct MCV MCH RDW Lymph % (Auto) [place] % (Auto) Eos % (Auto) Lymph # [place] # Eos # Seg Neutrophils % Seg Neutrophils # PT INR APTT Heparin Anti-Xa Level Sodium Chloride Carbon Dioxide BUN Creatinine Glucose POC Glucose 228 H 226 H 157 H Calcium C-Reactive Protein Crossmatch 09/25/17 09/25/17 09/25/17 04:36 07:13 11:16 WBC RBC Hgb Hct MCV MCH RDW Lymph % (Auto) [place] % (Auto) Eos % (Auto) Lymph # [place] # Eos # Seg Neutrophils % Seg Neutrophils # PT 34.2 H INR 3.11 H APTT Heparin Anti-Xa Level Sodium Chloride Carbon Dioxide BUN Creatinine Glucose POC Glucose 167 H 195 H Calcium C-Reactive Protein Crossmatch 09/25/17 09/25/17 09/25/17 12:27 16:44 22:09 WBC RBC Hgb Hct MCV MCH RDW Lymph % (Auto) [place] % (Auto) Eos % (Auto) Lymph # [place] # Eos # Seg Neutrophils % Seg Neutrophils # PT INR APTT Heparin Anti-Xa Level Sodium Chloride Carbon Dioxide BUN Creatinine Glucose POC Glucose 185 H 197 H 181 H Calcium C-Reactive Protein Crossmatch 09/26/17 09/26/17 09/26/17 01:59 04:59 06:19 WBC RBC Hgb Hct MCV MCH RDW Lymph % (Auto) [place] % (Auto) Eos % (Auto) Lymph # [place] # Eos # Seg Neutrophils % Seg Neutrophils # PT 37.0 H INR 3.43 H APTT Heparin Anti-Xa Level Sodium Chloride Carbon Dioxide BUN Creatinine Glucose POC Glucose 180 H 161 H Calcium C-Reactive Protein Crossmatch 09/26/17 09/26/17 09/26/17 11:08 18:01 21:14 WBC RBC Hgb Hct MCV MCH RDW Lymph % (Auto) [place] % (Auto) Eos % (Auto) Lymph # [place] # Eos # Seg Neutrophils % Seg Neutrophils # PT INR APTT Heparin Anti-Xa Level Sodium Chloride Carbon Dioxide BUN Creatinine Glucose POC Glucose 224 H 169 H 208 H Calcium C-Reactive Protein Crossmatch 09/27/17 09/27/17 09/27/17 05:14 05:58 10:03 WBC RBC Hgb Hct MCV MCH RDW Lymph % (Auto) [place] % (Auto) Eos % (Auto) Lymph # [place] # Eos # Seg Neutrophils % Seg Neutrophils # PT 37.2 H INR 3.45 H APTT Heparin Anti-Xa Level Sodium Chloride Carbon Dioxide BUN Creatinine Glucose POC Glucose 156 H 212 H Calcium C-Reactive Protein Crossmatch 09/27/17 09/27/17 13:26 16:17 WBC RBC Hgb Hct MCV MCH RDW Lymph % (Auto) [place] % (Auto) Eos % (Auto) Lymph # [place] # Eos # Seg Neutrophils % Seg Neutrophils # PT INR APTT Heparin Anti-Xa Level Sodium Chloride Carbon Dioxide BUN Creatinine Glucose POC Glucose 182 H Calcium C-Reactive Protein 8.60 H Crossmatch Chest x-ray: report reviewed (Mild pulmonary venous congestion,small pleural effusion and emphysematous changes reported.), image reviewed Allied health notes reviewed: nursing
[2017-09-27] MEDS: COUMADIN PO SCH (18:44)
[2017-09-27] MEDS: SENOKOT PO SCH (22:25)
[2017-09-28] MEDS: PERCOCET 5/325 PO PRN ×3 (00:01→19:48)
[2017-09-28] MEDS: SODIUM CHLORIDE FLUSH SYRINGE 10 ML IV SCH ×3 (01:17→22:10)
[2017-09-28] MEDS: HumaLOG SUB-Q SCH ×6 (05:44→22:20)
[2017-09-28 06:03] LABS: INR 3.21 (0.87-1.13)
[2017-09-28] MEDS: PULMICORT IH SCH ×2 (07:40→20:22)
[2017-09-28] MEDS: BROVANA NEBU IH SCH ×2 (07:40→20:22)
--- NOTE | 2017-09-28 10:21 | Progress Note ---
Assessment and Plan Peripheral artery disease H/O mechanical aortic valve replacement anticoagulated on Warfarin Paroxysmal atrial fibrillation currently in stable sinus rhythm on metoprolol Normal persantine thallium 05/2017 Well functioning mechanical AVR, EF 50-55% on echo 05/2017 Coumadin thereapy INR OK Plan: Stable from cardiac standpoint Otherwise, conservative cardiac management Subjective Date of service: 09/28/17 Principal diagnosis: R. Fem endarterectomy wound dehiscence/infection; Anemia ( ABLA); Hypoxemia Interval history: no events overnight Objective Vital Signs Temp Pulse Pulse Resp Resp BP Pulse Ox 09/28/17 08:19 76 18 146/60 96 09/28/17 08:00 97.9 F 09/28/17 07:40 77 128 H 09/28/17 07:31 76 18 09/28/17 06:10 97.8 F 64 18 115/48 95 09/28/17 00:14 98.2 F 76 18 104/32 96 09/27/17 22:00 75 09/27/17 20:40 69 20 09/27/17 20:29 97 09/27/17 20:28 73 20 09/27/17 19:17 97.8 F 69 18 103/43 97 09/27/17 16:09 97.9 F 59 L 18 123/53 97 09/27/17 12:16 97.9 F 60 18 130/56 95 - Physical Examination Narrative exam: Physical examination Vitals reviewed GEN: No acute distress noted HEENT: Carot[place] 2+ NECK: Supple CVS: S1 and S2 heard no significant murmur or gallop noted LUNGS/CHEST: Normal auscultation ABD: Soft nontender NEURO: Alert moves all all 4 extremities PSY: Stable General: No Apparent Distress HEENT: Positive: PERRL Neck: Positive: neck supple Neuro: Positive: Grossly Intact Abdomen: Positive: Soft Skin: Positive: Clear Extremities: Absent: edema - Labs and Meds Coagulation 09/28/17 Range/Units 04:26 PT 35.1 H (12.2-14.9) Sec. INR 3.21 H (0.87-1.13) - Allied health notes Allied health notes reviewed: nursing
[2017-09-28] MEDS: LOPRESSOR PO SCH ×2 (10:31→22:09)
[2017-09-28] MEDS: LANTUS SUB-Q SCH (10:31)
[2017-09-28] MEDS: COLACE PO SCH ×2 (10:32→22:09)
[2017-09-28] MEDS: PLAQUENIL PO SCH ×2 (10:32→22:09)
[2017-09-28] MEDS: PROTONIX PO SCH (10:32)
[2017-09-28] MEDS: HCTZ PO SCH (10:32)
[2017-09-28] MEDS: GLUCOPHAGE PO SCH ×2 (10:32→17:09)
[2017-09-28] MEDS: COZAAR PO SCH (10:33)
--- NOTE | 2017-09-28 12:59 | Progress Note ---
Assessment and Plan Patient resting on room air. No complaint of chest pain or shortness of breath or cough. O2 saturation 96% on room air. Venous doppler study is poor study. Reported no DVT. - Patient Problems (1) GERD (gastroesophageal reflux disease) Current Visit: Yes Status: Acute Plan to address problem: Patient is on Protonix. question of aspiration. (2) H/O mechanical aortic valve replacement Current Visit: Yes Status: Acute Plan to address problem: Patient is on coumadin. (3) Atrial fibrillation Current Visit: Yes Status: Acute Plan to address problem: Patient is on coumadin. (4) HTN (hypertension) Current Visit: Yes Status: Acute Plan to address problem: Management as per primary care. (5) Insulin dependent diabetes mellitus Current Visit: Yes Status: Acute Plan to address problem: Management as per primary care. (6) Lymphocele Current Visit: Yes Status: Acute Plan to address problem: Recommend to consult urology. (7) Past use of tobacco Current Visit: Yes Status: Acute Plan to address problem: Patient has remote history of smoking.Stopped smoking 35 years ago. Chest xray reported emphysematous changes. Recommend PFTs as out patient. Subjective Date of service: 09/28/17 Principal diagnosis: R. Fem endarterectomy wound dehiscence/infection; Anemia ( ABLA); Hypoxemia Interval history: Patient resting on room air. No complaint of chest pain or shortness of breath or cough. O2 saturation 96% on room air. Venous doppler study is poor study. Reported no DVT. Objective Vital Signs - 12hr 09/28/17 09/28/17 09/28/17 06:10 07:31 07:40 Temperature 97.8 F Pulse Rate 64 Pulse Rate [ 76 77 Anterior Bilateral Throughout] Respiratory 18 Rate Respiratory 18 128 H Rate [Anterior Bilateral Throughout] Blood Pressure 115/48 O2 Sat by Pulse 95 Oximetry 09/28/17 09/28/17 09/28/17 08:00 08:19 10:00 Temperature 97.9 F Pulse Rate 76 65 Pulse Rate [ Anterior Bilateral Throughout] Respiratory 18 Rate Respiratory Rate [Anterior Bilateral Throughout] Blood Pressure 146/60 O2 Sat by Pulse 96 Oximetry Constitutional: no acute distress, alert, other (elderly looking CM, normocephalic, talking with mildly increased WOB, on oxygen) Eyes: non-icteric ENT: oropharynx moist, other ([place] 2) Neck: supple, no lymphadenopathy, no JVD, other (no thyromegaly) Effort: mildly labored Ascultation: Bilateral: diminished breath sounds, rhonchi (posterior bases) Percussion: Bilateral: not dull Cardiovascular: regular rate and rhythm, PVC's noted, murmur noted (metalic valve click too; Systolic), other (No Rubs) Gastrointestinal: normoactive bowel sounds, soft, non-tender, non-distended, other (No palpable HSM) Integumentary: cellulitis (Right groin) Extremities: no cyanosis, no edema, pink and warm, no ischemia or petechiae, other (right groin dressing in place; no bright red bleeding) Neurologic: normal mental status, non-focal exam, pupils equal and round, motor strength normal and Psychiatric: mood appropriate, affect normal CBC and BMP: 09/24/17 04:43 09/23/17 05:19 ABG, PT/INR, D-dimer: PT/INR, D-dimer PT 35.1 Sec. (12.2-14.9) H 09/28/17 04:26 INR 3.21 (0.87-1.13) H 09/28/17 04:26 Abnormal lab findings: Abnormal Labs 09/16/17 09/16/17 09/16/17 21:14 21:14 21:14 WBC RBC Hgb 11.6 L Hct MCV 82 L MCH 27 L RDW Lymph % (Auto) [place] % (Auto) 9.5 H Eos % (Auto) 5.4 H Lymph # [place] # Eos # Seg Neutrophils % Seg Neutrophils # PT 23.0 H INR 1.90 H APTT Heparin Anti-Xa Level Sodium 136 L Chloride Carbon Dioxide BUN 21 H Creatinine Glucose 153 H POC Glucose Calcium C-Reactive Protein Crossmatch 09/16/17 09/17/17 09/17/17 21:53 05:21 06:46 WBC RBC Hgb Hct MCV MCH RDW Lymph % (Auto) [place] % (Auto) Eos % (Auto) Lymph # [place] # Eos # Seg Neutrophils % Seg Neutrophils # PT INR APTT Heparin Anti-Xa Level Sodium Chloride Carbon Dioxide BUN Creatinine Glucose POC Glucose 158 H 125 H 174 H Calcium C-Reactive Protein Crossmatch 09/17/17 09/17/17 09/17/17 11:04 14:02 16:49 WBC RBC Hgb Hct MCV MCH RDW Lymph % (Auto) [place] % (Auto) Eos % (Auto) Lymph # [place] # Eos # Seg Neutrophils % Seg Neutrophils # PT INR APTT Heparin Anti-Xa Level Sodium Chloride Carbon Dioxide BUN Creatinine Glucose POC Glucose 173 H 201 H Calcium C-Reactive Protein Crossmatch See Detail 09/17/17 09/18/17 09/18/17 21:46 04:50 04:50 WBC RBC Hgb 10.8 L Hct 32.5 L MCV MCH RDW 15.4 H Lymph % (Auto) [place] % (Auto) Eos % (Auto) Lymph # [place] # Eos # Seg Neutrophils % Seg Neutrophils # PT INR APTT Heparin Anti-Xa Level Sodium Chloride Carbon Dioxide BUN Creatinine Glucose 162 H POC Glucose 157 H Calcium 7.8 L D C-Reactive Protein Crossmatch 09/18/17 09/18/17 09/18/17 07:26 08:46 12:15 WBC RBC Hgb Hct MCV MCH RDW Lymph % (Auto) [place] % (Auto) Eos % (Auto) Lymph # [place] # Eos # Seg Neutrophils % Seg Neutrophils # PT 30.0 H INR 2.64 H APTT Heparin Anti-Xa Level Sodium Chloride Carbon Dioxide BUN Creatinine Glucose POC Glucose 182 H 176 H Calcium C-Reactive Protein Crossmatch 09/18/17 09/18/17 09/18/17 13:32 16:19 21:37 WBC RBC Hgb 10.8 L Hct 32.3 L MCV MCH RDW Lymph % (Auto) [place] % (Auto) Eos % (Auto) Lymph # [place] # Eos # Seg Neutrophils % Seg Neutrophils # PT INR APTT Heparin Anti-Xa Level Sodium Chloride Carbon Dioxide BUN Creatinine Glucose POC Glucose 200 H 168 H Calcium C-Reactive Protein Crossmatch 09/18/17 09/19/17 09/19/17 23:35 02:18 04:19 WBC 13.5 H RBC Hgb 10.6 L Hct 32.9 L MCV MCH 27 L RDW Lymph % (Auto) 11.5 L [place] % (Auto) 11.1 H Eos % (Auto) Lymph # [place] # 1.5 H Eos # Seg Neutrophils % 74.0 H Seg Neutrophils # 10.0 H PT 39.6 H INR 3.73 H APTT Heparin Anti-Xa Level Sodium Chloride Carbon Dioxide BUN Creatinine Glucose POC Glucose 204 H Calcium C-Reactive Protein Crossmatch 09/19/17 09/19/17 09/19/17 04:19 06:34 08:45 WBC RBC Hgb 9.7 L Hct 29.3 L MCV MCH RDW Lymph % (Auto) [place] % (Auto) Eos % (Auto) Lymph # [place] # Eos # Seg Neutrophils % Seg Neutrophils # PT INR APTT Heparin Anti-Xa Level Sodium Chloride Carbon Dioxide BUN Creatinine Glucose POC Glucose 172 H 156 H Calcium C-Reactive Protein Crossmatch 09/19/17 09/19/17 09/19/17 12:44 14:34 17:20 WBC RBC Hgb Hct MCV MCH RDW Lymph % (Auto) [place] % (Auto) Eos % (Auto) Lymph # [place] # Eos # Seg Neutrophils % Seg Neutrophils # PT INR APTT Heparin Anti-Xa Level Sodium Chloride Carbon Dioxide BUN Creatinine Glucose POC Glucose 181 H 232 H 213 H Calcium C-Reactive Protein Crossmatch 09/19/17 09/20/17 09/20/17 21:33 01:58 02:01 WBC RBC Hgb Hct MCV MCH RDW Lymph % (Auto) [place] % (Auto) Eos % (Auto) Lymph # [place] # Eos # Seg Neutrophils % Seg Neutrophils # PT INR APTT Heparin Anti-Xa Level Sodium Chloride Carbon Dioxide BUN Creatinine Glucose POC Glucose 202 H > 500 H 208 H Calcium C-Reactive Protein Crossmatch 09/20/17 09/20/17 09/20/17 03:31 03:31 05:20 WBC 11.6 H RBC 2.97 L Hgb 8.1 L Hct 24.0 L MCV 81 L MCH 27 L RDW Lymph % (Auto) [place] % (Auto) Eos % (Auto) Lymph # [place] # Eos # Seg Neutrophils % Seg Neutrophils # PT 40.6 H INR 3.85 H APTT Heparin Anti-Xa Level Sodium Chloride Carbon Dioxide BUN Creatinine Glucose POC Glucose 191 H Calcium C-Reactive Protein Crossmatch 09/20/17 09/20/17 09/20/17 09:24 12:23 12:23 WBC RBC Hgb Hct MCV MCH RDW Lymph % (Auto) [place] % (Auto) Eos % (Auto) Lymph # [place] # Eos # Seg Neutrophils % Seg Neutrophils # PT 36.6 H INR 3.38 H APTT Heparin Anti-Xa Level Sodium 135 L Chloride Carbon Dioxide BUN 40 H Creatinine 1.8 H Glucose 219 H POC Glucose 234 H Calcium 7.9 L C-Reactive Protein Crossmatch 09/20/17 09/20/17 09/20/17 14:17 17:45 22:46 WBC RBC Hgb Hct MCV MCH RDW Lymph % (Auto) [place] % (Auto) Eos % (Auto) Lymph # [place] # Eos # Seg Neutrophils % Seg Neutrophils # PT INR APTT Heparin Anti-Xa Level Sodium Chloride Carbon Dioxide BUN Creatinine Glucose POC Glucose 226 H 222 H 221 H Calcium C-Reactive Protein Crossmatch 09/20/17 09/21/17 09/21/17 Unknown 02:48 07:14 WBC RBC Hgb Hct MCV MCH RDW Lymph % (Auto) [place] % (Auto) Eos % (Auto) Lymph # [place] # Eos # Seg Neutrophils % Seg Neutrophils # PT INR APTT Heparin Anti-Xa Level Sodium Chloride Carbon Dioxide BUN Creatinine Glucose POC Glucose 211 H 170 H Calcium C-Reactive Protein Crossmatch See Detail 09/21/17 09/21/17 09/21/17 09:22 09:22 09:22 WBC 11.5 H RBC 3.26 L Hgb 9.1 L Hct 28.0 L MCV MCH RDW 15.5 H Lymph % (Auto) [place] % (Auto) Eos % (Auto) Lymph # [place] # Eos # Seg Neutrophils % Seg Neutrophils # PT 28.7 H INR 2.50 H APTT Heparin Anti-Xa Level Sodium 134 L Chloride 95.2 L Carbon Dioxide BUN 39 H Creatinine Glucose 156 H POC Glucose Calcium 7.7 L C-Reactive Protein Crossmatch 09/21/17 09/21/17 09/21/17 09:44 14:40 17:32 WBC RBC Hgb Hct MCV MCH RDW Lymph % (Auto) [place] % (Auto) Eos % (Auto) Lymph # [place] # Eos # Seg Neutrophils % Seg Neutrophils # PT INR APTT Heparin Anti-Xa Level Sodium Chloride Carbon Dioxide BUN Creatinine Glucose POC Glucose 181 H 237 H 141 H Calcium C-Reactive Protein Crossmatch 09/21/17 09/22/17 09/22/17 21:34 02:55 04:09 WBC RBC Hgb Hct MCV MCH RDW Lymph % (Auto) [place] % (Auto) Eos % (Auto) Lymph # [place] # Eos # Seg Neutrophils % Seg Neutrophils # PT 27.2 H INR 2.34 H APTT Heparin Anti-Xa Level Sodium Chloride Carbon Dioxide BUN Creatinine Glucose POC Glucose 158 H 163 H Calcium C-Reactive Protein Crossmatch 09/22/17 09/22/17 09/22/17 05:41 08:22 12:14 WBC RBC Hgb Hct MCV MCH RDW Lymph % (Auto) [place] % (Auto) Eos % (Auto) Lymph # [place] # Eos # Seg Neutrophils % Seg Neutrophils # PT INR APTT Heparin Anti-Xa Level Sodium Chloride Carbon Dioxide BUN Creatinine Glucose POC Glucose 157 H 145 H 167 H Calcium C-Reactive Protein Crossmatch 09/22/17 09/22/17 09/22/17 14:10 16:07 16:46 WBC RBC 3.20 L Hgb 8.8 L Hct 27.8 L MCV MCH RDW 15.5 H Lymph % (Auto) 12.7 L [place] % (Auto) 9.6 H Eos % (Auto) 7.6 H Lymph # 0.9 L [place] # Eos # 0.6 H Seg Neutrophils % Seg Neutrophils # PT 26.3 H INR 2.24 H APTT 61.7 H* Heparin Anti-Xa Level < 0.10 L Sodium Chloride Carbon Dioxide BUN Creatinine Glucose POC Glucose 139 H Calcium C-Reactive Protein Crossmatch 09/22/17 09/22/17 09/23/17 22:20 23:53 02:06 WBC RBC Hgb Hct MCV MCH RDW Lymph % (Auto) [place] % (Auto) Eos % (Auto) Lymph # [place] # Eos # Seg Neutrophils % Seg Neutrophils # PT INR APTT Heparin Anti-Xa Level 0.24 L Sodium Chloride Carbon Dioxide BUN Creatinine Glucose POC Glucose 185 H 140 H Calcium C-Reactive Protein Crossmatch 09/23/17 09/23/17 09/23/17 05:19 05:19 05:45 WBC RBC Hgb Hct MCV MCH RDW Lymph % (Auto) [place] % (Auto) Eos % (Auto) Lymph # [place] # Eos # Seg Neutrophils % Seg Neutrophils # PT 26.8 H INR 2.30 H APTT Heparin Anti-Xa Level 0.24 L Sodium Chloride Carbon Dioxide 21 L BUN 33 H Creatinine Glucose 161 H POC Glucose 167 H Calcium 7.5 L C-Reactive Protein Crossmatch 09/23/17 09/23/17 09/23/17 10:06 12:04 15:00 WBC RBC 3.18 L Hgb 8.9 L Hct 26.9 L MCV MCH RDW 15.7 H Lymph % (Auto) [place] % (Auto) Eos % (Auto) Lymph # [place] # Eos # Seg Neutrophils % Seg Neutrophils # PT INR APTT Heparin Anti-Xa Level Sodium Chloride Carbon Dioxide BUN Creatinine Glucose POC Glucose 186 H 236 H Calcium C-Reactive Protein Crossmatch 09/23/17 09/23/17 09/24/17 17:23 22:39 04:43 WBC RBC 3.58 L Hgb 10.2 L Hct 29.9 L MCV MCH RDW 15.8 H Lymph % (Auto) [place] % (Auto) Eos % (Auto) Lymph # [place] # Eos # Seg Neutrophils % Seg Neutrophils # PT INR APTT Heparin Anti-Xa Level Sodium Chloride Carbon Dioxide BUN Creatinine Glucose POC Glucose 154 H 189 H Calcium C-Reactive Protein Crossmatch 09/24/17 09/24/17 09/24/17 04:54 06:28 06:53 WBC RBC Hgb Hct MCV MCH RDW Lymph % (Auto) [place] % (Auto) Eos % (Auto) Lymph # [place] # Eos # Seg Neutrophils % Seg Neutrophils # PT 29.0 H INR 2.53 H APTT Heparin Anti-Xa Level 0.10 L Sodium Chloride Carbon Dioxide BUN Creatinine Glucose POC Glucose 200 H 225 H Calcium C-Reactive Protein Crossmatch 09/24/17 09/24/17 09/24/17 11:38 16:09 22:44 WBC RBC Hgb Hct MCV MCH RDW Lymph % (Auto) [place] % (Auto) Eos % (Auto) Lymph # [place] # Eos # Seg Neutrophils % Seg Neutrophils # PT INR APTT Heparin Anti-Xa Level Sodium Chloride Carbon Dioxide BUN Creatinine Glucose POC Glucose 228 H 226 H 157 H Calcium C-Reactive Protein Crossmatch 09/25/17 09/25/17 09/25/17 04:36 07:13 11:16 WBC RBC Hgb Hct MCV MCH RDW Lymph % (Auto) [place] % (Auto) Eos % (Auto) Lymph # [place] # Eos # Seg Neutrophils % Seg Neutrophils # PT 34.2 H INR 3.11 H APTT Heparin Anti-Xa Level Sodium Chloride Carbon Dioxide BUN Creatinine Glucose POC Glucose 167 H 195 H Calcium C-Reactive Protein Crossmatch 09/25/17 09/25/17 09/25/17 12:27 16:44 22:09 WBC RBC Hgb Hct MCV MCH RDW Lymph % (Auto) [place] % (Auto) Eos % (Auto) Lymph # [place] # Eos # Seg Neutrophils % Seg Neutrophils # PT INR APTT Heparin Anti-Xa Level Sodium Chloride Carbon Dioxide BUN Creatinine Glucose POC Glucose 185 H 197 H 181 H Calcium C-Reactive Protein Crossmatch 09/26/17 09/26/17 09/26/17 01:59 04:59 06:19 WBC RBC Hgb Hct MCV MCH RDW Lymph % (Auto) [place] % (Auto) Eos % (Auto) Lymph # [place] # Eos # Seg Neutrophils % Seg Neutrophils # PT 37.0 H INR 3.43 H APTT Heparin Anti-Xa Level Sodium Chloride Carbon Dioxide BUN Creatinine Glucose POC Glucose 180 H 161 H Calcium C-Reactive Protein Crossmatch 09/26/17 09/26/17 09/26/17 11:08 18:01 21:14 WBC RBC Hgb Hct MCV MCH RDW Lymph % (Auto) [place] % (Auto) Eos % (Auto) Lymph # [place] # Eos # Seg Neutrophils % Seg Neutrophils # PT INR APTT Heparin Anti-Xa Level Sodium Chloride Carbon Dioxide BUN Creatinine Glucose POC Glucose 224 H 169 H 208 H Calcium C-Reactive Protein Crossmatch 09/27/17 09/27/17 09/27/17 05:14 05:58 10:03 WBC RBC Hgb Hct MCV MCH RDW Lymph % (Auto) [place] % (Auto) Eos % (Auto) Lymph # [place] # Eos # Seg Neutrophils % Seg Neutrophils # PT 37.2 H INR 3.45 H APTT Heparin Anti-Xa Level Sodium Chloride Carbon Dioxide BUN Creatinine Glucose POC Glucose 156 H 212 H Calcium C-Reactive Protein Crossmatch 09/27/17 09/27/17 09/27/17 13:26 16:17 21:22 WBC RBC Hgb Hct MCV MCH RDW Lymph % (Auto) [place] % (Auto) Eos % (Auto) Lymph # [place] # Eos # Seg Neutrophils % Seg Neutrophils # PT INR APTT Heparin Anti-Xa Level Sodium Chloride Carbon Dioxide BUN Creatinine Glucose POC Glucose 182 H 165 H Calcium C-Reactive Protein 8.60 H Crossmatch 09/28/17 09/28/17 09/28/17 04:26 05:20 11:43 WBC RBC Hgb Hct MCV MCH RDW Lymph % (Auto) [place] % (Auto) Eos % (Auto) Lymph # [place] # Eos # Seg Neutrophils % Seg Neutrophils # PT 35.1 H INR 3.21 H APTT Heparin Anti-Xa Level Sodium Chloride Carbon Dioxide BUN Creatinine Glucose POC Glucose 186 H 195 H Calcium C-Reactive Protein Crossmatch Allied health notes reviewed: nursing
--- NOTE | 2017-09-28 14:40 | Progress Note ---
Assessment and Plan Assessment and plan: The patient is 77-year-old male with a history of severeperipheral vascular disease, prosthetic aortic valve who recently underwent a right femoral endarterectomy with Dacron patch angioplasty. He also had atherectomy and angioplasty with stent of his SFA and popliteal artery on the right. He initially did well but was unable to follow-up in the outpatient setting for his postoperative visit secondary to transportation issues. He states that approximately 2 days ago he began to note clear yellow drainage from his right groin. patient admitted by vacular surgery and did 1. Excision of Right Femoral PTFE Patch And Repair with Right Greater Saphenous Vein 2. Coverage of Right Femoral Artery with Sartorius Muscle Flap 3. Wound VAC Placement tomorrow Bleeding stopped patient is on warfarin for A.fib and prosthetic aortic valve and INR from this morning is 3.43. Management per cardiology We have been consulted for medical management. patient's medical history is significant for DM, HTN, afib on anticoagulation. patient's home medications were reconciled by vascular. Continue current management. H/H stable. GUICHO - Resolved - On IV fluids Scrotal swelling - supportive care, elevation ID consulted: Asssessment and plan is as follows: 1) Right 2nd 3rd toes ulcer? gangrene ? osteomyelitis 2) Mechanical AVR 3) Peripheral vascular disease s/p underwent a right femoral endarterectomy with Dacron patch angioplasty. He also had atherectomy and angioplasty with stent of his SFA and popliteal artery on the right on 08/13/17. 4) DM 5) A fib Plan: -check CRP -cannot do MRI due to mechanical AVR -request podiatry eval -f/u wound cx -triple phase scan History Interval history: Patient was seen and evaluated this morning. Patient has scrotal swelling, said leg swelling is better. Hospitalist Physical - Physical exam Narrative exam: Not in cardiopulmonary distress. The patient appeared well nourished and normally developed. Vital signs as documented. Head exam is unremarkable. No scleral icterus . Neck is without jugular venous distension, thyromegaly, or carotid bruits. Lungs are clear to auscultation. Cardiac exam reveals irregular rate and Rhythm. Abdominal exam reveals normal bowel sounds, no masses, no organomegaly and no aortic enlargement. Extremities right groin bleeding, mild right leg swelling. 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 No focal weakness. - Constitutional Vitals: Temp Pulse Resp BP Pulse Ox 98.1 F 61 20 101/54 95 09/28/17 12:00 09/28/17 11:51 09/28/17 11:51 09/28/17 11:51 09/28/17 11:51 General appearance: Present: no acute distress Results - Labs CBC & Chem 7: 09/24/17 04:43 09/23/17 05:19 Labs: Laboratory Last Values WBC 8.6 K/mm3 (4.5-11.0) 09/24/17 04:43 RBC 3.58 M/mm3 (3.65-5.03) L 09/24/17 04:43 Hgb 10.2 gm/dl (11.8-15.2) L 09/24/17 04:43 Hct 29.9 % (35.5-45.6) L 09/24/17 04:43 MCV 84 fl (84-94) 09/24/17 04:43 MCH 28 pg (28-32) 09/24/17 04:43 MCHC 34 % (32-34) 09/24/17 04:43 RDW 15.8 % (13.2-15.2) H 09/24/17 04:43 Plt Count 321 K/mm3 (140-440) 09/24/17 04:43 Lymph % (Auto) 12.7 % (13.4-35.0) L 09/22/17 16:07 [place] % (Auto) 9.6 % (0.0-7.3) H 09/22/17 16:07 Eos % (Auto) 7.6 % (0.0-4.3) H 09/22/17 16:07 Baso % (Auto) 0.8 % (0.0-1.8) 09/22/17 16:07 Lymph # 0.9 K/mm3 (1.2-5.4) L 09/22/17 16:07 [place] # 0.7 K/mm3 (0.0-0.8) 09/22/17 16:07 Eos # 0.6 K/mm3 (0.0-0.4) H 09/22/17 16:07 Baso # 0.1 K/mm3 (0.0-0.1) 09/22/17 16:07 Seg Neutrophils % 69.3 % (40.0-70.0) 09/22/17 16:07 Seg Neutrophils # 5.2 K/mm3 (1.8-7.7) 09/22/17 16:07 PT 35.1 Sec. (12.2-14.9) H 09/28/17 04:26 INR 3.21 (0.87-1.13) H 09/28/17 04:26 APTT 61.7 Sec. (24.2-36.6) H* 09/22/17 14:10 Heparin Anti-Xa Level 0.10 U.I./ml (0.3-0.7) L 09/24/17 04:54 Sodium 139 mmol/L (137-145) 09/23/17 05:19 Potassium 4.2 mmol/L (3.6-5.0) 09/23/17 05:19 Chloride 105.9 mmol/L (98-107) 09/23/17 05:19 Carbon Dioxide 21 mmol/L (22-30) L 09/23/17 05:19 Anion Gap 16 mmol/L 09/23/17 05:19 BUN 33 mg/dL (9-20) H 09/23/17 05:19 Creatinine 1.2 mg/dL (0.8-1.5) 09/23/17 05:19 Estimated GFR 59 ml/min 09/23/17 05:19 BUN/Creatinine Ratio 28 % 09/23/17 05:19 Glucose 161 mg/dL (75-100) H 09/23/17 05:19 POC Glucose 195 (70-105) H 09/28/17 11:43 Calcium 7.5 mg/dL (8.4-10.2) L 09/23/17 05:19 C-Reactive Protein 8.60 mg/dL (0.00-1.30) H 09/27/17 13:26 Blood Type B POSITIVE 09/20/17 Unknown Antibody Screen Negative 09/20/17 Unknown Crossmatch See Detail 09/20/17 Unknown
--- NOTE | 2017-09-28 16:07 | Progress Note ---
Assessment and Plan The patient is status post revision of right femoral endarterectomy with replacement of his [place] patch angioplasty with a vein patch. He continues to improve and there is no evidence of purulence at his toe site. He will likely be discharged on Saturday. Subjective Date of service: 09/28/17 Principal diagnosis: R. Fem endarterectomy wound dehiscence/infection; Anemia ( ABLA); Hypoxemia Interval history: Patient is without any complaints. Stable overnight. Objective - Constitutional Vitals: Vital Signs - 12hr 09/28/17 09/28/17 09/28/17 06:10 07:31 07:40 Temperature 97.8 F Pulse Rate 64 Pulse Rate [ 76 77 Anterior Bilateral Throughout] Respiratory 18 Rate Respiratory 18 128 H Rate [Anterior Bilateral Throughout] Blood Pressure 115/48 O2 Sat by Pulse 95 Oximetry 09/28/17 09/28/17 09/28/17 08:00 08:19 10:00 Temperature 97.9 F Pulse Rate 76 65 Pulse Rate [ Anterior Bilateral Throughout] Respiratory 18 Rate Respiratory Rate [Anterior Bilateral Throughout] Blood Pressure 146/60 O2 Sat by Pulse 96 Oximetry 09/28/17 09/28/17 11:51 12:00 Temperature 98.1 F Pulse Rate 61 Pulse Rate [ Anterior Bilateral Throughout] Respiratory 20 Rate Respiratory Rate [Anterior Bilateral Throughout] Blood Pressure 101/54 O2 Sat by Pulse 95 Oximetry General appearance: Present: no acute distress - Respiratory Respiratory effort: normal - Breasts Breasts: deferred - Cardiovascular Rhythm: regular Extremities: abnormal (right groin wound with VAC in place without evidence of active bleeding) Extremity abnormal: edema (right lower extremity however improved with elevation ), other (right foot well perfused with no evidence of purulence today) - Gastrointestinal General gastrointestinal: Present: deferred, soft, non-tender - Labs CBC & Chem 7: 09/24/17 04:43 09/23/17 05:19 Labs: Abnormal lab results 09/27/17 09/27/17 09/27/17 Range/Units 10:03 16:17 21:22 PT (12.2-14.9) Sec. INR (0.87-1.13) POC Glucose 212 H 182 H 165 H (70-105) 09/28/17 09/28/17 09/28/17 Range/Units 04:26 05:20 11:43 PT 35.1 H (12.2-14.9) Sec. INR 3.21 H (0.87-1.13) POC Glucose 186 H 195 H (70-105) 09/28/17 Range/Units 15:58 PT (12.2-14.9) Sec. INR (0.87-1.13) POC Glucose 186 H (70-105)
[2017-09-28] MEDS: COUMADIN PO SCH (17:09)
[2017-09-28] MEDS: SENOKOT PO SCH (22:10)
[2017-09-29] MEDS: PERCOCET 5/325 PO PRN ×3 (00:04→21:39)
[2017-09-29 06:26] LABS: INR 2.45 (0.87-1.13)
[2017-09-29] MEDS: HumaLOG SUB-Q SCH ×4 (07:24→21:39)
[2017-09-29] MEDS: BROVANA NEBU IH SCH ×2 (07:35→19:46)
[2017-09-29] MEDS: PULMICORT IH SCH ×2 (07:35→19:46)
[2017-09-29] MEDS: LOPRESSOR PO SCH ×2 (10:37→21:40)
[2017-09-29] MEDS: PROTONIX PO SCH (10:37)
[2017-09-29] MEDS: COZAAR PO SCH (10:37)
[2017-09-29] MEDS: PLAQUENIL PO SCH ×2 (10:37→21:40)
[2017-09-29] MEDS: COLACE PO SCH ×2 (10:37→21:40)
[2017-09-29] MEDS: GLUCOPHAGE PO SCH ×2 (10:37→17:33)
[2017-09-29] MEDS: HCTZ PO SCH (10:37)
[2017-09-29] MEDS: SODIUM CHLORIDE FLUSH SYRINGE 10 ML IV SCH (10:38)
[2017-09-29] MEDS: LANTUS SUB-Q SCH (10:38)
--- NOTE | 2017-09-29 10:43 | Progress Note ---
Assessment and Plan Peripheral artery disease H/O mechanical aortic valve replacement anticoagulated on Warfarin Paroxysmal atrial fibrillation currently in stable sinus rhythm on metoprolol Normal persantine thallium 05/2017 Well functioning mechanical AVR, EF 50-55% on echo 05/2017 Coumadin thereapy INR theraputic Plan: Stable from cardiac standpoint Otherwise, conservative cardiac management Subjective Date of service: 09/29/17 Principal diagnosis: R. Fem endarterectomy wound dehiscence/infection; Anemia ( ABLA); Hypoxemia Interval history: no events overnight Objective Vital Signs Temp Pulse Pulse Resp Resp BP BP 09/29/17 09:59 09/29/17 07:40 59 L 18 09/29/17 07:30 59 L 18 09/29/17 05:06 98.9 F 59 L 18 101/49 09/29/17 00:27 97.6 F 84 18 121/72 09/28/17 22:00 65 09/28/17 20:36 78 18 09/28/17 20:23 75 18 09/28/17 20:02 98 F 70 20 119/55 09/28/17 17:06 97.7 F 09/28/17 16:25 65 20 132/56 09/28/17 12:00 98.1 F 09/28/17 11:51 61 20 101/54 Pulse Ox 09/29/17 09:59 99 09/29/17 07:40 09/29/17 07:30 09/29/17 05:06 99 09/29/17 00:27 94 09/28/17 22:00 09/28/17 20:36 09/28/17 20:23 97 09/28/17 20:02 09/28/17 17:06 09/28/17 16:25 96 09/28/17 12:00 09/28/17 11:51 95 - Physical Examination Narrative exam: Physical examination Vitals reviewed GEN: No acute distress noted HEENT: Carotids 2+ NECK: Supple CVS: S1 and S2 heard no significant murmur or gallop noted LUNGS/CHEST: Normal auscultation ABD: Soft nontender NEURO: Alert moves all all 4 extremities PSY: Stable General: No Apparent Distress HEENT: Positive: PERRL Neck: Positive: neck supple Neuro: Positive: Grossly Intact Abdomen: Positive: Soft Skin: Positive: Clear Extremities: Absent: edema - Labs and Meds Coagulation 09/29/17 Range/Units 05:08 PT 28.2 H (12.2-14.9) Sec. INR 2.45 H (0.87-1.13) - Allied health notes Allied health notes reviewed: nursing
[2017-09-29] MEDS: LEVAQUIN 750MG/150ML 750 MG/150 ML BAG IV SCH (11:23)
--- NOTE | 2017-09-29 13:32 | Progress Note ---
Assessment and Plan Patient is status post excision of [place] patch from right femoral endarterectomy with replacement with vein patch. He continues to improve and has been started ON levofloxacin for his right toe infection. He has been afebrile and continues to improve his physical activity. Anticipate discharge to rehabilitation this week. Subjective Date of service: 09/29/17 Principal diagnosis: R. Fem endarterectomy wound dehiscence/infection; Anemia ( ABLA); Hypoxemia Interval history: No acute events overnight. Objective - Constitutional Vitals: Vital Signs - 12hr 09/29/17 09/29/17 09/29/17 04:02 05:06 07:30 Temperature 98.9 F Pulse Rate 59 L Pulse Rate [ 59 L Anterior Bilateral Throughout] Respiratory 18 Rate Respiratory 18 Rate [Anterior Bilateral Throughout] Blood Pressure 101/49 Blood Pressure 101/49 [Left] O2 Sat by Pulse 99 Oximetry 09/29/17 09/29/17 09/29/17 07:40 07:52 07:53 Temperature 97.2 F L Pulse Rate 73 72 Pulse Rate [ 59 L Anterior Bilateral Throughout] Respiratory 20 Rate Respiratory 18 Rate [Anterior Bilateral Throughout] Blood Pressure Blood Pressure [Left] O2 Sat by Pulse 96 97 Oximetry 09/29/17 09/29/17 09/29/17 09:59 10:00 11:29 Temperature 98.4 F Pulse Rate 58 L 69 Pulse Rate [ Anterior Bilateral Throughout] Respiratory 20 Rate Respiratory Rate [Anterior Bilateral Throughout] Blood Pressure 122/58 Blood Pressure [Left] O2 Sat by Pulse 99 95 Oximetry General appearance: Present: no acute distress - Neck Neck: supple - Respiratory Respiratory effort: normal - Breasts Breasts: deferred Extremities: normal temperature, abnormal (no obvious infection, no purulence noted) Extremity abnormal: edema (right lower extremity, improving), other (right groin wound VAC in place with adequate seal) - Gastrointestinal General gastrointestinal: Present: soft, non-tender, non-distended - Genitourinary Male genitourinary: penile edema, scrotal edema - Labs CBC & Chem 7: 09/24/17 04:43 09/23/17 05:19 Labs: Abnormal lab results 09/28/17 09/28/17 09/29/17 Range/Units 15:58 21:42 05:08 PT 28.2 H (12.2-14.9) Sec. INR 2.45 H (0.87-1.13) POC Glucose 186 H 196 H (70-105) 09/29/17 09/29/17 Range/Units 06:25 11:36 PT (12.2-14.9) Sec. INR (0.87-1.13) POC Glucose 162 H 213 H (70-105)
--- NOTE | 2017-09-29 14:04 | Progress Note ---
Assessment and Plan Assessment and plan: The patient is 77-year-old male with a history of severeperipheral vascular disease, prosthetic aortic valve who recently underwent a right femoral endarterectomy with Dacron patch angioplasty. He also had atherectomy and angioplasty with stent of his SFA and popliteal artery on the right. He initially did well but was unable to follow-up in the outpatient setting for his postoperative visit secondary to transportation issues. He states that approximately 2 days ago he began to note clear yellow drainage from his right groin. patient admitted by vacular surgery and did 1. Excision of Right Femoral PTFE Patch And Repair with Right Greater Saphenous Vein 2. Coverage of Right Femoral Artery with Sartorius Muscle Flap 3. Wound VAC Placement tomorrow Bleeding stopped patient is on warfarin for A.fib and prosthetic aortic valve and INR from this morning is 3.43. Management per cardiology We have been consulted for medical management. patient's medical history is significant for DM, HTN, afib on anticoagulation. patient's home medications were reconciled by vascular. Continue current management. H/H stable. GUICHO - Resolved - On IV fluids Scrotal swelling - supportive care, elevation ID consulted: Asssessment and plan is as follows: 1) Right 2nd 3rd toes ulcer? gangrene ? osteomyelitis 2) Mechanical AVR 3) Peripheral vascular disease s/p underwent a right femoral endarterectomy with Dacron patch angioplasty. He also had atherectomy and angioplasty with stent of his SFA and popliteal artery on the right on 08/13/17. 4) DM 5) A fib Plan: -check CRP -cannot do MRI due to mechanical AVR -request podiatry eval -f/u wound cx -triple phase scan Right foot wound, culture positive for pseudomonas. patient is on Levaquin. History Interval history: Patient was seen and evaluated this morning. patient was complaining right foot pain. Hospitalist Physical - Physical exam Narrative exam: Not in cardiopulmonary distress. The patient appeared well nourished and normally developed. Vital signs as documented. Head exam is unremarkable. No scleral icterus . Neck is without jugular venous distension, thyromegaly, or carotid bruits. Lungs are clear to auscultation. Cardiac exam reveals irregular rate and Rhythm. Abdominal exam reveals normal bowel sounds, no masses, no organomegaly and no aortic enlargement. Extremities mild right foot pain. PECAN GATHERER: Alert and oriented 3. No focal weakness. - Constitutional Vitals: Temp Pulse Resp BP Pulse Ox 98.4 F 69 20 122/58 95 09/29/17 11:29 09/29/17 11:29 09/29/17 11:29 09/29/17 11:29 09/29/17 11:29 General appearance: Present: no acute distress Results - Labs CBC & Chem 7: 09/24/17 04:43 09/23/17 05:19 Labs: Laboratory Last Values WBC 8.6 K/mm3 (4.5-11.0) 09/24/17 04:43 RBC 3.58 M/mm3 (3.65-5.03) L 09/24/17 04:43 Hgb 10.2 gm/dl (11.8-15.2) L 09/24/17 04:43 Hct 29.9 % (35.5-45.6) L 09/24/17 04:43 MCV 84 fl (84-94) 09/24/17 04:43 MCH 28 pg (28-32) 09/24/17 04:43 MCHC 34 % (32-34) 09/24/17 04:43 RDW 15.8 % (13.2-15.2) H 09/24/17 04:43 Plt Count 321 K/mm3 (140-440) 09/24/17 04:43 Lymph % (Auto) 12.7 % (13.4-35.0) L 09/22/17 16:07 [place] % (Auto) 9.6 % (0.0-7.3) H 09/22/17 16:07 Eos % (Auto) 7.6 % (0.0-4.3) H 09/22/17 16:07 Baso % (Auto) 0.8 % (0.0-1.8) 09/22/17 16:07 Lymph # 0.9 K/mm3 (1.2-5.4) L 09/22/17 16:07 [place] # 0.7 K/mm3 (0.0-0.8) 09/22/17 16:07 Eos # 0.6 K/mm3 (0.0-0.4) H 09/22/17 16:07 Baso # 0.1 K/mm3 (0.0-0.1) 09/22/17 16:07 Seg Neutrophils % 69.3 % (40.0-70.0) 09/22/17 16:07 Seg Neutrophils # 5.2 K/mm3 (1.8-7.7) 09/22/17 16:07 PT 28.2 Sec. (12.2-14.9) H 09/29/17 05:08 INR 2.45 (0.87-1.13) H 09/29/17 05:08 APTT 61.7 Sec. (24.2-36.6) H* 09/22/17 14:10 Heparin Anti-Xa Level 0.10 U.I./ml (0.3-0.7) L 09/24/17 04:54 Sodium 139 mmol/L (137-145) 09/23/17 05:19 Potassium 4.2 mmol/L (3.6-5.0) 09/23/17 05:19 Chloride 105.9 mmol/L (98-107) 09/23/17 05:19 Carbon Dioxide 21 mmol/L (22-30) L 09/23/17 05:19 Anion Gap 16 mmol/L 09/23/17 05:19 BUN 33 mg/dL (9-20) H 09/23/17 05:19 Creatinine 1.2 mg/dL (0.8-1.5) 09/23/17 05:19 Estimated GFR 59 ml/min 09/23/17 05:19 BUN/Creatinine Ratio 28 % 09/23/17 05:19 Glucose 161 mg/dL (75-100) H 09/23/17 05:19 POC Glucose 213 (70-105) H 09/29/17 11:36 Calcium 7.5 mg/dL (8.4-10.2) L 09/23/17 05:19 C-Reactive Protein 8.60 mg/dL (0.00-1.30) H 09/27/17 13:26 Blood Type B POSITIVE 09/20/17 Unknown Antibody Screen Negative 09/20/17 Unknown Crossmatch See Detail 09/20/17 Unknown
[2017-09-29] MEDS: COUMADIN PO SCH (17:32)
--- NOTE | 2017-09-29 20:37 | Progress Note ---
Assessment and Plan Patient resting on room air. No complaint of chest pain or shortness of breath or cough. O2 saturation 97% on room air. Venous doppler study is poor study. Reported no DVT. - Patient Problems (1) GERD (gastroesophageal reflux disease) Current Visit: Yes Status: Acute Plan to address problem: Patient is on Protonix. question of aspiration. (2) H/O mechanical aortic valve replacement Current Visit: Yes Status: Acute Plan to address problem: Patient is on coumadin. (3) Atrial fibrillation Current Visit: Yes Status: Acute Plan to address problem: Patient is on coumadin. (4) HTN (hypertension) Current Visit: Yes Status: Acute Plan to address problem: Management as per primary care. (5) Insulin dependent diabetes mellitus Current Visit: Yes Status: Acute Plan to address problem: Management as per primary care. (6) Lymphocele Current Visit: Yes Status: Acute Plan to address problem: Recommend to consult urology. (7) Past use of tobacco Current Visit: Yes Status: Acute Plan to address problem: Patient has remote history of smoking.Stopped smoking 35 years ago. Chest xray reported emphysematous changes. Recommend PFTs as out patient. Subjective Date of service: 09/29/17 Principal diagnosis: R. Fem endarterectomy wound dehiscence/infection; Anemia ( ABLA); Hypoxemia Interval history: Patient resting on room air. No complaint of chest pain or shortness of breath or cough. O2 saturation 97% on room air. Venous doppler study is poor study. Reported no DVT. Objective Vital Signs - 12hr 09/29/17 09/29/17 09/29/17 09:59 10:00 11:29 Temperature 98.4 F Pulse Rate 58 L 69 Respiratory 20 Rate Blood Pressure 122/58 O2 Sat by Pulse 99 95 Oximetry 09/29/17 09/29/17 15:58 19:34 Temperature Pulse Rate 60 63 Respiratory 20 Rate Blood Pressure 129/47 O2 Sat by Pulse 97 97 Oximetry Constitutional: no acute distress, alert Eyes: non-icteric ENT: oropharynx moist, other ([place] 2) Neck: supple, no lymphadenopathy, no JVD, other (no thyromegaly) Effort: mildly labored Ascultation: Bilateral: diminished breath sounds, rhonchi (posterior bases) Percussion: Bilateral: not dull Cardiovascular: regular rate and rhythm, PVC's noted, murmur noted (metalic valve click too; Systolic), other (No Rubs) Gastrointestinal: normoactive bowel sounds, soft, non-tender, non-distended, other (No palpable HSM) Integumentary: cellulitis (Right groin) Extremities: no cyanosis, no edema, pink and warm, no ischemia or petechiae, other (right groin dressing in place; no bright red bleeding) Neurologic: normal mental status, non-focal exam, pupils equal and round, motor strength normal and Psychiatric: mood appropriate, affect normal CBC and BMP: 09/24/17 04:43 09/23/17 05:19 ABG, PT/INR, D-dimer: PT/INR, D-dimer PT 28.2 Sec. (12.2-14.9) H 09/29/17 05:08 INR 2.45 (0.87-1.13) H 09/29/17 05:08 Abnormal lab findings: Abnormal Labs 09/16/17 09/16/17 09/16/17 21:14 21:14 21:14 WBC RBC Hgb 11.6 L Hct MCV 82 L MCH 27 L RDW Lymph % (Auto) [place] % (Auto) 9.5 H Eos % (Auto) 5.4 H Lymph # [place] # Eos # Seg Neutrophils % Seg Neutrophils # PT 23.0 H INR 1.90 H APTT Heparin Anti-Xa Level Sodium 136 L Chloride Carbon Dioxide BUN 21 H Creatinine Glucose 153 H POC Glucose Calcium C-Reactive Protein Crossmatch 09/16/17 09/17/17 09/17/17 21:53 05:21 06:46 WBC RBC Hgb Hct MCV MCH RDW Lymph % (Auto) [place] % (Auto) Eos % (Auto) Lymph # [place] # Eos # Seg Neutrophils % Seg Neutrophils # PT INR APTT Heparin Anti-Xa Level Sodium Chloride Carbon Dioxide BUN Creatinine Glucose POC Glucose 158 H 125 H 174 H Calcium C-Reactive Protein Crossmatch 09/17/17 09/17/17 09/17/17 11:04 14:02 16:49 WBC RBC Hgb Hct MCV MCH RDW Lymph % (Auto) [place] % (Auto) Eos % (Auto) Lymph # [place] # Eos # Seg Neutrophils % Seg Neutrophils # PT INR APTT Heparin Anti-Xa Level Sodium Chloride Carbon Dioxide BUN Creatinine Glucose POC Glucose 173 H 201 H Calcium C-Reactive Protein Crossmatch See Detail 09/17/17 09/18/17 09/18/17 21:46 04:50 04:50 WBC RBC Hgb 10.8 L Hct 32.5 L MCV MCH RDW 15.4 H Lymph % (Auto) [place] % (Auto) Eos % (Auto) Lymph # [place] # Eos # Seg Neutrophils % Seg Neutrophils # PT INR APTT Heparin Anti-Xa Level Sodium Chloride Carbon Dioxide BUN Creatinine Glucose 162 H POC Glucose 157 H Calcium 7.8 L D C-Reactive Protein Crossmatch 09/18/17 09/18/17 09/18/17 07:26 08:46 12:15 WBC RBC Hgb Hct MCV MCH RDW Lymph % (Auto) [place] % (Auto) Eos % (Auto) Lymph # [place] # Eos # Seg Neutrophils % Seg Neutrophils # PT 30.0 H INR 2.64 H APTT Heparin Anti-Xa Level Sodium Chloride Carbon Dioxide BUN Creatinine Glucose POC Glucose 182 H 176 H Calcium C-Reactive Protein Crossmatch 09/18/17 09/18/17 09/18/17 13:32 16:19 21:37 WBC RBC Hgb 10.8 L Hct 32.3 L MCV MCH RDW Lymph % (Auto) [place] % (Auto) Eos % (Auto) Lymph # [place] # Eos # Seg Neutrophils % Seg Neutrophils # PT INR APTT Heparin Anti-Xa Level Sodium Chloride Carbon Dioxide BUN Creatinine Glucose POC Glucose 200 H 168 H Calcium C-Reactive Protein Crossmatch 09/18/17 09/19/17 09/19/17 23:35 02:18 04:19 WBC 13.5 H RBC Hgb 10.6 L Hct 32.9 L MCV MCH 27 L RDW Lymph % (Auto) 11.5 L [place] % (Auto) 11.1 H Eos % (Auto) Lymph # [place] # 1.5 H Eos # Seg Neutrophils % 74.0 H Seg Neutrophils # 10.0 H PT 39.6 H INR 3.73 H APTT Heparin Anti-Xa Level Sodium Chloride Carbon Dioxide BUN Creatinine Glucose POC Glucose 204 H Calcium C-Reactive Protein Crossmatch 09/19/17 09/19/17 09/19/17 04:19 06:34 08:45 WBC RBC Hgb 9.7 L Hct 29.3 L MCV MCH RDW Lymph % (Auto) [place] % (Auto) Eos % (Auto) Lymph # [place] # Eos # Seg Neutrophils % Seg Neutrophils # PT INR APTT Heparin Anti-Xa Level Sodium Chloride Carbon Dioxide BUN Creatinine Glucose POC Glucose 172 H 156 H Calcium C-Reactive Protein Crossmatch 09/19/17 09/19/17 09/19/17 12:44 14:34 17:20 WBC RBC Hgb Hct MCV MCH RDW Lymph % (Auto) [place] % (Auto) Eos % (Auto) Lymph # [place] # Eos # Seg Neutrophils % Seg Neutrophils # PT INR APTT Heparin Anti-Xa Level Sodium Chloride Carbon Dioxide BUN Creatinine Glucose POC Glucose 181 H 232 H 213 H Calcium C-Reactive Protein Crossmatch 09/19/17 09/20/17 09/20/17 21:33 01:58 02:01 WBC RBC Hgb Hct MCV MCH RDW Lymph % (Auto) [place] % (Auto) Eos % (Auto) Lymph # [place] # Eos # Seg Neutrophils % Seg Neutrophils # PT INR APTT Heparin Anti-Xa Level Sodium Chloride Carbon Dioxide BUN Creatinine Glucose POC Glucose 202 H > 500 H 208 H Calcium C-Reactive Protein Crossmatch 09/20/17 09/20/17 09/20/17 03:31 03:31 05:20 WBC 11.6 H RBC 2.97 L Hgb 8.1 L Hct 24.0 L MCV 81 L MCH 27 L RDW Lymph % (Auto) [place] % (Auto) Eos % (Auto) Lymph # [place] # Eos # Seg Neutrophils % Seg Neutrophils # PT 40.6 H INR 3.85 H APTT Heparin Anti-Xa Level Sodium Chloride Carbon Dioxide BUN Creatinine Glucose POC Glucose 191 H Calcium C-Reactive Protein Crossmatch 09/20/17 09/20/17 09/20/17 09:24 12:23 12:23 WBC RBC Hgb Hct MCV MCH RDW Lymph % (Auto) [place] % (Auto) Eos % (Auto) Lymph # [place] # Eos # Seg Neutrophils % Seg Neutrophils # PT 36.6 H INR 3.38 H APTT Heparin Anti-Xa Level Sodium 135 L Chloride Carbon Dioxide BUN 40 H Creatinine 1.8 H Glucose 219 H POC Glucose 234 H Calcium 7.9 L C-Reactive Protein Crossmatch 09/20/17 09/20/17 09/20/17 14:17 17:45 22:46 WBC RBC Hgb Hct MCV MCH RDW Lymph % (Auto) [place] % (Auto) Eos % (Auto) Lymph # [place] # Eos # Seg Neutrophils % Seg Neutrophils # PT INR APTT Heparin Anti-Xa Level Sodium Chloride Carbon Dioxide BUN Creatinine Glucose POC Glucose 226 H 222 H 221 H Calcium C-Reactive Protein Crossmatch 09/20/17 09/21/17 09/21/17 Unknown 02:48 07:14 WBC RBC Hgb Hct MCV MCH RDW Lymph % (Auto) [place] % (Auto) Eos % (Auto) Lymph # [place] # Eos # Seg Neutrophils % Seg Neutrophils # PT INR APTT Heparin Anti-Xa Level Sodium Chloride Carbon Dioxide BUN Creatinine Glucose POC Glucose 211 H 170 H Calcium C-Reactive Protein Crossmatch See Detail 09/21/17 09/21/17 09/21/17 09:22 09:22 09:22 WBC 11.5 H RBC 3.26 L Hgb 9.1 L Hct 28.0 L MCV MCH RDW 15.5 H Lymph % (Auto) [place] % (Auto) Eos % (Auto) Lymph # [place] # Eos # Seg Neutrophils % Seg Neutrophils # PT 28.7 H INR 2.50 H APTT Heparin Anti-Xa Level Sodium 134 L Chloride 95.2 L Carbon Dioxide BUN 39 H Creatinine Glucose 156 H POC Glucose Calcium 7.7 L C-Reactive Protein Crossmatch 09/21/17 09/21/17 09/21/17 09:44 14:40 17:32 WBC RBC Hgb Hct MCV MCH RDW Lymph % (Auto) [place] % (Auto) Eos % (Auto) Lymph # [place] # Eos # Seg Neutrophils % Seg Neutrophils # PT INR APTT Heparin Anti-Xa Level Sodium Chloride Carbon Dioxide BUN Creatinine Glucose POC Glucose 181 H 237 H 141 H Calcium C-Reactive Protein Crossmatch 09/21/17 09/22/17 09/22/17 21:34 02:55 04:09 WBC RBC Hgb Hct MCV MCH RDW Lymph % (Auto) [place] % (Auto) Eos % (Auto) Lymph # [place] # Eos # Seg Neutrophils % Seg Neutrophils # PT 27.2 H INR 2.34 H APTT Heparin Anti-Xa Level Sodium Chloride Carbon Dioxide BUN Creatinine Glucose POC Glucose 158 H 163 H Calcium C-Reactive Protein Crossmatch 09/22/17 09/22/17 09/22/17 05:41 08:22 12:14 WBC RBC Hgb Hct MCV MCH RDW Lymph % (Auto) [place] % (Auto) Eos % (Auto) Lymph # [place] # Eos # Seg Neutrophils % Seg Neutrophils # PT INR APTT Heparin Anti-Xa Level Sodium Chloride Carbon Dioxide BUN Creatinine Glucose POC Glucose 157 H 145 H 167 H Calcium C-Reactive Protein Crossmatch 09/22/17 09/22/17 09/22/17 14:10 16:07 16:46 WBC RBC 3.20 L Hgb 8.8 L Hct 27.8 L MCV MCH RDW 15.5 H Lymph % (Auto) 12.7 L [place] % (Auto) 9.6 H Eos % (Auto) 7.6 H Lymph # 0.9 L [place] # Eos # 0.6 H Seg Neutrophils % Seg Neutrophils # PT 26.3 H INR 2.24 H APTT 61.7 H* Heparin Anti-Xa Level < 0.10 L Sodium Chloride Carbon Dioxide BUN Creatinine Glucose POC Glucose 139 H Calcium C-Reactive Protein Crossmatch 09/22/17 09/22/17 09/23/17 22:20 23:53 02:06 WBC RBC Hgb Hct MCV MCH RDW Lymph % (Auto) [place] % (Auto) Eos % (Auto) Lymph # [place] # Eos # Seg Neutrophils % Seg Neutrophils # PT INR APTT Heparin Anti-Xa Level 0.24 L Sodium Chloride Carbon Dioxide BUN Creatinine Glucose POC Glucose 185 H 140 H Calcium C-Reactive Protein Crossmatch 09/23/17 09/23/17 09/23/17 05:19 05:19 05:45 WBC RBC Hgb Hct MCV MCH RDW Lymph % (Auto) [place] % (Auto) Eos % (Auto) Lymph # [place] # Eos # Seg Neutrophils % Seg Neutrophils # PT 26.8 H INR 2.30 H APTT Heparin Anti-Xa Level 0.24 L Sodium Chloride Carbon Dioxide 21 L BUN 33 H Creatinine Glucose 161 H POC Glucose 167 H Calcium 7.5 L C-Reactive Protein Crossmatch 09/23/17 09/23/17 09/23/17 10:06 12:04 15:00 WBC RBC 3.18 L Hgb 8.9 L Hct 26.9 L MCV MCH RDW 15.7 H Lymph % (Auto) [place] % (Auto) Eos % (Auto) Lymph # [place] # Eos # Seg Neutrophils % Seg Neutrophils # PT INR APTT Heparin Anti-Xa Level Sodium Chloride Carbon Dioxide BUN Creatinine Glucose POC Glucose 186 H 236 H Calcium C-Reactive Protein Crossmatch 0609/23/17 09/24/17 17:23 22:39 04:43 WBC RBC 3.58 L Hgb 10.2 L Hct 29.9 L MCV MCH RDW 15.8 H Lymph % (Auto) [place] % (Auto) Eos % (Auto) Lymph # [place] # Eos # Seg Neutrophils % Seg Neutrophils # PT INR APTT Heparin Anti-Xa Level Sodium Chloride Carbon Dioxide BUN Creatinine Glucose POC Glucose 154 H 189 H Calcium C-Reactive Protein Crossmatch 09/24/17 09/24/17 09/24/17 04:54 06:28 06:53 WBC RBC Hgb Hct MCV MCH RDW Lymph % (Auto) [place] % (Auto) Eos % (Auto) Lymph # [place] # Eos # Seg Neutrophils % Seg Neutrophils # PT 29.0 H INR 2.53 H APTT Heparin Anti-Xa Level 0.10 L Sodium Chloride Carbon Dioxide BUN Creatinine Glucose POC Glucose 200 H 225 H Calcium C-Reactive Protein Crossmatch 09/24/17 09/24/17 09/24/17 11:38 16:09 22:44 WBC RBC Hgb Hct MCV MCH RDW Lymph % (Auto) [place] % (Auto) Eos % (Auto) Lymph # [place] # Eos # Seg Neutrophils % Seg Neutrophils # PT INR APTT Heparin Anti-Xa Level Sodium Chloride Carbon Dioxide BUN Creatinine Glucose POC Glucose 228 H 226 H 157 H Calcium C-Reactive Protein Crossmatch 09/25/17 09/25/17 09/25/17 04:36 07:13 11:16 WBC RBC Hgb Hct MCV MCH RDW Lymph % (Auto) [place] % (Auto) Eos % (Auto) Lymph # [place] # Eos # Seg Neutrophils % Seg Neutrophils # PT 34.2 H INR 3.11 H APTT Heparin Anti-Xa Level Sodium Chloride Carbon Dioxide BUN Creatinine Glucose POC Glucose 167 H 195 H Calcium C-Reactive Protein Crossmatch 09/25/17 09/25/17 09/25/17 12:27 16:44 22:09 WBC RBC Hgb Hct MCV MCH RDW Lymph % (Auto) [place] % (Auto) Eos % (Auto) Lymph # [place] # Eos # Seg Neutrophils % Seg Neutrophils # PT INR APTT Heparin Anti-Xa Level Sodium Chloride Carbon Dioxide BUN Creatinine Glucose POC Glucose 185 H 197 H 181 H Calcium C-Reactive Protein Crossmatch 09/26/17 09/26/17 09/26/17 01:59 04:59 06:19 WBC RBC Hgb Hct MCV MCH RDW Lymph % (Auto) [place] % (Auto) Eos % (Auto) Lymph # [place] # Eos # Seg Neutrophils % Seg Neutrophils # PT 37.0 H INR 3.43 H APTT Heparin Anti-Xa Level Sodium Chloride Carbon Dioxide BUN Creatinine Glucose POC Glucose 180 H 161 H Calcium C-Reactive Protein Crossmatch 09/26/17 09/26/17 09/26/17 11:08 18:01 21:14 WBC RBC Hgb Hct MCV MCH RDW Lymph % (Auto) [place] % (Auto) Eos % (Auto) Lymph # [place] # Eos # Seg Neutrophils % Seg Neutrophils # PT INR APTT Heparin Anti-Xa Level Sodium Chloride Carbon Dioxide BUN Creatinine Glucose POC Glucose 224 H 169 H 208 H Calcium C-Reactive Protein Crossmatch 09/27/17 09/27/17 09/27/17 05:14 05:58 10:03 WBC RBC Hgb Hct MCV MCH RDW Lymph % (Auto) [place] % (Auto) Eos % (Auto) Lymph # [place] # Eos # Seg Neutrophils % Seg Neutrophils # PT 37.2 H INR 3.45 H APTT Heparin Anti-Xa Level Sodium Chloride Carbon Dioxide BUN Creatinine Glucose POC Glucose 156 H 212 H Calcium C-Reactive Protein Crossmatch 09/27/17 09/27/17 09/27/17 13:26 16:17 21:22 WBC RBC Hgb Hct MCV MCH RDW Lymph % (Auto) [place] % (Auto) Eos % (Auto) Lymph # [place] # Eos # Seg Neutrophils % Seg Neutrophils # PT INR APTT Heparin Anti-Xa Level Sodium Chloride Carbon Dioxide BUN Creatinine Glucose POC Glucose 182 H 165 H Calcium C-Reactive Protein 8.60 H Crossmatch 09/28/17 09/28/17 09/28/17 04:26 05:20 11:43 WBC RBC Hgb Hct MCV MCH RDW Lymph % (Auto) [place] % (Auto) Eos % (Auto) Lymph # [place] # Eos # Seg Neutrophils % Seg Neutrophils # PT 35.1 H INR 3.21 H APTT Heparin Anti-Xa Level Sodium Chloride Carbon Dioxide BUN Creatinine Glucose POC Glucose 186 H 195 H Calcium C-Reactive Protein Crossmatch 09/28/17 09/28/17 09/29/17 15:58 21:42 05:08 WBC RBC Hgb Hct MCV MCH RDW Lymph % (Auto) [place] % (Auto) Eos % (Auto) Lymph # [place] # Eos # Seg Neutrophils % Seg Neutrophils # PT 28.2 H INR 2.45 H APTT Heparin Anti-Xa Level Sodium Chloride Carbon Dioxide BUN Creatinine Glucose POC Glucose 186 H 196 H Calcium C-Reactive Protein Crossmatch 09/29/17 09/29/17 09/29/17 06:25 11:36 17:26 WBC RBC Hgb Hct MCV MCH RDW Lymph % (Auto) [place] % (Auto) Eos % (Auto) Lymph # [place] # Eos # Seg Neutrophils % Seg Neutrophils # PT INR APTT Heparin Anti-Xa Level Sodium Chloride Carbon Dioxide BUN Creatinine Glucose POC Glucose 162 H 213 H 250 H Calcium C-Reactive Protein Crossmatch Allied health notes reviewed: nursing
[2017-09-29] MEDS: SENOKOT PO SCH (21:40)
[2017-09-30] MEDS: SODIUM CHLORIDE FLUSH SYRINGE 10 ML IV SCH ×2 (05:26→09:38)
[2017-09-30] MEDS: BROVANA NEBU IH SCH ×2 (07:20→19:20)
[2017-09-30] MEDS: PULMICORT IH SCH ×2 (07:20→19:20)
[2017-09-30 08:30] LABS: Basophils % (Auto) 0.4 % (0.0-1.8); Eosinophils # (Auto) 0.3 K/mm3 (0.0-0.4); Eosinophils % (Auto) 2.2 % (0.0-4.3); Hematocrit 26.9 % (35.5-45.6); Hemoglobin 8.5 gm/dl (11.8-15.2); Lymphocytes # (Auto) 1.2 K/mm3 (1.2-5.4); Lymphocytes % (Auto) 9.6 % (13.4-35.0); Mean Corpuscular HGB Conc 32 % (32-34); Mean Corpuscular Hemoglobin 27 pg (28-32); Mean Corpuscular Volume 84 fl (84-94); Monocytes # (Auto) 1.2 K/mm3 (0.0-0.8); Monocytes % (Auto) 9.4 % (0.0-7.3); Platelet Count 417 K/mm3 (140-440); Red Blood Count 3.21 M/mm3 (3.65-5.03)
[2017-09-30 08:37] LABS: BUN/Creatinine Ratio 21; Blood Urea Nitrogen 23 mg/dL (9-20); Calcium 8.3 mg/dL (8.4-10.2); Hemolysis Index 1
[2017-09-30 08:38] LABS: INR 2.56 (0.87-1.13)
--- NOTE | 2017-09-30 09:26 | Progress Note ---
Assessment and Plan Peripheral artery disease H/O mechanical aortic valve replacement anticoagulated on Warfarin Paroxysmal atrial fibrillation currently in stable sinus rhythm on metoprolol Anemia s/p transfusion of PRBCs Normal persantine thallium 05/2017 Well functioning mechanical AVR, EF 50-55% on echo 05/2017 Conservative cardiac management. Subjective Date of service: 09/30/17 Principal diagnosis: R. Fem endarterectomy wound dehiscence/infection; Anemia ( ABLA); Hypoxemia Interval history: Patient has no cardiac complaints. Sinus rhythm on telemetry. Objective Vital Signs Temp Pulse Pulse Resp Resp BP BP 09/30/17 08:07 98.4 F 67 20 136/58 09/30/17 07:20 71 18 09/30/17 05:34 98.3 F 63 120/50 09/29/17 23:35 98.3 F 64 20 126/54 09/29/17 22:00 62 09/29/17 21:40 63 129/47 09/29/17 19:56 68 18 09/29/17 19:46 61 18 09/29/17 19:34 63 20 129/47 09/29/17 15:58 60 09/29/17 14:00 98.3 F 63 120/50 09/29/17 11:29 98.4 F 69 20 122/58 09/29/17 10:00 58 L 09/29/17 09:59 Pulse Ox 09/30/17 08:07 95 09/30/17 07:20 95 09/30/17 05:34 09/29/17 23:35 97 09/29/17 22:00 09/29/17 21:40 09/29/17 19:56 09/29/17 19:46 96 09/29/17 19:34 97 09/29/17 15:58 97 09/29/17 14:00 09/29/17 11:29 95 09/29/17 10:00 09/29/17 09:59 99 - Physical Examination General: No Apparent Distress HEENT: Positive: PERRL Cardiac: Positive: Reg Rate and Rhythm Neuro: Positive: Grossly Intact, Weakness - Labs and Meds Coagulation 09/30/17 Range/Units 07:10 PT 29.2 H (12.2-14.9) Sec. INR 2.56 H (0.87-1.13) CBC 09/30/17 Range/Units 07:10 WBC 12.7 H (4.5-11.0) K/mm3 RBC 3.21 L (3.65-5.03) M/mm3 Hgb 8.5 L (11.8-15.2) gm/dl Hct 26.9 L (35.5-45.6) % Plt Count 417 (140-440) K/mm3 Lymph # 1.2 (1.2-5.4) K/mm3 [place] # 1.2 H (0.0-0.8) K/mm3 Eos # 0.3 (0.0-0.4) K/mm3 Baso # 0.0 (0.0-0.1) K/mm3 Comprehensive Metabolic Panel 09/30/17 Range/Units 07:10 Sodium 142 (137-145) mmol/L Potassium 4.9 (3.6-5.0) mmol/L Chloride 108.9 H (98-107) mmol/L Carbon Dioxide 22 (22-30) mmol/L BUN 23 H (9-20) mg/dL Creatinine 1.1 (0.8-1.5) mg/dL Glucose 156 H (75-100) mg/dL Calcium 8.3 L (8.4-10.2) mg/dL - Allied health notes Allied health notes reviewed: nursing
[2017-09-30] MEDS: HumaLOG SUB-Q SCH ×4 (09:30→21:51)
[2017-09-30] MEDS: HCTZ PO SCH (09:30)
[2017-09-30] MEDS: GLUCOPHAGE PO SCH ×2 (09:31→18:02)
[2017-09-30] MEDS: PLAQUENIL PO SCH ×2 (09:31→21:51)
[2017-09-30] MEDS: PROTONIX PO SCH (09:31)
[2017-09-30] MEDS: COLACE PO SCH ×2 (09:31→21:51)
[2017-09-30] MEDS: COZAAR PO SCH (09:31)
[2017-09-30] MEDS: LANTUS SUB-Q SCH (09:32)
[2017-09-30] MEDS: LOPRESSOR PO SCH ×2 (09:39→21:52)
[2017-09-30] MEDS: LEVAQUIN 750MG/150ML 750 MG/150 ML BAG IV SCH (09:39)
--- NOTE | 2017-09-30 10:29 | Progress Note ---
Assessment and Plan Assessment: 1) Right 2nd 3rd toes ulcer? gangrene ? osteomyelitis, Superf cx Pseudomonas -CRP=8.6 2) Mechanical AVR 3) Peripheral vascular disease -S/P right femoral endarterectomy with Dacron patch angioplasty. He also had atherectomy and angioplasty with stent of his SFA and popliteal artery on the right on 08/13/17. -S/P excision of [place] patch from right femoral endarterectomy with replacement with vein patch. 4) DM 5) A fib on coumadin Plan: -request podiatry eval - pending -triple phase scan - pending -stop levaquin for now due to couamdin interaction -start cefepime -wound culture from right groin was not sent Windy Watson MD Subjective Date of service: 09/30/17 Principal diagnosis: R. Fem endarterectomy wound dehiscence/infection; Anemia ( ABLA); Hypoxemia Interval history: Feels better, no complaints except for mild right groin tenderness at wound VAC site. No fever. Abx: levaquin 09/29 Cultures: right foot 6/7 Pseudomonas Objective - Exam Narrative Exam: Alertin NAD pleasant NC AT JEROMY clear OP Lungs CTA agustín CV RRR Abd soft NT Skin right groin wound VAC Ext right 2nd 3rd toes tip with ulcer and fouls smelling drainage. - Constitutional Vitals: Vital Signs Temp Pulse Resp BP Pulse Ox 98.4 F 74 18 136/58 95 09/30/17 08:07 09/30/17 10:00 09/30/17 10:00 09/30/17 08:07 09/30/17 10:00 Temperature -Last 24 Hours Temperature 98.4 F Temperature 98.3 F Temperature 98.3 F Temperature 98.3 F Temperature 98.4 F - Labs CBC & Chem 7: 09/30/17 07:10 09/30/17 07:10 Labs: Abnormal lab results 09/29/17 09/29/17 09/29/17 Range/Units 11:36 17:26 21:08 WBC (4.5-11.0) K/mm3 RBC (3.65-5.03) M/mm3 Hgb (11.8-15.2) gm/dl Hct (35.5-45.6) % MCH (28-32) pg RDW (13.2-15.2) % Lymph % (Auto) (13.4-35.0) % [place] % (Auto) (0.0-7.3) % [place] # (0.0-0.8) K/mm3 Seg Neutrophils % (40.0-70.0) % Seg Neutrophils # (1.8-7.7) K/mm3 PT (12.2-14.9) Sec. INR (0.87-1.13) Chloride (98-107) mmol/L BUN (9-20) mg/dL Glucose (75-100) mg/dL POC Glucose 213 H 250 H 209 H (70-105) Calcium (8.4-10.2) mg/dL 09/30/17 09/30/17 09/30/17 Range/Units 07:10 07:10 07:10 WBC 12.7 H (4.5-11.0) K/mm3 RBC 3.21 L (3.65-5.03) M/mm3 Hgb 8.5 L (11.8-15.2) gm/dl Hct 26.9 L (35.5-45.6) % MCH 27 L (28-32) pg RDW 16.0 H (13.2-15.2) % Lymph % (Auto) 9.6 L (13.4-35.0) % [place] % (Auto) 9.4 H (0.0-7.3) % [place] # 1.2 H (0.0-0.8) K/mm3 Seg Neutrophils % 78.4 H (40.0-70.0) % Seg Neutrophils # 10.0 H (1.8-7.7) K/mm3 PT 29.2 H (12.2-14.9) Sec. INR 2.56 H (0.87-1.13) Chloride 108.9 H (98-107) mmol/L BUN 23 H (9-20) mg/dL Glucose 156 H (75-100) mg/dL POC Glucose (70-105) Calcium 8.3 L (8.4-10.2) mg/dL
[2017-09-30] MEDS: MAXIPIME 2 GM in NACL 0.9% 20 ML IV SCH ×2 (13:04→21:51)
[2017-09-30] MEDS: PERCOCET 5/325 PO PRN (13:27)
--- NOTE | 2017-09-30 13:31 | Nuclear Medicine Report ---
TRIPLE PHASE BONE SCAN HISTORY: Diabetic foot ulcer of third toe and right foot, evaluate for osteomyelitis. FINDINGS: 25 mCi of technetium 99m MDP was administered intravenously. No radiographic correlation is provided. The perfusion images demonstrate minimal increased flow to the right lower extremity compared to the left. The blood pool images demonstrate subtle accumulation of the radiotracer in the distal third toe. 3 hour delayed images demonstrate focal accumulation of the radiotracer in the distal right third toe. IMPRESSION: Osteomyelitis of the right third toe.
--- NOTE | 2017-09-30 13:48 | Progress Note ---
Assessment and Plan ID note reviewed. WBC scan completed; results pending. ABX adjusted due to interaction with coumadin. D/c Planning for rehab completed, transfer to sub-acute rehab when cleared by ID and all arrangements completed. - Patient Problems (1) Lymphocele Current Visit: Yes Status: Acute Subjective Date of service: 09/30/17 Principal diagnosis: R. Fem endarterectomy wound dehiscence/infection; Anemia ( ABLA); Hypoxemia Interval history: Pt awake and alert without complaint at present. Objective - Constitutional Vitals: Vital Signs - 12hr 09/30/17 09/30/17 09/30/17 05:34 07:20 07:30 Temperature 98.3 F Pulse Rate 63 Pulse Rate [ 71 65 Anterior Bilateral Throughout] Pulse Rate [ From Monitor] Respiratory Rate Respiratory 18 18 Rate [Anterior Bilateral Throughout] Blood Pressure Blood Pressure 120/50 [Left] O2 Sat by Pulse 95 Oximetry 09/30/17 09/30/17 09/30/17 08:07 10:00 11:23 Temperature 98.4 F 98.3 F Pulse Rate 67 74 61 Pulse Rate [ Anterior Bilateral Throughout] Pulse Rate [ 74 From Monitor] Respiratory 20 18 20 Rate Respiratory Rate [Anterior Bilateral Throughout] Blood Pressure 120/60 Blood Pressure 136/58 [Left] O2 Sat by Pulse 95 95 95 Oximetry General appearance: Present: no acute distress - EENT Eyes: EOM intact ENT: hearing intact - Respiratory Respiratory effort: normal Extremities: normal temperature, abnormal (right groin vac in place. Right foot wounds dry without erythema.) Extremity abnormal: edema (scrotal edema improving) - Neurologic Neurologic: no focal deficits - Psychiatric Psychiatric: appropriate mood/affect, intact judgment & insight, agitated - Labs CBC & Chem 7: 09/30/17 07:10 09/30/17 07:10 Labs: Abnormal lab results 09/29/17 09/29/17 09/30/17 Range/Units 17:26 21:08 07:10 WBC (4.5-11.0) K/mm3 RBC (3.65-5.03) M/mm3 Hgb (11.8-15.2) gm/dl Hct (35.5-45.6) % MCH (28-32) pg RDW (13.2-15.2) % Lymph % (Auto) (13.4-35.0) % [place] % (Auto) (0.0-7.3) % [place] # (0.0-0.8) K/mm3 Seg Neutrophils % (40.0-70.0) % Seg Neutrophils # (1.8-7.7) K/mm3 PT 29.2 H (12.2-14.9) Sec. INR 2.56 H (0.87-1.13) Chloride (98-107) mmol/L BUN (9-20) mg/dL Glucose (75-100) mg/dL POC Glucose 250 H 209 H (70-105) Calcium (8.4-10.2) mg/dL 09/30/17 09/30/17 09/30/17 Range/Units 07:10 07:10 11:30 WBC 12.7 H (4.5-11.0) K/mm3 RBC 3.21 L (3.65-5.03) M/mm3 Hgb 8.5 L (11.8-15.2) gm/dl Hct 26.9 L (35.5-45.6) % MCH 27 L (28-32) pg RDW 16.0 H (13.2-15.2) % Lymph % (Auto) 9.6 L (13.4-35.0) % [place] % (Auto) 9.4 H (0.0-7.3) % [place] # 1.2 H (0.0-0.8) K/mm3 Seg Neutrophils % 78.4 H (40.0-70.0) % Seg Neutrophils # 10.0 H (1.8-7.7) K/mm3 PT (12.2-14.9) Sec. INR (0.87-1.13) Chloride 108.9 H (98-107) mmol/L BUN 23 H (9-20) mg/dL Glucose 156 H (75-100) mg/dL POC Glucose 205 H (70-105) Calcium 8.3 L (8.4-10.2) mg/dL
--- NOTE | 2017-09-30 14:35 | Progress Note ---
Assessment and Plan Assessment and plan: The patient is 77-year-old male with a history of severeperipheral vascular disease, prosthetic aortic valve who recently underwent a right femoral endarterectomy with Dacron patch angioplasty. He also had atherectomy and angioplasty with stent of his SFA and popliteal artery on the right. He initially did well but was unable to follow-up in the outpatient setting for his postoperative visit secondary to transportation issues. He states that approximately 2 days ago he began to note clear yellow drainage from his right groin. patient admitted by vacular surgery and did 1. Excision of Right Femoral PTFE Patch And Repair with Right Greater Saphenous Vein 2. Coverage of Right Femoral Artery with Sartorius Muscle Flap 3. Wound VAC Placement tomorrow Bleeding stopped patient is on warfarin for A.fib and prosthetic aortic valve and INR from this morning is 3.43. Management per cardiology We have been consulted for medical management. patient's medical history is significant for DM, HTN, afib on anticoagulation. patient's home medications were reconciled by vascular. Continue current management. H/H stable. GUICHO - Resolved - On IV fluids Scrotal swelling - supportive care, elevation ID consulted: Asssessment and plan is as follows: 1) Right 2nd 3rd toes ulcer? gangrene ? osteomyelitis 2) Mechanical AVR 3) Peripheral vascular disease s/p underwent a right femoral endarterectomy with Dacron patch angioplasty. He also had atherectomy and angioplasty with stent of his SFA and popliteal artery on the right on 08/13/17. 4) DM 5) A fib Right foot wound, culture positive for pseudomonas. patient is on cefepime Per ID. History Interval history: Patient was seen and evaluated this morning. patient was complaining left arm pain, which he said is chronic. Hospitalist Physical - Physical exam Narrative exam: Not in cardiopulmonary distress. The patient appeared well nourished and normally developed. Vital signs as documented. Head exam is unremarkable. No scleral icterus . Neck is without jugular venous distension, thyromegaly, or carotid bruits. Lungs are clear to auscultation. Cardiac exam reveals irregular rate and Rhythm. Abdominal exam reveals normal bowel sounds, no masses, no organomegaly and no aortic enlargement. Extremities mild right foot pain. 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 No focal weakness. - Constitutional Vitals: Temp Pulse Resp BP Pulse Ox 98.3 F 61 20 120/60 95 09/30/17 11:23 09/30/17 11:23 09/30/17 11:23 09/30/17 11:23 09/30/17 11:23 General appearance: Present: no acute distress Results - Labs CBC & Chem 7: 09/30/17 07:10 09/30/17 07:10 Labs: Laboratory Last Values WBC 12.7 K/mm3 (4.5-11.0) H 09/30/17 07:10 RBC 3.21 M/mm3 (3.65-5.03) L 09/30/17 07:10 Hgb 8.5 gm/dl (11.8-15.2) L 09/30/17 07:10 Hct 26.9 % (35.5-45.6) L 09/30/17 07:10 MCV 84 fl (84-94) 09/30/17 07:10 MCH 27 pg (28-32) L 09/30/17 07:10 MCHC 32 % (32-34) 09/30/17 07:10 RDW 16.0 % (13.2-15.2) H 09/30/17 07:10 Plt Count 417 K/mm3 (140-440) 09/30/17 07:10 Lymph % (Auto) 9.6 % (13.4-35.0) L 09/30/17 07:10 [place] % (Auto) 9.4 % (0.0-7.3) H 09/30/17 07:10 Eos % (Auto) 2.2 % (0.0-4.3) 09/30/17 07:10 Baso % (Auto) 0.4 % (0.0-1.8) 09/30/17 07:10 Lymph # 1.2 K/mm3 (1.2-5.4) 09/30/17 07:10 [place] # 1.2 K/mm3 (0.0-0.8) H 09/30/17 07:10 Eos # 0.3 K/mm3 (0.0-0.4) 09/30/17 07:10 Baso # 0.0 K/mm3 (0.0-0.1) 09/30/17 07:10 Seg Neutrophils % 78.4 % (40.0-70.0) H 09/30/17 07:10 Seg Neutrophils # 10.0 K/mm3 (1.8-7.7) H 09/30/17 07:10 PT 29.2 Sec. (12.2-14.9) H 09/30/17 07:10 INR 2.56 (0.87-1.13) H 09/30/17 07:10 APTT 61.7 Sec. (24.2-36.6) H* 09/22/17 14:10 Heparin Anti-Xa Level 0.10 U.I./ml (0.3-0.7) L 09/24/17 04:54 Sodium 142 mmol/L (137-145) 09/30/17 07:10 Potassium 4.9 mmol/L (3.6-5.0) 09/30/17 07:10 Chloride 108.9 mmol/L (98-107) H 09/30/17 07:10 Carbon Dioxide 22 mmol/L (22-30) 09/30/17 07:10 Anion Gap 16 mmol/L 09/30/17 07:10 BUN 23 mg/dL (9-20) H 09/30/17 07:10 Creatinine 1.1 mg/dL (0.8-1.5) 09/30/17 07:10 Estimated GFR > 60 ml/min 09/30/17 07:10 BUN/Creatinine Ratio 21 % 09/30/17 07:10 Glucose 156 mg/dL (75-100) H 09/30/17 07:10 POC Glucose 205 (70-105) H 09/30/17 11:30 Calcium 8.3 mg/dL (8.4-10.2) L 09/30/17 07:10 C-Reactive Protein 8.60 mg/dL (0.00-1.30) H 09/27/17 13:26 Blood Type B POSITIVE 09/20/17 Unknown Antibody Screen Negative 09/20/17 Unknown Crossmatch See Detail 09/20/17 Unknown
[2017-09-30] MEDS: COUMADIN PO SCH (18:01)
[2017-09-30] MEDS: SENOKOT PO SCH (21:51)
[2017-10-01] MEDS: SODIUM CHLORIDE FLUSH SYRINGE 10 ML IV SCH ×3 (01:00→22:52)
[2017-10-01] MEDS: PERCOCET 5/325 PO PRN (03:41)
[2017-10-01] MEDS: MAXIPIME 2 GM in NACL 0.9% 20 ML IV SCH ×3 (07:00→22:46)
[2017-10-01] MEDS: HumaLOG SUB-Q SCH ×4 (07:53→22:43)
--- NOTE | 2017-10-01 08:46 | Progress Note ---
Assessment and Plan Peripheral artery disease H/O mechanical aortic valve replacement anticoagulated on Warfarin Paroxysmal atrial fibrillation currently in stable sinus rhythm on metoprolol Anemia s/p transfusion of PRBCs Normal persantine thallium 05/2017 Well functioning mechanical AVR, EF 50-55% on echo 05/2017 Conservative cardiac management. Subjective Date of service: 10/01/17 Principal diagnosis: R. Fem endarterectomy wound dehiscence/infection; Anemia ( ABLA); Hypoxemia Interval history: Patient has no cardiac complaints. Sinus rhythm on telemetry. Objective Vital Signs Temp Pulse Pulse Pulse Resp Resp BP 10/01/17 08:39 99.3 F 91 H 16 10/01/17 04:54 67 20 140/57 09/30/17 22:00 70 09/30/17 20:25 09/30/17 19:45 97.4 F L 68 22 09/30/17 19:44 67 135/59 09/30/17 19:37 71 18 09/30/17 19:22 69 18 09/30/17 15:58 98.4 F 73 20 116/51 09/30/17 11:23 98.3 F 61 20 120/60 09/30/17 10:00 74 74 18 BP Pulse Ox 10/01/17 08:39 108/56 90 10/01/17 04:54 96 09/30/17 22:00 09/30/17 20:25 93 09/30/17 19:45 98 09/30/17 19:44 99 09/30/17 19:37 09/30/17 19:22 93 09/30/17 15:58 95 09/30/17 11:23 95 09/30/17 10:00 95 - Physical Examination General: No Apparent Distress HEENT: Positive: PERRL Cardiac: Positive: Reg Rate and Rhythm Neuro: Positive: Weakness - Allied health notes Allied health notes reviewed: nursing
[2017-10-01 08:51] LABS: INR 2.62 (0.87-1.13)
[2017-10-01] MEDS: BROVANA NEBU IH SCH ×2 (10:30→21:16)
[2017-10-01] MEDS: PULMICORT IH SCH ×2 (10:30→21:16)
[2017-10-01] MEDS: LANTUS SUB-Q SCH (10:34)
[2017-10-01] MEDS: HCTZ PO SCH (10:35)
[2017-10-01] MEDS: COZAAR PO SCH (10:35)
[2017-10-01] MEDS: PLAQUENIL PO SCH ×2 (10:35→22:44)
[2017-10-01] MEDS: LOPRESSOR PO SCH ×2 (10:35→22:44)
[2017-10-01] MEDS: GLUCOPHAGE PO SCH ×2 (10:35→17:43)
[2017-10-01] MEDS: PROTONIX PO SCH (10:35)
[2017-10-01] MEDS: COLACE PO SCH ×2 (10:35→22:44)
--- NOTE | 2017-10-01 11:31 | Progress Note ---
Assessment and Plan Assessment and plan: The patient is 77-year-old male with a history of severeperipheral vascular disease, prosthetic aortic valve who recently underwent a right femoral endarterectomy with Dacron patch angioplasty. He also had atherectomy and angioplasty with stent of his SFA and popliteal artery on the right. He initially did well but was unable to follow-up in the outpatient setting for his postoperative visit secondary to transportation issues. He states that approximately 2 days ago he began to note clear yellow drainage from his right groin. patient admitted by vacular surgery and did 1. Excision of Right Femoral PTFE Patch And Repair with Right Greater Saphenous Vein 2. Coverage of Right Femoral Artery with Sartorius Muscle Flap Wound VAC Placement recommended We have been consulted for medical management. patient's medical history is significant for DM, HTN, afib on anticoagulation. patient's home medications were reconciled by vascular. Continue current management. H/H stable. GUICHO - Resolved - On IV fluids Scrotal swelling - supportive care, elevation Right 2nd 3rd toes ulcer? gangrene ? osteomyelitis -Right foot wound, culture positive for pseudomonas. patient is on cefepime Per ID. Mechanical AVR * Coumadin Afib * cardiology following. Therapeutic on coumadin Peripheral vascular disease s/p underwent a right femoral endarterectomy with Dacron patch angioplasty. * He also had atherectomy and angioplasty with stent of his SFA and popliteal artery on the right on 08/13/17. DM * Accucheck AC/HS DVT/GI PROPH DISP PER VASCULAR. Planned for discharge. History Interval history: Patient seen and examined, resting comfortable. Hospitalist Physical - Physical exam Narrative exam: Not in cardiopulmonary distress. The patient appeared well nourished and normally developed. Vital signs as documented. Head exam is unremarkable. No scleral icterus . Neck is without jugular venous distension, thyromegaly, or carotid bruits. Lungs are clear to auscultation. Cardiac exam reveals irregular rate and Rhythm. Abdominal exam reveals normal bowel sounds, no masses, no organomegaly and no aortic enlargement. Extremities mild right foot pain. 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 No focal weakness. - Constitutional Vitals: Temp Pulse Resp BP Pulse Ox 99.3 F 85 20 108/56 95 10/01/17 08:39 10/01/17 10:40 10/01/17 10:40 10/01/17 08:39 10/01/17 10:30 General appearance: Present: no acute distress Results - Labs CBC & Chem 7: 09/30/17 07:10 09/30/17 07:10 Labs: Laboratory Last Values WBC 12.7 K/mm3 (4.5-11.0) H 09/30/17 07:10 RBC 3.21 M/mm3 (3.65-5.03) L 09/30/17 07:10 Hgb 8.5 gm/dl (11.8-15.2) L 09/30/17 07:10 Hct 26.9 % (35.5-45.6) L 09/30/17 07:10 MCV 84 fl (84-94) 09/30/17 07:10 MCH 27 pg (28-32) L 09/30/17 07:10 MCHC 32 % (32-34) 09/30/17 07:10 RDW 16.0 % (13.2-15.2) H 09/30/17 07:10 Plt Count 417 K/mm3 (140-440) 09/30/17 07:10 Lymph % (Auto) 9.6 % (13.4-35.0) L 09/30/17 07:10 [place] % (Auto) 9.4 % (0.0-7.3) H 09/30/17 07:10 Eos % (Auto) 2.2 % (0.0-4.3) 09/30/17 07:10 Baso % (Auto) 0.4 % (0.0-1.8) 09/30/17 07:10 Lymph # 1.2 K/mm3 (1.2-5.4) 09/30/17 07:10 [place] # 1.2 K/mm3 (0.0-0.8) H 09/30/17 07:10 Eos # 0.3 K/mm3 (0.0-0.4) 09/30/17 07:10 Baso # 0.0 K/mm3 (0.0-0.1) 09/30/17 07:10 Seg Neutrophils % 78.4 % (40.0-70.0) H 09/30/17 07:10 Seg Neutrophils # 10.0 K/mm3 (1.8-7.7) H 09/30/17 07:10 PT 29.8 Sec. (12.2-14.9) H 10/01/17 07:39 INR 2.62 (0.87-1.13) H 10/01/17 07:39 APTT 61.7 Sec. (24.2-36.6) H* 09/22/17 14:10 Heparin Anti-Xa Level 0.10 U.I./ml (0.3-0.7) L 09/24/17 04:54 Sodium 142 mmol/L (137-145) 09/30/17 07:10 Potassium 4.9 mmol/L (3.6-5.0) 09/30/17 07:10 Chloride 108.9 mmol/L (98-107) H 09/30/17 07:10 Carbon Dioxide 22 mmol/L (22-30) 09/30/17 07:10 Anion Gap 16 mmol/L 09/30/17 07:10 BUN 23 mg/dL (9-20) H 09/30/17 07:10 Creatinine 1.1 mg/dL (0.8-1.5) 09/30/17 07:10 Estimated GFR > 60 ml/min 09/30/17 07:10 BUN/Creatinine Ratio 21 % 09/30/17 07:10 Glucose 156 mg/dL (75-100) H 09/30/17 07:10 POC Glucose 174 (70-105) H 10/01/17 06:47 Calcium 8.3 mg/dL (8.4-10.2) L 09/30/17 07:10 C-Reactive Protein 8.60 mg/dL (0.00-1.30) H 09/27/17 13:26 Blood Type B POSITIVE 09/20/17 Unknown Antibody Screen Negative 09/20/17 Unknown Crossmatch See Detail 09/20/17 Unknown
--- NOTE | 2017-10-01 11:33 | Progress Note ---
Assessment and Plan Assessment: 1) Right 2nd 3rd toes ulcer with 3rd toe osteomyelitis -CRP=8.6 -bone scan + osteomyelitis of right 3rd toe -Superf cx Pseudomonas 2) Mechanical AVR 3) Peripheral vascular disease -S/P right femoral endarterectomy with Dacron patch angioplasty. He also had atherectomy and angioplasty with stent of his SFA and popliteal artery on the right on 08/13/17. -S/P excision of [place] patch from right femoral endarterectomy with replacement with vein patch. 4) DM 5) A fib on coumadin Plan: -continue cefepime 2 g IV q8h total 4 weeks until 11/02/17 -place PICC -wound culture from right groin was not sent -ID office f/u in 2 weeks I am signing off Windy Watson MD Subjective Date of service: 10/01/17 Principal diagnosis: R. Fem endarterectomy wound dehiscence/infection; Anemia ( ABLA); Hypoxemia Interval history: Feels better, no complaints except for mild right groin tenderness at wound VAC site. No fever. Abx: cefepime 09/30 Prior abx: levaquin 09/29 Cultures: right foot 09/26 Pseudomonas Objective - Exam Narrative Exam: Alertin NAD pleasant NC AT JEROMY clear OP Lungs CTA agustín CV RRR Abd soft NT Skin right groin wound VAC Ext right 2nd 3rd toes tip with ulcer and fouls smelling drainage. - Constitutional Vitals: Vital Signs Temp Pulse Resp BP Pulse Ox 99.3 F 85 20 108/56 95 10/01/17 08:39 10/01/17 10:40 10/01/17 10:40 10/01/17 08:39 10/01/17 10:30 Temperature -Last 24 Hours Temperature 99.3 F Temperature 97.4 F Temperature 98.4 F - Labs CBC & Chem 7: 09/30/17 07:10 09/30/17 07:10 Labs: Abnormal lab results 09/30/17 09/30/17 09/30/17 Range/Units 11:30 16:07 20:42 PT (12.2-14.9) Sec. INR (0.87-1.13) POC Glucose 205 H 187 H 197 H (70-105) 10/01/17 10/01/17 Range/Units 06:47 07:39 PT 29.8 H (12.2-14.9) Sec. INR 2.62 H (0.87-1.13) POC Glucose 174 H (70-105)
[2017-10-01] MEDS ORDERED: XYLOCAINE 2% INFILTRATI ONE (13:18)
[2017-10-01] MEDS ORDERED: HEPARIN/NS 5000 UNIT/500ML(CATH LAB) 500 ML IR ONE (13:18)
[2017-10-01] MEDS ORDERED: NACL 0.9% 250ML 0 ML ONE (13:31)
[2017-10-01] MEDS ORDERED: VERSED ONE (13:39)
--- NOTE | 2017-10-01 15:43 | Progress Note ---
Assessment and Plan Discussed with findings with the patient and over the phone with his son Silver. Plan to place PICC line today and then 4 weeks of iv anitbiotics. Patient can be discharged to SNF after PICC line placement. Subjective Date of service: 10/01/17 Principal diagnosis: R. Fem endarterectomy wound dehiscence/infection; Anemia ( ABLA); Hypoxemia Interval history: Bone scan demonstrated osteomyelitis of the third toe. No new complaints at this time. The patient denies pain. Objective - Constitutional Vitals: Vital Signs - 12hr 10/01/17 10/01/17 10/01/17 04:54 08:39 10:00 Temperature 99.3 F Pulse Rate 67 91 H 93 H Pulse Rate [ Anterior Bilateral Throughout] Respiratory 20 16 Rate Respiratory Rate [Anterior Bilateral Throughout] Blood Pressure 140/57 Blood Pressure 108/56 [Left] O2 Sat by Pulse 96 90 Oximetry 10/01/17 10/01/17 10/01/17 10:30 10:40 11:34 Temperature 98.9 F Pulse Rate 76 Pulse Rate [ 85 85 Anterior Bilateral Throughout] Respiratory 16 Rate Respiratory 20 20 Rate [Anterior Bilateral Throughout] Blood Pressure 94/56 Blood Pressure [Left] O2 Sat by Pulse 95 93 Oximetry General appearance: Present: no acute distress - Neck Neck: supple - Respiratory Respiratory effort: normal - Breasts Breasts: deferred - Cardiovascular Rhythm: irregularly irregular Extremities: no ischemia, normal temperature Extremity abnormal: ulceration (right third toe without evidence of purulence), other (right groin wound vac in place with adequate seal) - Gastrointestinal General gastrointestinal: Present: soft, non-tender, non-distended - Genitourinary Male genitourinary: penile edema, scrotal edema - Labs CBC & Chem 7: 09/30/17 07:10 09/30/17 07:10 Labs: Abnormal lab results 09/30/17 09/30/17 10/01/17 Range/Units 16:07 20:42 06:47 PT (12.2-14.9) Sec. INR (0.87-1.13) POC Glucose 187 H 197 H 174 H (70-105) 10/01/17 10/01/17 Range/Units 07:39 11:42 PT 29.8 H (12.2-14.9) Sec. INR 2.62 H (0.87-1.13) POC Glucose 178 H (70-105)
--- NOTE | 2017-10-01 15:49 | Discharge Summary ---
Providers - Providers Date of Admission: 09/16/17 20:57 Date of discharge: 10/01/17 Attending physician: MACIE JONAS MD 09/16/17 20:57 Consult to Physician [CONS] Routine Comment: Dr. Wan notified of consult, do not call Kirsten Consulting Provider: WALKER MAYER Physician Instructions: Reason For Exam: Medical Management 09/17/17 16:06 Consult to Wound/ET Nurse [CONS] Routine Reason For Exam: wound vac management 09/17/17 16:08 Consult to Case Management [CONS] Routine Services Needed at Discharge: Home Health Services Wound Vac Notified:: foster care case manager 09/17/17 16:13 Consult to Physician [CONS] Routine Comment: Consulting Provider: MIKE BAXTER Physician Instructions: Reason For Exam: Critical Care Management 09/18/17 09:48 Consult to Case Management [CONS] Routine Services Needed at Discharge: Wound Vac Notified:: foster care case manager 09/18/17 09:49 Physical Therapy Evaluation and Treat [CONS] Routine Comment: Reason For Exam: status post right groin surgery 09/20/17 12:35 Consult to Cardiology [CONS] Routine Consulting Provider: RANDY DAIGLE Reason For Exam: Afib 09/23/17 08:00 Consult to Wound/ET Nurse [CONS] Routine Reason For Exam: REPLACE WOUND VAC ON 09/23/17 09/23/17 16:58 Physical Therapy Evaluation and Treat [CONS] Routine Comment: Reason For Exam: Gait training 09/24/17 18:03 Consult to Case Management [CONS] Routine Services Needed at Discharge: Other Notified:: foster care case manager Additional Physician Instructions: evaluate for sub acute rehab 09/26/17 11:27 Consult to Physician [CONS] Routine Comment: Consulting Provider: WINDY DAVENPORT Physician Instructions: Reason For Exam: right 2nd/3rd digit wound infectious Consult to Wound/ET Nurse [CONS] Routine Reason For Exam: RIGHT 2/3rd digit skin breakdown 10/01/17 11:35 Consult to Case Management [CONS] Stat Services Needed at Discharge: Other Notified:: stone cleaner Additional Physician Instructions: [facility] M [phone] O [phone] F [phone] OUTPATIENT PARENTERAL ANTIBIOTIC THERAPY ORDERS Diagnoses: 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 Remove PICC line after last dose unless otherwise instructed. Lines:PICC Lab monitoring: CBC, CMP, CRP once a week preferly on Saturday morning. Please fax results to [phone] and call [phone] for critical lab results. Windy Watson Date: 10/01/17 Consult to PICC Line RN [CONS] Stat Reason For Exam: IV antibiotics Type Line:: PICC Primary care physician: HOUSEFELLOW Hospitalization Reason for admission: Right Groin Wound/Lymphocele Condition: Stable Procedures: Operative Report Operative Report: Date of Procedure: 09/17/2017 Pre-operative Diagnosis: Right Groin Lymphocele with Exposed PTFE Femoral Patch Post-operative Diagnosis: Same Procedure(s): 1. Excision of Right Femoral PTFE Patch And Repair with Right Greater Saphenous Vein 2. Coverage of Right Femoral Artery with Sartorius Muscle Flap 3. Wound VAC Placement (Wound Measures 17 x 4 x 2 cm) Surgeon: Saurav Gleason M.D. Motel Front Desk Clerk: None Anesthesia: Gen. Endotracheal Anesthesia EBL: 600 mL Counts: Correct Complications: None Condition: Stable Findings: Exploration of the wound revealed the arterial patch was exposed without coverage. There was no evidence of purulence or obvious infection. Specimen: Right femoral arterial patch sent to pathology. Indication: The patient is a 77-year-old male with a history of peripheral arterial disease who underwent right femoral endarterectomy with PTFE patch closure. He did not follow-up for his postop visit however he presented to the emergency department with serous drainage from the superior aspect of the wound. There was concern for possible contamination of the patch so was felt that he would benefit from exploration of the wound and possible excision of the patch. He was given the risks, benefits, and alternative procedures and consented to the procedure. Hospital course: Please see chart for full details, but in brief. Pt was admitted with a right groin lymphocele following a recent femoral endarterectomy. The pt failed to f/u postoperatively. The pt was taken to the OR for a wound exploration. With concerns of a possible bovine pericardial patch infection, the patch was removed and replaced with a vein patch. This was covered with a muscle flap. Post-op a wound vac was placed. He was noted to have purulent drainage from his toes. An ID consult was requested to eval for antibiotics. A PICC line was placed for a 4 week course of antibiotics. Once completed it was felt the pt was otherwise stable for d/c. He will f/u in our office and with ID in 2 weeks. Disposition: [id number]/[place]-62 INPT REHAB FACILITY - Discharge Diagnoses (1) Lymphocele Status: Acute Core Measure Documentation - Palliative Care Palliative Care/ Comfort Measures: Not Applicable - Core Measures Any of the following diagnoses?: none Exam - Constitutional Vitals: Temp Pulse Resp BP Pulse Ox 98.9 F 76 16 94/56 93 10/01/17 11:34 10/01/17 11:34 10/01/17 11:34 10/01/17 11:34 10/01/17 11:34 General appearance: Present: no acute distress - EENT Eyes: Present: EOM intact ENT: hearing intact - Neck Neck: Present: supple - Respiratory Respiratory effort: normal - Extremities Extremities: no ischemia, normal temperature, abnormal (wound vac in place) Extremity abnormal: ulceration (rle toe wounds dry) - Psychiatric Psychiatric: appropriate mood/affect, intact judgment & insight, cooperative - Neurologic Neurologic: no focal deficits Plan Activity: advance as tolerated Weight Bearing Status: Weight Bear as Tolerated Diet: diabetic Wound: keep clean and dry Additional Instructions: continue cefepime 2 g IV q8h total 4 weeks until Follow up with: RANDY DAIGLE MD [Staff Physician] - 7 Days WINDY DAVENPORT MD [Staff Physician] - 14 Days SAURAV GLEASON MD [Staff Physician] - 14 Days Forms: Warfarin Discharge Instruction
--- NOTE | 2017-10-01 16:10 | Discharge Summary ---
Providers - Providers Date of Admission: 09/16/17 20:57 Date of discharge: 10/01/17 Attending physician: MACIE JONAS MD 09/16/17 20:57 Consult to Physician [CONS] Routine Comment: Dr. Wan notified of consult, do not call Kirsten Consulting Provider: WALKER MAYER Physician Instructions: Reason For Exam: Medical Management 09/17/17 16:06 Consult to Wound/ET Nurse [CONS] Routine Reason For Exam: wound vac management 09/17/17 16:08 Consult to Case Management [CONS] Routine Services Needed at Discharge: Home Health Services Wound Vac Notified:: case making machine operator 09/17/17 16:13 Consult to Physician [CONS] Routine Comment: Consulting Provider: MIKE BAXTER Physician Instructions: Reason For Exam: Critical Care Management 09/18/17 09:48 Consult to Case Management [CONS] Routine Services Needed at Discharge: Wound Vac Notified:: case making machine operator 09/18/17 09:49 Physical Therapy Evaluation and Treat [CONS] Routine Comment: Reason For Exam: status post right groin surgery 09/20/17 12:35 Consult to Cardiology [CONS] Routine Consulting Provider: RANDY DAIGLE Reason For Exam: Afib 09/23/17 08:00 Consult to Wound/ET Nurse [CONS] Routine Reason For Exam: REPLACE WOUND VAC ON 09/23/17 09/23/17 16:58 Physical Therapy Evaluation and Treat [CONS] Routine Comment: Reason For Exam: Gait training 09/24/17 18:03 Consult to Case Management [CONS] Routine Services Needed at Discharge: Other Notified:: case making machine operator Additional Physician Instructions: evaluate for sub acute rehab 09/26/17 11:27 Consult to Physician [CONS] Routine Comment: Consulting Provider: WINDY DAVENPORT Physician Instructions: Reason For Exam: right 2nd/3rd digit wound infectious Consult to Wound/ET Nurse [CONS] Routine Reason For Exam: RIGHT 2/3rd digit skin breakdown 10/01/17 11:35 Consult to Case Management [CONS] Stat Services Needed at Discharge: Other Notified:: retail sales professional Additional Physician Instructions: [facility] M [phone] O [phone] F [phone] OUTPATIENT PARENTERAL ANTIBIOTIC THERAPY ORDERS Diagnoses: 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 Remove PICC line after last dose unless otherwise instructed. Lines:PICC Lab monitoring: CBC, CMP, CRP once a week preferly on Saturday morning. Please fax results to [phone] and call [phone] for critical lab results. Windy Walter Date: 10/01/17 Consult to PICC Line RN [CONS] Stat Reason For Exam: IV antibiotics Type Line:: PICC Primary care physician: UNHAIRING MACHINE OPERATOR Hospitalization Reason for admission: Right Groin Postoperative Lymphocele Condition: Stable Pertinent studies: Patient: BRADLEY PATEL MR#: [id number] : 1940 Acct:[id number] Age/Sex: 77 / M ADM Date: 09/16/17 Loc: CC1 A251-[address]: YAW DURÁN MD Ordering Physician: SAURAV GLEASON MD Date of Service: 09/17/17 Procedure(s): VL arterial duplex LE RT Accession Number(s): [id number] cc: SAURAV GLEASON MD LOWER EXTREMITY ARTERIAL DUPLEX: REASON FOR EXAM: Right lower berg pain after revascularization. COMMENTS ON THE RIGHT: Triphasic waveforms are seen proximally. Monophasic waveforms are seen distally. 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 Scattered plaque is seen throughout. Findings are consistent with abnormal perfusion COMMENTS ON THE LEFT: Monophasic flow is seen in the posterior tibial artery anterior tibial artery distally. Flow velocities are the well into the normal range. IMPRESSION: RIGHT: Monophasic flow in the distal tibial vessels. Flow velocities are at the low normal range. LEFT: Monophasic flow is noted distally. Flow velocity throughout the low normal range. Transcribed By: PRISCILA Dictated By: ALEJANDRO RO MD Electronically Authenticated By: ALEJANDRO RO MD Signed Date/Time: 09/18/17 0925 VASCULAR LAB.PRELIMINARY REPORT. BLE VENOUS DUPLEX DONE. TECHNICALLY DIFFICULT AND LIMITED STUDY DUE TO SEVERE RLE EDEMA/BANDAGES. NO DVT/SVT IN VESSELS VISUALIZED. Initialized on 09/26/17 17:39 - END OF NOTE Patient: BRADLEY PATEL MR#: [id number] : 1940 Acct:[id number] Age/Sex: 77 / M ADM Date: 09/16/17 Loc: 4A A453-[address]: YAW DURÁN MD Ordering Physician: WINDY THACKER Date of Service: 09/30/17 Procedure(s): NM bone scan infection 3 phase Accession Number(s): [id number] cc: WINDY THACKER TRIPLE PHASE BONE SCAN HISTORY: Diabetic foot ulcer of third toe and right foot, evaluate for osteomyelitis. FINDINGS: 25 mCi of technetium 99m MDP was administered intravenously. No radiographic correlation is provided. The perfusion images demonstrate minimal increased flow to the right lower extremity compared to the left. The blood pool images demonstrate subtle accumulation of the radiotracer in the distal third toe. 3 hour delayed images demonstrate focal accumulation of the radiotracer in the distal right third toe. IMPRESSION: Osteomyelitis of the right third toe. Transcribed By: TTR Dictated By: DAVID RIVERO JR, MD Electronically Authenticated By: DAVID RIVERO JR, MD Signed Date/Time: 09/30/17 1321 DD/ 1319 TD/TT: 09/30/17 1321 Procedures: Operative Report Operative Report: Date of Procedure: 09/17/2017 Pre-operative Diagnosis: Right Groin Lymphocele with Exposed PTFE Femoral Patch Post-operative Diagnosis: Same Procedure(s): 1. Excision of Right Femoral PTFE Patch And Repair with Right Greater Saphenous Vein 2. Coverage of Right Femoral Artery with Sartorius Muscle Flap 3. Wound VAC Placement (Wound Measures 17 x 4 x 2 cm) Surgeon: Saurav Gleason M.D. Jewelry Sales Representative: None Anesthesia: Gen. Endotracheal Anesthesia EBL: 600 mL Counts: Correct Complications: None Condition: Stable Findings: Exploration of the wound revealed the arterial patch was exposed without coverage. There was no evidence of purulence or obvious infection. Specimen: Right femoral arterial patch sent to pathology. Indication: The patient is a 77-year-old male with a history of peripheral arterial disease who underwent right femoral endarterectomy with PTFE patch closure. He did not follow-up for his postop visit however he presented to the emergency department with serous drainage from the superior aspect of the wound. There was concern for possible contamination of the patch so was felt that he would benefit from exploration of the wound and possible excision of the patch. He was given the risks, benefits, and alternative procedures and consented to the procedure. Description of Procedure: The patient was brought into the operating room and laid in supine position. After general endotracheal anesthesia was achieved he was prepped and draped in normal sterile fashion. A longitudinal incision was created to his previous incision in the right groin and upon digital exploration of his wound dehiscence my finger easily tracked down to the artery and was on top of the arterial patch making the decision to excise and replaced the patch easy. I opened the entire incision using cautery. Of note there was a significant amount of scar around the artery, likely secondary to the FloSeal however there was no evidence of purulence or infection. The patch itself was not well incorporated. I was able to gain proximal control of the common femoral artery and placed a vessel loop. Additionally I was able to control the SFA with a vessel loop however given the amount of scar around the profunda was unable to safely control the profunda branches so after systemically heparinizing the patient I use an 11 blade and Blue scissors to open the patch and placed 3 Jonny's with three-way stopcocks into the profunda branches and inflated them and like the three-way stopcocks. This controlled backbleeding from the profunda branches. I then used curved Mayos to completely excise the patch. I extended my incision distally and somewhat medially and was able to identify the saphenous vein which was somewhat small. I dissected out a long enough segment to harvest for closure of the arteriotomy and ligated the same in both proximal and distally using a 2-0 silk stitch. I then used Blue to open the vein and closed the arteriotomy using 2 6-0 Prolenes in running fashion. Prior to closing the arteriotomy I flashed the SFA and then the common femoral artery and flushed the arteriotomy using heparinized saline then deflated the 3 Jonny 's and remove them and then closed the arteriotomy. Hemostasis with on the patch was achieved with 6-0 Prolene. Once hemostasis was achieved a very released the vessel loops allowing flow into the SFA. Further hemostasis within the wound and on the patch was achieved with quick clot. Once hemostasis was achieved then mobilized the sartorius muscle on the lateral border from distally up to the anterior superior iliac spine. I then disconnected it from the anterior superior iliac spine and rotated over onto the femoral artery leaving the medial border attached to preserve the arterial supply to the muscle. I secured the proximal portion of the muscle to the anterior abdominal wall using 2-0 Vicryl in interrupted fashion. Then a test the lateral border of the muscle to the medial portion of the wound using a 2-0 Vicryl in interrupted fashion. Hemostasis within the wound was achieved with quick clot. Once hemostasis been achieved I then irrigated the wound and applied the VAC in sterile fashion and was able to achieve a seal. The patient tolerated the procedure well. All sponge, needle, and instrument counts were correct. The patient was taken to the recovery area in stable condition. Date of Procedure: 10/01/2017 Pre-operative Diagnosis: Osteomyelitis with Need for Long-Term Antibiotics Post-operative Diagnosis: Same Procedure(s): 1. Ultrasound-Guided Access Right Cephalic Vein 2. Placement of 5 Hungarian Dual Lumen PICC Line 3. Radiologic Supervision with Interpretation Surgeon: Saurav Gleason M.D. Jewelry Sales Representative: None Anesthesia: 2% Lidocaine Plain EBL: Minimal Counts: Correct Complications: None Condition: Stable Findings: PICC line placed with catheter tip at the atrial caval junction Specimen: None Indication: The patient is a 77-year-old male with a history of peripheral vascular disease who has osteomyelitis of his right third toe and needs at least 4 weeks of IV antibiotics. He will require IV access for the antibiotics and these PICC line placement. He was given the risks, benefits, and alternative procedures and consented to the procedure. Description of Procedure: The patient was brought to the cork slabs sawyer and laid in supine position. Initially a peripheral IV was wrapped and draped in normal sterile fashion and an attempt was made to wire this with a 0.018 wire and then a 0.014 wire without success. I removed his IV and then used ultrasound to identify and confirm patency of the cephalic vein in the arm proximal to the antecubital crease. I anesthetized the skin overlying tissue with lidocaine and then used a micropuncture needle to access the vein with ultrasound guidance. I advanced the 0.018 wire and the remove the needle and advanced the micropuncture sheath. I then advanced the 0.018 wire into the right atrium under fluoroscopy and used a hemostat to measure the length of the skin. I used this to cut the PICC line to length and then reinserted the wire and removed the micropuncture sheath. I inserted the peel-away sheath and removed the dilator. I then advanced the PICC line over the wire and pulled away the peel-away safety sheath. I then removed the wire and then aspirated and flushed both ports. The catheter was then secured in place with the Statlock and dressed sterilely. The final fluoroscopy demonstrated the catheter tip was at the caval atrial junction without any evidence of pneumothorax. The patient tolerated the procedure well. All sponge, needle, and instrument counts were correct. The patient was taken to his room in stable condition. Hospital course: The patient is a 77-year-old male with a history of peripheral vascular disease who initially underwent a right femoral endarterectomy with [place] patch angioplasty and atherectomy and stent of his SFA and popliteal arteries. He initially did well was discharged home however he failed to follow up in the office was postoperative follow-up. He presented to the emergency department on 09/16/2017 with swelling in his right groin and a serous discharge from a punctate lesion at the superior aspect of his wound. He denied fever or chills and did not have a leukocytosis however given the drainage and the [place] patch on his right femoral endarterectomy site there was concern for possible infection and it was decided that he required admission and excision of the patch for prevention of infection. He was taken to the operating room the following day for excision of the patch replacement with a vein patch and coverage of the artery with a sartorius muscle flap.. He tolerated the procedure well and was taken to the ICU for his postoperative management. His postoperative course was complicated with hemorrhage from the wound secondary to supratherapeutic INR secondary to his anticoagulation with Coumadin. This was managed with removal of the VAC and stopping his Coumadin until his INR drifted down to his therapeutic level. Additionally he had pressure dressings placed in his right groin to help with control of the bleeding. Once the bleeding was stopped the VAC was able to be replaced and eventually the patient was able to be transferred to the telemetry unit where he was able to begin ambulating with physical therapy which he tolerated well and progressively increased his physical activity. He continued to improve however his discharge was delayed when it was noted that he had purulent discharge from his third right toe and infectious disease was consulted for recommendations. Initially an MRI was ordered however the patient has a defibrillator which ruled this out as a diagnostic option. As eventually taken for a bone scan which revealed osteomyelitis of the third toe. The patient has remained afebrile and has not developed a leukocytosis. He has been started on IV antibiotics and since that time has not any further purulent drainage from the toe and states that all of his pain has resolved. He has had no further bleeding from his wound VAC and no continues to heal well. He has continued to progressively increase his activity with physical therapy. He has had a PICC line placed for his 4 week course of IV antibiotics and is now clinically ready for discharge to a assisted facility. Disposition: DC/[place]-03 SNF [facility] Core Measure Documentation - Palliative Care Palliative Care/ Comfort Measures: Not Applicable - Core Measures Any of the following diagnoses?: history only - VTE Discharge Requirements Deep Vein Thrombosis/Pulmonary Embolism Present on Admission: No - Acute LA Discharge Requirements Aspirin at discharge: Yes Exam - Constitutional Vitals: Temp Pulse Resp BP Pulse Ox 98.9 F 76 16 94/56 93 10/01/17 11:34 10/01/17 11:34 10/01/17 11:34 10/01/17 11:34 10/01/17 11:34 General appearance: Present: no acute distress - Neck Neck: Present: supple - Respiratory Respiratory effort: normal - Cardiovascular Rhythm: irregularly irregular - Extremities Extremities: normal temperature Extremity abnormal: edema (right lower extremity), ulceration (right third toe without evidence of purulence), other (right groin wound VAC in place with adequate seal) - Abdominal General gastrointestinal: Present: soft, non-tender, tender Male genitourinary: Present: penile edema, scrotal edema Plan Activity: other (physical cavity as tolerated with assistance) Weight Bearing Status: Full Weight Bearing Wound: other (wound VAC changes per wound care) Follow up with: RANDY DAIGLE MD [Staff Physician] - 7 Days WINDY DAVENPORT MD [Staff Physician] - 14 Days SAURAV GLEASON MD [Staff Physician] - 14 Days Forms: Warfarin Discharge Instruction
[2017-10-01] MEDS: COUMADIN PO SCH (17:43)
--- NOTE | 2017-10-01 19:22 | Progress Note ---
Assessment and Plan Peripheral vascular disease, status post right femoral endarterectomy with patch angioplasty. Dehisced right femoral endarterectomy repair (status post excision of the right femoral patch and repair with coverage of the right femoral artery with a sartorius muscle flap. Osteomyelitis Acute hypoxemic respiratory failure--reolved. GUICHO Atrial fibrillation, chronic. Status post aortic valve replacement and on full anticoagulation. Coronary artery disease. Gastroesophageal reflux disease. Hypertension. Hyperlipidemia. History of prostate cancer. History of carotid stenosis. - conservative volume strategies re: CMOP -IV antibiotics for 6 weeks for osteomyelitis - continue coumadin -continue metformin and monitor. -wound care to right groin - continue GI prophylaxis - continue supplemental oxygen to keep sats > 90% - continue bronchodilators with pulmonary hygiene per RT -LTACH evaluation for antibiotics and wound care Subjective Date of service: 10/01/17 Principal diagnosis: R. Fem endarterectomy wound dehiscence/infection; Anemia ( ABLA); Hypoxemia Interval history: Patient was seen and examined. Vitals, labs, medications, chart reviewed. Wound vac to the right thigh wound. Osteomyelitis with placement of PICC line today for prolonged antibiotics Objective Vital Signs - 12hr 10/01/17 10/01/17 10/01/17 08:39 10:00 10:30 Temperature 99.3 F Pulse Rate 91 H 93 H Pulse Rate [ 85 Anterior Bilateral Throughout] Respiratory 16 Rate Respiratory 20 Rate [Anterior Bilateral Throughout] Blood Pressure Blood Pressure 108/56 [Left] O2 Sat by Pulse 90 95 Oximetry 10/01/17 10/01/17 10:40 11:34 Temperature 98.9 F Pulse Rate 76 Pulse Rate [ 85 Anterior Bilateral Throughout] Respiratory 16 Rate Respiratory 20 Rate [Anterior Bilateral Throughout] Blood Pressure 94/56 Blood Pressure [Left] O2 Sat by Pulse 93 Oximetry Constitutional: no acute distress, alert, other (elderly looking CM, normocephalic, ) Eyes: non-icteric ENT: oropharynx moist, other ([place] 2) Neck: supple, no lymphadenopathy, no JVD Effort: normal Ascultation: Bilateral: clear, diminished breath sounds, rhonchi (posterior bases) Percussion: Bilateral: not dull Cardiovascular: regular rate and rhythm, PVC's noted, murmur noted (metalic valve click too; Systolic), other (No Rubs) Gastrointestinal: normoactive bowel sounds, soft, non-tender, non-distended, other (No palpable HSM) Integumentary: cellulitis (Right groin) Extremities: no cyanosis, no edema, pink and warm, no ischemia or petechiae, other (right groin dressing in place; no bright red bleeding) Neurologic: normal mental status, non-focal exam, pupils equal and round, motor strength normal and Psychiatric: mood appropriate, affect normal CBC and BMP: 09/30/17 07:10 09/30/17 07:10 ABG, PT/INR, D-dimer: PT/INR, D-dimer PT 29.8 Sec. (12.2-14.9) H 10/01/17 07:39 INR 2.62 (0.87-1.13) H 10/01/17 07:39 Abnormal lab findings: Abnormal Labs 09/16/17 09/16/17 09/16/17 21:14 21:14 21:14 WBC RBC Hgb 11.6 L Hct MCV 82 L MCH 27 L RDW Lymph % (Auto) [place] % (Auto) 9.5 H Eos % (Auto) 5.4 H Lymph # [place] # Eos # Seg Neutrophils % Seg Neutrophils # PT 23.0 H INR 1.90 H APTT Heparin Anti-Xa Level Sodium 136 L Chloride Carbon Dioxide BUN 21 H Creatinine Glucose 153 H POC Glucose Calcium C-Reactive Protein Crossmatch 09/16/17 09/17/17 09/17/17 21:53 05:21 06:46 WBC RBC Hgb Hct MCV MCH RDW Lymph % (Auto) [place] % (Auto) Eos % (Auto) Lymph # [place] # Eos # Seg Neutrophils % Seg Neutrophils # PT INR APTT Heparin Anti-Xa Level Sodium Chloride Carbon Dioxide BUN Creatinine Glucose POC Glucose 158 H 125 H 174 H Calcium C-Reactive Protein Crossmatch 09/17/17 09/17/17 09/17/17 11:04 14:02 16:49 WBC RBC Hgb Hct MCV MCH RDW Lymph % (Auto) [place] % (Auto) Eos % (Auto) Lymph # [place] # Eos # Seg Neutrophils % Seg Neutrophils # PT INR APTT Heparin Anti-Xa Level Sodium Chloride Carbon Dioxide BUN Creatinine Glucose POC Glucose 173 H 201 H Calcium C-Reactive Protein Crossmatch See Detail 09/17/17 09/18/17 09/18/17 21:46 04:50 04:50 WBC RBC Hgb 10.8 L Hct 32.5 L MCV MCH RDW 15.4 H Lymph % (Auto) [place] % (Auto) Eos % (Auto) Lymph # [place] # Eos # Seg Neutrophils % Seg Neutrophils # PT INR APTT Heparin Anti-Xa Level Sodium Chloride Carbon Dioxide BUN Creatinine Glucose 162 H POC Glucose 157 H Calcium 7.8 L D C-Reactive Protein Crossmatch 09/18/17 09/18/17 09/18/17 07:26 08:46 12:15 WBC RBC Hgb Hct MCV MCH RDW Lymph % (Auto) [place] % (Auto) Eos % (Auto) Lymph # [place] # Eos # Seg Neutrophils % Seg Neutrophils # PT 30.0 H INR 2.64 H APTT Heparin Anti-Xa Level Sodium Chloride Carbon Dioxide BUN Creatinine Glucose POC Glucose 182 H 176 H Calcium C-Reactive Protein Crossmatch 09/18/17 09/18/17 09/18/17 13:32 16:19 21:37 WBC RBC Hgb 10.8 L Hct 32.3 L MCV MCH RDW Lymph % (Auto) [place] % (Auto) Eos % (Auto) Lymph # [place] # Eos # Seg Neutrophils % Seg Neutrophils # PT INR APTT Heparin Anti-Xa Level Sodium Chloride Carbon Dioxide BUN Creatinine Glucose POC Glucose 200 H 168 H Calcium C-Reactive Protein Crossmatch 09/18/17 09/19/17 09/19/17 23:35 02:18 04:19 WBC 13.5 H RBC Hgb 10.6 L Hct 32.9 L MCV MCH 27 L RDW Lymph % (Auto) 11.5 L [place] % (Auto) 11.1 H Eos % (Auto) Lymph # [place] # 1.5 H Eos # Seg Neutrophils % 74.0 H Seg Neutrophils # 10.0 H PT 39.6 H INR 3.73 H APTT Heparin Anti-Xa Level Sodium Chloride Carbon Dioxide BUN Creatinine Glucose POC Glucose 204 H Calcium C-Reactive Protein Crossmatch 09/19/17 09/19/17 09/19/17 04:19 06:34 08:45 WBC RBC Hgb 9.7 L Hct 29.3 L MCV MCH RDW Lymph % (Auto) [place] % (Auto) Eos % (Auto) Lymph # [place] # Eos # Seg Neutrophils % Seg Neutrophils # PT INR APTT Heparin Anti-Xa Level Sodium Chloride Carbon Dioxide BUN Creatinine Glucose POC Glucose 172 H 156 H Calcium C-Reactive Protein Crossmatch 09/19/17 09/19/17 09/19/17 12:44 14:34 17:20 WBC RBC Hgb Hct MCV MCH RDW Lymph % (Auto) [place] % (Auto) Eos % (Auto) Lymph # [place] # Eos # Seg Neutrophils % Seg Neutrophils # PT INR APTT Heparin Anti-Xa Level Sodium Chloride Carbon Dioxide BUN Creatinine Glucose POC Glucose 181 H 232 H 213 H Calcium C-Reactive Protein Crossmatch 09/19/17 09/20/17 09/20/17 21:33 01:58 02:01 WBC RBC Hgb Hct MCV MCH RDW Lymph % (Auto) [place] % (Auto) Eos % (Auto) Lymph # [place] # Eos # Seg Neutrophils % Seg Neutrophils # PT INR APTT Heparin Anti-Xa Level Sodium Chloride Carbon Dioxide BUN Creatinine Glucose POC Glucose 202 H > 500 H 208 H Calcium C-Reactive Protein Crossmatch 09/20/17 09/20/17 09/20/17 03:31 03:31 05:20 WBC 11.6 H RBC 2.97 L Hgb 8.1 L Hct 24.0 L MCV 81 L MCH 27 L RDW Lymph % (Auto) [place] % (Auto) Eos % (Auto) Lymph # [place] # Eos # Seg Neutrophils % Seg Neutrophils # PT 40.6 H INR 3.85 H APTT Heparin Anti-Xa Level Sodium Chloride Carbon Dioxide BUN Creatinine Glucose POC Glucose 191 H Calcium C-Reactive Protein Crossmatch 09/20/17 09/20/17 09/20/17 09:24 12:23 12:23 WBC RBC Hgb Hct MCV MCH RDW Lymph % (Auto) [place] % (Auto) Eos % (Auto) Lymph # [place] # Eos # Seg Neutrophils % Seg Neutrophils # PT 36.6 H INR 3.38 H APTT Heparin Anti-Xa Level Sodium 135 L Chloride Carbon Dioxide BUN 40 H Creatinine 1.8 H Glucose 219 H POC Glucose 234 H Calcium 7.9 L C-Reactive Protein Crossmatch 09/20/17 09/20/17 09/20/17 14:17 17:45 22:46 WBC RBC Hgb Hct MCV MCH RDW Lymph % (Auto) [place] % (Auto) Eos % (Auto) Lymph # [place] # Eos # Seg Neutrophils % Seg Neutrophils # PT INR APTT Heparin Anti-Xa Level Sodium Chloride Carbon Dioxide BUN Creatinine Glucose POC Glucose 226 H 222 H 221 H Calcium C-Reactive Protein Crossmatch 09/20/17 09/21/17 09/21/17 Unknown 02:48 07:14 WBC RBC Hgb Hct MCV MCH RDW Lymph % (Auto) [place] % (Auto) Eos % (Auto) Lymph # [place] # Eos # Seg Neutrophils % Seg Neutrophils # PT INR APTT Heparin Anti-Xa Level Sodium Chloride Carbon Dioxide BUN Creatinine Glucose POC Glucose 211 H 170 H Calcium C-Reactive Protein Crossmatch See Detail 09/21/17 09/21/17 09/21/17 09:22 09:22 09:22 WBC 11.5 H RBC 3.26 L Hgb 9.1 L Hct 28.0 L MCV MCH RDW 15.5 H Lymph % (Auto) [place] % (Auto) Eos % (Auto) Lymph # [place] # Eos # Seg Neutrophils % Seg Neutrophils # PT 28.7 H INR 2.50 H APTT Heparin Anti-Xa Level Sodium 134 L Chloride 95.2 L Carbon Dioxide BUN 39 H Creatinine Glucose 156 H POC Glucose Calcium 7.7 L C-Reactive Protein Crossmatch 09/21/17 09/21/17 09/21/17 09:44 14:40 17:32 WBC RBC Hgb Hct MCV MCH RDW Lymph % (Auto) [place] % (Auto) Eos % (Auto) Lymph # [place] # Eos # Seg Neutrophils % Seg Neutrophils # PT INR APTT Heparin Anti-Xa Level Sodium Chloride Carbon Dioxide BUN Creatinine Glucose POC Glucose 181 H 237 H 141 H Calcium C-Reactive Protein Crossmatch 09/21/17 09/22/17 09/22/17 21:34 02:55 04:09 WBC RBC Hgb Hct MCV MCH RDW Lymph % (Auto) [place] % (Auto) Eos % (Auto) Lymph # [place] # Eos # Seg Neutrophils % Seg Neutrophils # PT 27.2 H INR 2.34 H APTT Heparin Anti-Xa Level Sodium Chloride Carbon Dioxide BUN Creatinine Glucose POC Glucose 158 H 163 H Calcium C-Reactive Protein Crossmatch 09/22/17 09/22/17 09/22/17 05:41 08:22 12:14 WBC RBC Hgb Hct MCV MCH RDW Lymph % (Auto) [place] % (Auto) Eos % (Auto) Lymph # [place] # Eos # Seg Neutrophils % Seg Neutrophils # PT INR APTT Heparin Anti-Xa Level Sodium Chloride Carbon Dioxide BUN Creatinine Glucose POC Glucose 157 H 145 H 167 H Calcium C-Reactive Protein Crossmatch 09/22/17 09/22/17 09/22/17 14:10 16:07 16:46 WBC RBC 3.20 L Hgb 8.8 L Hct 27.8 L MCV MCH RDW 15.5 H Lymph % (Auto) 12.7 L [place] % (Auto) 9.6 H Eos % (Auto) 7.6 H Lymph # 0.9 L [place] # Eos # 0.6 H Seg Neutrophils % Seg Neutrophils # PT 26.3 H INR 2.24 H APTT 61.7 H* Heparin Anti-Xa Level < 0.10 L Sodium Chloride Carbon Dioxide BUN Creatinine Glucose POC Glucose 139 H Calcium C-Reactive Protein Crossmatch 09/22/17 09/22/17 09/23/17 22:20 23:53 02:06 WBC RBC Hgb Hct MCV MCH RDW Lymph % (Auto) [place] % (Auto) Eos % (Auto) Lymph # [place] # Eos # Seg Neutrophils % Seg Neutrophils # PT INR APTT Heparin Anti-Xa Level 0.24 L Sodium Chloride Carbon Dioxide BUN Creatinine Glucose POC Glucose 185 H 140 H Calcium C-Reactive Protein Crossmatch 09/23/17 09/23/17 09/23/17 05:19 05:19 05:45 WBC RBC Hgb Hct MCV MCH RDW Lymph % (Auto) [place] % (Auto) Eos % (Auto) Lymph # [place] # Eos # Seg Neutrophils % Seg Neutrophils # PT 26.8 H INR 2.30 H APTT Heparin Anti-Xa Level 0.24 L Sodium Chloride Carbon Dioxide 21 L BUN 33 H Creatinine Glucose 161 H POC Glucose 167 H Calcium 7.5 L C-Reactive Protein Crossmatch 09/23/17 09/23/17 09/23/17 10:06 12:04 15:00 WBC RBC 3.18 L Hgb 8.9 L Hct 26.9 L MCV MCH RDW 15.7 H Lymph % (Auto) [place] % (Auto) Eos % (Auto) Lymph # [place] # Eos # Seg Neutrophils % Seg Neutrophils # PT INR APTT Heparin Anti-Xa Level Sodium Chloride Carbon Dioxide BUN Creatinine Glucose POC Glucose 186 H 236 H Calcium C-Reactive Protein Crossmatch 09/23/17 09/23/17 09/24/17 17:23 22:39 04:43 WBC RBC 3.58 L Hgb 10.2 L Hct 29.9 L MCV MCH RDW 15.8 H Lymph % (Auto) [place] % (Auto) Eos % (Auto) Lymph # [place] # Eos # Seg Neutrophils % Seg Neutrophils # PT INR APTT Heparin Anti-Xa Level Sodium Chloride Carbon Dioxide BUN Creatinine Glucose POC Glucose 154 H 189 H Calcium C-Reactive Protein Crossmatch 09/24/17 09/24/17 09/24/17 04:54 06:28 06:53 WBC RBC Hgb Hct MCV MCH RDW Lymph % (Auto) [place] % (Auto) Eos % (Auto) Lymph # [place] # Eos # Seg Neutrophils % Seg Neutrophils # PT 29.0 H INR 2.53 H APTT Heparin Anti-Xa Level 0.10 L Sodium Chloride Carbon Dioxide BUN Creatinine Glucose POC Glucose 200 H 225 H Calcium C-Reactive Protein Crossmatch 09/24/17 09/24/17 09/24/17 11:38 16:09 22:44 WBC RBC Hgb Hct MCV MCH RDW Lymph % (Auto) [place] % (Auto) Eos % (Auto) Lymph # [place] # Eos # Seg Neutrophils % Seg Neutrophils # PT INR APTT Heparin Anti-Xa Level Sodium Chloride Carbon Dioxide BUN Creatinine Glucose POC Glucose 228 H 226 H 157 H Calcium C-Reactive Protein Crossmatch 09/25/17 09/25/17 09/25/17 04:36 07:13 11:16 WBC RBC Hgb Hct MCV MCH RDW Lymph % (Auto) [place] % (Auto) Eos % (Auto) Lymph # [place] # Eos # Seg Neutrophils % Seg Neutrophils # PT 34.2 H INR 3.11 H APTT Heparin Anti-Xa Level Sodium Chloride Carbon Dioxide BUN Creatinine Glucose POC Glucose 167 H 195 H Calcium C-Reactive Protein Crossmatch 09/25/17 09/25/17 09/25/17 12:27 16:44 22:09 WBC RBC Hgb Hct MCV MCH RDW Lymph % (Auto) [place] % (Auto) Eos % (Auto) Lymph # [place] # Eos # Seg Neutrophils % Seg Neutrophils # PT INR APTT Heparin Anti-Xa Level Sodium Chloride Carbon Dioxide BUN Creatinine Glucose POC Glucose 185 H 197 H 181 H Calcium C-Reactive Protein Crossmatch 09/26/17 09/26/17 09/26/17 01:59 04:59 06:19 WBC RBC Hgb Hct MCV MCH RDW Lymph % (Auto) [place] % (Auto) Eos % (Auto) Lymph # [place] # Eos # Seg Neutrophils % Seg Neutrophils # PT 37.0 H INR 3.43 H APTT Heparin Anti-Xa Level Sodium Chloride Carbon Dioxide BUN Creatinine Glucose POC Glucose 180 H 161 H Calcium C-Reactive Protein Crossmatch 09/26/17 09/26/17 09/26/17 11:08 18:01 21:14 WBC RBC Hgb Hct MCV MCH RDW Lymph % (Auto) [place] % (Auto) Eos % (Auto) Lymph # [place] # Eos # Seg Neutrophils % Seg Neutrophils # PT INR APTT Heparin Anti-Xa Level Sodium Chloride Carbon Dioxide BUN Creatinine Glucose POC Glucose 224 H 169 H 208 H Calcium C-Reactive Protein Crossmatch 09/27/17 09/27/17 09/27/17 05:14 05:58 10:03 WBC RBC Hgb Hct MCV MCH RDW Lymph % (Auto) [place] % (Auto) Eos % (Auto) Lymph # [place] # Eos # Seg Neutrophils % Seg Neutrophils # PT 37.2 H INR 3.45 H APTT Heparin Anti-Xa Level Sodium Chloride Carbon Dioxide BUN Creatinine Glucose POC Glucose 156 H 212 H Calcium C-Reactive Protein Crossmatch 09/27/17 09/27/17 09/27/17 13:26 16:17 21:22 WBC RBC Hgb Hct MCV MCH RDW Lymph % (Auto) [place] % (Auto) Eos % (Auto) Lymph # [place] # Eos # Seg Neutrophils % Seg Neutrophils # PT INR APTT Heparin Anti-Xa Level Sodium Chloride Carbon Dioxide BUN Creatinine Glucose POC Glucose 182 H 165 H Calcium C-Reactive Protein 8.60 H Crossmatch 09/28/17 09/28/17 09/28/17 04:26 05:20 11:43 WBC RBC Hgb Hct MCV MCH RDW Lymph % (Auto) [place] % (Auto) Eos % (Auto) Lymph # [place] # Eos # Seg Neutrophils % Seg Neutrophils # PT 35.1 H INR 3.21 H APTT Heparin Anti-Xa Level Sodium Chloride Carbon Dioxide BUN Creatinine Glucose POC Glucose 186 H 195 H Calcium C-Reactive Protein Crossmatch 09/28/17 09/28/17 09/29/17 15:58 21:42 05:08 WBC RBC Hgb Hct MCV MCH RDW Lymph % (Auto) [place] % (Auto) Eos % (Auto) Lymph # [place] # Eos # Seg Neutrophils % Seg Neutrophils # PT 28.2 H INR 2.45 H APTT Heparin Anti-Xa Level Sodium Chloride Carbon Dioxide BUN Creatinine Glucose POC Glucose 186 H 196 H Calcium C-Reactive Protein Crossmatch 09/29/17 09/29/17 09/29/17 06:25 11:36 17:26 WBC RBC Hgb Hct MCV MCH RDW Lymph % (Auto) [place] % (Auto) Eos % (Auto) Lymph # [place] # Eos # Seg Neutrophils % Seg Neutrophils # PT INR APTT Heparin Anti-Xa Level Sodium Chloride Carbon Dioxide BUN Creatinine Glucose POC Glucose 162 H 213 H 250 H Calcium C-Reactive Protein Crossmatch 09/29/17 09/30/17 09/30/17 21:08 07:10 07:10 WBC 12.7 H RBC 3.21 L Hgb 8.5 L Hct 26.9 L MCV MCH 27 L RDW 16.0 H Lymph % (Auto) 9.6 L [place] % (Auto) 9.4 H Eos % (Auto) Lymph # [place] # 1.2 H Eos # Seg Neutrophils % 78.4 H Seg Neutrophils # 10.0 H PT 29.2 H INR 2.56 H APTT Heparin Anti-Xa Level Sodium Chloride Carbon Dioxide BUN Creatinine Glucose POC Glucose 209 H Calcium C-Reactive Protein Crossmatch 09/30/17 09/30/17 09/30/17 07:10 11:30 16:07 WBC RBC Hgb Hct MCV MCH RDW Lymph % (Auto) [place] % (Auto) Eos % (Auto) Lymph # [place] # Eos # Seg Neutrophils % Seg Neutrophils # PT INR APTT Heparin Anti-Xa Level Sodium Chloride 108.9 H Carbon Dioxide BUN 23 H Creatinine Glucose 156 H POC Glucose 205 H 187 H Calcium 8.3 L C-Reactive Protein Crossmatch 09/30/17 10/01/17 10/01/17 20:42 06:47 07:39 WBC RBC Hgb Hct MCV MCH RDW Lymph % (Auto) [place] % (Auto) Eos % (Auto) Lymph # [place] # Eos # Seg Neutrophils % Seg Neutrophils # PT 29.8 H INR 2.62 H APTT Heparin Anti-Xa Level Sodium Chloride Carbon Dioxide BUN Creatinine Glucose POC Glucose 197 H 174 H Calcium C-Reactive Protein Crossmatch 10/01/17 11:42 WBC RBC Hgb Hct MCV MCH RDW Lymph % (Auto) [place] % (Auto) Eos % (Auto) Lymph # [place] # Eos # Seg Neutrophils % Seg Neutrophils # PT INR APTT Heparin Anti-Xa Level Sodium Chloride Carbon Dioxide BUN Creatinine Glucose POC Glucose 178 H Calcium C-Reactive Protein Crossmatch Allied health notes reviewed: nursing
[2017-10-01] MEDS: SENOKOT PO SCH (22:43)
[2017-10-02] MEDS: MAXIPIME 2 GM in NACL 0.9% 20 ML IV SCH (05:39)
[2017-10-02 06:05] LABS: INR 2.93 (0.87-1.13)
[2017-10-02] MEDS: HumaLOG SUB-Q SCH (07:15)
[2017-10-02 08:21] VITALS: BP 124/57
[2017-10-02] MEDS: BROVANA NEBU IH SCH (09:00)
[2017-10-02] MEDS: PULMICORT IH SCH (09:00)
--- NOTE | 2017-10-02 09:02 | Progress Note ---
Assessment and Plan Discharge for long-term rehabilitation Subjective Date of service: 10/02/17 Principal diagnosis: R. Fem endarterectomy wound dehiscence/infection; Anemia ( ABLA); Hypoxemia Interval history: Patient status post right femoral endarterectomy with application of wound VAC. Is status post PICC line placement as well for long-term IV antibiotics. Patient was scheduled to be discharged yesterday however, the sponges for his wound VAC were unavailable and his discharge was held until today. Once the sponges become available, the patient will be discharged to rehabilitation Objective - Constitutional Vitals: Vital Signs - 12hr 10/01/17 10/02/17 10/02/17 23:29 00:08 03:41 Temperature 98.2 F Pulse Rate 64 63 69 Pulse Rate [ Anterior Bilateral Throughout] Respiratory 18 Rate Respiratory Rate [Anterior Bilateral Throughout] Blood Pressure 108/42 96/50 Blood Pressure 108/47 [Left] O2 Sat by Pulse 99 98 97 Oximetry 10/02/17 10/02/17 10/02/17 04:14 07:15 08:52 Temperature 98.6 F 97.6 F Pulse Rate 84 67 Pulse Rate [ 87 Anterior Bilateral Throughout] Respiratory 20 18 Rate Respiratory 16 Rate [Anterior Bilateral Throughout] Blood Pressure 124/57 Blood Pressure 96/50 [Left] O2 Sat by Pulse 96 96 97 Oximetry General appearance: Present: no acute distress - EENT Eyes: PERRL, EOM intact ENT: hearing intact - Neck Neck: supple, normal ROM - Respiratory Respiratory effort: normal Extremities: abnormal - Gastrointestinal General gastrointestinal: Present: deferred - Genitourinary Male genitourinary: deferred - Neurologic Neurologic: CNII-XII intact, no focal deficits - Psychiatric Psychiatric: appropriate mood/affect, cooperative - Labs CBC & Chem 7: 09/30/17 07:10 09/30/17 07:10 Labs: Abnormal lab results 10/01/17 10/01/17 10/01/17 Range/Units 11:42 16:48 21:44 PT (12.2-14.9) Sec. INR (0.87-1.13) POC Glucose 178 H 241 H 216 H (70-105) 10/02/17 10/02/17 Range/Units 05:06 05:09 PT 32.6 H (12.2-14.9) Sec. INR 2.93 H (0.87-1.13) POC Glucose 174 H (70-105)
--- NOTE | 2017-10-02 09:47 | Progress Note ---
Assessment and Plan The patient is 77-year-old male with a history of severeperipheral vascular disease, prosthetic aortic valve who recently underwent a right femoral endarterectomy with Dacron patch angioplasty. He also had atherectomy and angioplasty with stent of his SFA and popliteal artery on the right. He initially did well but was unable to follow-up in the outpatient setting for his postoperative visit secondary to transportation issues. He states that approximately 2 days ago he began to note clear yellow drainage from his right groin. patient admitted by vacular surgery and did 1. Excision of Right Femoral PTFE Patch And Repair with Right Greater Saphenous Vein 2. Coverage of Right Femoral Artery with Sartorius Muscle Flap Wound VAC Placement recommended We have been consulted for medical management. patient's medical history is significant for DM, HTN, afib on anticoagulation. patient's home medications were reconciled by vascular. Continue current management. H/H stable. Osteomyelitis right 3 toes Continu with iv Cefepin for total of 4 wks per ID GUICHO - Resolved - On IV fluids Scrotal swelling - supportive care, elevation Right 2nd 3rd toes ulcer? gangrene ? osteomyelitis -Right foot wound, culture positive for pseudomonas. patient is on cefepime Per ID. Mechanical AVR Coumadin Afib cardiology following. Therapeutic on coumadin Peripheral vascular disease s/p underwent a right femoral endarterectomy with Dacron patch angioplasty. He also had atherectomy and angioplasty with stent of his SFA and popliteal artery on the right on 08/13/17. DM Accucheck AC/HS DVT/GI PROPH DISP PER VASCULAR. Planned for discharge. Subjective Date of service: 10/02/17 Principal diagnosis: R. Fem endarterectomy wound dehiscence/infection; Anemia ( ABLA); Hypoxemia Interval history: Patient seen and examined. No new complaints. Remains afebrile. Objective - Exam Narrative Exam: Constitutional: Well-nourished well-developed. In no distress Head: Normocephalic atraumatic Eyes: Pupils are equal round and reactive to light Nose: No enlarged turbinates, no septal deviation. Mouth: Moist mucous membranes. Neck: Supple no thyromegaly. No bruit. No JVD Heart: Regular rate and rhythm, S1-S2 abnormal. No rubs murmurs or gallop Lungs: Clear to auscultation bilaterally no rales or rhonchi Abdomen: Soft, nontender. Bowel sound are present. Extremities: No edema no cyanosis and no clubbing. Neuro: Alert oriented Oriented x3. No focal sensory or motor deficit. Skin: Right wound VAC draining. Dry dressing. Psychiatry: Euthymic. Calm. - Constitutional Vitals: Vital Signs - 12hr 10/01/17 10/02/17 10/02/17 23:29 00:08 03:41 Temperature 98.2 F Pulse Rate 64 63 69 Pulse Rate [ Anterior Bilateral Throughout] Respiratory 18 Rate Respiratory Rate [Anterior Bilateral Throughout] Blood Pressure 108/42 96/50 Blood Pressure 108/47 [Left] O2 Sat by Pulse 99 98 97 Oximetry 10/02/17 10/02/17 10/02/17 04:14 07:15 08:52 Temperature 98.6 F 97.6 F Pulse Rate 84 67 Pulse Rate [ 87 Anterior Bilateral Throughout] Respiratory 20 18 Rate Respiratory 16 Rate [Anterior Bilateral Throughout] Blood Pressure 124/57 Blood Pressure 96/50 [Left] O2 Sat by Pulse 96 96 97 Oximetry - Labs CBC & Chem 7: 09/30/17 07:10 09/30/17 07:10 Labs: Abnormal lab results 10/01/17 10/01/17 10/01/17 Range/Units 11:42 16:48 21:44 PT (12.2-14.9) Sec. INR (0.87-1.13) POC Glucose 178 H 241 H 216 H (70-105) 10/02/17 10/02/17 Range/Units 05:06 05:09 PT 32.6 H (12.2-14.9) Sec. INR 2.93 H (0.87-1.13) POC Glucose 174 H (70-105)
--- NOTE | 2017-10-02 10:11 | Progress Note ---
Assessment and Plan Peripheral artery disease H/O mechanical aortic valve replacement anticoagulated on Warfarin Paroxysmal atrial fibrillation currently in stable sinus rhythm on metoprolol Anemia s/p transfusion of PRBCs Normal persantine thallium 05/2017 Well functioning mechanical AVR, EF 50-55% on echo 05/2017 Conservative cardiac management. Subjective Date of service: 10/02/17 Principal diagnosis: R. Fem endarterectomy wound dehiscence/infection; Anemia ( ABLA); Hypoxemia Interval history: Discharge held s/t supplies needed for wound vac. Patient has no cardiac complaints. Objective Vital Signs Temp Pulse Pulse Resp Resp BP BP 10/02/17 08:52 87 16 10/02/17 07:15 97.6 F 67 18 124/57 10/02/17 04:14 98.6 F 84 20 96/50 10/02/17 03:41 69 96/50 10/02/17 00:08 98.2 F 63 18 108/47 10/01/17 23:29 64 108/42 10/01/17 19:59 97 F L 63 18 89/53 10/01/17 19:17 61 89/53 10/01/17 11:34 98.9 F 76 16 94/56 10/01/17 10:40 85 20 10/01/17 10:30 85 20 Pulse Ox 10/02/17 08:52 97 10/02/17 07:15 96 10/02/17 04:14 96 10/02/17 03:41 97 10/02/17 00:08 98 10/01/17 23:29 99 10/01/17 19:59 95 10/01/17 19:17 95 10/01/17 11:34 93 10/01/17 10:40 10/01/17 10:30 95 - Physical Examination General: No Apparent Distress HEENT: Positive: PERRL Cardiac: Positive: Reg Rate and Rhythm Neuro: Positive: Weakness Extremities: Absent: edema - Labs and Meds Coagulation 10/02/17 Range/Units 05:06 PT 32.6 H (12.2-14.9) Sec. INR 2.93 H (0.87-1.13) - Allied health notes Allied health notes reviewed: nursing
[2017-10-02] MEDS: LANTUS SUB-Q SCH (10:52)
[2017-10-02] MEDS: PERCOCET 5/325 PO PRN (10:52)
[2017-10-02] MEDS: GLUCOPHAGE PO SCH (10:52)
[2017-10-02] MEDS: HCTZ PO SCH (10:52)
[2017-10-02] MEDS: COLACE PO SCH (10:52)
[2017-10-02] MEDS: COZAAR PO SCH (10:52)
[2017-10-02] MEDS: PROTONIX PO SCH (10:52)
[2017-10-02] MEDS: LOPRESSOR PO SCH (10:52)
[2017-10-02] MEDS: SODIUM CHLORIDE FLUSH SYRINGE 10 ML IV SCH (10:53)
[2017-10-02] MEDS: PLAQUENIL PO SCH (10:53)
--- NOTE | 2017-10-02 13:13 | Vascular Lab Report ---
LOWER EXTREMITY VENOUS DUPLEX: REASON FOR EXAM: Pain and swelling of the lower extremities. COMMENTS ON THE RIGHT: All veins visualized are freely compressible without evidence of internal echogenicity. Flow is spontaneous and phasic throughout. Visualization of the femoral areas limited by bandages. Nonspecific soft tissue changes (hematomas?) are seen in the femoral area. COMMENTS ON THE LEFT: All veins visualized are freely compressible without evidence of internal echogenicity. Flow is spontaneous and phasic throughout. IMPRESSION: No evidence of acute or chronic deep venous thrombosis in either lower extremity. The femoral area on the right side is obscured by bandages. There are nonspecific soft tissue changes around the right femoral area which could be consistent with hematomas.
== END 2017-10-02 12:00 | DRG 907 ==
LOC: ED 17:40 → 2B-ACE 20:57 → CC1 09-17 20:26 → 4A 09-23 18:41
PROVIDERS: ADMIT Internal Medicine; ATTEND Family Medicine
PROC: 0KXQ0ZZ Transfer Right Upper Leg Muscle, Open Approach (ICD-10-PCS; principal; 2017-09-17)
PROC: 06BP0ZZ Excision of Right Saphenous Vein, Open Approach (ICD-10-PCS; 2017-09-17)
PROC: 04UK07Z Supplement Right Femoral Artery with Autologous Tissue Substitute, Open Approach (ICD-10-PCS; 2017-09-17)
PROC: 04PY0JZ Removal of Synthetic Substitute from Lower Artery, Open Approach (ICD-10-PCS; 2017-09-17)
PROC: 30233N1 Transfusion of Nonautologous Red Blood Cells into Peripheral Vein, Percutaneous Approach (ICD-10-PCS; 2017-09-17)
PROC: B5181ZA Fluoroscopy of Superior Vena Cava using Low Osmolar Contrast, Guidance (ICD-10-PCS; 2017-09-17)
PROC: 02HV33Z Insertion of Infusion Device into Superior Vena Cava, Percutaneous Approach (ICD-10-PCS; 2017-10-01)
DX: T81.32XA Disruption of internal operation (surgical) wound, not elsewhere classified, initial encounter (principal); N17.0 Acute kidney failure with tubular necrosis; J96.01 Acute respiratory failure with hypoxia; D68.9 Coagulation defect, unspecified; M86.8X7 Other osteomyelitis, ankle and foot; I89.8 Other specified noninfective disorders of lymphatic vessels and lymph nodes; I25.10 Atherosclerotic heart disease of native coronary artery without angina pectoris; I48.2 Chronic atrial fibrillation; E78.5 Hyperlipidemia, unspecified; L97.519 Non-pressure chronic ulcer of other part of right foot with unspecified severity; E11.621 Type 2 diabetes mellitus with foot ulcer; D64.9 Anemia, unspecified; E11.69 Type 2 diabetes mellitus with other specified complication; K21.9 Gastro-esophageal reflux disease without esophagitis; E11.51 Type 2 diabetes mellitus with diabetic peripheral angiopathy without gangrene; Z79.4 Long term (current) use of insulin; Z72.89 Other problems related to lifestyle; Z85.46 Personal history of malignant neoplasm of prostate; I25.2 Old myocardial infarction; Z79.899 Other long term (current) drug therapy; Z95.5 Presence of coronary angioplasty implant and graft; Z95.2 Presence of prosthetic heart valve
CPT/HCPCS: 36415; 36569; 71046; 77001; 78315; 80048; 82962; 85014; 85018; 85025; 85027; 85520; 85610; 85730; 86140; 86850; 86900; 86901; 86920; 87040; 87076; 87116; 87186; 88300; 88302; 93970; 94640; 94760; 96372; A4649; A6021; A6250; A9503; C1751; C1757; C1769; G8978-GP; G8979-GP; J0330; J0690; J0692; J1100; J1170; J1644; J1650; J1815; J1956; J2001; J2250; J2270; J2370; J2405; J2704; J3010; J3490; J7030; J7040; J7050; P9016